=== PATIENT | female | born 1955 | race Caucasian/White ===

== ENCOUNTER 2016-08-28 23:34 | Inpatient (IN) | payer MEDICARE ==
[2016-08-29 01:16] LABS: ABSOLUTE BASOPHILS # (AUTO) 0.1 10^3/uL (0.0-0.2); ABSOLUTE EOSINOPHILS # (AUTO) 0.2 10^3/uL (0.0-0.6); ABSOLUTE LYMPHOCYTES (AUTO) 1.2 10^3/uL (0.5-4.7); ABSOLUTE MONOCYTES (AUTO) 0.9 10^3/uL (0.1-1.4); BASOPHILS % (AUTO) 0.6 % (0-2); EOSINOPHILS % (AUTO) 1.9 % (0-6); HEMATOCRIT 34.5 % (36.0-47.0); HEMOGLOBIN 11.8 g/dL (12.0-15.5); HGB HCT DIFFERENCE 0.9; LYMPHOCYTES % (AUTO) 9.6 % (13-45); MEAN CORPUSCULAR HEMOGLOBIN 29.4 pg (27.0-33.4); MEAN CORPUSCULAR HGB CONC 34.1 g/dL (32.0-36.0); MEAN CORPUSCULAR VOLUME 86 fl (80-97); MONOCYTES % (AUTO) 7.4 % (3-13); RED BLOOD COUNT 4.01 10^6/uL (3.72-5.28); RED CELL DISTRIBUTION WIDTH 14.3 % (11.5-14.0); SEGMENTED NEUTROPHILS % (AUTO) 80.5 % (42-78); WHITE BLOOD COUNT 12.4 10^3/uL (4.0-10.5)
[2016-08-29 01:20] LABS: PROTHROMBIN TIME 12.2 SEC (11.4-15.4)
[2016-08-29 01:43] LABS: ALANINE AMINOTRANSFERASE 16 U/L (9-52); ALKALINE PHOSPHATASE 89 U/L (38-126); ANION GAP 10 (5-19); ASPARTATE AMINO TRANSFERASE 18 U/L (14-36); BILIRUBIN,TOTAL 0.9 mg/dL (0.2-1.3); BLOOD UREA NITROGEN 79 mg/dL (7-20); CARBON DIOXIDE 31 mmol/L (22-30); CHLORIDE 94 mmol/L (98-107); CREATININE RESULT 1.78 mg/dL (0.52-1.25); GLUCOSE 201 mg/dL (75-110); POTASSIUM 4.6 mmol/L (3.6-5.0); SODIUM 135.3 mmol/L (137-145); TOTAL PROTEIN 7.4 g/dL (6.3-8.2)
--- NOTE | 2016-08-29 01:58 | ER Document Report ---
ED Extremity Problem, Lower - General Time seen by provider: 23:45 Mode of Arrival: Medic Information source: Patient, Relative TRAVEL OUTSIDE OF THE [place] IN LAST 30 DAYS: No - HPI Patient complains to provider of: Injury, Swelling Location: Ankle - right, Foot - right Occurred: This evening Where: Home, Indoors Onset/Duration: Sudden Context: Barefoot. denies: Fell Recent injury: Yes <WILBERT US - Last Filed: 08/29/16 03:00> <MARGUERITE RIVER - Last Filed: 08/29/16 05:16> - General Stated Complaint: RIGHT FOOT PAIN Notes: Patient is a 60 year old female presenting to the emergency department complaining of a right ankle deformity. Patient states she was walking at home when her right leg suddenly felt like it was dragging. Patient denies falling or tripping. Patient's daughters had a picture of the deformity on their cellular device. Patient's ankle at the time of exam does not appear as deformed as it did in the photograph. Patient has a history of neuropathy, diabetes mellitus, CHF, pulmonary hypertension, stage III colon cancer, and a hernia. Patient states that she is not a good candidate for surgery due to her medical history. Patient's PCP is Dr. Joyce and states that she saw him earlier today. (WILBERT US) - Related Data Allergies/Adverse Reactions: No Known Allergies Allergy (Unverified 08/29/16 04:39) Home Medications: Current Home Medications Albuterol Sulfate [Proair HFA Inhalation Aerosol 8.5 gm MDI] 2 puff IN DAILY 08/03 [History] Amlodipine Besylate [Amlodipine Besylate] 5 mg PO DAILY 08/29/16 [History] Aspirin [Aspirin EC] 81 mg PO DAILY 08/29/16 [History] Budesonide/Formoterol Fumarate [Symbicort HFA 80-4.5 mcg Inhaler 6.9 gm] 1 puff IN DAILY PRN 08/29/16 [History] Cetirizine HCl [Zyrtec 10 mg Tablet] 10 mg PO DAILY PRN 08/29/16 [History] Furosemide [Furosemide] 80 mg PO DAILY 08/29/16 [History] Glipizide [Glipizide] 5 mg PO DAILY 08/29/16 [History] Insulin Glargine,Hum.rec.anlog [Lantus Insulin 100 Unit/1 ml 10 ml] 5 units SQ DAILY 08/29/16 [History] Insulin Glargine,Hum.rec.anlog [Lantus Insulin 100 Unit/1 ml 10 ml] 60 mg SQ HSP 08/29/16 [History] Iron Fum & P/FA/Vit B & C No.9 [Integra Plus Capsule] 1 cap PO DAILY 08/29/16 [ History] Metoprolol Succinate 50 mg PO DAILY 08/29/16 [History] Simvastatin [Simvastatin] 10 mg PO DAILY 08/29/16 [History] Past Medical History - General Information source: Patient - Social History Smoking Status: Unknown if Ever Smoked Family History: None - Past Medical History Cardiac Medical History: Reports: Hx Congestive Heart Failure, Hx Hypertension EENT Medical History: Reports: Eyes - legally blind bilaterally Endocrine Medical History: Reports: Hx Diabetes Mellitus Type 2, Hx Hypothyroidism Renal/ Medical History: Reports: Hx End Stage Renal Disease Malignancy Medical History: Reports: Other - stage III colon cancer GI Medical History: Reports: Other - ventral hernia Musculoskeltal Medical History: Reports Other - neuropathy <WILBERT US - Last Filed: 08/29/16 03:00> Review of Systems - Review of Systems Constitutional: No symptoms reported EENT: No symptoms reported Cardiovascular: No symptoms reported Respiratory: No symptoms reported Gastrointestinal: No symptoms reported Genitourinary: No symptoms reported Female Genitourinary: No symptoms reported Musculoskeletal: See HPI Skin: No symptoms reported Hematologic/Lymphatic: No symptoms reported Neurological/Psychological: No symptoms reported -: Yes All other systems reviewed and negative <WILBERT US - Last Filed: 08/29/16 03:00> Physical Exam - Vital signs Interpretation: Normal - General General appearance: Appears well, Alert In distress: Mild - HEENT Head: Normocephalic, Atraumatic Eyes: Normal Pupils: PERRL Mucous membranes: Normal - Respiratory Respiratory status: No respiratory distress - Abdominal Inspection: Morbidly Obese, Other - ventral hernia Distension: No distension Bowel sounds: Normal Tenderness: Nontender Organomegaly: No organomegaly - Back Back: Normal, Nontender - Extremities General upper extremity: Normal inspection, Normal ROM, Normal strength, Other General lower extremity: Other - no deformity to the left foot/ankle, 2+ pedis pulses bilaterally, able to wiggle toes, pain with ROM of ankle, able to bend knee, good ROM - Neurological Neuro grossly intact: Yes Cognition: Normal Orientation: AAOx4 Marian Coma Scale Eye Opening: Spontaneous Marian Coma Scale Verbal: Oriented Marian Coma Scale Motor: Obeys Commands Marian Coma Scale Total: 15 Speech: Normal Sensory: Other - sensation to light touch is intact - Psychological Associated symptoms: Normal affect, Normal mood - Skin Skin Temperature: Warm Skin Moisture: Dry <WILBERT US - Last Filed: 08/29/16 03:00> Course - Laboratory Result Diagrams: 08/29/16 01:04 08/29/16 01:04 - Consults Dr. Joyce Time consulted: 02:00 [place] Time consulted: 02:03 [facility] Time consulted: 02:35 Dr. Dowell Time consulted: 02:53 <WILBERT US - Last Filed: 08/29/16 03:00> - Laboratory Result Diagrams: 08/29/16 01:04 08/29/16 01:04 <MARGUERITE RIVER - Last Filed: 08/29/16 05:16> - Re-evaluation Re-evalutation: 08/29/16 Patient is a 60-year-old female with history of pulmonary hypertension, congestive heart failure, oxygen dependent comes in complaining of right ankle pain. Patient has a trimalleolar fracture. This is discussed with the patient' s family who stated they would like the patient transfer to tertiary care facility. Both [facility] and [facility] were contacted. They did not want to accept the patient for transfer until orthopedics is able to evaluate the patient. Explained that the patient is a poor surgical candidate and would likely require anesthesia at a higher level of care. Stated that after being evaluated by orthopedics and anesthesia, would consider accepting patient for transfer. This is been discussed with the patient's family. Patient will be admitted to her primary care doctor with orthopedic consult. Patient has been splinted. Patient has been given Dilaudid for pain although she has not had much in the emergency department. Stable time of admission. (MARGUERITE RIVER) - Vital Signs Vital signs: Temp Pulse Resp BP Pulse Ox 98.3 F 61 16 138/58 H 94 08/28/16 23:48 08/28/16 23:48 08/29/16 05:01 08/29/16 05:01 08/29/16 05:01 (MARGU[place] R[place]) - Laboratory Laboratory results interpreted by wy: 08/29/16 08/29/16 01:04 01:04 WBC 12.4 H Hgb 11.8 L Hct 34.5 L RDW 14.3 H Seg Neutrophils % 80.5 H Lymphocytes % 9.6 L Absolute Neutrophils 10.0 H Sodium 135.3 L Chloride 94 L Carbon Dioxide 31 H BUN 79 H Creatinine 1.78 H Est GFR ( Amer) 35 L Est GFR (Non-Af Amer) 29 L Glucose 201 H (WILBERT US) (MARGUERITE RIVER) - Consults Dr. Joyce Reason for consultation: 08/29/16 02:00 Consult for recommended care for patient. 08/29/16 02:[address] Joyce about the calls to multiple transfer centers and the outcomes. Patient will be admitted for orthopedics to see her in the morning. (WILBERT US) [place] Reason for consultation: 08/29/16 02:03 Consult for possible transfer, [facility] recommends that the patient be admitted and be seen by [facility] orthopedics first before transfer. (WILBERT US) [facility] Reason for consultation: 08/29/16 02:35 Called for possible transfer. Orthopedics will not discuss patient until patient is evaluated by [facility] orthopedics. 08/29/16 02:[address] Cobb to update on patient's situation and the consult with [facility] orthopedics. Patient will need surgery at a tertiary care center. Patient will be seen by orthopedics in the morning. (WILBERT US) Dr. Dowell Reason for consultation: 08/29/16 02:[address] Dowell about patient. Patient will require a surgery at a tertiary care center. (WILBERT US) Critical Care Note - Critical Care Note Total time excluding time spent on procedures (mins): 60 - evaluation and management of ankle deformity with multiple re-evaluations, coordination with tertiary care center, coordination with specialist, coordination of admission, counseling of patient and family <MARGUERITE RIVER - Last Filed: 08/29/16 05:16> Discharge <WILBERT US - Last Filed: 08/29/16 03:00> - Discharge Admitting Provider: [facility] Unit Admitted: Telemetry <MARGUERITE RIVER - Last Filed: 08/29/16 05:16> - Discharge Clinical Impression: Trimalleolar fracture of right ankle Qualifiers: Encounter type: initial encounter Fracture type: closed Qualified Code(s): S82.851A - Displaced trimalleolar fracture of right lower leg, initial encounter for closed fracture Condition: Stable Disposition: ADMITTED INPATIENT Scribe Attestation: 08/29/16 05:16 I personally performed the services described in the documentation, reviewed and edited the documentation which was dictated to the scribe in my presence, and it accurately records my words and actions. (MARGUERITE RIVER) Scribe Documentation <WILBERT US - Last Filed: 08/29/16 03:00> <MARGUERITE RIVER - Last Filed: 08/29/16 05:16> - Scribe Written by Scribe:: LORIN CHEUNG 08/29/16 [id number] Acting as scribe for: Dr. River (WILBERT US) (MARGUERITE RIVER)
[2016-08-29] MEDS ORDERED: HYDROMORPHONE HCL INJ/PF 2 MG/ML AMPULE ONE (02:34)
[2016-08-29] MEDS ORDERED: HYDROMORPHONE HCL INJ/PF 2 MG/ML AMPULE IV ONE (02:37)
--- NOTE | 2016-08-29 07:55 | PDOC CONSULTATION ---
History of Present Illness Admission Date/PCP: 08/29/16 04:53 Patient complains of: left ankle pain History of Present Illness: JOJO BACK is a 60 year old female complaining of right ankle pain She states she felt a pop in her ankle yesterday when ambulating and ultimately had significant pain and fell onto her right side. She denies any previous ankle discomfort or pain prior to this episode. She does admit to neuropathy. Patient has been unable to ambulating secondary to her most recent episode. Pain 4/5. Describes as a sharp stabbing pain. Past Medical History Cardiac Medical History: Reports: Congestive Heart Failure, Hypertension EENT Medical History: Reports: Eyes - legally blind bilaterally Endocrine Medical History: Reports: Diabetes Mellitus Type 2, Hypothyroidism Renal/ Medical History: Reports: End Stage Renal Disease Malignancy Medical History: Reports: Other - stage III colon cancer GI Medical History: Reports: Other - ventral hernia Musculoskeltal Medical History: Reports: Other - neuropathy Social History Smoking Status: Unknown if Ever Smoked - Advance Directive Resuscitation Status: Full Code Family History Family History: None Parental Family History Reviewed: No Children Family History Reviewed: No Sibling(s) Family History Reviewed.: No Medication/Allergy Home Medications: Albuterol Sulfate [Proair HFA Inhalation Aerosol 8.5 gm MDI] 2 puff IN DAILY 08/03 Amlodipine Besylate [Amlodipine Besylate] 5 mg PO DAILY 08/29/16 Aspirin [Aspirin EC] 81 mg PO DAILY 08/29/16 Budesonide/Formoterol Fumarate [Symbicort HFA 80-4.5 mcg Inhaler 6.9 gm] 1 puff IN DAILY PRN 08/29/16 Cetirizine HCl [Zyrtec 10 mg Tablet] 10 mg PO DAILY PRN 08/29/16 Furosemide [Furosemide] 80 mg PO DAILY 08/29/16 Glipizide [Glipizide] 5 mg PO DAILY 08/29/16 Insulin Glargine,Hum.rec.anlog [Lantus Insulin 100 Unit/1 ml 10 ml] 5 units SQ DAILY 08/29/16 Insulin Glargine,Hum.rec.anlog [Lantus Insulin 100 Unit/1 ml 10 ml] 60 mg SQ HSP 08/29/16 Iron Fum & P/FA/Vit B & C No.9 [Integra Plus Capsule] 1 cap PO DAILY 08/29/16 Metoprolol Succinate 50 mg PO DAILY 08/29/16 Simvastatin [Simvastatin] 10 mg PO DAILY 08/29/16 Allergies/Adverse Reactions: No Known Allergies Allergy (Unverified 08/29/16 04:39) Review of Systems Constitutional: ABSENT: chills, fever(s), headache(s), weight gain, weight loss Eyes: ABSENT: visual disturbances Ears: ABSENT: hearing changes Cardiovascular: ABSENT: chest pain, dyspnea on exertion, edema, orthropnea, palpitations Respiratory: PRESENT: other - Patient requires chronic oxygen.. ABSENT: hemoptysis Gastrointestinal: ABSENT: abdominal pain, constipation, diarrhea, hematemesis, hematochezia, nausea, vomiting Genitourinary: ABSENT: dysuria, hematuria Musculoskeletal: PRESENT: as per HPI Integumentary: ABSENT: rash, wounds Neurological: ABSENT: abnormal gait, abnormal speech, confusion, dizziness, focal weakness, syncope Psychiatric: ABSENT: anxiety, depression, homidical ideation, suicidal ideation Endocrine: ABSENT: cold intolerance, heat intolerance, menstrual abnormalities, polydipsia, polyuria Hematologic/Lymphatic: ABSENT: easy bleeding, easy bruising, lymphadenopathy Physical Exam Vital Signs: Temp Pulse Resp BP Pulse Ox 98.3 F 64 16 105/48 L 93 08/28/16 23:48 08/29/16 05:10 08/29/16 06:01 08/29/16 06:01 08/29/16 06:01 General appearance: PRESENT: no acute distress, cooperative, morbidly obese Head exam: PRESENT: atraumatic, normocephalic Eye exam: PRESENT: EOMI, PERRLA Mouth exam: PRESENT: moist Neck exam: PRESENT: full ROM Respiratory exam: PRESENT: unlabored Cardiovascular exam: PRESENT: RRR Pulses: PRESENT: +1 pedal pulses bilateral GI/Abdominal exam: PRESENT: soft, other - Obese Musculoskeletal exam: PRESENT: other - Right ankle: Splint clean/dry/intact. Intact flexion extension of the toes. Cap refill less than 2 seconds. No pain with passive stretch. Decreased sensation secondary to chronic neuropathy. Neurological exam: PRESENT: alert, awake, oriented to person, oriented to place , oriented to time, oriented to situation Psychiatric exam: PRESENT: normal mood Results Impressions: Ankle X-Ray 08/28/16 23:35 IMPRESSION: Tri malleolar fracture with posteromedial angulation. Distal fibular fracture appears to be healing. Osteopenia. Foot X-Ray 08/28/16 23:35 IMPRESSION: No acute fracture of the right foot. Status: Image reviewed by me - I have reviewed patient's radiographs which demonstrate a trimalleolar ankle fracture with medial displacement and posterior subluxation. Assessment & Plan - Diagnosis (1) Trimalleolar fracture of right ankle Qualifiers: Encounter type: initial encounter Fracture type: closed Qualified Code(s): S82.851A - Displaced trimalleolar fracture of right lower leg, initial encounter for closed fracture Is this a current diagnosis for this admission?: YesPlan: Patient has a fairly complicated history of interstitial lung disease, pulmonary hypertension and has been told in the past she is a poor surgical candidate. She does require operative intervention given the amount of displacement and angulation of her ankle fracture. Given her high risk of anesthesia she would likely be better served at a tertiary care center. We will discuss case with anesthesia and Dr. Joyce and make final determinations. Meantime patient will maintain nonweightbearing and elevation.
[2016-08-29] MEDS ORDERED: DEXTROSE 40% GEL 15 GM TUBE PO PRN ×2 (08:50)
[2016-08-29] MEDS ORDERED: DEXTROSE 50%-WATER 25 GM/50 ML DISP.SYRIN IV PRN ×2 (08:50)
[2016-08-29] MEDS ORDERED: GLUCAGON,HUMAN RECOMB 1 MG INJ IM PRN (08:50)
[2016-08-29] MEDS ORDERED: INSULIN GLARGINE,HUM.REC.ANLOG 1,000 UNIT/10 ML UNIT SUBCUT SCH ×4 (09:00→22:00)
[2016-08-29] MEDS ORDERED: GLIPIZIDE 5 MG TABLET PO ONE (09:15)
[2016-08-29] MEDS ORDERED: LANSOPRAZOLE 30 MG TAB.RAP.DR PO ONE (09:15)
[2016-08-29] MEDS ORDERED: AMLODIPINE BESYLATE 5 MG TABLET PO SCH (10:00)
[2016-08-29] MEDS ORDERED: ALBUTEROL SULFATE HFA (90 MCG/PUFF) 200 PUFF/8.5 GM MDI IH PRN (10:00)
[2016-08-29] MEDS ORDERED: METOPROLOL SUCCINATE 50 MG TAB.SR.24H PO SCH (10:00)
[2016-08-29] MEDS ORDERED: [UNRECOGNIZED DRUG - OTHER] PO SCH (10:00)
[2016-08-29] MEDS ORDERED: IRON FUM PO SCH (10:00)
[2016-08-29] MEDS ORDERED: VIT B PO SCH (10:00)
[2016-08-29] MEDS ORDERED: FUROSEMIDE 80 MG TABLET PO SCH (10:00)
[2016-08-29] MEDS ORDERED: ASPIRIN 81 MG TABLET, ENT COATED PO SCH (10:00)
[2016-08-29] MEDS ORDERED: FERROUS SULFATE 325 MG TABLET PO SCH (10:00)
[2016-08-29] MEDS ORDERED: C NO 9 PO SCH (10:00)
[2016-08-29] MEDS: MORPHINE SULFATE 10 MG/ML INJ IV PRN ×2 (10:14→20:06)
[2016-08-29 10:39] LABS: HEMATOCRIT 32.8 % (36.0-47.0); HGB HCT DIFFERENCE 0.2; MEAN CORPUSCULAR HEMOGLOBIN 29.3 pg (27.0-33.4); MEAN CORPUSCULAR HGB CONC 33.6 g/dL (32.0-36.0); MEAN CORPUSCULAR VOLUME 87 fl (80-97); RED BLOOD COUNT 3.76 10^6/uL (3.72-5.28); RED CELL DISTRIBUTION WIDTH 14.5 % (11.5-14.0); WHITE BLOOD COUNT 10.1 10^3/uL (4.0-10.5)
[2016-08-29 10:45] LABS: PROTHROMBIN TIME 12.6 SEC (11.4-15.4)
[2016-08-29 10:46] LABS: PARTIAL THROMBOPLASTIN TIME 22.6 SEC (23.5-35.8)
--- NOTE | 2016-08-29 10:57 | PDOC H&P ---
History of Present Illness Admission Date/PCP: 08/29/16 08:43 History of Present Illness: JOJO BACK is a 60 year old female complaining of right ankle pain. Patient reported that upon usage of her toilet commode and ambulating out of the toilet, she felt a pop in her right ankle joint with associated significant pain and subsequently fell onto her right side. She denies any previous ankle discomfort or pain prior to this episode. She does admit to history of charcot joint affecting same joint with neuropathy. Patient has been unable to ambulating secondary to her most recent episode. She described her pain as sharp and rated pain currently at 4/5. She denied any prior trauma or similar event in the past. Past Medical History Cardiac Medical History: Reports: Congestive Heart Failure, Hyperlipidema, Hypertension Pulmonary Medical History: Reports: Other - pulmonary fibrosis (scarring), Pulmonary Hypertension EENT Medical History: Reports: Eyes - legally blind bilaterally Neurological Medical History: Reports: Other - Neuropathy related to her long standing diabetes mellitus type 2 Endocrine Medical History: Reports: Diabetes Mellitus Type 2, Hypothyroidism Renal/ Medical History: Reports: End Stage Renal Disease Malignancy Medical History: Reports: Colorectal Cancer, Other - stage III colon cancer GI Medical History: Reports: Other - large ventral hernia Musculoskeltal Medical History: Reports: Other - Right ankle Charcot joint. Social History Smoking Status: Unknown if Ever Smoked - Advance Directive Resuscitation Status: Full Code Family History Family History: None Parental Family History Reviewed: Yes Children Family History Reviewed: Yes Sibling(s) Family History Reviewed.: Yes Medication/Allergy Home Medications: Albuterol Sulfate [Proair HFA Inhalation Aerosol 8.5 gm MDI] 2 puff IN DAILY 08/03 Amlodipine Besylate [Amlodipine Besylate] 5 mg PO DAILY 08/29/16 Aspirin [Aspirin EC] 81 mg PO DAILY 08/29/16 Budesonide/Formoterol Fumarate [Symbicort HFA 80-4.5 mcg Inhaler 6.9 gm] 1 puff IN DAILY PRN 08/29/16 Cetirizine HCl [Zyrtec 10 mg Tablet] 10 mg PO DAILY PRN 08/29/16 Furosemide [Furosemide] 80 mg PO DAILY 08/29/16 Glipizide [Glipizide] 5 mg PO DAILY 08/29/16 Insulin Glargine,Hum.rec.anlog [Lantus Insulin 100 Unit/1 ml 10 ml] 5 units SQ DAILY 08/29/16 Insulin Glargine,Hum.rec.anlog [Lantus Insulin 100 Unit/1 ml 10 ml] 60 mg SQ HSP 08/29/16 Iron Fum & P/FA/Vit B & C No.9 [Integra Plus Capsule] 1 cap PO DAILY 08/29/16 Metoprolol Succinate 50 mg PO DAILY 08/29/16 Simvastatin [Simvastatin] 10 mg PO DAILY 08/29/16 Allergies/Adverse Reactions: No Known Allergies Allergy (Unverified 08/29/16 04:39) Physical Exam Vital Signs: Temp Pulse Resp BP Pulse Ox 98.3 F 64 16 105/48 L 93 08/28/16 23:48 08/29/16 05:10 08/29/16 06:01 08/29/16 06:01 08/29/16 06:01 General appearance: PRESENT: no acute distress, morbidly obese Head exam: PRESENT: atraumatic, normocephalic Eye exam: PRESENT: conjunctiva pink, EOMI, PERRLA. ABSENT: scleral icterus Ear exam: PRESENT: normal external ear exam Mouth exam: PRESENT: moist, tongue midline Teeth exam: PRESENT: poor dentation Throat exam: ABSENT: post pharyngeal erythema, tonsillar erythema, tonsillar exudate, tonsillogmegaly, other Neck exam: PRESENT: full ROM. ABSENT: carotid bruit, JVD, lymphadenopathy, thyromegaly Respiratory exam: PRESENT: decreased breath sounds - at lung bases. Remain on supplemetal oxygen at 2L/min. ABSENT: accessory muscle use, chest wall tenderness, clear to auscultation jerome, crackles, prolonged expiratory phas, rales, retraction, rhonchi, stridor, symmetrical, tachypnea, unlabored, wheezes , other Cardiovascular exam: PRESENT: RRR. ABSENT: diastolic murmur, rubs, systolic murmur Vascular exam: PRESENT: normal capillary refill, pallor GI/Abdominal exam: PRESENT: hernia - large ventral hernia. ABSENT: ascites, diminished bowel sounds, distended, firm, guarding, hyperactive bowel sounds, hypoactive bowel sounds, mass, Scott's sign, normal bowel sounds, organolmegaly , rebound, rigid, soft, tenderness, other Rectal exam: PRESENT: deferred Musculoskeletal exam: PRESENT: other - Right leg/ankle splint in place. Neurological exam: PRESENT: alert, oriented to person, oriented to place, oriented to time, CN II-XII grossly intact Additional comments: Bedbound at the time of my assessment Psychiatric exam: PRESENT: appropriate affect, normal mood. ABSENT: homicidal ideation, suicidal ideation Results Impressions: Ankle X-Ray 08/28/16 23:35 IMPRESSION: Tri malleolar fracture with posteromedial angulation. Distal fibular fracture appears to be healing. Osteopenia. Foot X-Ray 08/28/16 23:35 IMPRESSION: No acute fracture of the right foot. Status: Image reviewed by me - Trimalleolar posteriorly displaced fracture, distal fibular fracture Assessment & Plan - Diagnosis (1) Morbid obesity Is this a current diagnosis for this admission?: Yes (2) Pulmonary hypertension Is this a current diagnosis for this admission?: Yes (3) Pulmonary fibrosis Is this a current diagnosis for this admission?: Yes (4) Diabetes mellitus type 2 with complications Is this a current diagnosis for this admission?: Yes (5) Ventral hernia without obstruction or gangrene Is this a current diagnosis for this admission?: Yes (7) Trimalleolar fracture of right ankle Qualifiers: Encounter type: initial encounter Fracture type: closed Qualified Code(s): S82.851A - Displaced trimalleolar fracture of right lower leg, initial encounter for closed fracture Is this a current diagnosis for this admission?: Yes (8) Diastolic CHF, chronic Is this a current diagnosis for this admission?: Yes (9) Hyperlipidemia associated with type 2 diabetes mellitus Is this a current diagnosis for this admission?: Yes - Time Time Spent: Greater than 70 Minutes - including care coordination with orthopedic surgeon, transfer coordination with [facility] transfer center Medications reviewed and adjusted accordingly: Yes Anticipated discharge: Tertiary Hospital - currently in coordination with [facility] as per patient and family wish. Anesthesiologist considered patient at high risk due to her comorbidities at our facility. Orthopedic surgeon recommend transfer to tertiary center. - Inpatient Certification Based on my medical assessment, after consideration of the patient's comorbidities, presenting symptoms, or acuity I expect that the services needed warrant INPATIENT care.: Yes I certify that my determination is in accordance with my understanding of Medicare's requirements for reasonable and necessary INPATIENT services [42 CFR 412.3e].: Yes Medical Necessity: Risk of Complication if Not Cared For in Hospital Post Hospital Care: D/C or Transfer Summary - Plan Summary Plan Summary: see admitting physician orders.
[2016-08-29] MEDS: INSULIN LISPRO 100 UNIT/ML 3 ML VIAL SUBCUT PRN ×2 (11:38→17:19)
[2016-08-29] MEDS: INSULIN LISPRO 100 UNIT/ML 3 ML VIAL SUBCUT SCH ×2 (11:38→17:19)
[2016-08-29] MEDS: BUDESONIDE/FORMOTEROL 80-4.5 MCG 60 PUFF/6.9 GM MDI IH SCH ×2 (11:44→22:12)
[2016-08-29] MEDS: OXYCODONE-ACETAMINOPHEN 5-325 MG TABLET PO PRN ×2 (17:33→23:21)
--- NOTE | 2016-08-29 17:55 | PDOC TRANSFER SUMMARY ---
General Admission Date/PCP: 08/29/16 08:43 Accepting Facility: [facility] Accepting Physician: Dr. Grey Resuscitation Status: Full Code - Transfer Diagnosis (1) Morbid obesity Current Visit: Yes (2) Pulmonary hypertension Current Visit: Yes (3) Pulmonary fibrosis Current Visit: Yes (4) Diabetes mellitus type 2 with complications Current Visit: Yes (5) Ventral hernia without obstruction or gangrene Current Visit: Yes (6) Charcot's joint arthropathy in type 2 diabetes mellitus Current Visit: Yes (7) Trimalleolar fracture of right ankle Current Visit: Yes (8) Diastolic CHF, chronic Current Visit: Yes (9) Hyperlipidemia associated with type 2 diabetes mellitus Current Visit: Yes - Transfer Medications Home Medications: Albuterol Sulfate [Proair HFA Inhalation Aerosol 8.5 gm MDI] 2 puff IN DAILY 08/03 Amlodipine Besylate [Amlodipine Besylate] 5 mg PO DAILY 08/29/16 Aspirin [Aspirin EC] 81 mg PO DAILY 08/29/16 Budesonide/Formoterol Fumarate [Symbicort HFA 80-4.5 mcg Inhaler 6.9 gm] 1 puff IN DAILY 08/29/16 Cetirizine HCl [Zyrtec 10 mg Tablet] 10 mg PO DAILYP PRN 08/29/16 Furosemide [Furosemide] 80 mg PO DAILY 08/29/16 Glipizide [Glipizide] 5 mg PO DAILY 08/29/16 Insulin Glargine,Hum.rec.anlog [Lantus Insulin 100 Unit/1 ml 10 ml] 5 units SQ DAILY 08/29/16 Insulin Glargine,Hum.rec.anlog [Lantus Insulin 100 Unit/1 ml 10 ml] 60 units SQ QHS 08/29/16 Iron Fum & P/FA/Vit B & C No.9 [Integra Plus Capsule] 1 cap PO DAILY 08/29/16 Metoprolol Succinate 50 mg PO DAILY 08/29/16 Simvastatin [Simvastatin] 10 mg PO DAILY 08/29/16 Transfer Medications: Current Medications Albuterol (Proair Hfa Inhalation Aerosol 8.5 Gm Mdi) 2 puff IH Q4HP PRN PRN Reason: SHORTNESS OF BREATH Stop: 09/28/16 09:59 Amlodipine Besylate (Norvasc 5 Mg Tablet) 5 mg PO DAILY [facility] Stop: 09/28/16 09:59 Last Admin: 08/29/16 11:48 Dose: 5 mg Aspirin (Ecotrin 81 Mg Ec Tablet) 81 mg PO DAILY [facility] Stop: 09/28/16 09:59 Last Admin: 08/29/16 11:49 Dose: 81 mg Budesonide/Formoterol Fumarate (Symbicort Hfa 80-4.5 Mcg Inhaler 6.9 Gm) 2 puff IH Q12 [facility] Stop: 09/28/16 09:59 Last Admin: 08/29/16 11:44 Dose: 2 puff Dextrose (Dextrose Inj 50% Syringe (25 Gm/50 Ml)) 12.5 gm IV PRN PRN; Protocol PRN Reason: FOR BG 50-69 IN ALERT PATIENT Stop: 09/28/16 08:49 Dextrose (Dextrose Inj 50% Syringe (25 Gm/50 Ml)) 25 gm IV PRN PRN PRN Reason: Protocol Stop: 09/28/16 08:49 Enoxaparin Sodium (Lovenox Inj 40 Mg/0.4 Ml Disp.Syrin) 40 mg SUBCUT QAM [facility] Stop: 09/29/16 07:59 Ferrous Sulfate (Feosol 325 Mg Tablet) 325 mg PO DAILY [facility] Stop: 09/28/16 09:59 Last Admin: 08/29/16 11:52 Dose: Not Given Furosemide (Lasix 80 Mg Tablet) 80 mg PO DAILY [facility] Stop: 09/28/16 09:59 Last Admin: 08/29/16 11:45 Dose: 80 mg Glipizide (Glucotrol 5 Mg Tablet) 5 mg PO QAM [facility] Stop: 09/29/16 07:59 Glucagon (Glucagen Inj 1 Mg Vial) 1 mg IM PRN PRN; Protocol PRN Reason: Evaluate for BG < 70 Stop: 09/28/16 08:49 Glucose (Glutose 40% Gel 15 Gm Tube) 15 gm PO PRN PRN; Protocol PRN Reason: FOR BG 50-69 IN ALERT PATIENT Stop: 09/28/16 08:49 Glucose (Glutose 40% Gel 15 Gm Tube) 30 gm PO PRN PRN; Protocol PRN Reason: FOR BG < 50 IN ALERT PATIENT Stop: 09/28/16 08:49 Insulin Glargine (Lantus Insulin 100 Unit/1 Ml 10 Ml) 60 unit SUBCUT QHS [facility] Stop: 09/28/16 21:59 Insulin Human Lispro (Humalog Insulin 100 Unit/1 Ml 3 Ml Vial) 0 - 12 unit SUBCUT ACHSP PRN PRN Reason: Protocol Stop: 09/28/16 08:49 Last Admin: 08/29/16 17:19 Dose: 4 unit Insulin Human Lispro (Humalog Insulin 100 Unit/1 Ml 3 Ml Vial) 5 unit SUBCUT AC [facility] Stop: 09/28/16 10:59 Last Admin: 08/29/16 17:19 Dose: 5 unit Lansoprazole (Prevacid 30 Mg Odt Tablet) 30 mg PO Q6AM [facility] Stop: 09/29/16 05:59 Metoprolol Succinate (Toprol Xl 50 Mg Tab.Sr) 50 mg PO DAILY [facility] Stop: 09/28/16 09:59 Last Admin: 08/29/16 11:46 Dose: 50 mg Morphine Sulfate (Morphine 10 Mg/Ml Inj) 2 mg IV Q4HP PRN PRN Reason: SEVERE PAIN Stop: 09/05/16 07:54 Last Admin: 08/29/16 10:14 Dose: 2 mg Oxycodone/Acetaminophen (Percocet 5-325 Mg Tablet) 2 tab PO Q6HP PRN PRN Reason: MILD PAIN Stop: 09/05/16 07:54 Last Admin: 08/29/16 17:33 Dose: 2 tab Simvastatin (Zocor 10 Mg Tablet) 10 mg PO QHS [facility] Stop: 09/28/16 21:59 - Allergies Allergies/Adverse Reactions: No Known Allergies Allergy (Unverified 08/29/16 04:39) - Diet/Activity Discharge Diet: Cardiac, Diabetic Discharge Activity: Slowly Increase Activity - as instructed upon discharge Hospital Course Hospital Course: Patient was admitted for right ankle tri malleolar posteriorly displaced fracture as confirmed by her right ankle X ray. There was right distal fibular fracture character on the same X ray with some degree of healing process. She was seen in consultation by orthopedic surgeon, Dr. Dowell, and after consulting with anesthesiologist, deem patient high risk due to her comorbidities at this facility. Family and patient expressed wish for transfer to [facility] for tertiary care plan. I maintain her on pain management as listed on her transfer medication, DVT prophylaxis, PUD prophylaxis and right ankle immobilizer device. Patient remain on her preadmission medications. She will be transferred to [facility] whenever bed is made available. During my subsequent rounding on the patient this evening there was suggestion of cloudy and mal odor urine by the nursing staff. We will obtain urinalysis with culture and manage as indicated. Physical Exam Vital Signs: Temp Pulse Resp BP Pulse Ox 98.3 F 64 16 105/48 L 93 08/28/16 23:48 08/29/16 05:10 08/29/16 06:01 08/29/16 06:01 08/29/16 06:01 General appearance: PRESENT: no acute distress, morbidly obese Head exam: PRESENT: atraumatic, normocephalic Eye exam: PRESENT: conjunctiva pink, EOMI, PERRLA. ABSENT: scleral icterus Ear exam: PRESENT: normal external ear exam Mouth exam: PRESENT: moist, tongue midline Neck exam: ABSENT: carotid bruit, JVD, lymphadenopathy, thyromegaly Respiratory exam: PRESENT: clear to auscultation jerome. ABSENT: rales, rhonchi, wheezes Cardiovascular exam: PRESENT: RRR. ABSENT: diastolic murmur, rubs, systolic murmur GI/Abdominal exam: PRESENT: hernia. ABSENT: ascites, diminished bowel sounds, distended, firm, guarding, hyperactive bowel sounds, hypoactive bowel sounds, mass, Scott's sign, normal bowel sounds, organolmegaly, rebound, rigid, soft, tenderness, other Musculoskeletal exam: PRESENT: deformity - due to arthritis involving multiple joints and right ankle charcot character, dislocation - right ankle joint Neurological exam: PRESENT: alert, awake, oriented to person, oriented to place , oriented to time, oriented to situation, CN II-XII grossly intact. ABSENT: motor sensory deficit Psychiatric exam: PRESENT: appropriate affect, normal mood. ABSENT: homicidal ideation, suicidal ideation Skin exam: PRESENT: dry, intact, warm. ABSENT: cyanosis, rash Results Laboratory Results: 08/29/16 10:19 08/29/16 10:19 08/29/16 08/29/16 10:19 10:19 WBC 10.1 RBC 3.76 Hgb 11.0 L Hct 32.8 L MCV 87 MCH 29.3 MCHC 33.6 RDW 14.5 H Plt Count 196 Creatinine 1.90 H Est GFR ( Amer) 33 L Est GFR (Non-Af Amer) 27 L Impressions: Ankle X-Ray 08/28/16 23:35 IMPRESSION: Tri malleolar fracture with posteromedial angulation. Distal fibular fracture appears to be healing. Osteopenia. Foot X-Ray 08/28/16 23:35 IMPRESSION: No acute fracture of the right foot. Plan Discharge Plan: Transfer to [facility] for surgical orthopedic intervention. Time Spent: Greater than 30 Minutes
[2016-08-29] MEDS ORDERED: INFLUENZA ADLT QUAD (36MOS+) 2016-17 VAC 0.5 ML SYR IM PRN (18:42)
[2016-08-29 20:49] LABS: APPEARANCE,URINE TURBID; BILIRUBIN,URINE NEGATIVE (NEGATIVE); GLUCOSE, URINE 50 mg/dL (NEGATIVE); KETONES,URINE NEGATIVE (NEGATIVE); LEUKOCYTE ESTERASE,URINE LARGE (NEGATIVE); NITRITE,URINE NEGATIVE (NEGATIVE); PROTEIN,URINE 30 mg/dL (NEGATIVE); UROBILINOGEN,URINE NEGATIVE mg/dL (<2.0)
[2016-08-29] MEDS ORDERED: SIMVASTATIN 10 MG TABLET PO SCH (22:00)
[2016-08-29] MEDS ORDERED: CEFTRIAXONE 1 GM/D5W RTU 1 GM/50 ML RTUPB IV ONE (23:00)
[2016-08-30 00:10] VITALS: BP 123/53
[2016-08-30] MEDS ORDERED: LANSOPRAZOLE 30 MG TAB.RAP.DR PO SCH (06:00)
[2016-08-30] MEDS ORDERED: ENOXAPARIN SODIUM INJ 40 MG/0.4 ML DISP.SYRIN SUBCUT SCH (08:00)
[2016-08-30] MEDS ORDERED: GLIPIZIDE 5 MG TABLET PO SCH (08:00)
[2016-08-30] MEDS ORDERED: CEFTRIAXONE 1 GM/D5W RTU 1 GM/50 ML RTUPB IV SCH (10:00)
== END 2016-08-30 00:55 | disposition short-term general hospital (02) | DRG 562 ==
LOC: ER 23:34 → EH 08-29 04:53 → UNDOADMIN 08-29 04:53 → 4N 08-29 06:55 → EH 08-29 06:55 → 4N 08-29 08:43
PROVIDERS: ADMIT Internal Medicine Geriatric Medicine; ATTEND Internal Medicine Geriatric Medicine
DX: S82.851A Displaced trimalleolar fracture of right lower leg, initial encounter for closed fracture (principal); N18.6 End stage renal disease; C18.9 Malignant neoplasm of colon, unspecified; I50.32 Chronic diastolic (congestive) heart failure; I13.2 Hypertensive heart and chronic kidney disease with heart failure and with stage 5 chronic kidney disease, or end stage renal disease; Z68.43 Body mass index [BMI] 50.0-59.9, adult; E11.610 Type 2 diabetes mellitus with diabetic neuropathic arthropathy; E11.22 Type 2 diabetes mellitus with diabetic chronic kidney disease; J84.10 Pulmonary fibrosis, unspecified; I27.2 Other secondary pulmonary hypertension; E03.9 Hypothyroidism, unspecified; E78.5 Hyperlipidemia, unspecified; K43.9 Ventral hernia without obstruction or gangrene; H54.8 Legal blindness, as defined in USA; E66.01 Morbid (severe) obesity due to excess calories; X58.XXXA Exposure to other specified factors, initial encounter; Y93.01 Activity, walking, marching and hiking; Y92.019 Unspecified place in single-family (private) house as the place of occurrence of the external cause; Z99.81 Dependence on supplemental oxygen; Z79.84 Long term (current) use of oral hypoglycemic drugs; Z79.4 Long term (current) use of insulin; Z79.82 Long term (current) use of aspirin; Z75.1 Person awaiting admission to adequate facility elsewhere; Z28.89 Immunization not carried out for other reason
CPT/HCPCS: 36415; 80053; 81001; 82565; 82962; 85025; 85027; 85610; 85730; 87086; 87088; 87186; 96374; 99291; J0696; J1170; J1815; J2270; J3490

== ENCOUNTER 2016-10-09 13:40 | Emergency (ER) | payer MEDICARE ==
[2016-10-09] MEDS ORDERED: FLUCONAZOLE 100 MG TABLET PO ONE (15:21)
--- NOTE | 2016-10-09 15:42 | ER Document Report ---
ED General - General Time seen by provider: 15:00 Mode of Arrival: Wheelchair Information source: Patient TRAVEL OUTSIDE OF THE [place] IN LAST 30 DAYS: No - HPI Patient complains to provider of: Renal complications and Constipation Associated symptoms: Other - see above <HIPOLITO MILLER - Last Filed: 10/09/16 23:57> <TERESA BRYANT - Last Filed: 10/15/16 14:18> - General Chief Complaint: Urinary Problem Stated Complaint: URINARY ISSUES Notes: 61 year old female with history of a right trimalleolar fracture (3 weeks ago), chronic renal failure, and right charcot joint presents to the ED complaining of renal complications and constipation secondary to narcotic use. Patient's states that he has been regulating how many narcotics the patient gets a day (down to 1 a day). Patient was on a lot of pain medication after the surgery. Patient had a right ankle surgery at [facility] secondary to the fracture and developed a yeast infection in her bladder. The states that the physician at [facility] was unable to treat the infection because the medication would exacerbate her hypertension. also reports that they are arranging transport for the patient to go to [facility] for follow up appointments. Patient's primary care provider is Dr. Mike. (HIPOLITO MILLER) - Related Data Allergies/Adverse Reactions: spironolactone Adverse Reaction (Verified 08/29/16 18:30) Past Medical History - General Information source: Patient - Social History Smoking Status: Unknown if Ever Smoked Family History: None - Past Medical History Cardiac Medical History: Reports: Hx Congestive Heart Failure, Hx Hypercholesterolemia, Hx Hypertension Endocrine Medical History: Reports: Hx Diabetes Mellitus Type 2, Hx Hypothyroidism Renal/ Medical History: Reports: Hx End Stage Renal Disease Malignancy Medical History: Reports: Hx Colorectal Cancer Psychiatric Medical History: Reports: Hx Depression Past Surgical History: Reports: Hx Orthopedic Surgery - right ankle surgery secondary to trimalleolar fracture 09/2016 - Immunizations Hx Pneumococcal Vaccination: 08/18/12 <HIPOLITO MILLER - Last Filed: 10/09/16 23:57> Review of Systems - Review of Systems Constitutional: No symptoms reported EENT: No symptoms reported Cardiovascular: No symptoms reported Respiratory: No symptoms reported Gastrointestinal: See HPI, Constipation Genitourinary: See HPI, Other - possible yeast infection in the bladder Female Genitourinary: No symptoms reported Musculoskeletal: No symptoms reported Skin: No symptoms reported Hematologic/Lymphatic: No symptoms reported Neurological/Psychological: No symptoms reported -: Yes All other systems reviewed and negative <HIPOLITO MILLER - Last Filed: 10/09/16 23:57> Physical Exam - General General appearance: Alert In distress: None - HEENT Head: Normocephalic, Atraumatic Eyes: Normal Extraocular movements intact: Yes Pupils: PERRL - Respiratory Respiratory status: No respiratory distress Breath sounds: Normal - Cardiovascular Rhythm: Regular Heart sounds: Normal auscultation - Abdominal Inspection: Morbidly Obese, Other - Massive anterior ventral hernia that is reducible.. No: Normal Distension: No distension Bowel sounds: Normal Tenderness: Nontender - Back Back: Normal - Extremities General upper extremity: Normal inspection, Normal ROM General lower extremity: No: Normal inspection - see foot exam Foot: Other - external fixator in place of the right lower extremity secondary to trimalleolar fracture. No sign of infection, cellulitis, or drainage. Good perfusion with no sign of skin infection. - Neurological Neuro grossly intact: Yes Cognition: Normal Orientation: AAOx4 [place] Coma Scale Eye Opening: Spontaneous [place] Coma Scale Verbal: Oriented [place] Coma Scale Motor: Obeys Commands Marian Coma Scale Total: 15 Speech: Normal - Psychological Associated symptoms: Normal affect, Normal mood - Skin Skin Temperature: Warm Skin Moisture: Dry Skin Color: Normal <HIPOLITO MILLER - Last Filed: 10/09/16 23:57> Course - Laboratory Result Diagrams: 10/09/16 17:25 10/09/16 17:25 <HIPOLITO MILLER - Last Filed: 10/09/16 23:57> - Laboratory Result Diagrams: 10/09/16 17:25 10/09/16 17:25 <TERESA BRYANT - Last Filed: 10/15/16 14:18> - Re-evaluation Re-evalutation: 10/09/16 18:33 I personally performed the services described in the documentation, reviewed and edited the documentation which was dictated to my scribe in my presence, and it accurately records my words and actions. Significant delay in obtaining urine specimen is ordered 3-1/2 hours ago. Multiple questioning to the nurse and tech at the bedside said that she wanted to finish up what she was doing before she had it. It is still pending at this moment was just sent down to the lab. Her creatinine is elevated pending urinalysis. 10/09/16 20:42 Patient presents to the emergency department with multiple concerns that he may can't get in with her primary care physician Dr. Duke since they've been back from [place]. Because they are transport. Patient has a history of Charcot joint had reconstructive surgery to her right lower extremity with external fixators at [facility]. They have multiple concerns including the pain meds cause constipation. She has a large mass in the anterior ventral hernia which is nonoperable at this point too high risk elicits obstructed. She does not have any evidence of obstruction is not vomiting and has good bowel sounds. She is morbidly obese no acute abdominal findings she has a history of chronic renal failure with episode of acute while she was in the hospital. She has baseline renal function now they state that actually good for her. She does have a urinary tract infection after the catheterized urine is back skin her shot of Rocephin for that. They stating that she has a yeast infection of the bladder so I gave her some Diflucan. They're to start her on some MiraLAX. They do have a home health care worker who is made arrangements for them to go back and forth to do that individual needs to make arrangements for her to go to her primary care physician as this patient will have multiple comorbidities, across the require a local primary care physician will not be managed appropriately in the ER or by going to [facility] each time. Discussed this extensively with the family and they understand this they know to return for increasing worsening or new symptoms. ( TERESA BRYANT) - Vital Signs Vital signs: Temp Pulse Resp BP Pulse Ox 97.7 F 59 L 16 113/65 97 10/10/16 08:35 10/10/16 08:35 10/10/16 08:35 10/10/16 08:35 10/10/16 08:35 - Laboratory Laboratory results interpreted by me: 10/09/16 10/09/16 10/09/16 17:25 17:25 18:00 RBC 3.47 L Hgb 9.9 L Hct 30.2 L RDW 16.8 H Lymphocytes % 11.7 L BUN 66 H Creatinine 2.25 H Est GFR ( Amer) 27 L Est GFR (Non-Af Amer) 22 L Urine Protein 100 H Urine Blood SMALL H Ur Leukocyte Esterase MODERATE H Urine Ascorbic Acid 20 H Discharge <HIPOLITO MILLER - Last Filed: 10/09/16 23:57> <TERESA BRYANT - Last Filed: 10/15/16 14:18> - Discharge Clinical Impression: UTI (urinary tract infection) Qualifiers: Urinary tract infection type: acute cystitis Hematuria presence: without hematuria Qualified Code(s): N30.00 - Acute cystitis without hematuria Chronic renal disease Qualifiers: Chronic kidney disease stage: unspecified stage Qualified Code(s): N18.9 - Chronic kidney disease, unspecified Condition: Stable Disposition: HOME, SELF-CARE Instructions: Nitrofurantoin ([facility]) Additional Instructions: Urinary Tract Infection Your evaluation indicates that you have a urinary tract infection. This is due to germs growing in the bladder. This is a common problem. This infection usually responds quickly to antibiotics. Your antibiotic should be taken exactly as prescribed. Drink plenty of fluids -- three to four quarts a day. Occasionally, a bladder anesthetic will be prescribed to help stop the feeling of urgency until the antibiotic has a chance to clear the infection. This may cause your urine to be dark orange. Certain urine infections require a culture. If the doctor obtained a culture, the results will be back in two days. You should call to see if a change in treatment is needed. A repeat urinalysis after you finish treatment is often recommended. The physician will let you know if further testing is required. Call the doctor if you develop fever, chills, flank pain, inability to urinate, or blood in the urine. Prescriptions: Nitrofurantoin/Nitrofuran Mac [Macrobid 100 mg Capsule] 1 tab PO BID #20 capsule Polyethylene Glycol 3350 [Miralax] 1 cap PO DAILY #527 powder Referrals: SHAYY MIKE MD [Primary Care Provider] - (In one to 2 days return for increasing worsening or new symptoms) Scribe Documentation - Scribe Written by Xavi:: Xavi Herrera, 10/09/2016 1805 acting as scribe for :: Aniket <HIPOLITO MILLER - Last Filed: 10/09/16 23:57>
[2016-10-09 17:35] LABS: ABSOLUTE EOSINOPHILS # (AUTO) 0.4 10^3/uL (0.0-0.6); ABSOLUTE LYMPHOCYTES (AUTO) 1.1 10^3/uL (0.5-4.7); ABSOLUTE MONOCYTES (AUTO) 0.9 10^3/uL (0.1-1.4); BASOPHILS % (AUTO) 0.5 % (0-2); EOSINOPHILS % (AUTO) 4.2 % (0-6); HEMATOCRIT 30.2 % (36.0-47.0); HEMOGLOBIN 9.9 g/dL (12.0-15.5); HGB HCT DIFFERENCE -0.5; LYMPHOCYTES % (AUTO) 11.7 % (13-45); MEAN CORPUSCULAR HEMOGLOBIN 28.6 pg (27.0-33.4); MEAN CORPUSCULAR HGB CONC 32.8 g/dL (32.0-36.0); MEAN CORPUSCULAR VOLUME 87 fl (80-97); RED BLOOD COUNT 3.47 10^6/uL (3.72-5.28); RED CELL DISTRIBUTION WIDTH 16.8 % (11.5-14.0); SEGMENTED NEUTROPHILS % (AUTO) 73.6 % (42-78); WHITE BLOOD COUNT 9.5 10^3/uL (4.0-10.5)
[2016-10-09 17:55] LABS: ANION GAP 10 (5-19); BLOOD UREA NITROGEN 66 mg/dL (7-20); CALCIUM 10.1 mg/dL (8.4-10.2); CARBON DIOXIDE 29 mmol/L (22-30); CHLORIDE 99 mmol/L (98-107); CREATININE RESULT 2.25 mg/dL (0.52-1.25); GLUCOSE 100 mg/dL (75-110); POTASSIUM 4.7 mmol/L (3.6-5.0); SODIUM 137.6 mmol/L (137-145)
[2016-10-09] MEDS ORDERED: NORMAL SALINE 1000 ML 1,000 ML IV ONE (18:50)
[2016-10-09 19:41] LABS: APPEARANCE,URINE TURBID; BILIRUBIN,URINE NEGATIVE (NEGATIVE); GLUCOSE, URINE NEGATIVE (NEGATIVE); KETONES,URINE NEGATIVE (NEGATIVE); LEUKOCYTE ESTERASE,URINE MODERATE (NEGATIVE); NITRITE,URINE NEGATIVE (NEGATIVE); PROTEIN,URINE 100 mg/dL (NEGATIVE); URINE SPECIFIC GRAVITY 1.012; UROBILINOGEN,URINE NEGATIVE mg/dL (<2.0)
[2016-10-09] MEDS ORDERED: CEFTRIAXONE INJ 1000 MG VIAL IM ONE (20:33)
[2016-10-09] MEDS ORDERED: LIDOCAINE 1% INJ-PF (10 MG/ML) 30 ML SDV ONE (20:43)
[2016-10-10 08:38] VITALS: BP 113/65
== END 2016-10-10 11:49 | disposition home or self-care (01) ==
LOC: ER 13:40
DX: N30.00 Acute cystitis without hematuria (principal); I12.9 Hypertensive chronic kidney disease with stage 1 through stage 4 chronic kidney disease, or unspecified chronic kidney disease; N18.9 Chronic kidney disease, unspecified; R39.198 Other difficulties with micturition; K59.00 Constipation, unspecified
CPT/HCPCS: 99284; 96372; 96360; 36415; 87086; 85025; 87088; 80048; 81001; 87186; J3490; J0696; J7030; A9270

== ENCOUNTER 2016-10-11 14:58 | Emergency (ER) | payer MEDICARE ==
--- NOTE | 2016-10-11 15:38 | ER Document Report ---
ED GI/ - General Chief Complaint: Constipation Stated Complaint: CONSTIPATION Notes: The patient is a 61-year-old female, past medical history constipation after opioid use s/p trimalleolar fracture surgery 3 weeks ago, presents with 7 days of constipation. She was seen in the emergency room 2 days ago and diagnosed with a UTI and constipation. She was prescribed Macrobid and insgtructed to start Miralax, but she has not started the medications. She has home nursing and the nurse this morning was concerned that her right-sided abdominal hernia was red. She called Dr. Mike and was told to come to the ER for concern about bowel obstruction, but the patient denies abdominal pain, nausea or vomiting. The patient has been trying to get follow-up at Dr. Mike's office , but he has not made a appointment yet. She also has a small amount of redness around one of the screws of her ankle surgery pins and they're concerned that is infected. She denies chest pain, shortness of breath, fevers , headache, rash or back pain. TRAVEL OUTSIDE OF THE [place] IN LAST 30 DAYS: No - Related Data Allergies/Adverse Reactions: spironolactone Adverse Reaction (Verified 08/29/16 18:30) Past Medical History - General Information source: Patient - Social History Smoking Status: Unknown if Ever Smoked Family History: None - Past Medical History Cardiac Medical History: Reports: Hx Congestive Heart Failure, Hx Hypercholesterolemia, Hx Hypertension Endocrine Medical History: Reports: Hx Diabetes Mellitus Type 2, Hx Hypothyroidism Renal/ Medical History: Reports: Hx End Stage Renal Disease Malignancy Medical History: Reports: Hx Colorectal Cancer Psychiatric Medical History: Reports: Hx Depression Past Surgical History: Reports: Hx Orthopedic Surgery - right ankle surgery secondary to trimalleolar fracture 09/2016 - Immunizations Hx Diphtheria, Pertussis, Tetanus Vaccination: Yes Hx Pneumococcal Vaccination: 08/18/12 Review of Systems - Review of Systems Notes: REVIEW OF SYSTEMS: CONSTITUTIONAL: -fevers, -chills EENT: -eye pain, -difficulty swallowing, -nasal congestion CARDIOVASCULAR:-chest pain, -syncope. RESPIRATORY: -cough, -SOB GASTROINTESTINAL: -abdominal pain, - nausea, -vomiting, -diarrhea, +constipation GENITOURINARY: -dysuria, -hematuria MUSCULOSKELETAL: -back pain, -neck pain SKIN: -rash or skin lesions. HEMATOLOGIC: -easy bruising or bleeding. LYMPHATIC: -swollen, enlarged glands. NEUROLOGICAL: -altered mental status or loss of consciousness, -headache, - neurologic symptoms PSYCHIATRIC: -anxiety, -depression. ALL OTHER SYSTEMS REVIEWED AND NEGATIVE. Physical Exam - Vital signs Vitals: Temp Pulse BP Pulse Ox 98.6 F 57 L 122/52 L 93 10/11/16 15:32 10/11/16 15:32 10/11/16 15:32 10/11/16 15:32 - Notes Notes: PHYSICAL EXAMINATION: GENERAL: Well-appearing, well-nourished and in no acute distress. HEAD: Atraumatic, normocephalic. EYES: Pupils equal round and reactive to light, extraocular movements intact, sclera anicteric, conjunctiva are normal. ENT: nares patent, oropharynx clear without exudates. Moist mucous membranes. NECK: Normal range of motion, supple without lymphadenopathy LUNGS: Breath sounds clear to auscultation bilaterally and equal. No wheezes rales or rhonchi. HEART: Regular rate and rhythm without murmurs ABDOMEN: Soft, nontender, normoactive bowel sounds. Non-tender right abdominal hernia. No guarding, no rebound. EXTREMITIES: Small area of erythema around one of the screws of right ankle. NEUROLOGICAL: Cranial nerves grossly intact. Normal speech, normal gait. Normal sensory, motor, and reflex exams. PSYCH: Normal mood, normal affect. Course - Re-evaluation Re-evalutation: Patient has absolutely no signs of bowel obstruction at this time, with a nontender abdomen, good bowel sounds and no nausea or vomiting. She has not received her medications for her UTI at this time. Will switch her to Bactrim to cover both skin infection and UTI based on her sensitivities. Also instructed patient to continue her Dulcolax, add mag citrate and MiraLAX and follow up at Dr. Mike's. 10/11/16 16:[address] Mike about arranging follow-up. His office closed at 2 pm today. Told patient to call office Friday morning for an appointment. Spoke to patient and family about plan and they understand. - Vital Signs Vital signs: Temp Pulse Resp BP Pulse Ox 98.6 F 57 L 122/52 L 93 10/11/16 15:32 10/11/16 15:32 10/11/16 15:32 10/11/16 15:32 Discharge - Discharge Clinical Impression: Constipation due to opioid therapy UTI (urinary tract infection) Qualifiers: Urinary tract infection type: acute cystitis Hematuria presence: without hematuria Qualified Code(s): N30.00 - Acute cystitis without hematuria Condition: Good Disposition: HOME, SELF-CARE Additional Instructions: ABDOMINAL PAIN: There are many causes of abdominal pain. Pain can mean a serious problem requiring surgery (such as appendicitis). It can also be an innocent problem that goes away on its own (such as a viral infection). Often, time must pass to determine the cause of pain. The physician does not feel that hospitalization is necessary, at present. Things may change within the next 24 hours. Call the doctor or come back for re- examination if any problems occur, such as: (1) Pain that becomes more severe, steady, or becomes concentrated in one specific area. Also, pain that is more severe with movement or coughing. (2) Vomiting that persists or becomes more frequent. (3) Blood in the vomitus, urine, or bowel movements. Blood in the stool may have a tarry or black appearance. (4) Shaking chills or fever greater than 100 degrees F. (5) The abdomen becomes more distended or swollen. (6) Bowel movements cease. (7) Failure to improve as expected. NORMAL EXAM AND WORKUP: At this time, your examination and workup show no significant abnormality. No significant abnormal physical findings are noted. All laboratory, EKG, and imaging (x-ray, CT scans, ultrasound) studies that were ordered show no significant abnormality. Although your examination and all studies that were ordered showed no significant abnormal finding, there are no examinations and no studies that are 100% accurate. There is always the possibility that some abnormality could exist and not be detected with physical examination or within the limits and capabilities of laboratory and other studies. You should return or follow up as you were instructed on your visit today for further evaluation if your symptoms do not resolve. CONSTIPATION: Constipation is a common problem. It is especially likely as you get older. Constipation is a common cause of abdominal pain, but sometimes causes no symptoms at all. Causes of constipation include certain medications, dehydration, diets, inactivity, and low-fiber intake. Rarely, it can be a symptom of underlying disease. The physician has evaluated you for this. Avoid constipation by eating a diet high in fiber, fruits, and vegetables. Drink plenty of liquids. Get regular exercise. If possible, avoid constipating medicines like narcotic pain medication. Some vitamin tablets can cause constipation. Stool softeners may be needed for difficult cases. An excellent stool softener is Konsyl which is available at [employer], and [employer] drug [employer]. Just add a teaspoon to a glass of pineapple or orange juice daily or twice a day if needed. Laxatives are useful for occasional constipation. You should use them only when necessary. Too-frequent use can make your bowels dependent on them. Some over the counter laxatives available without prescription are: Milk of Magnesia, 1-2 tablespoons twice a day Dulcolax, 5 mg pill or 10 mg suppository. Citrate of Magnesia, 4-5 ounces a day for a day or two For acute constipation, Fleet's Enemas and Dulcolax suppositories are helpful. Chronic, detention use of laxatives or enemas is not a good idea. Your bowel may become dependant on them. You do not need to have a bowel movement every day. Many people do fine with a bowel movement every three or four days. You should call your doctor or return for re-evaluation if you pass blood in the stool, or if you develop fever or increasing abdominal pain. BULK LAXATIVES: Bulk laxatives make the stool softer and bulkier. They're useful for preventing constipation. You can choose between psyllium, methylcellulose, and polycarbophil. They are available without a prescription. Psyllium brand names include Konsyl, Metamucil, Perdiem, Effer-Syllium and Hydrocil. It's available as powder, flavored drink powder, or chewable. The usual dose of psyllium powder is one heaping teaspoon in water each morning, increasing to twice a day if needed. [employer] juice can disguise the slightly grainy texture. Methylcellulose is marketed as Citrucel and other brands. The average dose is two grams in a cup of water one to three times a day. Polycarbophil is marketed as Fiber-Con. Take two tablets with a cup of water one to three times a day. LAXATIVE: A laxative agent has been prescribed for your condition. This should result in passage of stool within 12 hours. Some mild intestinal cramping is common as the hard stool begins to move. You may have loose or runny stools for a short time. Contact your doctor if there is severe cramping, vomiting, or passage of blood. Return for further care if this medicine fails to improve your condition. FOLLOW-UP CARE: If you have been referred to a physician for follow-up care, call the physician s office for an appointment as you were instructed or within the next two days. If you experience worsening or a significant change in your symptoms, notify the physician immediately or return to the Emergency Department at any time for re-evaluation. URINARY TRACT INFECTION: Your evaluation indicates that you have a urinary tract infection. This is due to germs growing in the bladder. This is a common problem. This infection usually responds quickly to antibiotics. Your antibiotic should be taken exactly as prescribed. Drink plenty of fluids -- three to four quarts a day. Occasionally, a bladder anesthetic will be prescribed to help stop the feeling of urgency until the antibiotic has a chance to clear the infection. This may cause your urine to be dark orange. Certain urine infections require a culture. If the doctor obtained a culture, the results will be back in two days. You should call to see if a change in treatment is needed. A repeat urinalysis after you finish treatment is often recommended. The physician will let you know if further testing is required. Call the doctor if you develop fever, chills, flank pain, inability to urinate, or blood in the urine. ANTIBIOTIC THERAPY: You have been given an antibiotic prescription. It's important that you take all the medication, unless instructed otherwise by your physician. Failure to complete the entire course can result in relapse of your condition. Common side effects of antibiotics include nausea, intestinal cramping, or diarrhea. Women may develop vaginal yeast infections, and babies can get yeast (thrush) in the mouth following the use of antibiotics. Contact your physician if you develop significant side effects from this medication. Allergy to this antibiotic can result in hives, wheezing, faintness, or itching. If symptoms of allergy occur, stop the medication and call the doctor. TRIMETHOPRIM-SULFA: You have been given a prescription for trimethoprim-sulfa (TMS, Septra, Bactrim). This is a combination antibiotic of the sulfa class, often used for urinary tract infections, middle ear infections, bronchitis, shigella intestinal infection, and Pneumocystis pneumonia. TMS is usually well-tolerated. Occasional side effects include nausea and decreased appetite. Septra is not recommended for infants less than two months of age. Do not take this medication if you have experienced severe side effects or allergy to sulfa medicine. You should stop this medicine at once and contact your physician if you develop any rash, joint pain, shortness of breath, bruising, or jaundice ( yellow color in the skin), or if you develop any other new or unusual symptoms. FOLLOW-UP CARE: If you have been referred to a physician for follow-up care, call the physician s office for an appointment as you were instructed or within the next two days. If you experience worsening or a significant change in your symptoms, notify the physician immediately or return to the Emergency Department at any time for re-evaluation. Prescriptions: Sulfamethoxazole/Trimethoprim [Bactrim Ds Tablet] 1 each PO BID 10 Days Referrals: SHAYY MIKE MD [ACTIVE STAFF] - Follow up as needed
[2016-10-11] MEDS ORDERED: SULFAMETHOXAZOLE/TRIMETHOPRIM 800-160 MG TABLET PO ONE (16:41)
[2016-10-11 19:56] VITALS: BP 130/59
== END 2016-10-11 19:00 | disposition home or self-care (01) ==
LOC: ER 14:58
DX: K59.03 Drug induced constipation (principal); T40.2X5A Adverse effect of other opioids, initial encounter; S82.851D Displaced trimalleolar fracture of right lower leg, subsequent encounter for closed fracture with routine healing; L53.9 Erythematous condition, unspecified; X58.XXXD Exposure to other specified factors, subsequent encounter; N30.00 Acute cystitis without hematuria; Z91.14 Patient's other noncompliance with medication regimen; K46.9 Unspecified abdominal hernia without obstruction or gangrene; E11.9 Type 2 diabetes mellitus without complications; I12.0 Hypertensive chronic kidney disease with stage 5 chronic kidney disease or end stage renal disease; E11.22 Type 2 diabetes mellitus with diabetic chronic kidney disease; N18.6 End stage renal disease; Z85.048 Personal history of other malignant neoplasm of rectum, rectosigmoid junction, and anus
CPT/HCPCS: 99283; A9270

== ENCOUNTER 2016-10-17 11:54 | Inpatient (IN) | payer MEDICARE ==
[2016-10-17 13:09] LABS: ABSOLUTE EOSINOPHILS # (AUTO) 0.2 10^3/uL (0.0-0.6); ABSOLUTE LYMPHOCYTES (AUTO) 0.7 10^3/uL (0.5-4.7); ABSOLUTE MONOCYTES (AUTO) 0.6 10^3/uL (0.1-1.4); BASOPHILS % (AUTO) 0.4 % (0-2); EOSINOPHILS % (AUTO) 2.5 % (0-6); HEMATOCRIT 27.9 % (36.0-47.0); HGB HCT DIFFERENCE -0.9; LYMPHOCYTES % (AUTO) 9.7 % (13-45); MEAN CORPUSCULAR HGB CONC 32.3 g/dL (32.0-36.0); MEAN CORPUSCULAR VOLUME 87 fl (80-97); MONOCYTES % (AUTO) 8.3 % (3-13); RED BLOOD COUNT 3.23 10^6/uL (3.72-5.28); RED CELL DISTRIBUTION WIDTH 17.1 % (11.5-14.0); SEGMENTED NEUTROPHILS % (AUTO) 79.1 % (42-78); WHITE BLOOD COUNT 7.6 10^3/uL (4.0-10.5)
[2016-10-17 13:10] LABS: VENOUS BLOOD BASE EXCESS -2.8 mmol/L; VENOUS BLOOD PH 7.3 (7.30-7.42)
[2016-10-17 13:29] LABS: ALANINE AMINOTRANSFERASE 25 U/L (9-52); ALBUMIN 3.3 g/dL (3.5-5.0); ALKALINE PHOSPHATASE 98 U/L (38-126); ANION GAP 9 (5-19); ASPARTATE AMINO TRANSFERASE 14 U/L (14-36); BLOOD UREA NITROGEN 75 mg/dL (7-20); CARBON DIOXIDE 32 mmol/L (22-30); CHLORIDE 100 mmol/L (98-107); CREATINE KINASE 36 U/L (30-135); CREATININE RESULT 3.11 mg/dL (0.52-1.25); GLUCOSE 78 mg/dL (75-110); POTASSIUM 4.8 mmol/L (3.6-5.0); SODIUM 140.9 mmol/L (137-145); TOTAL PROTEIN 6.9 g/dL (6.3-8.2)
[2016-10-17 13:37] LABS: CREATINE KINASE MB 1.19 ng/mL (<4.55)
[2016-10-17] MEDS ORDERED: CEFTRIAXONE 1 GM/D5W RTU 50 ML IV ONE (13:49)
[2016-10-17 14:11] LABS: BILIRUBIN,URINE NEGATIVE (NEGATIVE); GLUCOSE, URINE NEGATIVE (NEGATIVE); KETONES,URINE NEGATIVE (NEGATIVE); LEUKOCYTE ESTERASE,URINE MODERATE (NEGATIVE); NITRITE,URINE NEGATIVE (NEGATIVE); PROTEIN,URINE 100 mg/dL (NEGATIVE); URINE SPECIFIC GRAVITY 1.011; UROBILINOGEN,URINE NEGATIVE mg/dL (<2.0)
[2016-10-17 14:12] LABS: APPEARANCE,URINE OPAQUE
[2016-10-17] MEDS ORDERED: NORMAL SALINE 1000 ML 1,000 ML IV ONE (14:32)
--- NOTE | 2016-10-17 14:33 | ER Document Report ---
ED General - General Chief Complaint: Breathing Difficulty Stated Complaint: SHORTNESS OF BREATH Mode of Arrival: Medic Information source: Patient Notes: 61-year-old female presents with complaints of foul-smelling urine burning on urination for one week duration. Patient notes she's had UTIs in the past denies any fevers or chills nausea vomiting or diarrhea. TRAVEL OUTSIDE OF THE [place] IN LAST 30 DAYS: No - HPI Onset: Last week Onset/Duration: Persistent Quality of pain: No pain Severity: Mild Pain Level: Denies Associated symptoms: Shortness of breath, Other Exacerbated by: Denies Relieved by: Denies Similar symptoms previously: No Recently seen / treated by doctor: No - Related Data Allergies/Adverse Reactions: spironolactone Adverse Reaction (Verified 08/29/16 18:30) Past Medical History - Social History Smoking Status: Never Smoker Cigarette use (# per day): No Chew tobacco use (# tins/day): No Smoking Education Provided: No Family History: None - Past Medical History Cardiac Medical History: Reports: Hx Congestive Heart Failure, Hx Hypercholesterolemia, Hx Hypertension Pulmonary Medical History: Reports: Hx COPD Endocrine Medical History: Reports: Hx Diabetes Mellitus Type 2, Hx Hypothyroidism Renal/ Medical History: Reports: Hx End Stage Renal Disease Malignancy Medical History: Reports: Hx Colorectal Cancer Musculoskeltal Medical History: Reports Hx Arthritis - gout Psychiatric Medical History: Reports: Hx Depression Past Surgical History: Reports: Hx Orthopedic Surgery - right ankle surgery secondary to trimalleolar fracture 09/2016 - Immunizations Hx Diphtheria, Pertussis, Tetanus Vaccination: Yes Hx Pneumococcal Vaccination: 08/18/12 Review of Systems - Review of Systems Notes: PHYSICAL EXAMINATION: GENERAL: Obese female no acute distress smelling of urine HEAD: Atraumatic, normocephalic. EYES: Pupils equal round and reactive to light, extraocular movements intact, conjunctiva are normal. ENT: Nares patent, oropharynx clear without exudates. Moist mucous membranes. NECK: Normal range of motion, supple without lymphadenopathy LUNGS: Breath sounds clear to auscultation bilaterally and equal. No wheezes rales or rhonchi. HEART: Regular rate and rhythm without murmurs ABDOMEN: Soft, nontender, nondistended abdomen. No guarding, no rebound. No masses appreciated. Female : deferred Musculoskeletal: external fixation NEUROLOGICAL: Cranial nerves grossly intact. Normal speech, normal gait. Normal sensory, motor exams PSYCH: Normal mood, normal affect. SKIN: Warm, Dry, normal turgor, no rashes or lesions noted. Physical Exam - Vital signs Vitals: Temp Pulse Resp BP Pulse Ox 97.3 F 56 L 20 125/41 L 95 10/17/16 12:06 10/17/16 12:06 10/17/16 12:06 10/17/16 12:06 10/17/16 12:06 Course - Re-evaluation Re-evalutation: 10/17/16 14:49 Patient noted to have pyuria, we'll function is worsening. Patient will be admitted given further hydration. Initial CTA was ordered of the chest however patient creatinine has worsened therefore she is not a candidate - Vital Signs Vital signs: Temp Pulse Resp BP Pulse Ox 97.3 F 56 L 20 125/41 L 95 10/17/16 12:06 10/17/16 12:06 10/17/16 12:06 10/17/16 12:06 10/17/16 12:06 - Laboratory Result Diagrams: 10/17/16 12:44 10/17/16 12:44 Laboratory results interpreted by me: 10/17/16 10/17/16 10/17/16 12:44 12:44 12:44 RBC 3.23 L Hgb 9.0 L Hct 27.9 L RDW 17.1 H Seg Neutrophils % 79.1 H Lymphocytes % 9.7 L Carbon Dioxide 32 H BUN 75 H Creatinine 3.11 H Est GFR ( Amer) 19 L Est GFR (Non-Af Amer) 15 L NT-Pro-B Natriuret Pep 6250 H Albumin 3.3 L Urine Protein Urine Blood Ur Leukocyte Esterase 10/17/16 13:45 RBC Hgb Hct RDW Seg Neutrophils % Lymphocytes % Carbon Dioxide BUN Creatinine Est GFR ( Amer) Est GFR (Non-Af Amer) NT-Pro-B Natriuret Pep Albumin Urine Protein 100 H Urine Blood MODERATE H Ur Leukocyte Esterase MODERATE H - Diagnostic Test Radiology reviewed: Image reviewed, Reports reviewed Discharge - Discharge Clinical Impression: Chronic renal disease Qualifiers: Chronic kidney disease stage: stage 3 (moderate) Qualified Code(s): N18.3 - Chronic kidney disease, stage 3 (moderate) UTI (urinary tract infection) Qualifiers: Urinary tract infection type: acute cystitis Hematuria presence: with hematuria Qualified Code(s): N30.01 - Acute cystitis with hematuria Condition: Stable Disposition: ADMITTED INPATIENT Admitting Provider: [facility] Admitted: Telemetry
[2016-10-17] MEDS ORDERED: DEXTROSE 40% GEL 15 GM TUBE PO PRN ×2 (20:49)
[2016-10-17] MEDS ORDERED: DEXTROSE 50%-WATER 25 GM/50 ML DISP.SYRIN IV PRN ×2 (20:49)
[2016-10-17] MEDS ORDERED: GLUCAGON,HUMAN RECOMB 1 MG INJ IM PRN (20:49)
[2016-10-17] MEDS ORDERED: CETIRIZINE 10 MG TABLET PO PRN (20:50)
[2016-10-17] MEDS ORDERED: ALBUTEROL SULFATE HFA (90 MCG/PUFF) 200 PUFF/8.5 GM MDI IH PRN (20:50)
[2016-10-17] MEDS ORDERED: OXYCODONE HCL IR 5 MG TABLET PO PRN ×2 (22:02→22:04)
[2016-10-17] MEDS ORDERED: OXYCODONE-ACETAMINOPHEN 5-325 MG TABLET PO PRN ×2 (22:04→22:15)
[2016-10-17 22:07] LABS: CREATINE KINASE MB 0.84 ng/mL (<4.55)
[2016-10-17] MEDS: CEFTRIAXONE 1 GM/D5W RTU 1 GM/50 ML RTUPB IV SCH (22:10)
[2016-10-17] MEDS: FUROSEMIDE 40 MG TABLET PO SCH (22:10)
[2016-10-17] MEDS: ASPIRIN 81 MG TABLET, ENT COATED PO SCH (22:10)
[2016-10-17] MEDS: SIMVASTATIN 10 MG TABLET PO SCH (22:10)
[2016-10-17] MEDS: METOPROLOL SUCCINATE 25 MG TAB.SR.24H PO SCH (22:10)
[2016-10-17 22:11] LABS: TROPONIN I < 0.012 ng/mL
[2016-10-17] MEDS: BUDESONIDE/FORMOTEROL 80-4.5 MCG 60 PUFF/6.9 GM MDI IH SCH (22:11)
[2016-10-17] MEDS: HEPARIN SOD (PORCINE) 5,000 UNIT/ML 1 ML SYRINGE SUBCUT SCH (22:12)
[2016-10-18] MEDS: INSULIN NPH (ISOPHANE), HUMAN 100 UNIT/ML 3 ML SUBCUT SCH ×2 (03:02→23:11)
[2016-10-18] MEDS: HEPARIN SOD (PORCINE) 5,000 UNIT/ML 1 ML SYRINGE SUBCUT SCH ×3 (05:02→18:24)
[2016-10-18 05:59] LABS: ABSOLUTE EOSINOPHILS # (AUTO) 0.2 10^3/uL (0.0-0.6); ABSOLUTE LYMPHOCYTES (AUTO) 0.9 10^3/uL (0.5-4.7); ABSOLUTE MONOCYTES (AUTO) 0.6 10^3/uL (0.1-1.4); ABSOLUTE NEUT (AUTO) 5.5 10^3/uL (1.7-8.2); BASOPHILS % (AUTO) 0.4 % (0-2); EOSINOPHILS % (AUTO) 2.2 % (0-6); HEMATOCRIT 25.4 % (36.0-47.0); HEMOGLOBIN 8.2 g/dL (12.0-15.5); HGB HCT DIFFERENCE -0.8; LYMPHOCYTES % (AUTO) 12.6 % (13-45); MEAN CORPUSCULAR HEMOGLOBIN 28.2 pg (27.0-33.4); MEAN CORPUSCULAR HGB CONC 32.4 g/dL (32.0-36.0); MEAN CORPUSCULAR VOLUME 87 fl (80-97); MONOCYTES % (AUTO) 8.5 % (3-13); RED BLOOD COUNT 2.92 10^6/uL (3.72-5.28); RED CELL DISTRIBUTION WIDTH 17.8 % (11.5-14.0); SEGMENTED NEUTROPHILS % (AUTO) 76.3 % (42-78); WHITE BLOOD COUNT 7.2 10^3/uL (4.0-10.5)
[2016-10-18 06:28] LABS: ALANINE AMINOTRANSFERASE 30 U/L (9-52); ALBUMIN 2.8 g/dL (3.5-5.0); ALKALINE PHOSPHATASE 81 U/L (38-126); ANION GAP 11 (5-19); ASPARTATE AMINO TRANSFERASE 11 U/L (14-36); BILIRUBIN,TOTAL 0.8 mg/dL (0.2-1.3); BLOOD UREA NITROGEN 64 mg/dL (7-20); CALCIUM 8.9 mg/dL (8.4-10.2); CARBON DIOXIDE 26 mmol/L (22-30); CHLORIDE 101 mmol/L (98-107); CREATINE KINASE 35 U/L (30-135); CREATININE RESULT 2.56 mg/dL (0.52-1.25); GLUCOSE 73 mg/dL (75-110); PHOSPHORUS 3.6 mg/dL (2.5-4.5); POTASSIUM 4.5 mmol/L (3.6-5.0); TOTAL PROTEIN 5.5 g/dL (6.3-8.2)
[2016-10-18 06:34] LABS: CREATINE KINASE MB 1.18 ng/mL (<4.55); TROPONIN I 0.013 ng/mL
[2016-10-18] MEDS ORDERED: AMLODIPINE BESYLATE 5 MG TABLET PO SCH (08:00)
[2016-10-18] MEDS ORDERED: (PENDING PHARMACY ID) (Citalopram Hydrobromide [Celexa 40 Mg Tablet] 40 MG) PO SCH (08:00)
[2016-10-18] MEDS ORDERED: (PENDING PHARMACY ID) (Vitamin B Complex [Vitamin B Complex] 1 EACH) PO SCH (08:00)
[2016-10-18] MEDS: ASPIRIN 81 MG TABLET, ENT COATED PO SCH ×2 (10:06→22:02)
[2016-10-18] MEDS: CITALOPRAM HYDROBROMIDE 20 MG TABLET PO SCH (10:06)
[2016-10-18] MEDS: MULTIVIT-STRESS FORMULA/ZINC TABLET PO SCH (10:06)
[2016-10-18] MEDS: FUROSEMIDE 40 MG TABLET PO SCH (10:07)
[2016-10-18] MEDS: LEVOTHYROXINE SODIUM 0.15 MG TABLET PO SCH (10:07)
[2016-10-18] MEDS: LEVOFLOXACIN 750 MG/D5W RTU 150 ML IV SCH (10:07)
[2016-10-18] MEDS: METOPROLOL SUCCINATE 25 MG TAB.SR.24H PO SCH ×2 (10:07→22:02)
[2016-10-18] MEDS ORDERED: ONDANSETRON HCL INJ/PF 4 MG/2 ML SDV ONE (10:11)
[2016-10-18] MEDS ORDERED: ONDANSETRON HCL INJ/PF 4 MG/2 ML SDV IV PRN (10:17)
[2016-10-18 10:29] LABS: ARTERIAL BLOOD BASE EXCESS 3.6 mmol/L; ARTERIAL BLOOD O2 SATURATION 88.9 % (94-98)
[2016-10-18] MEDS: BUDESONIDE/FORMOTEROL 80-4.5 MCG 60 PUFF/6.9 GM MDI IH SCH ×2 (10:30→22:02)
[2016-10-18 11:43] LABS: CREATINE KINASE MB 1.04 ng/mL (<4.55)
[2016-10-18 11:49] LABS: TROPONIN I < 0.012 ng/mL
--- NOTE | 2016-10-18 15:53 | CONSULTATION REPORT E ---
Consultation Report NAME: JOJO BACK : 1955 AGE: 61Y DATE: 10/18/2016 404 B TO: AMRIK TINOCO M.D. FROM: SHAYY MIKE M.D. Requesting Physician HISTORY OF PRESENT ILLNESS: The patient is a 61-year-old woman who was admitted for urinary tract infection. She has protracted past medical history including carcinoma of the colon treated with resection approximately 10 years ago. By her history, she has had a massive abdominal wall hernia for many years. She also has had Charcot foot and fracture of the right lower extremity which has been treated with external fixator. The acute problem of urinary tract infection seems to be well managed and improving. I was asked to see the patient because of the concern for the hernia. PHYSICAL EXAMINATION: The patient is alert, appropriate, and without any complaint of pain. She states that this abdominal wall hernia has been present for many years and she denies any significant change in its status. ASSESSMENT AND PLAN: From a surgical standpoint, this is a massive abdominal wall hernia in a young woman who has a weight of 182 kg. She has basically complete loss of abdominal domain and there is probably none to minimal ability of her having problem related to incarceration because of the massive defect in her abdominal wall. The patient is not interested having this hernia repaired. If she were to wish to further discuss this, she should be transferred to a tertiary center where this hernia is routinely dealt with. However, the patient is in no distress regarding this hernia which has been present for many years. Her bowel function does not seem to be compromised. Should be there any further questions, please feel free to re-consult the surgical service. DICTATING PHYSICIAN: LIZA ITNOCO M.D. [id number] PHY#: [id number] ID: [id number] JOB#: [id number] ACCT: [id number] cc:AMRIK TINOCO M.D. >
--- NOTE | 2016-10-18 17:43 | PDOC CONSULTATION ---
Consultation Consult Date: 10/18/16 Consult reason:: Acute kidney injury History of Present Illness Admission Date/PCP: 10/17/16 20:44 SHAYYJANET MIKE History of Present Illness: JOJO BACK is a 61 year old femaleWith a history of complicated diabetes mellitus including retinopathy and neuropathy CKD, hypertension, congestive heart failure is being admitted with history of shortness of breath and dysuria.She denies any history of chest pains. No history of any fever chills nausea and abdominal pains. She was recently admitted to [facility] and then transferred to [facility] after being diagnosed with a fracture of Charcot's joint of her right foot. She is apparently had an external fixation done. She lives at home with her who is very involved. Apparently she has had recurrent UTIs. Her other main issue is a large ventral hernia. No signs of incarceration or obstruction. Recent discharge creatinine in the middle of August was 1.9. Her other major problem is a large ventral hernia without any evidences and signs and symptoms of incarceration or obstruction.She says she has been diagnosed with CHF but is unsure of her last echocardiogram. She says she has had couple of sleep studies done which was negative.She denies being on any NSAIDs. However she is on a high sodium intake. Past Medical History Cardiac Medical History: Reports: Hyperlipidemia, Hypertension-primary Pulmonary Medical History: Reports: Chronic Obstructive Pulmonary Disease (COPD) Endocrine Medical History: Reports: Diabetes Mellitus Type 2, Hypothyroidism, Obesity - Morbid and weighs 180 -190 kg Renal/ Medical History: Reports: Chronic Kidney Disease Stage III, Recurrent UTI Malignancy Medical History: Reports: Colorectal Cancer Musculoskeltal Medical History: Reports: Arthritis - gout Psychiatric Medical History: Reports: Depression Past Surgical History Past Surgical History: Reports: Orthopedic Surgery - right ankle surgery secondary to trimalleolar fracture 09/2016 Social History Smoking Status: Never Smoker Frequency of Alcohol Use: None Hx Recreational Drug Use: No Hx Prescription Drug Abuse: No Family History Parental Family History Reviewed: Yes - Negative for ESRD Children Family History Reviewed: No Sibling(s) Family History Reviewed.: No Medication/Allergy Home Medications: Albuterol Sulfate [Proair HFA Inhalation Aerosol 8.5 gm MDI] 2 puff IH Q4HP PRN 10/17/16 Amlodipine Besylate [Norvasc 5 mg Tablet] 5 mg PO QAM 10/17/16 Aspirin [Aspirin EC] 81 mg PO Q12 10/17/16 Bisacodyl [Dulcolax 5 mg Tablet] 5 mg PO DAILYP PRN 10/17/16 Budesonide/Formoterol Fumarate [Symbicort HFA 80-4.5 mcg Inhaler 6.9 gm] 2 puff IH Q12 10/17/16 Cetirizine HCl [Zyrtec 10 mg Tablet] 10 mg PO DAILYP PRN 10/17/16 Citalopram Hydrobromide [Celexa 40 mg Tablet] 40 mg PO QAM 10/17/16 Ergocalciferol (Vitamin D2) [Vitamin D2] 50,000 unit PO MARIE@1000 10/17/16 Furosemide [Lasix] 40 mg PO BID 10/17/16 Glipizide [Glucotrol 5 mg Tablet] 5 mg PO QPM 10/17/16 Insulin NPH Human Isophane [Humulin N] 60 units SQ QHS 10/17/16 Insulin Regular, Human [Humulin R (Reg) Insulin 100 unit/mL] 0 units SQ .PERSLIDINGSCALE 10/17/16 Levothyroxine Sodium [Synthroid 0.15 mg Tablet] 0.15 mg PO QAM 10/17/16 Metolazone [Zaroxolyn 2.5 mg Tablet] 2.5 mg PO MOWEFR@1200 10/17/16 Metoprolol Succinate [Toprol Xl 25 mg Tab.sr] 25 mg PO Q12 10/17/16 Oxycodone HCl/Acetaminophen [Percocet 10-325 mg Tablet] 1 each PO Q6HP PRN 10/17 Simvastatin [Zocor 10 mg Tablet] 10 mg PO DAILY 10/17/16 Vitamin B Complex 1 each PO QAM 10/17/16 Allergies/Adverse Reactions: heparin Allergy (Verified 10/17/16 22:11) Penicillins Allergy (Verified 10/17/16 22:11) spironolactone Adverse Reaction (Verified 08/29/16 18:30) Review of Systems Review of Systems: Constitutional: [PRESENT: as per HPI. ABSENT: chills, fever(s), headache(s), weight gain, weight loss] Eyes: [ABSENT: visual disturbances] Ears: [ABSENT: hearing changes] Cardiovascular: [ABSENT: chest pain, orthropnea, palpitations] Respiratory: [ABSENT: cough, hemoptysis] Gastrointestinal: [ABSENT: abdominal pain, constipation, diarrhea, hematemesis, hematochezia, nausea, vomiting] Genitourinary: [ABSENT: dysuria, hematuria] Musculoskeletal: [ABSENT: joint swelling] Integumentary: [ABSENT: rash, wounds] Neurological: [ABSENT: abnormal gait, abnormal speech, confusion, dizziness, focal weakness, syncope] Psychiatric: [ABSENT: anxiety, homicidal ideation, suicidal ideation] Endocrine: [ABSENT: cold intolerance, heat intolerance, polydipsia, polyuria] Hematologic/Lymphatic: [ABSENT: easy bleeding, easy bruising, lymphadenopathy] Physical Exam Vital Signs: Temp Pulse Resp BP Pulse Ox 98.4 F 62 19 127/52 H 91 L 10/18/16 12:16 10/18/16 12:16 10/18/16 12:16 10/18/16 12:16 10/18/16 12:16 Intake & Output 10/17/16 10/18/16 10/19/16 06:59 06:59 06:59 Intake Total 446 Balance 446 Weight 182.2 kg General appearance: PRESENT: mild distress, morbidly obese Eye exam: PRESENT: conjunctiva pink, EOMI, PERRLA. ABSENT: nystagmus, scleral icterus Ear exam: PRESENT: normal external ear exam Mouth exam: PRESENT: moist Neck exam: ABSENT: lymphadenopathy, meningismus, tenderness, thyromegaly, tracheal deviation Respiratory exam: PRESENT: clear to auscultation jerome. ABSENT: crackles, rhonchi , stridor, tachypnea Cardiovascular exam: PRESENT: +S1, +S2 GI/Abdominal exam: PRESENT: distended - large ventral abdominal hernia, soft. ABSENT: firm, guarding, mass, organomegaly, tenderness Extremities exam: PRESENT: +1 edema Neurological exam: PRESENT: alert, awake, oriented to person, oriented to place , oriented to time, CN II-XII grossly intact Psychiatric exam: PRESENT: flat affect Skin exam: ABSENT: cyanosis, dry, erythema, mottled, rash Results Laboratory Results: 10/18/16 04:30 10/18/16 04:30 10/17/16 10/17/16 10/17/16 21:22 21:22 21:22 WBC RBC Hgb Hct MCV MCH MCHC RDW Plt Count Seg Neutrophils % Lymphocytes % Monocytes % Eosinophils % Basophils % Absolute Neutrophils Absolute Lymphocytes Absolute Monocytes Absolute Eosinophils Absolute Basophils Carbonic Acid HCO3/H2CO3 Ratio ABG pH ABG pCO2 ABG pO2 ABG HCO3 ABG O2 Saturation ABG Base Excess FiO2 Sodium Potassium Chloride Carbon Dioxide Anion Gap BUN Creatinine Est GFR ( Amer) Est GFR (Non-Af Amer) Glucose Calcium Phosphorus Total Bilirubin AST ALT Alkaline Phosphatase Ammonia Cancelled Total Protein Albumin Lipase 56.5 TSH 8.50 H Free T4 10/17/16 10/18/16 10/18/16 22:12 04:30 04:30 WBC 7.2 RBC 2.92 L Hgb 8.2 L Hct 25.4 L MCV 87 MCH 28.2 MCHC 32.4 RDW 17.8 H Plt Count 153 Seg Neutrophils % 76.3 Lymphocytes % 12.6 L Monocytes % 8.5 Eosinophils % 2.2 Basophils % 0.4 Absolute Neutrophils 5.5 Absolute Lymphocytes 0.9 Absolute Monocytes 0.6 Absolute Eosinophils 0.2 Absolute Basophils 0.0 Carbonic Acid HCO3/H2CO3 Ratio ABG pH ABG pCO2 ABG pO2 ABG HCO3 ABG O2 Saturation ABG Base Excess FiO2 Sodium 138.0 Potassium 4.5 Chloride 101 Carbon Dioxide 26 Anion Gap 11 BUN 64 H Creatinine 2.56 H Est GFR ( Amer) 23 L Est GFR (Non-Af Amer) 19 L Glucose 73 L Calcium 8.9 Phosphorus 3.6 Total Bilirubin 0.8 AST 11 L ALT 30 Alkaline Phosphatase 81 Ammonia < 8.7 L Total Protein 5.5 L Albumin 2.8 L Lipase TSH Free T4 10/18/16 10/18/16 04:30 10:11 WBC RBC Hgb Hct MCV MCH MCHC RDW Plt Count Seg Neutrophils % Lymphocytes % Monocytes % Eosinophils % Basophils % Absolute Neutrophils Absolute Lymphocytes Absolute Monocytes Absolute Eosinophils Absolute Basophils Carbonic Acid 1.53 H HCO3/H2CO3 Ratio 19:1 ABG pH 7.38 ABG pCO2 50.8 H ABG pO2 57.2 L ABG HCO3 29.4 H ABG O2 Saturation 88.9 L ABG Base Excess 3.6 FiO2 4L Sodium Potassium Chloride Carbon Dioxide Anion Gap BUN Creatinine Est GFR ( Amer) Est GFR (Non-Af Amer) Glucose Calcium Phosphorus Total Bilirubin AST ALT Alkaline Phosphatase Ammonia Total Protein Albumin Lipase TSH Free T4 1.31 10/17/16 10/17/16 10/17/16 21:22 21:22 21:22 Creatine Kinase 33 CK-MB (CK-2) 0.84 Troponin I < 0.012 NT-Pro-B Natriuret Pep 5750 H 10/18/16 10/18/16 10/18/16 04:30 04:30 10:52 Creatine Kinase 35 38 CK-MB (CK-2) 1.18 Troponin I 0.013 NT-Pro-B Natriuret Pep 10/18/16 10:52 Creatine Kinase CK-MB (CK-2) 1.04 Troponin I < 0.012 NT-Pro-B Natriuret Pep Impressions: Abdomen/Pelvis CT 10/18/16 00:00 IMPRESSION: Small-moderate bilateral lower lobar pneumonia. No acute intraabdominal-pelvic findings. Large right paracentral abdominal-pelvic wall herniation including bowel and right hepatic lobe. Incomplete exam. Assessment & Plan - Diagnosis (1) CKD (chronic kidney disease) stage 3, GFR 30-59 ml/min Plan: She is got some worsening of her CKD stage III. She is obviously got underlying UTI with sepsis. He says that she has also got a heart failure and is an additional because of prerenal issues. Unsure if she has got proteinuria which led to be checked once she gets over her present UTI. She has been asked to have a Thompson catheter but has refused. She could have underlying neurogenic bladder which I suspect very strongly given her history of recurrent UTI. Will get a renal ultrasound and see if they can do with pre-and post void residual. If not a straight Thompson catheter before and after urination might help but patient not willing. (3) UTI (urinary tract infection) Qualifiers: Urinary tract infection type: acute cystitis Hematuria presence: with hematuria Qualified Code(s): N30.01 - Acute cystitis with hematuria Plan: Recurrent. Suspect neurogenic bladder. Patient on on antibiotics. Once the flu she has a neurogenic bladder she needs to be self catheterizing herself at least 3-4 times to prevent further recurring UTI and possible severe sepsis and comorbidities. (4) Charcot's joint arthropathy in type 2 diabetes mellitus Plan: Currently with external fixation from [facility]. (5) Diabetes mellitus type 2 with complications Plan: Long-standing uncomplicated. Overall poor prognosis. Compounded by his severe morbid obesity (6) Diastolic CHF, chronic Plan: Patient is on p.o. Lasix. However given the issues and converting it to IV. Currently she is short of breath for most likely pulmonary hypertension. We will see if he can extract 1 of old echocardiograms. (7) Morbid obesity Plan: Likely pickwickian induced pulmonary hypertension if she is negative for sleep apnea. (9) Ventral hernia without obstruction or gangrene Plan: Is large and chronic. No evidences to her signs and symptoms to indicate any incarceration or obstruction. This will probably be late be left alone by surgeons given its chronicity and the high risk involved in and fixing it unless she gets into an obstructive state. (10) Hypertension Plan: Presently low normal. DC amlodipine.
[2016-10-18] MEDS: FUROSEMIDE INJ/PF 40 MG/4 ML SDV IV SCH ×2 (18:20→22:02)
[2016-10-18] MEDS: GLIPIZIDE 5 MG TABLET PO SCH (18:21)
--- NOTE | 2016-10-18 19:16 | PDOC H&P ---
History of Present Illness Admission Date/PCP: 10/17/16 20:44 SHAYY MIKE History of Present Illness: Patient 61-year-old female with body mass index of 56 massive obesity she apparently came to the emergency room because of complaints of dysuria and foul- smelling urine, in the emergency room she was evaluated she was found to have UTI and also acute kidney injury. When I saw the patient on the floor with her family the daughter stated that the reason for the ER visit was because of worsening enlargement of the abdominal hernia. On inspection of the hernia she has A Huge Abdominal Hernia because of this concern and requested for CT scan of the abdomen and pelvis with oral contrast only. The CT scan showed large right paracentral abdominal-pelvic wall herniation including the bowel on the right hepatic lobe there is a chronic problem though. She also have Charcot foot and fracture of the right lower extremity which was treated at [facility] with external fixator. Patient is not active essentially bedbound with a large halo on the right lower extremity with a huge abdominal hernia. Past Medical History Cardiac Medical History: Reports: Congestive Heart Failure, Hyperlipidema, Hypertension Pulmonary Medical History: Reports: Chronic Obstructive Pulmonary Disease (COPD) Endocrine Medical History: Reports: Diabetes Mellitus Type 2, Hypothyroidism, Obesity - Morbid and weighs 180 -190 kg Renal/ Medical History: Reports: End Stage Renal Disease Malignancy Medical History: Reports: Colorectal Cancer Musculoskeltal Medical History: Reports: Arthritis - gout Psychiatric Medical History: Reports: Depression Past Surgical History Past Surgical History: Reports: Orthopedic Surgery - right ankle surgery secondary to trimalleolar fracture 09/2016, Other - History of colectomy Social History Smoking Status: Never Smoker Frequency of Alcohol Use: None Hx Recreational Drug Use: No Hx Prescription Drug Abuse: No Family History Family History: None Parental Family History Reviewed: Yes Children Family History Reviewed: Yes Sibling(s) Family History Reviewed.: Yes Medication/Allergy Home Medications: Albuterol Sulfate [Proair HFA Inhalation Aerosol 8.5 gm MDI] 2 puff IH Q4HP PRN 10/17/16 Amlodipine Besylate [Norvasc 5 mg Tablet] 5 mg PO QAM 10/17/16 Aspirin [Aspirin EC] 81 mg PO Q12 10/17/16 Bisacodyl [Dulcolax 5 mg Tablet] 5 mg PO DAILYP PRN 10/17/16 Budesonide/Formoterol Fumarate [Symbicort HFA 80-4.5 mcg Inhaler 6.9 gm] 2 puff IH Q12 10/17/16 Cetirizine HCl [Zyrtec 10 mg Tablet] 10 mg PO DAILYP PRN 10/17/16 Citalopram Hydrobromide [Celexa 40 mg Tablet] 40 mg PO QAM 10/17/16 Ergocalciferol (Vitamin D2) [Vitamin D2] 50,000 unit PO MARIE@1000 10/17/16 Furosemide [Lasix] 40 mg PO BID 10/17/16 Glipizide [Glucotrol 5 mg Tablet] 5 mg PO QPM 10/17/16 Insulin NPH Human Isophane [Humulin N] 60 units SQ QHS 10/17/16 Insulin Regular, Human [Humulin R (Reg) Insulin 100 unit/mL] 0 units SQ .PERSLIDINGSCALE 10/17/16 Levothyroxine Sodium [Synthroid 0.15 mg Tablet] 0.15 mg PO QAM 10/17/16 Metolazone [Zaroxolyn 2.5 mg Tablet] 2.5 mg PO MOWEFR@1200 10/17/16 Metoprolol Succinate [Toprol Xl 25 mg Tab.sr] 25 mg PO Q12 10/17/16 Oxycodone HCl/Acetaminophen [Percocet 10-325 mg Tablet] 1 each PO Q6HP PRN 10/17 Simvastatin [Zocor 10 mg Tablet] 10 mg PO DAILY 10/17/16 Vitamin B Complex 1 each PO QAM 10/17/16 Allergies/Adverse Reactions: heparin Allergy (Verified 10/17/16 22:11) Penicillins Allergy (Verified 10/17/16 22:11) spironolactone Adverse Reaction (Verified 08/29/16 18:30) Review of Systems Constitutional: PRESENT: fever(s), weight gain Cardiovascular: PRESENT: dyspnea on exertion, edema Respiratory: PRESENT: dyspnea Gastrointestinal: PRESENT: abdominal pain, nausea Genitourinary: PRESENT: difficulty urinating, dysuria Psychiatric: PRESENT: depression Physical Exam Vital Signs: Temp Pulse Resp BP Pulse Ox 98.0 F 63 19 136/58 H 93 10/18/16 16:43 10/18/16 16:43 10/18/16 16:43 10/18/16 16:43 10/18/16 16:43 Intake & Output 10/17/16 10/18/16 10/19/16 06:59 06:59 06:59 Intake Total 446 1100 Output Total 100 Balance 446 1000 Weight 182.2 kg General appearance: PRESENT: mild distress Head exam: PRESENT: atraumatic, normocephalic Ear exam: PRESENT: normal external ear exam Mouth exam: PRESENT: moist, tongue midline Neck exam: PRESENT: full ROM Respiratory exam: PRESENT: crackles Cardiovascular exam: PRESENT: RRR, +S1 Vascular exam: PRESENT: normal capillary refill GI/Abdominal exam: PRESENT: distended, other - There is a large right paracentral abdominal hernia Rectal exam: PRESENT: deferred Extremities exam: PRESENT: other - There is a halo on the right lower extremity Neurological exam: PRESENT: alert, awake, oriented to person, oriented to place , oriented to time, oriented to situation, CN II-XII grossly intact Psychiatric exam: PRESENT: depressed Skin exam: PRESENT: dry, intact, warm Results Laboratory Results: 10/18/16 04:30 10/18/16 04:30 10/17/16 10/17/16 10/17/16 21:22 21:22 21:22 WBC RBC Hgb Hct MCV MCH MCHC RDW Plt Count Seg Neutrophils % Lymphocytes % Monocytes % Eosinophils % Basophils % Absolute Neutrophils Absolute Lymphocytes Absolute Monocytes Absolute Eosinophils Absolute Basophils Carbonic Acid HCO3/H2CO3 Ratio ABG pH ABG pCO2 ABG pO2 ABG HCO3 ABG O2 Saturation ABG Base Excess FiO2 Sodium Potassium Chloride Carbon Dioxide Anion Gap BUN Creatinine Est GFR ( Amer) Est GFR (Non-Af Amer) Glucose Calcium Phosphorus Total Bilirubin AST ALT Alkaline Phosphatase Ammonia Cancelled Total Protein Albumin Lipase 56.5 TSH 8.50 H Free T4 10/17/16 10/18/16 10/18/16 22:12 04:30 04:30 WBC 7.2 RBC 2.92 L Hgb 8.2 L Hct 25.4 L MCV 87 MCH 28.2 MCHC 32.4 RDW 17.8 H Plt Count 153 Seg Neutrophils % 76.3 Lymphocytes % 12.6 L Monocytes % 8.5 Eosinophils % 2.2 Basophils % 0.4 Absolute Neutrophils 5.5 Absolute Lymphocytes 0.9 Absolute Monocytes 0.6 Absolute Eosinophils 0.2 Absolute Basophils 0.0 Carbonic Acid HCO3/H2CO3 Ratio ABG pH ABG pCO2 ABG pO2 ABG HCO3 ABG O2 Saturation ABG Base Excess FiO2 Sodium 138.0 Potassium 4.5 Chloride 101 Carbon Dioxide 26 Anion Gap 11 BUN 64 H Creatinine 2.56 H Est GFR ( Amer) 23 L Est GFR (Non-Af Amer) 19 L Glucose 73 L Calcium 8.9 Phosphorus 3.6 Total Bilirubin 0.8 AST 11 L ALT 30 Alkaline Phosphatase 81 Ammonia < 8.7 L Total Protein 5.5 L Albumin 2.8 L Lipase TSH Free T4 10/18/16 10/18/16 04:30 10:11 WBC RBC Hgb Hct MCV MCH MCHC RDW Plt Count Seg Neutrophils % Lymphocytes % Monocytes % Eosinophils % Basophils % Absolute Neutrophils Absolute Lymphocytes Absolute Monocytes Absolute Eosinophils Absolute Basophils Carbonic Acid 1.53 H HCO3/H2CO3 Ratio 19:1 ABG pH 7.38 ABG pCO2 50.8 H ABG pO2 57.2 L ABG HCO3 29.4 H ABG O2 Saturation 88.9 L ABG Base Excess 3.6 FiO2 4L Sodium Potassium Chloride Carbon Dioxide Anion Gap BUN Creatinine Est GFR ( Amer) Est GFR (Non-Af Amer) Glucose Calcium Phosphorus Total Bilirubin AST ALT Alkaline Phosphatase Ammonia Total Protein Albumin Lipase TSH Free T4 1.31 10/17/16 10/17/16 10/17/16 21:22 21:22 21:22 Creatine Kinase 33 CK-MB (CK-2) 0.84 Troponin I < 0.012 NT-Pro-B Natriuret Pep 5750 H 10/18/16 10/18/16 10/18/16 04:30 04:30 10:52 Creatine Kinase 35 38 CK-MB (CK-2) 1.18 Troponin I 0.013 NT-Pro-B Natriuret Pep 10/18/16 10:52 Creatine Kinase CK-MB (CK-2) 1.04 Troponin I < 0.012 NT-Pro-B Natriuret Pep Impressions: Abdomen/Pelvis CT 10/18/16 00:00 IMPRESSION: Small-moderate bilateral lower lobar pneumonia. No acute intraabdominal-pelvic findings. Large right paracentral abdominal-pelvic wall herniation including bowel and right hepatic lobe. Incomplete exam. Assessment & Plan - Diagnosis (1) Pyelonephritis, acute Is this a current diagnosis for this admission?: YesPlan: She has a history of UTI in the past, previous urine culture result was reviewed , she has a history of enterococcus faecalis UTI and also a history of Citrobacter UTI now the CAT scan suggest pyelonephritis of the right kidney. (2) Pneumonia Qualifiers: Pneumonia type: due to unspecified organism Laterality: unspecified laterality Lung location: unspecified part of lung Qualified Code(s) : J18.9 - Pneumonia, unspecified organism Is this a current diagnosis for this admission?: YesPlan: CT scans suggest pneumonia probably aspiration (3) Abdominal hernia Qualifiers: Hernia type: other abdominal hernia Obstruction and gangrene presence: without obstruction or gangrene Qualified Code(s): K45.8 - Other specified abdominal hernia without obstruction or gangrene Is this a current diagnosis for this admission?: YesPlan: She has a huge abdominal hernia, there is no evidence of obstruction or gangrene or incarceration consultation will be requested from surgeon (4) Acute kidney injury Is this a current diagnosis for this admission?: YesPlan: History of chronic kidney disease stage III with superimposed acute kidney injury
[2016-10-18] MEDS: CEFTRIAXONE 1 GM/D5W RTU 1 GM/50 ML RTUPB IV SCH (22:02)
[2016-10-18] MEDS: SIMVASTATIN 10 MG TABLET PO SCH (22:02)
[2016-10-19 05:36] LABS: ABSOLUTE EOSINOPHILS # (AUTO) 0.2 10^3/uL (0.0-0.6); ABSOLUTE LYMPHOCYTES (AUTO) 0.9 10^3/uL (0.5-4.7); ABSOLUTE MONOCYTES (AUTO) 0.7 10^3/uL (0.1-1.4); ABSOLUTE NEUT (AUTO) 4.4 10^3/uL (1.7-8.2); BASOPHILS % (AUTO) 0.4 % (0-2); EOSINOPHILS % (AUTO) 3.3 % (0-6); HEMATOCRIT 26.4 % (36.0-47.0); HEMOGLOBIN 8.4 g/dL (12.0-15.5); HGB HCT DIFFERENCE -1.2; MEAN CORPUSCULAR HEMOGLOBIN 28.1 pg (27.0-33.4); MEAN CORPUSCULAR VOLUME 88 fl (80-97); MONOCYTES % (AUTO) 10.8 % (3-13); RED BLOOD COUNT 3.01 10^6/uL (3.72-5.28); RED CELL DISTRIBUTION WIDTH 17.7 % (11.5-14.0); SEGMENTED NEUTROPHILS % (AUTO) 71.5 % (42-78); WHITE BLOOD COUNT 6.2 10^3/uL (4.0-10.5)
[2016-10-19 06:00] LABS: ANION GAP 9 (5-19); BLOOD UREA NITROGEN 61 mg/dL (7-20); CALCIUM 9.4 mg/dL (8.4-10.2); CARBON DIOXIDE 28 mmol/L (22-30); CHLORIDE 100 mmol/L (98-107); CREATININE RESULT 2.73 mg/dL (0.52-1.25); GLUCOSE 159 mg/dL (75-110); MAGNESIUM 2.7 mg/dL (1.6-2.3); PHOSPHORUS 3.7 mg/dL (2.5-4.5); POTASSIUM 4.9 mmol/L (3.6-5.0); SODIUM 137.2 mmol/L (137-145)
[2016-10-19] MEDS: FUROSEMIDE INJ/PF 40 MG/4 ML SDV IV SCH ×3 (07:31→21:19)
[2016-10-19] MEDS: CITALOPRAM HYDROBROMIDE 20 MG TABLET PO SCH (08:41)
[2016-10-19] MEDS: MULTIVIT-STRESS FORMULA/ZINC TABLET PO SCH (08:41)
[2016-10-19] MEDS: LEVOTHYROXINE SODIUM 0.15 MG TABLET PO SCH (08:41)
[2016-10-19] MEDS: METOPROLOL SUCCINATE 25 MG TAB.SR.24H PO SCH (09:15)
[2016-10-19] MEDS: BUDESONIDE/FORMOTEROL 80-4.5 MCG 60 PUFF/6.9 GM MDI IH SCH ×2 (09:16→21:19)
[2016-10-19] MEDS: ASPIRIN 81 MG TABLET, ENT COATED PO SCH ×2 (09:16→21:19)
[2016-10-19] MEDS: LEVOFLOXACIN 750 MG/D5W RTU 150 ML IV SCH (09:18)
[2016-10-19] MEDS: INSULIN LISPRO 100 UNIT/ML 3 ML VIAL SUBCUT PRN ×2 (13:46→16:26)
--- NOTE | 2016-10-19 15:50 | PDOC PROGRESS REPORT ---
Subjective Progress Note for:: 10/18/16 Subjective:: Patient was admitted yesterday because of acute pyelonephritis, acute kidney injury, she is improving on medication Physical Exam Vital Signs: Temp Pulse Resp BP Pulse Ox 98.0 F 63 19 136/58 H 93 10/18/16 16:43 10/18/16 16:43 10/18/16 16:43 10/18/16 16:43 10/18/16 16:43 Intake & Output 10/17/16 10/18/16 10/19/16 06:59 06:59 06:59 Intake Total 446 1100 Output Total 100 Balance 446 1000 Weight 182.2 kg General appearance: PRESENT: no acute distress Eye exam: PRESENT: PERRLA Respiratory exam: PRESENT: clear to auscultation jerome Cardiovascular exam: PRESENT: +S1, +S2 GI/Abdominal exam: PRESENT: other - Paracentral ventral hernia Neurological exam: PRESENT: alert Results Laboratory Results: 10/18/16 04:30 10/18/16 04:30 10/17/16 10/17/16 10/17/16 21:22 21:22 21:22 WBC RBC Hgb Hct MCV MCH MCHC RDW Plt Count Seg Neutrophils % Lymphocytes % Monocytes % Eosinophils % Basophils % Absolute Neutrophils Absolute Lymphocytes Absolute Monocytes Absolute Eosinophils Absolute Basophils Carbonic Acid HCO3/H2CO3 Ratio ABG pH ABG pCO2 ABG pO2 ABG HCO3 ABG O2 Saturation ABG Base Excess FiO2 Sodium Potassium Chloride Carbon Dioxide Anion Gap BUN Creatinine Est GFR ( Amer) Est GFR (Non-Af Amer) Glucose Calcium Phosphorus Total Bilirubin AST ALT Alkaline Phosphatase Ammonia Cancelled Total Protein Albumin Lipase 56.5 TSH 8.50 H Free T4 10/17/16 10/18/16 10/18/16 22:12 04:30 04:30 WBC 7.2 RBC 2.92 L Hgb 8.2 L Hct 25.4 L MCV 87 MCH 28.2 MCHC 32.4 RDW 17.8 H Plt Count 153 Seg Neutrophils % 76.3 Lymphocytes % 12.6 L Monocytes % 8.5 Eosinophils % 2.2 Basophils % 0.4 Absolute Neutrophils 5.5 Absolute Lymphocytes 0.9 Absolute Monocytes 0.6 Absolute Eosinophils 0.2 Absolute Basophils 0.0 Carbonic Acid HCO3/H2CO3 Ratio ABG pH ABG pCO2 ABG pO2 ABG HCO3 ABG O2 Saturation ABG Base Excess FiO2 Sodium 138.0 Potassium 4.5 Chloride 101 Carbon Dioxide 26 Anion Gap 11 BUN 64 H Creatinine 2.56 H Est GFR ( Amer) 23 L Est GFR (Non-Af Amer) 19 L Glucose 73 L Calcium 8.9 Phosphorus 3.6 Total Bilirubin 0.8 AST 11 L ALT 30 Alkaline Phosphatase 81 Ammonia < 8.7 L Total Protein 5.5 L Albumin 2.8 L Lipase TSH Free T4 10/18/16 10/18/16 04:30 10:11 WBC RBC Hgb Hct MCV MCH MCHC RDW Plt Count Seg Neutrophils % Lymphocytes % Monocytes % Eosinophils % Basophils % Absolute Neutrophils Absolute Lymphocytes Absolute Monocytes Absolute Eosinophils Absolute Basophils Carbonic Acid 1.53 H HCO3/H2CO3 Ratio 19:1 ABG pH 7.38 ABG pCO2 50.8 H ABG pO2 57.2 L ABG HCO3 29.4 H ABG O2 Saturation 88.9 L ABG Base Excess 3.6 FiO2 4L Sodium Potassium Chloride Carbon Dioxide Anion Gap BUN Creatinine Est GFR ( Amer) Est GFR (Non-Af Amer) Glucose Calcium Phosphorus Total Bilirubin AST ALT Alkaline Phosphatase Ammonia Total Protein Albumin Lipase TSH Free T4 1.31 10/17/16 10/17/16 10/17/16 21:22 21:22 21:22 Creatine Kinase 33 CK-MB (CK-2) 0.84 Troponin I < 0.012 NT-Pro-B Natriuret Pep 5750 H 10/18/16 10/18/16 10/18/16 04:30 04:30 10:52 Creatine Kinase 35 38 CK-MB (CK-2) 1.18 Troponin I 0.013 NT-Pro-B Natriuret Pep 10/18/16 10:52 Creatine Kinase CK-MB (CK-2) 1.04 Troponin I < 0.012 NT-Pro-B Natriuret Pep Impressions: Abdomen/Pelvis CT 10/18/16 00:00 IMPRESSION: Small-moderate bilateral lower lobar pneumonia. No acute intraabdominal-pelvic findings. Large right paracentral abdominal-pelvic wall herniation including bowel and right hepatic lobe. Incomplete exam. Assessment & Plan - Diagnosis (1) Pyelonephritis, acute Is this a current diagnosis for this admission?: Yes (2) Pneumonia Qualifiers: Pneumonia type: due to unspecified organism Laterality: unspecified laterality Lung location: unspecified part of lung Qualified Code(s) : J18.9 - Pneumonia, unspecified organism Is this a current diagnosis for this admission?: YesPlan: CT scans suggest pneumonia probably aspiration (3) Abdominal hernia Qualifiers: Hernia type: other abdominal hernia Obstruction and gangrene presence: without obstruction or gangrene Qualified Code(s): K45.8 - Other specified abdominal hernia without obstruction or gangrene Is this a current diagnosis for this admission?: Yes (4) Acute kidney injury Is this a current diagnosis for this admission?: Yes
--- NOTE | 2016-10-19 16:38 | PDOC PROGRESS REPORT ---
Subjective Progress Note for:: 10/19/16 Subjective:: She was seen by the bedside, she is alert it seemed that she is responding to the antibiotic Physical Exam Vital Signs: Temp Pulse Resp BP Pulse Ox 97.7 F 63 20 123/51 L 93 10/19/16 13:00 10/19/16 13:00 10/19/16 13:00 10/19/16 13:00 10/19/16 13:00 Intake & Output 10/18/16 10/19/16 10/20/16 06:59 06:59 06:59 Intake Total 446 1520 402 Output Total 1100 Balance 446 420 402 Weight 182.2 kg General appearance: PRESENT: no acute distress Eye exam: PRESENT: PERRLA Respiratory exam: PRESENT: clear to auscultation jerome Cardiovascular exam: PRESENT: +S1, +S2 GI/Abdominal exam: PRESENT: firm Neurological exam: PRESENT: alert, CN II-XII grossly intact Results Laboratory Results: 10/19/16 04:34 10/19/16 04:34 10/17/16 10/19/16 10/19/16 21:22 04:34 04:34 WBC 6.2 RBC 3.01 L Hgb 8.4 L Hct 26.4 L MCV 88 MCH 28.1 MCHC 32.0 RDW 17.7 H Plt Count 148 L Seg Neutrophils % 71.5 Lymphocytes % 14.0 Monocytes % 10.8 Eosinophils % 3.3 Basophils % 0.4 Absolute Neutrophils 4.4 Absolute Lymphocytes 0.9 Absolute Monocytes 0.7 Absolute Eosinophils 0.2 Absolute Basophils 0.0 Sodium 137.2 Potassium 4.9 Chloride 100 Carbon Dioxide 28 Anion Gap 9 BUN 61 H Creatinine 2.73 H Est GFR ( Amer) 22 L Est GFR (Non-Af Amer) 18 L Glucose 159 H Calcium 9.4 Phosphorus 3.7 Magnesium 2.7 H Free T4 PTH Intact 40 10/19/16 04:34 WBC RBC Hgb Hct MCV MCH MCHC RDW Plt Count Seg Neutrophils % Lymphocytes % Monocytes % Eosinophils % Basophils % Absolute Neutrophils Absolute Lymphocytes Absolute Monocytes Absolute Eosinophils Absolute Basophils Sodium Potassium Chloride Carbon Dioxide Anion Gap BUN Creatinine Est GFR ( Amer) Est GFR (Non-Af Amer) Glucose Calcium Phosphorus Magnesium Free T4 1.33 PTH Intact 10/17/16 10/17/16 10/17/16 21:22 21:22 21:22 Creatine Kinase 33 CK-MB (CK-2) 0.84 Troponin I < 0.012 NT-Pro-B Natriuret Pep 5750 H 10/18/16 10/18/16 10/18/16 04:30 04:30 10:52 Creatine Kinase 35 38 CK-MB (CK-2) 1.18 Troponin I 0.013 NT-Pro-B Natriuret Pep 10/18/16 10:52 Creatine Kinase CK-MB (CK-2) 1.04 Troponin I < 0.012 NT-Pro-B Natriuret Pep Impressions: Abdomen/Pelvis CT 10/18/16 00:00 IMPRESSION: Small-moderate bilateral lower lobar pneumonia. No acute intraabdominal-pelvic findings. Large right paracentral abdominal-pelvic wall herniation including bowel and right hepatic lobe. Incomplete exam. Renal Ultrasound 10/18/16 00:00 IMPRESSION: BLADDER VOLUMES ABOVE. Assessment & Plan - Diagnosis (1) Pyelonephritis, acute Is this a current diagnosis for this admission?: YesPlan: Continue IV antibiotic (2) Pneumonia Qualifiers: Pneumonia type: due to unspecified organism Laterality: unspecified laterality Lung location: unspecified part of lung Qualified Code(s) : J18.9 - Pneumonia, unspecified organism Is this a current diagnosis for this admission?: Yes (3) Abdominal hernia Qualifiers: Hernia type: other abdominal hernia Obstruction and gangrene presence: without obstruction or gangrene Qualified Code(s): K45.8 - Other specified abdominal hernia without obstruction or gangrene Is this a current diagnosis for this admission?: Yes (4) Acute kidney injury Is this a current diagnosis for this admission?: Yes
[2016-10-19] MEDS: GLIPIZIDE 5 MG TABLET PO SCH (17:10)
[2016-10-19] MEDS: DOCUSATE SODIUM 100 MG CAPSULE PO SCH (17:29)
[2016-10-19] MEDS: INSULIN NPH (ISOPHANE), HUMAN 100 UNIT/ML 3 ML SUBCUT SCH (21:19)
[2016-10-19] MEDS: CEFTRIAXONE 1 GM/D5W RTU 1 GM/50 ML RTUPB IV SCH (21:19)
[2016-10-19] MEDS: SIMVASTATIN 10 MG TABLET PO SCH (21:19)
[2016-10-20] MEDS: METOPROLOL SUCCINATE 25 MG TAB.SR.24H PO SCH ×3 (00:26→21:59)
[2016-10-20] MEDS: FUROSEMIDE INJ/PF 40 MG/4 ML SDV IV SCH ×3 (06:06→21:59)
[2016-10-20 06:27] LABS: ABSOLUTE BASOPHILS # (AUTO) 0.1 10^3/uL (0.0-0.2); ABSOLUTE EOSINOPHILS # (AUTO) 0.2 10^3/uL (0.0-0.6); ABSOLUTE MONOCYTES (AUTO) 0.9 10^3/uL (0.1-1.4); ABSOLUTE NEUT (AUTO) 6.1 10^3/uL (1.7-8.2); BASOPHILS % (AUTO) 1.2 % (0-2); EOSINOPHILS % (AUTO) 2.8 % (0-6); HEMATOCRIT 27.2 % (36.0-47.0); HEMOGLOBIN 8.7 g/dL (12.0-15.5); HGB HCT DIFFERENCE -1.1; LYMPHOCYTES % (AUTO) 11.9 % (13-45); MEAN CORPUSCULAR HEMOGLOBIN 27.8 pg (27.0-33.4); MEAN CORPUSCULAR HGB CONC 32.1 g/dL (32.0-36.0); MEAN CORPUSCULAR VOLUME 87 fl (80-97); MONOCYTES % (AUTO) 10.4 % (3-13); RED BLOOD COUNT 3.14 10^6/uL (3.72-5.28); RED CELL DISTRIBUTION WIDTH 17.9 % (11.5-14.0); SEGMENTED NEUTROPHILS % (AUTO) 73.7 % (42-78); WHITE BLOOD COUNT 8.2 10^3/uL (4.0-10.5)
[2016-10-20 08:21] LABS: ANION GAP 10 (5-19); BLOOD UREA NITROGEN 57 mg/dL (7-20); CALCIUM 10.1 mg/dL (8.4-10.2); CARBON DIOXIDE 30 mmol/L (22-30); CHLORIDE 99 mmol/L (98-107); CREATININE RESULT 2.42 mg/dL (0.52-1.25); GLUCOSE 115 mg/dL (75-110); POTASSIUM 4.5 mmol/L (3.6-5.0); SODIUM 138.9 mmol/L (137-145)
[2016-10-20] MEDS: CITALOPRAM HYDROBROMIDE 20 MG TABLET PO SCH (08:56)
[2016-10-20] MEDS: MULTIVIT-STRESS FORMULA/ZINC TABLET PO SCH (08:56)
[2016-10-20] MEDS: LEVOTHYROXINE SODIUM 0.15 MG TABLET PO SCH (08:56)
[2016-10-20] MEDS ORDERED: ERGOCALCIFEROL (VITAMIN D2) 50000 UNIT (1.25 MG) CAPSULE PO SCH (10:00)
[2016-10-20] MEDS: LEVOFLOXACIN 750 MG/D5W RTU 150 ML IV SCH (10:13)
[2016-10-20] MEDS: BUDESONIDE/FORMOTEROL 80-4.5 MCG 60 PUFF/6.9 GM MDI IH SCH ×2 (10:14→21:55)
[2016-10-20] MEDS: DOCUSATE SODIUM 100 MG CAPSULE PO SCH ×2 (10:14→16:51)
[2016-10-20] MEDS: ASPIRIN 81 MG TABLET, ENT COATED PO SCH ×2 (10:14→21:55)
--- NOTE | 2016-10-20 15:34 | PDOC PROGRESS REPORT ---
Subjective Progress Note for:: 10/20/16 Subjective:: She was seen by the bedside she has no new complaints today Physical Exam Vital Signs: Temp Pulse Resp BP Pulse Ox 97.5 F 67 22 H 115/48 L 95 10/20/16 12:00 10/20/16 12:00 10/20/16 12:00 10/20/16 12:00 10/20/16 12:00 Intake & Output 10/19/16 10/20/16 10/21/16 06:59 06:59 06:59 Intake Total 1520 1312 Output Total 1100 1475 Balance 420 -163 Weight 182.2 kg General appearance: PRESENT: no acute distress Eye exam: PRESENT: PERRLA Respiratory exam: PRESENT: clear to auscultation jerome Cardiovascular exam: PRESENT: +S1, +S2 GI/Abdominal exam: PRESENT: soft Neurological exam: PRESENT: alert, CN II-XII grossly intact Results Laboratory Results: 10/20/16 05:40 10/20/16 07:45 10/20/16 10/20/16 10/20/16 05:40 05:40 05:40 WBC 8.2 RBC 3.14 L Hgb 8.7 L Hct 27.2 L MCV 87 MCH 27.8 MCHC 32.1 RDW 17.9 H Plt Count 159 Seg Neutrophils % 73.7 Lymphocytes % 11.9 L Monocytes % 10.4 Eosinophils % 2.8 Basophils % 1.2 Absolute Neutrophils 6.1 Absolute Lymphocytes 1.0 Absolute Monocytes 0.9 Absolute Eosinophils 0.2 Absolute Basophils 0.1 Sodium Cancelled Potassium Cancelled Chloride Cancelled Carbon Dioxide Cancelled Anion Gap Cancelled BUN Cancelled Creatinine Cancelled Est GFR ( Amer) Cancelled Est GFR (Non-Af Amer) Cancelled Glucose Cancelled Calcium Cancelled Phosphorus Cancelled Free T4 1.26 10/20/16 07:45 WBC RBC Hgb Hct MCV MCH MCHC RDW Plt Count Seg Neutrophils % Lymphocytes % Monocytes % Eosinophils % Basophils % Absolute Neutrophils Absolute Lymphocytes Absolute Monocytes Absolute Eosinophils Absolute Basophils Sodium 138.9 Potassium 4.5 Chloride 99 Carbon Dioxide 30 Anion Gap 10 BUN 57 H Creatinine 2.42 H Est GFR ( Amer) 25 L Est GFR (Non-Af Amer) 20 L Glucose 115 H Calcium 10.1 Phosphorus 3.0 Free T4 10/17/16 10/17/16 10/17/16 21:22 21:22 21:22 Creatine Kinase 33 CK-MB (CK-2) 0.84 Troponin I < 0.012 NT-Pro-B Natriuret Pep 5750 H 10/18/16 10/18/16 10/18/16 04:30 04:30 10:52 Creatine Kinase 35 38 CK-MB (CK-2) 1.18 Troponin I 0.013 NT-Pro-B Natriuret Pep 10/18/16 10:52 Creatine Kinase CK-MB (CK-2) 1.04 Troponin I < 0.012 NT-Pro-B Natriuret Pep Impressions: Abdomen/Pelvis CT 10/18/16 00:00 IMPRESSION: Small-moderate bilateral lower lobar pneumonia. No acute intraabdominal-pelvic findings. Large right paracentral abdominal-pelvic wall herniation including bowel and right hepatic lobe. Incomplete exam. Renal Ultrasound 10/18/16 00:00 IMPRESSION: BLADDER VOLUMES ABOVE. Assessment & Plan - Diagnosis (1) Pyelonephritis, acute Is this a current diagnosis for this admission?: YesPlan: She will continue the IV antibiotic (2) Pneumonia Qualifiers: Pneumonia type: due to unspecified organism Laterality: unspecified laterality Lung location: unspecified part of lung Qualified Code(s) : J18.9 - Pneumonia, unspecified organism Is this a current diagnosis for this admission?: Yes (3) Abdominal hernia Qualifiers: Hernia type: other abdominal hernia Obstruction and gangrene presence: without obstruction or gangrene Qualified Code(s): K45.8 - Other specified abdominal hernia without obstruction or gangrene Is this a current diagnosis for this admission?: Yes (4) Acute kidney injury Is this a current diagnosis for this admission?: Yes
[2016-10-20] MEDS: INSULIN LISPRO 100 UNIT/ML 3 ML VIAL SUBCUT PRN (16:50)
[2016-10-20] MEDS: GLIPIZIDE 5 MG TABLET PO SCH (16:51)
[2016-10-20] MEDS: INSULIN NPH (ISOPHANE), HUMAN 100 UNIT/ML 3 ML SUBCUT SCH (21:55)
[2016-10-20] MEDS: SIMVASTATIN 10 MG TABLET PO SCH (21:59)
[2016-10-20] MEDS: CEFTRIAXONE 1 GM/D5W RTU 1 GM/50 ML RTUPB IV SCH (21:59)
[2016-10-21] MEDS: FUROSEMIDE INJ/PF 40 MG/4 ML SDV IV SCH ×2 (06:02→13:43)
[2016-10-21 06:47] LABS: ANION GAP 10 (5-19); BLOOD UREA NITROGEN 49 mg/dL (7-20); CARBON DIOXIDE 29 mmol/L (22-30); CHLORIDE 100 mmol/L (98-107); CREATININE RESULT 2.07 mg/dL (0.52-1.25); GLUCOSE 74 mg/dL (75-110); POTASSIUM 4.2 mmol/L (3.6-5.0); SODIUM 138.9 mmol/L (137-145)
[2016-10-21] MEDS: LEVOTHYROXINE SODIUM 0.15 MG TABLET PO SCH (08:20)
[2016-10-21] MEDS: MULTIVIT-STRESS FORMULA/ZINC TABLET PO SCH (08:20)
[2016-10-21] MEDS: CITALOPRAM HYDROBROMIDE 20 MG TABLET PO SCH (08:21)
[2016-10-21] MEDS: METOPROLOL SUCCINATE 25 MG TAB.SR.24H PO SCH (11:08)
[2016-10-21] MEDS: DOCUSATE SODIUM 100 MG CAPSULE PO SCH ×2 (11:08→17:55)
[2016-10-21] MEDS: ASPIRIN 81 MG TABLET, ENT COATED PO SCH (11:08)
[2016-10-21] MEDS: BUDESONIDE/FORMOTEROL 80-4.5 MCG 60 PUFF/6.9 GM MDI IH SCH (11:09)
[2016-10-21] MEDS ORDERED: LEVOFLOXACIN 750 MG TABLET PO SCH (12:00)
--- NOTE | 2016-10-21 13:14 | PDOC DISCHARGE SUMMARY ---
General - Admit/Disc Date/PCP Admission Date/Primary Care Provider: 10/17/16 20:44 SHAYY RASHID Discharge Date: 10/21/16 - Additional Information Discharge Diet: Cardiac, Diabetic Discharge Activity: Activity As Tolerated Home Medications: Albuterol Sulfate [Proair HFA Inhalation Aerosol 8.5 gm MDI] 2 puff IH Q4HP PRN 10/17/16 Amlodipine Besylate [Norvasc 5 mg Tablet] 5 mg PO QAM 10/17/16 Aspirin [Aspirin EC] 81 mg PO Q12 10/17/16 Bisacodyl [Dulcolax 5 mg Tablet] 5 mg PO DAILYP PRN 10/17/16 Budesonide/Formoterol Fumarate [Symbicort HFA 80-4.5 mcg Inhaler 6.9 gm] 2 puff IH Q12 10/17/16 Cetirizine HCl [Zyrtec 10 mg Tablet] 10 mg PO DAILYP PRN 10/17/16 Citalopram Hydrobromide [Celexa 40 mg Tablet] 40 mg PO QAM 10/17/16 Ergocalciferol (Vitamin D2) [Vitamin D2] 50,000 unit PO MARIE@1000 10/17/16 Furosemide [Lasix] 40 mg PO BID 10/17/16 Glipizide [Glucotrol 5 mg Tablet] 5 mg PO QPM 10/17/16 Insulin NPH Human Isophane [Humulin N] 60 units SQ QHS 10/17/16 Insulin Regular, Human [Humulin R (Reg) Insulin 100 unit/mL] 0 units SQ .PERSLIDINGSCALE 10/17/16 Levothyroxine Sodium [Synthroid 0.15 mg Tablet] 0.15 mg PO QAM 10/17/16 Metolazone [Zaroxolyn 2.5 mg Tablet] 2.5 mg PO MOWEFR@1200 10/17/16 Metoprolol Succinate [Toprol Xl 25 mg Tab.sr] 25 mg PO Q12 10/17/16 Oxycodone HCl/Acetaminophen [Percocet 10-325 mg Tablet] 1 each PO Q6HP PRN 10/17 Simvastatin [Zocor 10 mg Tablet] 10 mg PO DAILY 10/17/16 Vitamin B Complex 1 each PO QAM 10/17/16 Fluconazole [Diflucan 100 mg Tablet] 100 mg PO DAILY #7 tablet 10/21/16 Levofloxacin 500 mg PO DAILY #5 ml 10/21/16 History of Present Illness History of Present Illness: JOJO BACK is a 61 year old female with body mass index of 56 massive obesity she apparently came to the emergency room because of complaints of dysuria and foul-smelling urine, in the emergency room she was evaluated she was found to have UTI and also acute kidney injury. When I saw the patient on the floor with her family the daughter stated that the reason for the ER visit was because of worsening enlargement of the abdominal hernia. On inspection of the hernia she has A Huge Abdominal Hernia because of this concern and requested for CT scan of the abdomen and pelvis with oral contrast only. The CT scan showed large right paracentral abdominal-pelvic wall herniation including the bowel on the right hepatic lobe there is a chronic problem though. She also have Charcot foot and fracture of the right lower extremity which was treated at [facility] with external fixator. Patient is not active essentially bedbound with a large halo on the right lower extremity with a huge abdominal hernia. Hospital Course Hospital Course: Patient responded to IV antibiotic therapy and fluid support. Remain afebrile. No nausea or vomiting. There is significant abdominal ventral hernia which is chronic and for which patient does note want any surgical intervention. She is agreeable to discharge home today with [facility] services and trapeze device to aide mobility in bed. Physical Exam Vital Signs: Temp Pulse Resp BP Pulse Ox 97.5 F 67 22 H 122/52 L 94 10/21/16 08:32 10/21/16 08:32 10/21/16 08:32 10/21/16 08:32 10/21/16 08:32 Intake & Output 10/20/16 10/21/16 10/22/16 06:59 06:59 06:59 Intake Total 1312 1800 Output Total 1475 500 Balance -163 1300 Weight 182.2 kg Physical Exam: General appearance: PRESENT: mild distress Head exam: PRESENT: atraumatic, normocephalic Ear exam: PRESENT: normal external ear exam Mouth exam: PRESENT: moist, tongue midline Neck exam: PRESENT: full ROM Respiratory exam: PRESENT: crackles Cardiovascular exam: PRESENT: RRR, +S1 Vascular exam: PRESENT: normal capillary refill GI/Abdominal exam: PRESENT: distended, other - There is a large right ventral abdominal hernia Extremities exam: PRESENT: other - There is a halo on the right lower extremity Neurological exam: PRESENT: alert, awake, oriented to person, oriented to place , oriented to time, oriented to situation, CN II-XII grossly intact Psychiatric exam: PRESENT: depressed Skin exam: PRESENT: dry, intact, warm Results Laboratory Results: 10/20/16 05:40 10/21/16 05:28 10/21/16 05:28 Sodium 138.9 Potassium 4.2 Chloride 100 Carbon Dioxide 29 Anion Gap 10 BUN 49 H Creatinine 2.07 H Est GFR ( Amer) 30 L Est GFR (Non-Af Amer) 25 L Glucose 74 L Calcium 10.0 10/17/16 10/17/16 10/17/16 21:22 21:22 21:22 Creatine Kinase 33 CK-MB (CK-2) 0.84 Troponin I < 0.012 NT-Pro-B Natriuret Pep 5750 H 10/18/16 10/18/16 10/18/16 04:30 04:30 10:52 Creatine Kinase 35 38 CK-MB (CK-2) 1.18 Troponin I 0.013 NT-Pro-B Natriuret Pep 10/18/16 10:52 Creatine Kinase CK-MB (CK-2) 1.04 Troponin I < 0.012 NT-Pro-B Natriuret Pep Impressions: Abdomen/Pelvis CT 10/18/16 00:00 IMPRESSION: Small-moderate bilateral lower lobar pneumonia. No acute intraabdominal-pelvic findings. Large right paracentral abdominal-pelvic wall herniation including bowel and right hepatic lobe. Incomplete exam. Renal Ultrasound 10/18/16 00:00 IMPRESSION: BLADDER VOLUMES ABOVE. Qualifiers PATEINT BEING DISCHARGED WITH ANY OF THE FOLLOWING DIAGNOSIS?: No Plan Discharge Plan: D/C home today with [facility] services for VN, PT, and PCS and trapeze device. Follow up in office as instructed upon discharge. Time Spent: Less than 30 Minutes
[2016-10-21] MEDS: GLIPIZIDE 5 MG TABLET PO SCH (17:55)
[2016-10-21 18:34] VITALS: BP 129/49
--- NOTE | 2016-10-21 18:35 | PDOC PROGRESS REPORT ---
Subjective Progress Note for:: 10/21/16 Subjective:: Patient seen in the hospital today. She is feeling a whole lot better. Labs were reviewed with the patient shows creatinine back to baseline. Patient denies any specific chest pain shortness of breath at the moment. She is due for discharge soon. Physical Exam Vital Signs: Temp Pulse Resp BP Pulse Ox 97.8 F 68 20 133/52 H 95 10/21/16 17:33 10/21/16 17:33 10/21/16 17:33 10/21/16 17:33 10/21/16 17:33 Intake & Output 10/20/16 10/21/16 10/22/16 06:59 06:59 06:59 Intake Total 1312 1800 Output Total 1475 500 Balance -163 1300 Weight 182.2 kg General appearance: PRESENT: no acute distress Respiratory exam: PRESENT: clear to auscultation jerome. ABSENT: crackles, rhonchi Cardiovascular exam: PRESENT: +S1, +S2 GI/Abdominal exam: PRESENT: distended - large ventral abdominal hernia, soft. ABSENT: firm, guarding, mass, organomegaly, tenderness Extremities exam: PRESENT: pedal edema Neurological exam: PRESENT: alert, awake, oriented to person, oriented to place , oriented to time Results Laboratory Results: 10/20/16 05:40 10/21/16 05:28 10/21/16 05:28 Sodium 138.9 Potassium 4.2 Chloride 100 Carbon Dioxide 29 Anion Gap 10 BUN 49 H Creatinine 2.07 H Est GFR ( Amer) 30 L Est GFR (Non-Af Amer) 25 L Glucose 74 L Calcium 10.0 10/17/16 10/17/16 10/17/16 21:22 21:22 21:22 Creatine Kinase 33 CK-MB (CK-2) 0.84 Troponin I < 0.012 NT-Pro-B Natriuret Pep 5750 H 10/18/16 10/18/16 10/18/16 04:30 04:30 10:52 Creatine Kinase 35 38 CK-MB (CK-2) 1.18 Troponin I 0.013 NT-Pro-B Natriuret Pep 10/18/16 10:52 Creatine Kinase CK-MB (CK-2) 1.04 Troponin I < 0.012 NT-Pro-B Natriuret Pep Impressions: Abdomen/Pelvis CT 10/18/16 00:00 IMPRESSION: Small-moderate bilateral lower lobar pneumonia. No acute intraabdominal-pelvic findings. Large right paracentral abdominal-pelvic wall herniation including bowel and right hepatic lobe. Incomplete exam. Renal Ultrasound 10/18/16 00:00 IMPRESSION: BLADDER VOLUMES ABOVE. Assessment & Plan - Diagnosis (1) CKD (chronic kidney disease) stage 3, GFR 30-59 ml/min Plan: She is improving acute renal injury and she is back to baseline continue present management. (3) UTI (urinary tract infection) Qualifiers: Urinary tract infection type: acute cystitis Hematuria presence: with hematuria Qualified Code(s): N30.01 - Acute cystitis with hematuria Plan: Continue on antibiotics as per Dr. Joyce. (6) Diastolic CHF, chronic Plan: Continue current medications. (8) Pulmonary hypertension Plan: Continue current medications. (11) Acute kidney injury Is this a current diagnosis for this admission?: YesPlan: she is back to baseline. Continue present management. I'm signing off the moment.
== END 2016-10-21 20:20 | disposition home health service (06) | DRG 690 ==
LOC: ER 11:54 → EH 15:18 → UNDOADMIN 15:18 → EH 19:06 → 4N 19:06 → EH 20:44 → 4N 20:44
PROVIDERS: ADMIT Internal Medicine Geriatric Medicine; ATTEND Internal Medicine Geriatric Medicine
DX: N30.01 Acute cystitis with hematuria (principal); N17.9 Acute kidney failure, unspecified; Z68.43 Body mass index [BMI] 50.0-59.9, adult; I13.0 Hypertensive heart and chronic kidney disease with heart failure and stage 1 through stage 4 chronic kidney disease, or unspecified chronic kidney disease; I50.32 Chronic diastolic (congestive) heart failure; E66.01 Morbid (severe) obesity due to excess calories; E11.618 Type 2 diabetes mellitus with other diabetic arthropathy; E11.319 Type 2 diabetes mellitus with unspecified diabetic retinopathy without macular edema; E11.40 Type 2 diabetes mellitus with diabetic neuropathy, unspecified; K43.9 Ventral hernia without obstruction or gangrene; E78.5 Hyperlipidemia, unspecified; J44.9 Chronic obstructive pulmonary disease, unspecified; E03.9 Hypothyroidism, unspecified; E11.22 Type 2 diabetes mellitus with diabetic chronic kidney disease; N18.3 Chronic kidney disease, stage 3 (moderate); Z85.41 Personal history of malignant neoplasm of cervix uteri; M19.90 Unspecified osteoarthritis, unspecified site; M10.9 Gout, unspecified; F32.9 Major depressive disorder, single episode, unspecified; Z79.82 Long term (current) use of aspirin; Z79.4 Long term (current) use of insulin; Z79.899 Other long term (current) drug therapy; Z88.0 Allergy status to penicillin; Z88.8 Allergy status to other drugs, medicaments and biological substances
CPT/HCPCS: 36415; 36600; 74176; 76775; 80048; 80053; 81001; 82140; 82550; 82553; 82803; 82962; 83036; 83605; 83690; 83735; 83880; 83970; 84100; 84439; 84443; 84484; 85025; 87040; 87086; 96365; 99285; J0696; J1644; J1815; J1940; J1956; J2405; J3490; J7030

== ENCOUNTER 2016-10-30 13:54 | Inpatient (IN) | payer MEDICARE ==
[2016-10-30] MEDS ORDERED: CEFAZOLIN 1 GM/D5W RTU 50 ML IV ONE (15:30)
--- NOTE | 2016-10-30 15:32 | ER Document Report ---
ED Extremity Problem, Lower - General Chief Complaint: Leg Pain Stated Complaint: LEG PAIN Mode of Arrival: Stretcher Information source: Patient, Relative Notes: Patient presents complaining of bilateral lower extremity swelling that started yesterday. Patient's has noticed some light redness to bilateral lower extremities and is worried that she is getting an infection. Patient is status post orthopedic surgery after having a fracture of her Charcot foot in August of this year. Patient has been unable to follow-up with her orthopedic surgeon after her surgery due to inability to transfer to a vehicle. Patient spouse states that he has been unsuccessful with hiring a local ambulance company that is capable of transferring her to [place] due to her weight. Patient's spouse states that they recently received a prescription for a transfer board and are hoping to be able to get the board and transfer patient to wheelchair after which she might be able to get a local ambulance company to transfer her. Patient denies any fever. Patient states that she has been non-ambulatory since her surgery at the direction of her surgeon. Patient denies any cough or cold symptoms. Patient denies any chest pain. TRAVEL OUTSIDE OF THE [place] IN LAST 30 DAYS: No - HPI Patient complains to provider of: Swelling Location: Foot, Leg Occurred: Yesterday Onset/Duration: Worse Pain Level: 2 Context: Recent immobilization, Recent surgery - August 2016 Recent injury: No Associated symptoms: Unable to bear weight. denies: Chest pain, Dizzy, Fever, Short of breath Exacerbated by: Nothing Relieved by: Nothing - Related Data Allergies/Adverse Reactions: heparin Allergy (Verified 10/17/16 22:11) Penicillins Allergy (Verified 10/17/16 22:11) spironolactone Adverse Reaction (Verified 08/29/16 18:30) Past Medical History - General Information source: Patient, Relative - Social History Smoking Status: Never Smoker Frequency of alcohol use: None Drug Abuse: None Occupation: none Lives with: Spouse/Significant other Family History: None - Past Medical History Cardiac Medical History: Reports: Hx Congestive Heart Failure, Hx Hypercholesterolemia, Hx Hypertension Pulmonary Medical History: Reports: Hx COPD Endocrine Medical History: Reports: Hx Diabetes Mellitus Type 2, Hx Hypothyroidism Renal/ Medical History: Reports: Hx End Stage Renal Disease Malignancy Medical History: Reports: Hx Colorectal Cancer Musculoskeltal Medical History: Reports Hx Arthritis - gout Psychiatric Medical History: Reports: Hx Depression Past Surgical History: Reports: Hx Orthopedic Surgery - right ankle surgery secondary to trimalleolar fracture 09/2016, Other - History of colectomy - Immunizations Hx Diphtheria, Pertussis, Tetanus Vaccination: Yes Hx Pneumococcal Vaccination: 08/18/12 Review of Systems - Review of Systems Constitutional: Recent illness - Recent UTI, recent bilateral lower lobe pneumonia. denies: Fever EENT: No symptoms reported Cardiovascular: No symptoms reported. denies: Chest pain, Dizziness, Lightheaded Respiratory: No symptoms reported. denies: Cough, Short of breath Gastrointestinal: No symptoms reported. denies: Abdominal pain, Nausea, Vomiting Genitourinary: No symptoms reported. denies: Dysuria Female Genitourinary: No symptoms reported Musculoskeletal: Joint pain - Right lower extremity. denies: Back pain Skin: Change in color - Redness to bilateral lower extremities Hematologic/Lymphatic: No symptoms reported Neurological/Psychological: No symptoms reported Physical Exam - Vital signs Vitals: Temp Pulse Resp BP Pulse Ox 97.6 F 56 L 24 H 106/51 L 92 10/30/16 14:13 10/30/16 14:13 10/30/16 14:13 10/30/16 14:13 10/30/16 14:13 - General General appearance: Alert In distress: None - HEENT Head: Normocephalic, Atraumatic Conjunctiva: Normal Nasal: Normal Mouth/Lips: Normal Mucous membranes: Normal Neck: Normal, Supple. No: Lymphadenopathy - Respiratory Respiratory status: No respiratory distress Chest status: Nontender Breath sounds: Normal. No: Rales, Rhonchi, Stridor, Wheezing Chest palpation: Normal - Cardiovascular Rhythm: Regular Heart sounds: S1 appreciated, S2 appreciated - Abdominal Inspection: Morbidly Obese Bowel sounds: Normal Tenderness: Nontender - Back Back: Normal, Nontender. No: CVA tenderness - Extremities General upper extremity: Normal inspection, Normal strength General lower extremity: Tender - Tenderness to right lower extremity, Other - External fixator with a low to right foot and ankle Ankle: Tender - Right ankle, Edema - 2+ bilateral lower extremities, Unable to bear weight Foot: Edema - 2+ bilateral feet, Unable to bear weight - Neurological Cognition: Normal Marian Coma Scale Eye Opening: Spontaneous [place] Coma Scale Verbal: Oriented [place] Coma Scale Motor: Obeys Commands [place] Coma Scale Total: 15 - Psychological Associated symptoms: Normal affect, Normal mood - Skin Skin Temperature: Warm Skin Moisture: Dry Skin Color: Normal Course - Re-evaluation Re-evalutation: 10/30/16 15:31 Dr. Romeo consulted and to bedside for examination. Recommends giving dose of IV Ancef and consulting with her orthopedic surgeon at [place] [facility] for possible transfer after tests are resulted. 10/30/16 17:50 Reviewed patient's diagnostic test results with Dr. Romeo, recommends giving 1 L IV fluid bolus. 10/30/16 18:07 Call placed to transfer center at [facility] 10/30/16 19:[address] Eboni Russo orthopedic at [facility], states that localized infections around the pin sites are common and that patient does not need emergent transfer. Recommends outpatient follow-up with her orthopedic doctor on an outpatient basis. Consulted with Dr. Escalante regarding patient presentation and diagnostic test results. Discussed attempt at transferring patient for continuity of care to [facility], and explained to Dr. Mike that [employer] consultant orthopedic doctor felt that patient's orthopedic issue could be managed on an outpatient basis. Dr. Mike agrees to admit patient to medical floor for her acute on chronic renal failure. Discussed plan of care with patient and her spouse. Patient verbalized understanding and agrees with plan of care. Explained to patient that she will still need to arrange for follow-up on an outpatient basis with her orthopedic surgeon. 10/30/16 19:38 Report given to Jian Velasco NP - Vital Signs Vital signs: Temp Pulse Resp BP Pulse Ox 97.9 F 49 L 20 100/64 90 L 10/30/16 17:36 10/30/16 17:36 10/30/16 17:36 10/30/16 17:36 10/30/16 18:00 - Laboratory Result Diagrams: 10/30/16 16:25 10/30/16 16:25 Laboratory results interpreted by me: 10/30/16 10/30/16 10/30/16 16:25 16:25 16:25 RBC 3.04 L Hgb 8.4 L Hct 26.2 L RDW 17.8 H Lymphocytes % 11.2 L Sodium 132.0 L Chloride 96 L BUN 97 H Creatinine 3.24 H Est GFR ( Amer) 18 L Est GFR (Non-Af Amer) 15 L Glucose 138 H NT-Pro-B Natriuret Pep 4850 H Albumin 3.4 L Labs- Entire Visit 10/30/16 10/30/16 10/30/16 16:25 16:25 16:25 WBC 7.2 RBC 3.04 L Hgb 8.4 L Hct 26.2 L MCV 86 MCH 27.7 MCHC 32.1 RDW 17.8 H Plt Count 151 Seg Neutrophils % 74.0 Lymphocytes % 11.2 L Monocytes % 11.9 Eosinophils % 2.4 Basophils % 0.5 Absolute Neutrophils 5.4 Absolute Lymphocytes 0.8 Absolute Monocytes 0.9 Absolute Eosinophils 0.2 Absolute Basophils 0.0 Sodium 132.0 L Potassium 4.7 Chloride 96 L Carbon Dioxide 27 Anion Gap 9 BUN 97 H Creatinine 3.24 H Est GFR ( Amer) 18 L Est GFR (Non-Af Amer) 15 L Glucose 138 H Calcium 9.5 Total Bilirubin 1.0 Direct Bilirubin 0.0 AST 16 ALT 27 Alkaline Phosphatase 72 NT-Pro-B Natriuret Pep 4850 H Total Protein 7.0 Albumin 3.4 L 10/30/16 19:21 - Diagnostic Test Radiology reviewed: Reports reviewed Discharge - Discharge Clinical Impression: Acute kidney injury Chronic renal disease Qualifiers: Chronic kidney disease stage: stage 3 (moderate) Qualified Code(s): N18.3 - Chronic kidney disease, stage 3 (moderate) Morbid obesity Qualifiers: Obesity type: unspecified obesity type Qualified Code(s): E66.01 - Morbid ( severe) obesity due to excess calories Cellulitis Qualifiers: Site of cellulitis: extremity Site of cellulitis of extremity: lower extremity Laterality: right Qualified Code(s): L03.115 - Cellulitis of right lower limb Disposition: ADMITTED INPATIENT Admitting Provider: Maria Del Carmen Unit Admitted: Medical Floor Referrals: SHAYY MIKE MD [Primary Care Provider] - Follow up as needed
[2016-10-30 16:56] LABS: ABSOLUTE EOSINOPHILS # (AUTO) 0.2 10^3/uL (0.0-0.6); ABSOLUTE LYMPHOCYTES (AUTO) 0.8 10^3/uL (0.5-4.7); ABSOLUTE MONOCYTES (AUTO) 0.9 10^3/uL (0.1-1.4); ABSOLUTE NEUT (AUTO) 5.4 10^3/uL (1.7-8.2); BASOPHILS % (AUTO) 0.5 % (0-2); EOSINOPHILS % (AUTO) 2.4 % (0-6); HEMATOCRIT 26.2 % (36.0-47.0); HEMOGLOBIN 8.4 g/dL (12.0-15.5); LYMPHOCYTES % (AUTO) 11.2 % (13-45); MEAN CORPUSCULAR HEMOGLOBIN 27.7 pg (27.0-33.4); MEAN CORPUSCULAR HGB CONC 32.1 g/dL (32.0-36.0); MEAN CORPUSCULAR VOLUME 86 fl (80-97); MONOCYTES % (AUTO) 11.9 % (3-13); RED BLOOD COUNT 3.04 10^6/uL (3.72-5.28); RED CELL DISTRIBUTION WIDTH 17.8 % (11.5-14.0); WHITE BLOOD COUNT 7.2 10^3/uL (4.0-10.5)
[2016-10-30 17:17] LABS: ALANINE AMINOTRANSFERASE 27 U/L (9-52); ALBUMIN 3.4 g/dL (3.5-5.0); ALKALINE PHOSPHATASE 72 U/L (38-126); ANION GAP 9 (5-19); ASPARTATE AMINO TRANSFERASE 16 U/L (14-36); BLOOD UREA NITROGEN 97 mg/dL (7-20); CALCIUM 9.5 mg/dL (8.4-10.2); CARBON DIOXIDE 27 mmol/L (22-30); CHLORIDE 96 mmol/L (98-107); CREATININE RESULT 3.24 mg/dL (0.52-1.25); GLUCOSE 138 mg/dL (75-110); POTASSIUM 4.7 mmol/L (3.6-5.0)
[2016-10-30] MEDS ORDERED: NORMAL SALINE 1000 ML 1,000 ML IV ONE (17:59)
[2016-10-30] MEDS ORDERED: DEXTROSE 40% GEL 15 GM TUBE PO PRN ×2 (19:56)
[2016-10-30] MEDS ORDERED: DEXTROSE 50%-WATER 25 GM/50 ML DISP.SYRIN IV PRN ×2 (19:56)
[2016-10-30] MEDS ORDERED: GLUCAGON,HUMAN RECOMB 1 MG INJ IM PRN (19:56)
[2016-10-30 20:22] LABS: PROTHROMBIN TIME 13.9 SEC (11.4-15.4)
[2016-10-30 20:23] LABS: PARTIAL THROMBOPLASTIN TIME 34.4 SEC (23.5-35.8)
--- NOTE | 2016-10-30 20:34 | PDOC H&P ---
History of Present Illness Admission Date/PCP: 10/30/16 19:41 SHAYY TALICANDICEAmy Patient complains of: Leg pain and swelling History of Present Illness: JOJO BACK is a 61 year old female who was recently discharged from this facility following admission for UTI. She was brought back to ED today due to spouse reported worsening leg swelling and redness around her right leg halo devise for management of her right trimalleolar fracture involving right ankle charcot joint Patient and spouse reported compliance with prescribed Levofloxacin usage upon discharge. She denied any fever or chills. No chest pain or difficulty with breathing. Patient reported self restating of Metolazone usage along with prescribed Furosemide since discharged form this facility. Spouse reported poor oral fluid intake to less than 300mL per day. She denied any nausea, vomiting or diarrhea. No abdominal pain. She denied any headache, nasal or sinus problems. Patient has remain non-ambulatory on recommendation of her orthopedic team at [facility]. She has not been able to keep post discharge follow up with the surgical team due to difficulty getting appropriate vehicle and device to transfer her to [facility]. Efforts are in progress to arrange for transfer board to assist family and patient at home with regard to ability to transfer to wheelchair. The ED physician did try to transfer patient to [facility] but orthopedic team declined transfer and suggested follow up on outpatient as earlier arranged with patient upon discharged. Past Medical History Cardiac Medical History: Reports: Congestive Heart Failure, Hyperlipidema, Hypertension Pulmonary Medical History: Reports: Chronic Obstructive Pulmonary Disease (COPD) Endocrine Medical History: Reports: Diabetes Mellitus Type 2, Hypothyroidism Renal/ Medical History: Reports: End Stage Renal Disease Malignancy Medical History: Reports: Colorectal Cancer Musculoskeltal Medical History: Reports: Arthritis - gout Psychiatric Medical History: Reports: Depression Past Surgical History Past Surgical History: Reports: Orthopedic Surgery - right ankle surgery secondary to trimalleolar fracture 09/2016, Other - History of colectomy Social History Lives with: Spouse/Significant other Smoking Status: Never Smoker Frequency of Alcohol Use: None Hx Recreational Drug Use: No Hx Prescription Drug Abuse: No Family History Family History: None Parental Family History Reviewed: Yes Children Family History Reviewed: Yes Sibling(s) Family History Reviewed.: Yes Medication/Allergy Home Medications: Albuterol Sulfate [Proair HFA Inhalation Aerosol 8.5 gm MDI] 2 puff IH Q4HP PRN 10/17/16 Amlodipine Besylate [Norvasc 5 mg Tablet] 5 mg PO QAM 10/17/16 Aspirin [Aspirin EC] 81 mg PO Q12 10/17/16 Bisacodyl [Dulcolax 5 mg Tablet] 5 mg PO DAILYP PRN 10/17/16 Budesonide/Formoterol Fumarate [Symbicort HFA 80-4.5 mcg Inhaler 6.9 gm] 2 puff IH Q12 10/17/16 Cetirizine HCl [Zyrtec 10 mg Tablet] 10 mg PO DAILYP PRN 10/17/16 Citalopram Hydrobromide [Celexa 40 mg Tablet] 40 mg PO QAM 10/17/16 Ergocalciferol (Vitamin D2) [Vitamin D2] 50,000 unit PO MARIE@1000 10/17/16 Furosemide [Lasix] 40 mg PO BID 10/17/16 Glipizide [Glucotrol 5 mg Tablet] 5 mg PO QPM 10/17/16 Insulin NPH Human Isophane [Humulin N] 60 units SQ QHS 10/17/16 Insulin Regular, Human [Humulin R (Reg) Insulin 100 unit/mL] 0 units SQ .PERSLIDINGSCALE 10/17/16 Levothyroxine Sodium [Synthroid 0.15 mg Tablet] 0.15 mg PO QAM 10/17/16 Metolazone [Zaroxolyn 2.5 mg Tablet] 2.5 mg PO MOWEFR@1200 10/17/16 Metoprolol Succinate [Toprol Xl 25 mg Tab.sr] 25 mg PO Q12 10/17/16 Oxycodone HCl/Acetaminophen [Percocet 10-325 mg Tablet] 1 each PO Q6HP PRN 10/17 Simvastatin [Zocor 10 mg Tablet] 10 mg PO DAILY 10/17/16 Vitamin B Complex 1 each PO QAM 10/17/16 Fluconazole [Diflucan 100 mg Tablet] 100 mg PO DAILY #7 tablet 10/21/16 Levofloxacin 500 mg PO DAILY #10 tablet 10/21/16 Allergies/Adverse Reactions: heparin Allergy (Verified 10/17/16 22:11) Penicillins Allergy (Verified 10/17/16 22:11) spironolactone Adverse Reaction (Verified 08/29/16 18:30) Review of Systems Constitutional: ABSENT: chills, fever(s), headache(s), weight gain, weight loss Eyes: ABSENT: visual disturbances Ears: ABSENT: hearing changes Nose, Mouth, and Throat: ABSENT: as per HPI, headache(s), mouth pain, sore throat, vertigo, other Cardiovascular: PRESENT: chest pain, edema - bilateral lower extremities Respiratory: ABSENT: cough, hemoptysis Gastrointestinal: ABSENT: abdominal pain, constipation, diarrhea, hematemesis, hematochezia, nausea, vomiting Genitourinary: ABSENT: dysuria, hematuria Musculoskeletal: PRESENT: deformity - related to her erecent right trimalleolar fracture with halo device in use and multiple joints involvement with arthritis , joint swelling, muscle weakness Integumentary: PRESENT: erythema - minimal around halo pins and skin in same area, rash - crusted rash around halo device probably from serous drainage Neurological: ABSENT: abnormal gait, abnormal speech, confusion, dizziness, focal weakness, syncope Psychiatric: ABSENT: anxiety, depression, homidical ideation, suicidal ideation Endocrine: ABSENT: cold intolerance, heat intolerance, menstrual abnormalities, polydipsia, polyuria Hematologic/Lymphatic: ABSENT: easy bleeding, easy bruising, lymphadenopathy Physical Exam Vital Signs: Temp Pulse Resp BP Pulse Ox 97.9 F 49 L 20 100/64 90 L 10/30/16 17:36 10/30/16 17:36 10/30/16 17:36 10/30/16 17:36 10/30/16 18:00 General appearance: PRESENT: no acute distress, disheveled, morbidly obese Head exam: PRESENT: atraumatic, normocephalic Eye exam: PRESENT: conjunctiva pink, EOMI, PERRLA. ABSENT: scleral icterus Ear exam: PRESENT: normal external ear exam Mouth exam: PRESENT: moist, tongue midline Throat exam: ABSENT: post pharyngeal erythema, tonsillar erythema, tonsillar exudate, tonsillogmegaly, other Neck exam: PRESENT: full ROM. ABSENT: carotid bruit, JVD, lymphadenopathy, thyromegaly Respiratory exam: PRESENT: clear to auscultation jerome, decreased breath sounds - at lung bases Cardiovascular exam: PRESENT: RRR. ABSENT: diastolic murmur, rubs, systolic murmur GI/Abdominal exam: PRESENT: hernia - large right right sided ventral hernia, normal bowel sounds Rectal exam: PRESENT: deferred Extremities exam: PRESENT: joint swelling - bilateral ankle joint region, pedal edema - bilateral just below knee joint level Musculoskeletal exam: PRESENT: deformity - related to joint involvement with arthritis and recent right trimalleolar ankle fracture Neurological exam: PRESENT: alert, awake, oriented to person, oriented to place , oriented to time, oriented to situation, CN II-XII grossly intact, motor sensory deficit Psychiatric exam: PRESENT: appropriate affect, normal mood. ABSENT: homicidal ideation, suicidal ideation Skin exam: PRESENT: dry, warm, other - site of halo pins with crusted serous drainage Results Laboratory Results: See [facility] for available lab test results. These are reviewed in my medical decision making. Impressions: Ankle X-Ray 10/30/16 15:27 IMPRESSION: Improved alignment. Some callus noted about the distal fibular fracture. Some distraction seen of the medial fragment of the tibia. Widening of the talotibial articulation. Foot X-Ray 10/30/16 15:27 IMPRESSION: External fixator stabilizing a trimalleolar ankle fracture. There is evidence of bony callus at the fracture sites at the ankle. Disuse osteopenia No lucency around the hardware worrisome for loosening or infection Assessment & Plan - Diagnosis (1) [id number] kidney injury Is this a current diagnosis for this admission?: YesPlan: See admitting physician orders. (2) Cellulitis Qualifiers: Site of cellulitis: extremity Site of cellulitis of extremity: lower extremity Laterality: right Qualified Code(s): L03.115 - Cellulitis of right lower limb Is this a current diagnosis for this admission?: YesPlan: See admitting physician orders. (3) CKD (chronic kidney disease) stage 3, GFR 30-59 ml/min Is this a current diagnosis for this admission?: YesPlan: See admitting physician orders. (4) Diabetes mellitus type 2 with complications Qualifiers: Diabetes mellitus application integrator insulin use: with application integrator use Qualified Code(s): E11.8 - Type 2 diabetes mellitus with unspecified complications; Z79.4 - senior living (current) use of insulin Is this a current diagnosis for this admission?: YesPlan: See admitting physician orders. (5) Diastolic CHF, chronic Is this a current diagnosis for this admission?: YesPlan: See admitting physician orders. (6) Hyperlipidemia associated with type 2 diabetes mellitus Is this a current diagnosis for this admission?: YesPlan: See admitting physician orders. (7) Hypertension Qualifiers: Hypertension type: essential hypertension Qualified Code(s): I10 - Essential (primary) hypertension Is this a current diagnosis for this admission?: YesPlan: See admitting physician orders. (8) Trimalleolar fracture of right ankle Qualifiers: Encounter type: subsequent encounter Fracture type: closed Fracture healing: with routine healing Qualified Code(s): S82.851D - Displaced trimalleolar fracture of right lower leg, subsequent encounter for closed fracture with routine healing Is this a current diagnosis for this admission?: YesPlan: See admitting physician orders. (9) Ventral hernia without obstruction or gangrene Is this a current diagnosis for this admission?: YesPlan: See admitting physician orders. - Time Time Spent: 50 to 70 Minutes Medications reviewed and adjusted accordingly: Yes Anticipated discharge: Home with Homehealth - Inpatient Certification Medical Necessity: Need Close Monitoring Due to Risk of Patient Decompensation, Need For IV Fluids, Need for IV Antibiotics, Risk of Complication if Not Cared For in Hospital Post Hospital Care: D/C Corporate [employer] Tr[employer] Documentation - Plan Summary Plan Summary: See admitting physician orders.
[2016-10-30] MEDS ORDERED: OXYCODONE-ACETAMINOPHEN 5-325 MG TABLET PO PRN (23:35)
[2016-10-30] MEDS: OXYCODONE-ACETAMINOPHEN 5-325 MG TABLET PO PRN (23:45)
[2016-10-31] MEDS: NORMAL SALINE 1000 ML 1,000 ML IV PRN ×2 (04:01→17:20)
[2016-10-31 05:02] LABS: ABSOLUTE EOSINOPHILS # (AUTO) 0.1 10^3/uL (0.0-0.6); ABSOLUTE LYMPHOCYTES (AUTO) 0.9 10^3/uL (0.5-4.7); ABSOLUTE MONOCYTES (AUTO) 0.8 10^3/uL (0.1-1.4); ABSOLUTE NEUT (AUTO) 4.3 10^3/uL (1.7-8.2); BASOPHILS % (AUTO) 0.4 % (0-2); EOSINOPHILS % (AUTO) 2.1 % (0-6); HEMATOCRIT 25.3 % (36.0-47.0); HEMOGLOBIN 8.3 g/dL (12.0-15.5); HGB HCT DIFFERENCE -0.4; LYMPHOCYTES % (AUTO) 14.9 % (13-45); MEAN CORPUSCULAR HGB CONC 32.7 g/dL (32.0-36.0); MEAN CORPUSCULAR VOLUME 86 fl (80-97); MONOCYTES % (AUTO) 12.9 % (3-13); RED BLOOD COUNT 2.95 10^6/uL (3.72-5.28); RED CELL DISTRIBUTION WIDTH 17.7 % (11.5-14.0); SEGMENTED NEUTROPHILS % (AUTO) 69.7 % (42-78); WHITE BLOOD COUNT 6.2 10^3/uL (4.0-10.5)
[2016-10-31] MEDS: LANSOPRAZOLE 30 MG TAB.RAP.DR PO SCH (05:11)
[2016-10-31 05:31] LABS: ALANINE AMINOTRANSFERASE 30 U/L (9-52); ALBUMIN 3.1 g/dL (3.5-5.0); ALKALINE PHOSPHATASE 75 U/L (38-126); ANION GAP 12 (5-19); ASPARTATE AMINO TRANSFERASE 12 U/L (14-36); BILIRUBIN,TOTAL 0.9 mg/dL (0.2-1.3); BLOOD UREA NITROGEN 92 mg/dL (7-20); CALCIUM 9.5 mg/dL (8.4-10.2); CARBON DIOXIDE 26 mmol/L (22-30); CHLORIDE 98 mmol/L (98-107); CREATININE RESULT 3.24 mg/dL (0.52-1.25); GLUCOSE 133 mg/dL (75-110); POTASSIUM 4.5 mmol/L (3.6-5.0); SODIUM 135.5 mmol/L (137-145); TOTAL PROTEIN 6.5 g/dL (6.3-8.2)
[2016-10-31] MEDS ORDERED: ALBUTEROL SULFATE HFA (90 MCG/PUFF) 200 PUFF/8.5 GM MDI IH PRN (08:21)
--- NOTE | 2016-10-31 08:30 | PDOC PROGRESS REPORT ---
Subjective Progress Note for:: 10/31/16 Subjective:: No chest pain or difficulty with breathing. No fever or chills. No nausea or vomiting. Remain on IV antibiotic and fluid hydration. Physical Exam Vital Signs: Temp Pulse Resp BP Pulse Ox 97.3 F 58 L 22 H 96/64 L 95 10/31/16 07:13 10/31/16 07:13 10/31/16 07:13 10/31/16 07:13 10/31/16 07:13 Intake & Output 10/30/16 10/31/16 11/01/16 06:59 06:59 06:59 Intake Total 158 Output Total 0 Balance 158 Weight 186.7 kg General appearance: PRESENT: no acute distress, cooperative, morbidly obese Head exam: PRESENT: atraumatic, normocephalic Eye exam: PRESENT: conjunctiva pink, EOMI, PERRLA. ABSENT: scleral icterus Respiratory exam: PRESENT: clear to auscultation jerome Cardiovascular exam: PRESENT: RRR. ABSENT: diastolic murmur, rubs, systolic murmur GI/Abdominal exam: PRESENT: hernia, normal bowel sounds - right large ventral hernia Extremities exam: PRESENT: other - right leg halo device for recent right ankle trimalleolar fracture with charcot joint Neurological exam: PRESENT: alert, awake, oriented to person, oriented to place , oriented to time, oriented to situation, CN II-XII grossly intact. ABSENT: motor sensory deficit Psychiatric exam: PRESENT: appropriate affect, normal mood. ABSENT: homicidal ideation, suicidal ideation Skin exam: PRESENT: dry, warm, other - minimal erythematous area around exit points of halo device rods Results Laboratory Results: 10/31/16 04:32 10/31/16 04:32 10/31/16 10/31/16 04:32 04:32 WBC 6.2 RBC 2.95 L Hgb 8.3 L Hct 25.3 L MCV 86 MCH 28.0 MCHC 32.7 RDW 17.7 H Plt Count 123 L Seg Neutrophils % 69.7 Lymphocytes % 14.9 Monocytes % 12.9 Eosinophils % 2.1 Basophils % 0.4 Absolute Neutrophils 4.3 Absolute Lymphocytes 0.9 Absolute Monocytes 0.8 Absolute Eosinophils 0.1 Absolute Basophils 0.0 Sodium 135.5 L Potassium 4.5 Chloride 98 Carbon Dioxide 26 Anion Gap 12 BUN 92 H Creatinine 3.24 H Est GFR ( Amer) 18 L Est GFR (Non-Af Amer) 15 L Glucose 133 H Calcium 9.5 Total Bilirubin 0.9 AST 12 L ALT 30 Alkaline Phosphatase 75 Total Protein 6.5 Albumin 3.1 L Impressions: Ankle X-Ray 10/30/16 15:27 IMPRESSION: Improved alignment. Some callus noted about the distal fibular fracture. Some distraction seen of the medial fragment of the tibia. Widening of the talotibial articulation. Foot X-Ray 10/30/16 15:27 IMPRESSION: External fixator stabilizing a trimalleolar ankle fracture. There is evidence of bony callus at the fracture sites at the ankle. Disuse osteopenia No lucency around the hardware worrisome for loosening or infection Chest X-Ray 10/30/16 18:51 IMPRESSION: CARDIAC ENLARGEMENT. VASCULAR CONGESTION. LEFT BASILAR DENSITY PROBABLY ATELECTASIS ALTHOUGH INFILTRATE SECONDARY TO PNEUMONIA IS NOT EXCLUDED. Assessment & Plan - Diagnosis (1) Obmwv-aj-rrdkyvr kidney injury Is this a current diagnosis for this admission?: YesPlan: See attending physician orders. (2) Cellulitis Qualifiers: Site of cellulitis: extremity Site of cellulitis of extremity: lower extremity Laterality: right Qualified Code(s): L03.115 - Cellulitis of right lower limb Is this a current diagnosis for this admission?: YesPlan: See attending physician orders. (3) CKD (chronic kidney disease) stage 3, GFR 30-59 ml/min Is this a current diagnosis for this admission?: YesPlan: See attending physician orders. (4) Diabetes mellitus type 2 with complications Qualifiers: Diabetes mellitus [facility] insulin use: with [facility] use Qualified Code(s): E11.8 - Type 2 diabetes mellitus with unspecified complications Is this a current diagnosis for this admission?: YesPlan: See attending physician orders. (5) Diastolic CHF, chronic Is this a current diagnosis for this admission?: YesPlan: See attending physician orders. (6) Hyperlipidemia associated with type 2 diabetes mellitus Is this a current diagnosis for this admission?: YesPlan: See attending physician orders. (7) Hypertension Qualifiers: Hypertension type: essential hypertension Qualified Code(s): I10 - Essential (primary) hypertension Is this a current diagnosis for this admission?: YesPlan: See attending physician orders. (8) Trimalleolar fracture of right ankle Qualifiers: Encounter type: subsequent encounter Fracture type: closed Fracture healing: with routine healing Qualified Code(s): S82.851D - Displaced trimalleolar fracture of right lower leg, subsequent encounter for closed fracture with routine healing Is this a current diagnosis for this admission?: YesPlan: See attending physician orders. (9) Ventral hernia without obstruction or gangrene Is this a current diagnosis for this admission?: YesPlan: See attending physician orders. - Time Time Spent with patient: 25-34 minutes Medications reviewed and adjusted accordingly: Yes Anticipated discharge: Home with Homehealth - Inpatient Certification Medical Necessity: Need Close Monitoring Due to Risk of Patient Decompensation, Need For IV Fluids, Need for IV Antibiotics, Risk of Complication if Not Cared For in Hospital Post Hospital Care: D/C [employer] Sander Documentation - Plan Summary Plan Summary: See attending physician orders.
[2016-10-31] MEDS ORDERED: LEVOTHYROXINE SODIUM 0.15 MG TABLET PO ONE (09:00)
[2016-10-31 09:13] LABS: APPEARANCE,URINE TURBID; BILIRUBIN,URINE NEGATIVE (NEGATIVE); GLUCOSE, URINE NEGATIVE (NEGATIVE); KETONES,URINE NEGATIVE (NEGATIVE); LEUKOCYTE ESTERASE,URINE LARGE (NEGATIVE); NITRITE,URINE NEGATIVE (NEGATIVE); PROTEIN,URINE 30 mg/dL (NEGATIVE); UROBILINOGEN,URINE NEGATIVE mg/dL (<2.0)
[2016-10-31] MEDS: CITALOPRAM HYDROBROMIDE 20 MG TABLET PO SCH (09:45)
[2016-10-31] MEDS: ASPIRIN 81 MG TABLET, ENT COATED PO SCH ×2 (09:46→22:26)
[2016-10-31] MEDS: FOLIC ACID/VITAMIN B COMP W-C CAPSULE PO SCH (09:47)
[2016-10-31] MEDS: ENOXAPARIN SODIUM INJ 40 MG/0.4 ML DISP.SYRIN SUBCUT SCH (09:49)
[2016-10-31] MEDS ORDERED: METOPROLOL SUCCINATE 25 MG TAB.SR.24H PO SCH (10:00)
[2016-10-31] MEDS: BUDESONIDE/FORMOTEROL 80-4.5 MCG 60 PUFF/6.9 GM MDI IH SCH ×2 (10:47→22:29)
[2016-10-31] MEDS: INSULIN LISPRO 100 UNIT/ML 3 ML VIAL SUBCUT PRN (16:42)
[2016-10-31] MEDS: GLIPIZIDE 5 MG TABLET PO SCH (17:22)
[2016-10-31] MEDS: OXYCODONE-ACETAMINOPHEN 5-325 MG TABLET PO PRN (22:25)
[2016-10-31] MEDS: CEFTRIAXONE 1 GM/D5W RTU 1 GM/50 ML RTUPB IV SCH (22:26)
[2016-10-31] MEDS: SIMVASTATIN 10 MG TABLET PO SCH (22:26)
[2016-11-01] MEDS: INSULIN LISPRO 100 UNIT/ML 3 ML VIAL SUBCUT PRN ×5 (00:09→22:30)
[2016-11-01 04:52] LABS: ABSOLUTE EOSINOPHILS # (AUTO) 0.1 10^3/uL (0.0-0.6); ABSOLUTE LYMPHOCYTES (AUTO) 0.8 10^3/uL (0.5-4.7); ABSOLUTE MONOCYTES (AUTO) 0.7 10^3/uL (0.1-1.4); ABSOLUTE NEUT (AUTO) 3.7 10^3/uL (1.7-8.2); BASOPHILS % (AUTO) 0.5 % (0-2); EOSINOPHILS % (AUTO) 2.7 % (0-6); HEMATOCRIT 24.8 % (36.0-47.0); HEMOGLOBIN 8.1 g/dL (12.0-15.5); HGB HCT DIFFERENCE -0.5; LYMPHOCYTES % (AUTO) 15.2 % (13-45); MEAN CORPUSCULAR HEMOGLOBIN 27.9 pg (27.0-33.4); MEAN CORPUSCULAR HGB CONC 32.7 g/dL (32.0-36.0); MEAN CORPUSCULAR VOLUME 86 fl (80-97); MONOCYTES % (AUTO) 13.5 % (3-13); RED CELL DISTRIBUTION WIDTH 17.8 % (11.5-14.0); SEGMENTED NEUTROPHILS % (AUTO) 68.1 % (42-78); WHITE BLOOD COUNT 5.5 10^3/uL (4.0-10.5)
[2016-11-01 05:21] LABS: ANION GAP 11 (5-19); BLOOD UREA NITROGEN 92 mg/dL (7-20); CALCIUM 9.1 mg/dL (8.4-10.2); CARBON DIOXIDE 25 mmol/L (22-30); CHLORIDE 99 mmol/L (98-107); CREATININE RESULT 3.29 mg/dL (0.52-1.25); GLUCOSE 161 mg/dL (75-110); POTASSIUM 4.4 mmol/L (3.6-5.0); SODIUM 135.2 mmol/L (137-145)
[2016-11-01] MEDS: LEVOTHYROXINE SODIUM 0.15 MG TABLET PO SCH (05:26)
[2016-11-01] MEDS: DOCUSATE SODIUM 100 MG CAPSULE PO PRN (05:26)
[2016-11-01] MEDS: LANSOPRAZOLE 30 MG TAB.RAP.DR PO SCH (05:26)
[2016-11-01] MEDS: ENOXAPARIN SODIUM INJ 40 MG/0.4 ML DISP.SYRIN SUBCUT SCH (07:47)
[2016-11-01] MEDS ORDERED: AMLODIPINE BESYLATE 5 MG TABLET PO SCH (08:00)
[2016-11-01] MEDS ORDERED: (PENDING PHARMACY ID) (Vitamin B Complex [Vitamin B Complex] 1 CAP) PO SCH (08:00)
[2016-11-01] MEDS ORDERED: (PENDING PHARMACY ID) (Citalopram Hydrobromide [Celexa 40 Mg Tablet] 40 MG) PO SCH (08:00)
[2016-11-01] MEDS: BUDESONIDE/FORMOTEROL 80-4.5 MCG 60 PUFF/6.9 GM MDI IH SCH ×2 (09:13→22:00)
[2016-11-01] MEDS: FOLIC ACID/VITAMIN B COMP W-C CAPSULE PO SCH (09:15)
[2016-11-01] MEDS: CITALOPRAM HYDROBROMIDE 20 MG TABLET PO SCH (09:15)
[2016-11-01] MEDS: ASPIRIN 81 MG TABLET, ENT COATED PO SCH ×2 (09:15→22:00)
--- NOTE | 2016-11-01 14:34 | PDOC PROGRESS REPORT ---
Subjective Progress Note for:: 11/01/16 Subjective:: Patient denied any chest pain or difficulty with breathing. No fever or chills. No nausea or vomiting. No abdominal pain or diarrhea. She remain on IV Ceftriaxone coverage. IV fluid hydration ongoing. Physical Exam Vital Signs: Temp Pulse Resp BP Pulse Ox 97.5 F 68 22 H 126/68 H 93 11/01/16 12:39 11/01/16 12:39 11/01/16 12:39 11/01/16 12:39 11/01/16 12:39 Intake & Output 10/31/16 11/01/16 11/02/16 06:59 06:59 06:59 Intake Total 158 2145 591 Output Total 0 900 Balance 158 1245 591 Weight 186.7 kg 191.6 kg 191.6 kg Physical Exam: General appearance: PRESENT: no acute distress, cooperative, morbidly obese Head exam: PRESENT: atraumatic, normocephalic Eye exam: PRESENT: conjunctiva pink, EOMI, PERRLA. ABSENT: scleral icterus Respiratory exam: PRESENT: clear to auscultation jerome Cardiovascular exam: PRESENT: RRR. ABSENT: diastolic murmur, rubs, systolic murmur GI/Abdominal exam: PRESENT: hernia, normal bowel sounds - right large ventral hernia Extremities exam: PRESENT: other - right leg halo device for recent right ankle trimalleolar fracture with charcot joint Neurological exam: PRESENT: alert, awake, oriented to person, oriented to place , oriented to time, oriented to situation, CN II-XII grossly intact. ABSENT: motor sensory deficit Psychiatric exam: PRESENT: appropriate affect, normal mood. ABSENT: homicidal ideation, suicidal ideation Skin exam: PRESENT: dry, warm, other - minimal erythematous area around exit points of halo device rods Results Laboratory Results: 11/01/16 04:34 11/01/16 04:34 11/01/16 11/01/16 04:34 04:34 WBC 5.5 RBC 2.90 L Hgb 8.1 L Hct 24.8 L MCV 86 MCH 27.9 MCHC 32.7 RDW 17.8 H Plt Count 122 L Seg Neutrophils % 68.1 Lymphocytes % 15.2 Monocytes % 13.5 H Eosinophils % 2.7 Basophils % 0.5 Absolute Neutrophils 3.7 Absolute Lymphocytes 0.8 Absolute Monocytes 0.7 Absolute Eosinophils 0.1 Absolute Basophils 0.0 Sodium 135.2 L Potassium 4.4 Chloride 99 Carbon Dioxide 25 Anion Gap 11 BUN 92 H Creatinine 3.29 H Est GFR ( Amer) 17 L Est GFR (Non-Af Amer) 14 L Glucose 161 H Calcium 9.1 Impressions: Ankle X-Ray 10/30/16 15:27 IMPRESSION: Improved alignment. Some callus noted about the distal fibular fracture. Some distraction seen of the medial fragment of the tibia. Widening of the talotibial articulation. Foot X-Ray 10/30/16 15:27 IMPRESSION: External fixator stabilizing a trimalleolar ankle fracture. There is evidence of bony callus at the fracture sites at the ankle. Disuse osteopenia No lucency around the hardware worrisome for loosening or infection Chest X-Ray 10/30/16 18:51 IMPRESSION: CARDIAC ENLARGEMENT. VASCULAR CONGESTION. LEFT BASILAR DENSITY PROBABLY ATELECTASIS ALTHOUGH INFILTRATE SECONDARY TO PNEUMONIA IS NOT EXCLUDED. Assessment & Plan - Diagnosis (1) Uogiu-hf-iisbynd kidney injury Is this a current diagnosis for this admission?: YesPlan: See attending physician orders. (2) Cellulitis Qualifiers: Site of cellulitis: extremity Site of cellulitis of extremity: lower extremity Laterality: right Qualified Code(s): L03.115 - Cellulitis of right lower limb Is this a current diagnosis for this admission?: YesPlan: See attending physician orders. Continue IV Rocephin coverage. (3) CKD (chronic kidney disease) stage 3, GFR 30-59 ml/min Is this a current diagnosis for this admission?: YesPlan: See attending physician orders. (4) Diabetes mellitus type 2 with complications Qualifiers: Diabetes mellitus [facility] insulin use: with [facility] use Qualified Code(s): E11.8 - Type 2 diabetes mellitus with unspecified complications Is this a current diagnosis for this admission?: YesPlan: See attending physician orders. (5) Diastolic CHF, chronic Is this a current diagnosis for this admission?: YesPlan: See attending physician orders. (6) Hyperlipidemia associated with type 2 diabetes mellitus Is this a current diagnosis for this admission?: YesPlan: See attending physician orders. (7) Hypertension Qualifiers: Hypertension type: essential hypertension Qualified Code(s): I10 - Essential (primary) hypertension Is this a current diagnosis for this admission?: YesPlan: See attending physician orders. (8) Trimalleolar fracture of right ankle Qualifiers: Encounter type: subsequent encounter Fracture type: closed Fracture healing: with routine healing Qualified Code(s): S82.851D - Displaced trimalleolar fracture of right lower leg, subsequent encounter for closed fracture with routine healing Is this a current diagnosis for this admission?: YesPlan: See attending physician orders. (9) Ventral hernia without obstruction or gangrene Is this a current diagnosis for this admission?: YesPlan: See attending physician orders. - Time Time Spent with patient: 25-34 minutes Medications reviewed and adjusted accordingly: Yes Anticipated discharge: Home with Homehealth - Inpatient Certification Post Hospital Care: D/C [employer] Documentation - Plan Summary Plan Summary: See attending physician orders. Continue IV hydration and monitor renal indices.
[2016-11-01] MEDS: GLIPIZIDE 5 MG TABLET PO SCH (17:52)
[2016-11-01] MEDS: SIMVASTATIN 10 MG TABLET PO SCH (22:00)
[2016-11-01] MEDS: CEFTRIAXONE 1 GM/D5W RTU 1 GM/50 ML RTUPB IV SCH (22:01)
[2016-11-02] MEDS: LEVOTHYROXINE SODIUM 0.15 MG TABLET PO SCH (05:59)
[2016-11-02] MEDS: LANSOPRAZOLE 30 MG TAB.RAP.DR PO SCH (05:59)
[2016-11-02] MEDS: ENOXAPARIN SODIUM INJ 40 MG/0.4 ML DISP.SYRIN SUBCUT SCH (07:19)
[2016-11-02] MEDS: INSULIN LISPRO 100 UNIT/ML 3 ML VIAL SUBCUT PRN ×3 (07:44→16:34)
[2016-11-02] MEDS: BUDESONIDE/FORMOTEROL 80-4.5 MCG 60 PUFF/6.9 GM MDI IH SCH ×2 (09:36→21:04)
[2016-11-02] MEDS: FOLIC ACID/VITAMIN B COMP W-C CAPSULE PO SCH (09:37)
[2016-11-02] MEDS: ASPIRIN 81 MG TABLET, ENT COATED PO SCH ×2 (09:37→21:04)
[2016-11-02] MEDS: CITALOPRAM HYDROBROMIDE 20 MG TABLET PO SCH (09:37)
[2016-11-02] MEDS: GLIPIZIDE 5 MG TABLET PO SCH (17:03)
--- NOTE | 2016-11-02 18:16 | PDOC PROGRESS REPORT ---
Subjective Progress Note for:: 11/02/16 Subjective:: Patient was seen by the bedside, she was admitted because of cellulitis and acute on chronic kidney disease. She has no new complaints today. Physical Exam Vital Signs: Temp Pulse Resp BP Pulse Ox 98.3 F 75 22 H 124/88 H 87 L 11/02/16 15:45 11/02/16 15:45 11/02/16 15:45 11/02/16 15:45 11/02/16 15:45 Intake & Output 11/01/16 11/02/16 11/03/16 06:59 06:59 06:59 Intake Total 2145 2420 243 Output Total 900 0 Balance 1245 2420 243 Weight 191.6 kg 186.9 kg General appearance: PRESENT: no acute distress Head exam: PRESENT: atraumatic, normocephalic Eye exam: PRESENT: PERRLA Neck exam: PRESENT: full ROM Respiratory exam: PRESENT: clear to auscultation jerome Cardiovascular exam: PRESENT: RRR, +S1, +S2 Vascular exam: PRESENT: normal capillary refill GI/Abdominal exam: PRESENT: normal bowel sounds, soft Rectal exam: PRESENT: deferred Neurological exam: PRESENT: alert Results Laboratory Results: 11/01/16 04:34 11/01/16 04:34 10/31/16 08:40 Catheterized Urine Urine Culture - Final Yeast, Not Jeannette Albicans Mixed Urogenital Tamar Impressions: Ankle X-Ray 10/30/16 15:27 IMPRESSION: Improved alignment. Some callus noted about the distal fibular fracture. Some distraction seen of the medial fragment of the tibia. Widening of the talotibial articulation. Foot X-Ray 10/30/16 15:27 IMPRESSION: External fixator stabilizing a trimalleolar ankle fracture. There is evidence of bony callus at the fracture sites at the ankle. Disuse osteopenia No lucency around the hardware worrisome for loosening or infection Chest X-Ray 10/30/16 18:51 IMPRESSION: CARDIAC ENLARGEMENT. VASCULAR CONGESTION. LEFT BASILAR DENSITY PROBABLY ATELECTASIS ALTHOUGH INFILTRATE SECONDARY TO PNEUMONIA IS NOT EXCLUDED. Assessment & Plan - Diagnosis (1) Rxjrx-xu-hbrakmi kidney injury Is this a current diagnosis for this admission?: Yes (2) Cellulitis Qualifiers: Site of cellulitis: extremity Site of cellulitis of extremity: lower extremity Laterality: right Qualified Code(s): L03.115 - Cellulitis of right lower limb Is this a current diagnosis for this admission?: YesPlan: She will continue IV antibiotic (3) Morbid obesity Qualifiers: Obesity type: unspecified obesity type Qualified Code(s): E66.01 - Morbid (severe) obesity due to excess calories Is this a current diagnosis for this admission?: Yes
[2016-11-02] MEDS: SIMVASTATIN 10 MG TABLET PO SCH (21:04)
[2016-11-02] MEDS: CEFTRIAXONE 1 GM/D5W RTU 1 GM/50 ML RTUPB IV SCH (21:04)
[2016-11-02] MEDS: INSULIN GLARGINE,HUM.REC.ANLOG 300 UNIT/3 ML INSULN.PEN SUBCUT SCH (22:34)
[2016-11-02] MEDS ORDERED: INSULIN GLARGINE,HUM.REC.ANLOG 1,000 UNIT/10 ML UNIT SUBCUT ONE (22:34)
[2016-11-03] MEDS: LEVOTHYROXINE SODIUM 0.15 MG TABLET PO SCH (05:35)
[2016-11-03] MEDS: LANSOPRAZOLE 30 MG TAB.RAP.DR PO SCH (05:35)
[2016-11-03] MEDS ORDERED: ERGOCALCIFEROL (VITAMIN D2) 50000 UNIT (1.25 MG) CAPSULE PO SCH (10:00)
[2016-11-03] MEDS: CITALOPRAM HYDROBROMIDE 20 MG TABLET PO SCH (10:18)
[2016-11-03] MEDS: FOLIC ACID/VITAMIN B COMP W-C CAPSULE PO SCH (10:18)
[2016-11-03] MEDS: ASPIRIN 81 MG TABLET, ENT COATED PO SCH ×2 (10:18→23:14)
[2016-11-03] MEDS: ENOXAPARIN SODIUM INJ 40 MG/0.4 ML DISP.SYRIN SUBCUT SCH (10:19)
[2016-11-03] MEDS: BUDESONIDE/FORMOTEROL 80-4.5 MCG 60 PUFF/6.9 GM MDI IH SCH ×2 (14:34→23:13)
[2016-11-03 15:20] LABS: HEMOGLOBIN 8.1 g/dL (12.0-15.5); HGB HCT DIFFERENCE -0.7; MEAN CORPUSCULAR HEMOGLOBIN 27.6 pg (27.0-33.4); MEAN CORPUSCULAR HGB CONC 32.4 g/dL (32.0-36.0); MEAN CORPUSCULAR VOLUME 85 fl (80-97); RED BLOOD COUNT 2.93 10^6/uL (3.72-5.28); WHITE BLOOD COUNT 5.7 10^3/uL (4.0-10.5)
[2016-11-03 15:34] LABS: ALANINE AMINOTRANSFERASE 24 U/L (9-52); ALKALINE PHOSPHATASE 72 U/L (38-126); ANION GAP 14 (5-19); ASPARTATE AMINO TRANSFERASE 13 U/L (14-36); BLOOD UREA NITROGEN 89 mg/dL (7-20); CALCIUM 9.3 mg/dL (8.4-10.2); CARBON DIOXIDE 23 mmol/L (22-30); CHLORIDE 103 mmol/L (98-107); CREATININE RESULT 2.62 mg/dL (0.52-1.25); GLUCOSE 172 mg/dL (75-110); POTASSIUM 4.6 mmol/L (3.6-5.0); SODIUM 140.1 mmol/L (137-145); TOTAL PROTEIN 6.3 g/dL (6.3-8.2)
[2016-11-03 15:50] LABS: BASOPHILS % (MANUAL) 0 % (0-2); EOSINOPHILS % (MANUAL) 2 % (0-6); LYMPHOCYTES % (MANUAL) 11 % (13-45); TOTAL CELLS COUNTED 100
[2016-11-03 15:51] LABS: ANISOCYTOSIS 1+; HYPOCHROMASIA SLIGHT
--- NOTE | 2016-11-03 17:54 | PDOC PROGRESS REPORT ---
Subjective Progress Note for:: 11/03/16 Subjective:: She was seen by the bedside the cellulitis is improving on antibiotic Physical Exam Vital Signs: Temp Pulse Resp BP Pulse Ox 97.4 F 80 24 H 127/56 H 96 11/03/16 16:00 11/03/16 16:00 11/03/16 16:00 11/03/16 16:00 11/03/16 16:00 Intake & Output 11/02/16 11/03/16 11/04/16 06:59 06:59 06:59 Intake Total 2420 367 650 Output Total 0 0 Balance 2420 367 650 Weight 186.9 kg 190.1 kg General appearance: PRESENT: no acute distress Eye exam: PRESENT: PERRLA Respiratory exam: PRESENT: clear to auscultation jerome Cardiovascular exam: PRESENT: +S1, +S2 GI/Abdominal exam: PRESENT: soft Results Laboratory Results: 11/03/16 15:00 11/03/16 15:00 11/03/16 11/03/16 15:00 15:00 WBC 5.7 RBC 2.93 L Hgb 8.1 L Hct 25.0 L MCV 85 MCH 27.6 MCHC 32.4 RDW 18.0 H Plt Count 128 L Seg Neutrophils % Not Reportable Lymphocytes % Not Reportable Monocytes % Not Reportable Eosinophils % Not Reportable Basophils % Not Reportable Absolute Neutrophils Not Reportable Absolute Lymphocytes Not Reportable Absolute Monocytes Not Reportable Absolute Eosinophils Not Reportable Absolute Basophils Not Reportable Sodium 140.1 Potassium 4.6 Chloride 103 Carbon Dioxide 23 Anion Gap 14 BUN 89 H Creatinine 2.62 H Est GFR ( Amer) 23 L Est GFR (Non-Af Amer) 19 L Glucose 172 H Calcium 9.3 Total Bilirubin 1.0 AST 13 L ALT 24 Alkaline Phosphatase 72 Total Protein 6.3 Albumin 3.0 L 10/31/16 08:40 Catheterized Urine Urine Culture - Final Yeast, Not Jeannette Albicans Mixed Urogenital Tamar Impressions: Ankle X-Ray 10/30/16 15:27 IMPRESSION: Improved alignment. Some callus noted about the distal fibular fracture. Some distraction seen of the medial fragment of the tibia. Widening of the talotibial articulation. Foot X-Ray 10/30/16 15:27 IMPRESSION: External fixator stabilizing a trimalleolar ankle fracture. There is evidence of bony callus at the fracture sites at the ankle. Disuse osteopenia No lucency around the hardware worrisome for loosening or infection Chest X-Ray 10/30/16 18:51 IMPRESSION: CARDIAC ENLARGEMENT. VASCULAR CONGESTION. LEFT BASILAR DENSITY PROBABLY ATELECTASIS ALTHOUGH INFILTRATE SECONDARY TO PNEUMONIA IS NOT EXCLUDED. Assessment & Plan - Diagnosis (1) Ocpxk-ih-otwgkyr kidney injury Is this a current diagnosis for this admission?: Yes (2) Cellulitis Qualifiers: Site of cellulitis: extremity Site of cellulitis of extremity: lower extremity Laterality: right Qualified Code(s): L03.115 - Cellulitis of right lower limb Is this a current diagnosis for this admission?: YesPlan: She will continue IV antibiotic (3) Morbid obesity Qualifiers: Obesity type: unspecified obesity type Qualified Code(s): E66.01 - Morbid (severe) obesity due to excess calories Is this a current diagnosis for this admission?: Yes
[2016-11-03] MEDS: GLIPIZIDE 5 MG TABLET PO SCH (18:08)
[2016-11-03] MEDS: SIMVASTATIN 10 MG TABLET PO SCH (23:14)
[2016-11-03] MEDS: INSULIN LISPRO 100 UNIT/ML 3 ML VIAL SUBCUT PRN (23:14)
[2016-11-03] MEDS: CEFTRIAXONE 1 GM/D5W RTU 1 GM/50 ML RTUPB IV SCH (23:14)
[2016-11-03] MEDS: INSULIN GLARGINE,HUM.REC.ANLOG 300 UNIT/3 ML INSULN.PEN SUBCUT SCH (23:15)
[2016-11-04 05:00] LABS: ABSOLUTE EOSINOPHILS # (AUTO) 0.1 10^3/uL (0.0-0.6); ABSOLUTE LYMPHOCYTES (AUTO) 0.8 10^3/uL (0.5-4.7); ABSOLUTE MONOCYTES (AUTO) 0.8 10^3/uL (0.1-1.4); ABSOLUTE NEUT (AUTO) 3.6 10^3/uL (1.7-8.2); BASOPHILS % (AUTO) 0.5 % (0-2); EOSINOPHILS % (AUTO) 2.8 % (0-6); HEMATOCRIT 24.6 % (36.0-47.0); HGB HCT DIFFERENCE -0.6; LYMPHOCYTES % (AUTO) 14.7 % (13-45); MEAN CORPUSCULAR HEMOGLOBIN 28.1 pg (27.0-33.4); MEAN CORPUSCULAR HGB CONC 32.6 g/dL (32.0-36.0); MEAN CORPUSCULAR VOLUME 86 fl (80-97); MONOCYTES % (AUTO) 14.1 % (3-13); RED BLOOD COUNT 2.86 10^6/uL (3.72-5.28); SEGMENTED NEUTROPHILS % (AUTO) 67.9 % (42-78); WHITE BLOOD COUNT 5.3 10^3/uL (4.0-10.5)
[2016-11-04 05:21] LABS: ALANINE AMINOTRANSFERASE 21 U/L (9-52); ALBUMIN 2.9 g/dL (3.5-5.0); ALKALINE PHOSPHATASE 71 U/L (38-126); ANION GAP 10 (5-19); ASPARTATE AMINO TRANSFERASE 9 U/L (14-36); BILIRUBIN,TOTAL 0.8 mg/dL (0.2-1.3); BLOOD UREA NITROGEN 86 mg/dL (7-20); CALCIUM 9.8 mg/dL (8.4-10.2); CARBON DIOXIDE 27 mmol/L (22-30); CHLORIDE 105 mmol/L (98-107); CREATININE RESULT 2.54 mg/dL (0.52-1.25); GLUCOSE 150 mg/dL (75-110); POTASSIUM 4.2 mmol/L (3.6-5.0); TOTAL PROTEIN 6.2 g/dL (6.3-8.2)
[2016-11-04] MEDS: LANSOPRAZOLE 30 MG TAB.RAP.DR PO SCH (05:26)
[2016-11-04] MEDS: LEVOTHYROXINE SODIUM 0.15 MG TABLET PO SCH (05:26)
[2016-11-04] MEDS: FOLIC ACID/VITAMIN B COMP W-C CAPSULE PO SCH (09:26)
[2016-11-04] MEDS: ASPIRIN 81 MG TABLET, ENT COATED PO SCH ×2 (09:26→22:49)
[2016-11-04] MEDS: CITALOPRAM HYDROBROMIDE 20 MG TABLET PO SCH (09:26)
[2016-11-04] MEDS: ENOXAPARIN SODIUM INJ 40 MG/0.4 ML DISP.SYRIN SUBCUT SCH (09:28)
[2016-11-04] MEDS: BUDESONIDE/FORMOTEROL 80-4.5 MCG 60 PUFF/6.9 GM MDI IH SCH ×2 (09:30→22:50)
[2016-11-04] MEDS: INSULIN LISPRO 100 UNIT/ML 3 ML VIAL SUBCUT PRN ×3 (12:35→22:50)
[2016-11-04] MEDS: GLIPIZIDE 5 MG TABLET PO SCH (17:11)
--- NOTE | 2016-11-04 18:51 | PDOC PROGRESS REPORT ---
Subjective Progress Note for:: 11/04/16 Subjective:: Denied any fever or chills. No chest pain or difficulty with breathing. No nausea, vomiting, abdominal pain. No diarrhea. Physical Exam Vital Signs: Temp Pulse Resp BP Pulse Ox 97.9 F 74 19 118/42 L 94 11/04/16 15:11 11/04/16 15:11 11/04/16 15:11 11/04/16 15:11 11/04/16 15:11 Intake & Output 11/03/16 11/04/16 11/05/16 06:59 06:59 06:59 Intake Total 367 1409 340 Output Total 0 0 Balance 367 1409 340 Weight 190.1 kg 186.3 kg Physical Exam: General appearance: PRESENT: no acute distress, cooperative, morbidly obese Head exam: PRESENT: atraumatic, normocephalic Eye exam: PRESENT: conjunctiva pink, EOMI, PERRLA. ABSENT: scleral icterus Respiratory exam: PRESENT: clear to auscultation jerome Cardiovascular exam: PRESENT: RRR. ABSENT: diastolic murmur, rubs, systolic murmur GI/Abdominal exam: PRESENT: hernia, normal bowel sounds - right large ventral hernia Extremities exam: PRESENT: other - right leg halo device for recent right ankle trimalleolar fracture with charcot joint Neurological exam: PRESENT: alert, awake, oriented to person, oriented to place , oriented to time, oriented to situation, CN II-XII grossly intact. ABSENT: motor sensory deficit Psychiatric exam: PRESENT: appropriate affect, normal mood. ABSENT: homicidal ideation, suicidal ideation Skin exam: PRESENT: dry, warm, other - minimal erythematous area around exit points of halo device rods Results Laboratory Results: 11/04/16 04:11 11/04/16 04:14 11/04/16 11/04/16 04:11 04:14 WBC 5.3 RBC 2.86 L Hgb 8.0 L Hct 24.6 L MCV 86 MCH 28.1 MCHC 32.6 RDW 18.0 H Plt Count 133 L Seg Neutrophils % 67.9 Lymphocytes % 14.7 Monocytes % 14.1 H Eosinophils % 2.8 Basophils % 0.5 Absolute Neutrophils 3.6 Absolute Lymphocytes 0.8 Absolute Monocytes 0.8 Absolute Eosinophils 0.1 Absolute Basophils 0.0 Sodium 142.0 Potassium 4.2 Chloride 105 Carbon Dioxide 27 Anion Gap 10 BUN 86 H Creatinine 2.54 H Est GFR ( Amer) 23 L Est GFR (Non-Af Amer) 19 L Glucose 150 H Calcium 9.8 Total Bilirubin 0.8 AST 9 L ALT 21 Alkaline Phosphatase 71 Total Protein 6.2 L Albumin 2.9 L Impressions: Ankle X-Ray 10/30/16 15:27 IMPRESSION: Improved alignment. Some callus noted about the distal fibular fracture. Some distraction seen of the medial fragment of the tibia. Widening of the talotibial articulation. Foot X-Ray 10/30/16 15:27 IMPRESSION: External fixator stabilizing a trimalleolar ankle fracture. There is evidence of bony callus at the fracture sites at the ankle. Disuse osteopenia No lucency around the hardware worrisome for loosening or infection Chest X-Ray 10/30/16 18:51 IMPRESSION: CARDIAC ENLARGEMENT. VASCULAR CONGESTION. LEFT BASILAR DENSITY PROBABLY ATELECTASIS ALTHOUGH INFILTRATE SECONDARY TO PNEUMONIA IS NOT EXCLUDED. Assessment & Plan - Diagnosis (1) Nppch-kp-iqrfrgs kidney injury Is this a current diagnosis for this admission?: YesPlan: See attending physician orders. (2) Cellulitis Qualifiers: Site of cellulitis: extremity Site of cellulitis of extremity: lower extremity Laterality: right Qualified Code(s): L03.115 - Cellulitis of right lower limb Is this a current diagnosis for this admission?: YesPlan: See attending physician orders. Continue IV Rocephin coverage. Blood remain no growth x 4 days. (3) CKD (chronic kidney disease) stage 3, GFR 30-59 ml/min Is this a current diagnosis for this admission?: YesPlan: See attending physician orders. (4) Diabetes mellitus type 2 with complications Qualifiers: Diabetes mellitus snf insulin use: with rat exterminator use Qualified Code(s): E11.8 - Type 2 diabetes mellitus with unspecified complications Is this a current diagnosis for this admission?: YesPlan: See attending physician orders. She will restart on NPH insulin at 50 units SC qhs to improve her glycemic management. (5) Diastolic CHF, chronic Is this a current diagnosis for this admission?: YesPlan: See attending physician orders. (6) Hyperlipidemia associated with type 2 diabetes mellitus Is this a current diagnosis for this admission?: YesPlan: See attending physician orders. (7) Hypertension Qualifiers: Hypertension type: essential hypertension Qualified Code(s): I10 - Essential (primary) hypertension Is this a current diagnosis for this admission?: YesPlan: See attending physician orders. (8) Trimalleolar fracture of right ankle Qualifiers: Encounter type: subsequent encounter Fracture type: closed Fracture healing: with routine healing Qualified Code(s): S82.851D - Displaced trimalleolar fracture of right lower leg, subsequent encounter for closed fracture with routine healing Is this a current diagnosis for this admission?: Yes (9) Ventral hernia without obstruction or gangrene Is this a current diagnosis for this admission?: Yes (10) Anemia of chronic disease Is this a current diagnosis for this admission?: YesPlan: Obtain stool guaiac test for further evaluation. See attending physician orders. - Time Time Spent with patient: 25-34 minutes Medications reviewed and adjusted accordingly: Yes Anticipated discharge: Home with Homehealth Within: Other - Inpatient Certification Based on my medical assessment, after consideration of the patient's comorbidities, presenting symptoms, or acuity I expect that the services needed warrant INPATIENT care.: Yes I certify that my determination is in accordance with my understanding of Medicare's requirements for reasonable and necessary INPATIENT services [42 CFR 412.3e].: Yes Medical Necessity: Need Close Monitoring Due to Risk of Patient Decompensation, Need for IV Antibiotics, Risk of Complication if Not Cared For in Hospital - Plan Summary Plan Summary: See attending physician orders.
[2016-11-04] MEDS ORDERED: INSULIN NPH (ISOPHANE), HUMAN 100 UNIT/ML 3 ML SUBCUT SCH ×2 (22:00)
[2016-11-04] MEDS: SIMVASTATIN 10 MG TABLET PO SCH (22:50)
[2016-11-04] MEDS: CEFTRIAXONE 1 GM/D5W RTU 1 GM/50 ML RTUPB IV SCH (22:50)
[2016-11-05] MEDS: DOCUSATE SODIUM 100 MG CAPSULE PO PRN (00:06)
[2016-11-05] MEDS: LEVOTHYROXINE SODIUM 0.15 MG TABLET PO SCH (05:40)
[2016-11-05] MEDS: LANSOPRAZOLE 30 MG TAB.RAP.DR PO SCH (05:41)
[2016-11-05] MEDS: ASPIRIN 81 MG TABLET, ENT COATED PO SCH (09:11)
[2016-11-05] MEDS: FOLIC ACID/VITAMIN B COMP W-C CAPSULE PO SCH (09:11)
[2016-11-05] MEDS: BUDESONIDE/FORMOTEROL 80-4.5 MCG 60 PUFF/6.9 GM MDI IH SCH (09:11)
[2016-11-05] MEDS: CITALOPRAM HYDROBROMIDE 20 MG TABLET PO SCH (09:11)
[2016-11-05] MEDS: ENOXAPARIN SODIUM INJ 40 MG/0.4 ML DISP.SYRIN SUBCUT SCH (09:12)
[2016-11-05] MEDS: INSULIN LISPRO 100 UNIT/ML 3 ML VIAL SUBCUT PRN (11:25)
--- NOTE | 2016-11-05 13:23 | PDOC DISCHARGE SUMMARY ---
General - Admit/Disc Date/PCP Admission Date/Primary Care Provider: 10/30/16 19:52 SHAYY MIKE Discharge Date: 11/05/16 - Discharge Diagnosis (1) Vdund-vj-acykadi kidney injury Is this a current diagnosis for this admission?: Yes (2) Cellulitis Is this a current diagnosis for this admission?: Yes (3) CKD (chronic kidney disease) stage 3, GFR 30-59 ml/min Is this a current diagnosis for this admission?: Yes (4) Diabetes mellitus type 2 with complications Is this a current diagnosis for this admission?: Yes (5) Diastolic CHF, chronic Is this a current diagnosis for this admission?: Yes (6) Hyperlipidemia associated with type 2 diabetes mellitus Is this a current diagnosis for this admission?: Yes (7) Hypertension Is this a current diagnosis for this admission?: Yes (8) Trimalleolar fracture of right ankle Is this a current diagnosis for this admission?: Yes (9) Ventral hernia without obstruction or gangrene Is this a current diagnosis for this admission?: Yes (10) Anemia of chronic disease Is this a current diagnosis for this admission?: Yes - Additional Information Discharge Diet: Cardiac, Diabetic Discharge Activity: Activity As Tolerated Home Medications: Albuterol Sulfate [Proair HFA Inhalation Aerosol 8.5 gm MDI] 2 puff IH Q4HP PRN 10/17/16 Amlodipine Besylate [Norvasc 5 mg Tablet] 5 mg PO QAM 10/17/16 Aspirin [Aspirin EC] 81 mg PO Q12 10/17/16 Budesonide/Formoterol Fumarate [Symbicort HFA 80-4.5 mcg Inhaler 6.9 gm] 2 puff IH Q12 10/17/16 Cetirizine HCl [Zyrtec 10 mg Tablet] 10 mg PO DAILYP PRN 10/17/16 Citalopram Hydrobromide [Celexa 40 mg Tablet] 40 mg PO QAM 10/17/16 Ergocalciferol (Vitamin D2) [Vitamin D2] 50,000 unit PO MARIE@1000 10/17/16 Furosemide [Lasix] 40 mg PO BID 10/17/16 Glipizide [Glucotrol 5 mg Tablet] 5 mg PO QPM 10/17/16 Insulin NPH Human Isophane [Humulin N] 50 units SQ QHS 10/17/16 Insulin Regular, Human [Humulin R (Reg) Insulin 100 unit/mL] 0 units SQ .PERSLIDINGSCALE 10/17/16 Levothyroxine Sodium [Synthroid 0.15 mg Tablet] 0.15 mg PO QAM 10/17/16 Metoprolol Succinate [Toprol Xl 25 mg Tab.sr] 25 mg PO Q12 10/17/16 Oxycodone HCl/Acetaminophen [Percocet 10-325 mg Tablet] 1 tab PO Q6HP PRN Simvastatin [Zocor 10 mg Tablet] 10 mg PO DAILY 10/17/16 Vitamin B Complex 1 cap PO QAM 10/17/16 Docusate Sodium [Colace 100 mg Capsule] 100 mg PO Q12HP PRN 10/30/16 History of Present Illness History of Present Illness: JOJO BACK is a 61 year old female who was recently discharged from this facility following admission for UTI. She was brought back to ED today due to spouse reported worsening leg swelling and redness around her right leg halo devise for management of her right trimalleolar fracture involving right ankle charcot joint Patient and spouse reported compliance with prescribed Levofloxacin usage upon discharge. She denied any fever or chills. No chest pain or difficulty with breathing. Patient reported self restating of Metolazone usage along with prescribed Furosemide since discharged form this facility. Spouse reported poor oral fluid intake to less than 300mL per day. She denied any nausea, vomiting or diarrhea. No abdominal pain. She denied any headache, nasal or sinus problems. Patient has remain non-ambulatory on recommendation of her orthopedic team at [facility]. She has not been able to keep post discharge follow up with the surgical team due to difficulty getting appropriate vehicle and device to transfer her to [facility]. Efforts are in progress to arrange for transfer board to assist family and patient at home with regard to ability to transfer to wheelchair. The ED physician did try to transfer patient to [facility] but orthopedic team declined transfer and suggested follow up on outpatient as earlier arranged with patient upon discharged. Hospital Course Hospital Course: Patient was admitted for worsening renal indices due to excessive diuretic usage at home. Also, there was concern for possible cellulitis around her halo device spikes. Her blood culture was no growth after 5 days. She was managed with IV Rocephin during this hospitalization. Her renal indices did improved to her baseline with withholding of her diuretic therapy and IV hydration. She will be discharged home today with follow up plan at [facility] on outpatient basis. She will follow up with me in office as instructed upon discharge. Physical Exam Vital Signs: Temp Pulse Resp BP Pulse Ox 97.3 F 78 18 149/68 H 92 11/05/16 11:46 11/05/16 11:46 11/05/16 03:53 11/05/16 11:46 11/05/16 11:46 Intake & Output 11/04/16 11/05/16 11/06/16 06:59 06:59 06:59 Intake Total 1409 970 Output Total 0 Balance 1409 970 Weight 186.3 kg Physical Exam: General appearance: PRESENT: no acute distress, cooperative, morbidly obese Head exam: PRESENT: atraumatic, normocephalic Eye exam: PRESENT: conjunctiva pink, EOMI, PERRLA. ABSENT: scleral icterus Respiratory exam: PRESENT: clear to auscultation jerome Cardiovascular exam: PRESENT: RRR. ABSENT: diastolic murmur, rubs, systolic murmur GI/Abdominal exam: PRESENT: hernia, normal bowel sounds - right large ventral hernia Extremities exam: PRESENT: other - right leg halo device for recent right ankle trimalleolar fracture with charcot joint Neurological exam: PRESENT: alert, awake, oriented to person, oriented to place , oriented to time, oriented to situation, CN II-XII grossly intact. ABSENT: motor sensory deficit Psychiatric exam: PRESENT: appropriate affect, normal mood. ABSENT: homicidal ideation, suicidal ideation Skin exam: PRESENT: dry, warm, improved area around exit points of halo device rods Results Laboratory Results: 11/04/16 04:11 11/04/16 04:14 11/05/16 11/05/16 11/05/16 05:30 05:54 05:54 Retic Count (auto) 3.72 H Absolute Retic 0.112 Iron 24.1 L TIBC 319 % Saturation 8 Ferritin 42.20 Vitamin B12 898.0 Folate 12.60 Stool Occult Blood NEGATIVE Impressions: Ankle X-Ray 10/30/16 15:27 IMPRESSION: Improved alignment. Some callus noted about the distal fibular fracture. Some distraction seen of the medial fragment of the tibia. Widening of the talotibial articulation. Foot X-Ray 10/30/16 15:27 IMPRESSION: External fixator stabilizing a trimalleolar ankle fracture. There is evidence of bony callus at the fracture sites at the ankle. Disuse osteopenia No lucency around the hardware worrisome for loosening or infection Chest X-Ray 10/30/16 18:51 IMPRESSION: CARDIAC ENLARGEMENT. VASCULAR CONGESTION. LEFT BASILAR DENSITY PROBABLY ATELECTASIS ALTHOUGH INFILTRATE SECONDARY TO PNEUMONIA IS NOT EXCLUDED. Qualifiers PATEINT BEING DISCHARGED WITH ANY OF THE FOLLOWING DIAGNOSIS?: No Plan Discharge Plan: See attending physician discharge orders.
[2016-11-05 14:34] VITALS: BP 118/41
[2016-11-05] MEDS: OXYCODONE-ACETAMINOPHEN 5-325 MG TABLET PO PRN (15:49)
== END 2016-11-05 16:25 | disposition home health service (06) | DRG 683 ==
LOC: ER 13:54 → UNDOADMIN 19:41 → EH 19:41 → 3W 10-31 02:12 → 4W 11-02 21:30
PROVIDERS: ADMIT Internal Medicine Geriatric Medicine; ATTEND Internal Medicine Geriatric Medicine
DX: N17.9 Acute kidney failure, unspecified (principal); I13.0 Hypertensive heart and chronic kidney disease with heart failure and stage 1 through stage 4 chronic kidney disease, or unspecified chronic kidney disease; I50.32 Chronic diastolic (congestive) heart failure; L03.115 Cellulitis of right lower limb; Z68.43 Body mass index [BMI] 50.0-59.9, adult; E11.22 Type 2 diabetes mellitus with diabetic chronic kidney disease; N18.3 Chronic kidney disease, stage 3 (moderate); E78.5 Hyperlipidemia, unspecified; E11.628 Type 2 diabetes mellitus with other skin complications; S82.851D Displaced trimalleolar fracture of right lower leg, subsequent encounter for closed fracture with routine healing; K43.9 Ventral hernia without obstruction or gangrene; D63.1 Anemia in chronic kidney disease; E11.610 Type 2 diabetes mellitus with diabetic neuropathic arthropathy; M85.80 Other specified disorders of bone density and structure, unspecified site; J44.9 Chronic obstructive pulmonary disease, unspecified; E03.9 Hypothyroidism, unspecified; M10.9 Gout, unspecified; F32.9 Major depressive disorder, single episode, unspecified; E66.01 Morbid (severe) obesity due to excess calories; Z79.4 Long term (current) use of insulin; Z79.82 Long term (current) use of aspirin; Z79.899 Other long term (current) drug therapy; Z85.038 Personal history of other malignant neoplasm of large intestine; Z90.49 Acquired absence of other specified parts of digestive tract; Z88.8 Allergy status to other drugs, medicaments and biological substances
CPT/HCPCS: 36415; 71010; 80048; 80053; 81001; 82272; 82607; 82728; 82746; 82962; 83540; 83550; 83880; 85025; 85045; 85610; 85730; 87040; 87086; 96361; 96365; 99285; J0690; J0696; J1815; J3490; J7030

== ENCOUNTER 2016-12-28 17:45 | Inpatient (IN) | payer MEDICARE ==
--- NOTE | 2016-12-28 18:40 | ER Document Report ---
ED General - General Chief Complaint: Ankle Injury Stated Complaint: LEG PAIN Time Seen by Provider: 12/28/16 18:14 Notes: Patient is a 61-year-old female with an external fixation on the right ankle secondary to a fracture she sustained back in August, morbid obesity weighing 190 kg, oxygen dependence at baseline, and her current concerns of infection secondary to external fixation who again presents today with 3 days of progressively increasing drainage from several areas of external fixation device as well as now spreading erythema from the medial pins. The patient is not had any additional symptoms. They did contact the orthopedic surgeon who placed external fixation device and patient was started on cephalexin. However they note this has not improved her symptoms prompted them to come to the emergency department. She does note a dull, constant throbbing pain to the foot and ankle. Nothing improves or worsens her pain. This is similar when she 's had prior infections of the area. TRAVEL OUTSIDE OF THE [place] IN LAST 30 DAYS: No - Related Data Allergies/Adverse Reactions: heparin Allergy (Verified 12/28/16 18:15) Penicillins Allergy (Verified 12/28/16 18:15) spironolactone Adverse Reaction (Verified 12/28/16 18:15) Past Medical History - General Information source: Patient - Social History Smoking Status: Never Smoker Frequency of alcohol use: None Drug Abuse: None Lives with: Spouse/Significant other Family History: Reviewed & Not Pertinent - Past Medical History Cardiac Medical History: Reports: Hx Congestive Heart Failure, Hx Hypercholesterolemia, Hx Hypertension Pulmonary Medical History: Reports: Hx COPD Endocrine Medical History: Reports: Hx Diabetes Mellitus Type 2, Hx Hypothyroidism Renal/ Medical History: Reports: Hx End Stage Renal Disease. Denies: Hx Peritoneal Dialysis Malignancy Medical History: Reports: Hx Colorectal Cancer Musculoskeltal Medical History: Reports Hx Arthritis - gout Psychiatric Medical History: Reports: Hx Depression Past Surgical History: Reports: Hx Orthopedic Surgery - right ankle surgery secondary to trimalleolar fracture 09/2016, Other - History of colectomy - Immunizations Hx Diphtheria, Pertussis, Tetanus Vaccination: Yes Hx Pneumococcal Vaccination: 08/18/12 Review of Systems - Review of Systems Notes: Constitutional: Negative for fever. HENT: Negative for sore throat. Eyes: Negative for visual changes. Cardiovascular: Negative for chest pain. Respiratory: Negative for shortness of breath. Gastrointestinal: Negative for abdominal pain, vomiting or diarrhea. Genitourinary: Negative for dysuria. Musculoskeletal: Positive for right ankle pain Skin: Positive for rash. Neurological: Negative for headaches, weakness or numbness. 10 point ROS negative except as marked above and in HPI. Physical Exam - Vital signs Vitals: Temp Pulse Resp BP Pulse Ox 97.8 F 54 L 19 129/54 H 94 12/28/16 17:55 12/28/16 17:55 12/28/16 17:55 12/28/16 17:55 12/28/16 17:55 Interpretation: Bradycardic Notes: PHYSICAL EXAMINATION: GENERAL: Morbidly obese woman in no acute distress. HEAD: Atraumatic, normocephalic. EYES: Pupils equal round and reactive to light, extraocular movements intact, sclera anicteric, conjunctiva are normal. ENT: nares patent, oropharynx clear without exudates. Moderately dry NECK: Normal range of motion, supple without lymphadenopathy LUNGS: Breath sounds clear to auscultation bilaterally and equal. No wheezes rales or rhonchi. HEART: Regular bradycardia without murmurs ABDOMEN: Morbidly obese abdomen. No focal tenderness. EXTREMITIES: There is an external fixation device on the right distal lower extremity. Moderate swelling of the right ankle NEUROLOGICAL: No focal neurological deficits. Moves all extremities spontaneously and on command. PSYCH: Normal mood, normal affect. SKIN: Warm, Dry, normal turgor, there is a mild to moderate amount of yellow, green discharge from 4 of the points of external fixation axis along the lateral aspect of the halo. There is a 3 x 2 area of erythema extending from one of the areas of purulent expression. Course - Re-evaluation Re-evalutation: 12/28/16 18:39 Patient presents with purulent drainage and spreading erythema from several of the external fixation pins on the lateral aspect of her right lower extremity. She is otherwise nontoxic in appearance although is morbidly obese and appears to have chronic obstructive respiratory difficulty secondary to her weight. Vitals within normal limits at time of arrival and she does not immediately meet sepsis criteria. She is ready on cephalexin outpatient as prescribed by her orthopedic surgeon at [facility]. Per the at the bedside they were instructed to have a brief evaluation here in the and request transfer to [place]. Will obtain basic laboratories, plain x-ray of the ankle, and discussed with orthopedic surgery at [place] 05/13/17 21:17 I discussed this case with the hospitalist on-call at [place] [facility] was except the patient in transfer although there are no beds available at this time. She is on a wait list. Will request the patient be admitted here on IV antibiotics until a bed is available at [place]. I discussed this case with Dr. Frias has agreed to admit the patient on IV antibiotics at this time. - Vital Signs Vital signs: Temp Pulse Resp BP Pulse Ox 97.5 F 58 L 20 125/48 L 96 12/29/16 00:37 12/29/16 00:37 12/29/16 00:37 12/29/16 00:37 12/29/16 00:37 - Laboratory Result Diagrams: 12/28/16 19:05 12/28/16 19:05 Laboratory results interpreted by me: 12/28/16 12/28/16 19:05 19:05 RBC 3.50 L Hgb 9.3 L Hct 29.1 L MCH 26.4 L MCHC 31.8 L RDW 17.6 H Plt Count 140 L Eosinophils % 10.8 H Absolute Eosinophils 0.8 H Sodium 133.2 L Potassium 5.2 H Chloride 92 L Carbon Dioxide 35 H BUN 58 H Creatinine 1.96 H Est GFR ( Amer) 32 L Est GFR (Non-Af Amer) 26 L Glucose 132 H - Diagnostic Test Radiology reviewed: Image reviewed, Reports reviewed Discharge - Discharge Clinical Impression: Cellulitis of leg, right Hardware complicating wound infection Qualifiers: Encounter type: initial encounter Qualified Code(s): T84.7XXA - Infection and inflammatory reaction due to other internal orthopedic prosthetic devices, implants and grafts, initial encounter Disposition: ADMITTED INPATIENT Admitting Provider: Rodriguez Unit Admitted: Medical Floor
[2016-12-28 19:20] LABS: ABSOLUTE BASOPHILS # (AUTO) 0.1 10^3/uL (0.0-0.2); ABSOLUTE EOSINOPHILS # (AUTO) 0.8 10^3/uL (0.0-0.6); ABSOLUTE LYMPHOCYTES (AUTO) 1.2 10^3/uL (0.5-4.7); ABSOLUTE MONOCYTES (AUTO) 0.8 10^3/uL (0.1-1.4); ABSOLUTE NEUT (AUTO) 4.5 10^3/uL (1.7-8.2); BASOPHILS % (AUTO) 0.9 % (0-2); EOSINOPHILS % (AUTO) 10.8 % (0-6); HEMATOCRIT 29.1 % (36.0-47.0); HEMOGLOBIN 9.3 g/dL (12.0-15.5); HGB HCT DIFFERENCE -1.2; LYMPHOCYTES % (AUTO) 16.1 % (13-45); MEAN CORPUSCULAR HEMOGLOBIN 26.4 pg (27.0-33.4); MEAN CORPUSCULAR HGB CONC 31.8 g/dL (32.0-36.0); MEAN CORPUSCULAR VOLUME 83 fl (80-97); MONOCYTES % (AUTO) 10.3 % (3-13); RED CELL DISTRIBUTION WIDTH 17.6 % (11.5-14.0); SEGMENTED NEUTROPHILS % (AUTO) 61.9 % (42-78); WHITE BLOOD COUNT 7.3 10^3/uL (4.0-10.5)
[2016-12-28 19:32] LABS: ANION GAP 6 (5-19); BLOOD UREA NITROGEN 58 mg/dL (7-20); CALCIUM 10.1 mg/dL (8.4-10.2); CARBON DIOXIDE 35 mmol/L (22-30); CHLORIDE 92 mmol/L (98-107); CREATININE RESULT 1.96 mg/dL (0.52-1.25); GLUCOSE 132 mg/dL (75-110); POTASSIUM 5.2 mmol/L (3.6-5.0); SODIUM 133.2 mmol/L (137-145)
[2016-12-28] MEDS ORDERED: VANCOMYCIN HCL INJ 1000 MG VIAL IV ONE (21:17)
[2016-12-28] MEDS ORDERED: CEFTRIAXONE 1 GM/D5W RTU 50 ML IV ONE (21:17)
[2016-12-28] MEDS ORDERED: NORMAL SALINE 1000 ML 1,000 ML IV PRN (21:56)
[2016-12-28] MEDS ORDERED: CLINDAMYCIN 600 MG/D5W RTU 600 MG/50 ML RTUPB IV ONE (22:15)
[2016-12-29] MEDS: HEPARIN SOD (PORCINE) 5,000 UNIT/ML 1 ML SYRINGE SUBCUT SCH ×4 (00:33→22:23)
[2016-12-29] MEDS ORDERED: CETIRIZINE 10 MG TABLET PO PRN (03:31)
[2016-12-29] MEDS ORDERED: DOCUSATE SODIUM 100 MG CAPSULE PO PRN (03:31)
[2016-12-29] MEDS ORDERED: ALBUTEROL SULFATE HFA (90 MCG/PUFF) 200 PUFF/8.5 GM MDI IH PRN (03:31)
[2016-12-29] MEDS: CLINDAMYCIN 600 MG/D5W RTU 600 MG/50 ML RTUPB IV SCH ×3 (05:24→22:21)
[2016-12-29 06:22] LABS: ABSOLUTE EOSINOPHILS # (AUTO) 0.6 10^3/uL (0.0-0.6); ABSOLUTE LYMPHOCYTES (AUTO) 0.8 10^3/uL (0.5-4.7); ABSOLUTE MONOCYTES (AUTO) 0.5 10^3/uL (0.1-1.4); ABSOLUTE NEUT (AUTO) 4.5 10^3/uL (1.7-8.2); BASOPHILS % (AUTO) 0.6 % (0-2); EOSINOPHILS % (AUTO) 9.9 % (0-6); HEMATOCRIT 28.7 % (36.0-47.0); HEMOGLOBIN 9.1 g/dL (12.0-15.5); HGB HCT DIFFERENCE -1.4; LYMPHOCYTES % (AUTO) 12.2 % (13-45); MEAN CORPUSCULAR HEMOGLOBIN 26.3 pg (27.0-33.4); MEAN CORPUSCULAR HGB CONC 31.8 g/dL (32.0-36.0); MEAN CORPUSCULAR VOLUME 83 fl (80-97); MONOCYTES % (AUTO) 8.2 % (3-13); RED BLOOD COUNT 3.47 10^6/uL (3.72-5.28); RED CELL DISTRIBUTION WIDTH 17.8 % (11.5-14.0); SEGMENTED NEUTROPHILS % (AUTO) 69.1 % (42-78); WHITE BLOOD COUNT 6.5 10^3/uL (4.0-10.5)
[2016-12-29 06:38] LABS: ALANINE AMINOTRANSFERASE 20 U/L (9-52); ALBUMIN 2.8 g/dL (3.5-5.0); ALKALINE PHOSPHATASE 72 U/L (38-126); ANION GAP 5 (5-19); ASPARTATE AMINO TRANSFERASE 14 U/L (14-36); BILIRUBIN,DIRECT 0.4 mg/dL (0.0-0.4); BILIRUBIN,TOTAL 1.2 mg/dL (0.2-1.3); BLOOD UREA NITROGEN 57 mg/dL (7-20); CALCIUM 9.8 mg/dL (8.4-10.2); CARBON DIOXIDE 35 mmol/L (22-30); CHLORIDE 92 mmol/L (98-107); CREATININE RESULT 1.93 mg/dL (0.52-1.25); GLUCOSE 255 mg/dL (75-110); SODIUM 132.1 mmol/L (137-145); TOTAL PROTEIN 6.5 g/dL (6.3-8.2)
[2016-12-29] MEDS ORDERED: (PENDING PHARMACY ID) (Vitamin B Complex [Vitamin B Complex] 1 CAP) PO SCH (08:00)
[2016-12-29] MEDS ORDERED: LEVOTHYROXINE SODIUM 0.15 MG TABLET PO SCH (08:00)
[2016-12-29] MEDS ORDERED: ERGOCALCIFEROL (VITAMIN D2) 50000 UNIT (1.25 MG) CAPSULE PO SCH (10:00)
[2016-12-29] MEDS: METOPROLOL SUCCINATE 25 MG TAB.SR.24H PO SCH ×2 (11:13→22:21)
[2016-12-29] MEDS: ASPIRIN 81 MG TABLET, ENT COATED PO SCH ×2 (11:13→22:21)
[2016-12-29] MEDS: BUDESONIDE/FORMOTEROL 80-4.5 MCG 60 PUFF/6.9 GM MDI IH SCH ×2 (11:14→22:25)
[2016-12-29] MEDS: CITALOPRAM HYDROBROMIDE 20 MG TABLET PO SCH (11:14)
[2016-12-29] MEDS: FUROSEMIDE 40 MG TABLET PO SCH ×2 (11:14→17:44)
[2016-12-29] MEDS: AMLODIPINE BESYLATE 5 MG TABLET PO SCH (11:18)
[2016-12-29] MEDS ORDERED: LEVOTHYROXINE SODIUM 0.1 MG TABLET PO ONE (12:00)
--- NOTE | 2016-12-29 15:28 | PDOC H&P ---
History of Present Illness Admission Date/PCP: 12/28/16 21:49 SOFIA CAMARENA NP History of Present Illness: JOJO BACK is a 61 year old female, she has external fixation on the right ankle secondary to a fracture she sustained back in August, she is obese, body mass index 58 she came to the emergency room because of worsening cellulitis of the right ankle, patient's family spoke to the orthopedic surgeon at [facility], the surgeon that inserted the halo, the surgeon called in a prescription cephalexin for the patient to use, the surgeon also advised them if there is no improvement in the cellulitis she should go to the emergency room. Patient's family brought her to the ER last night. The ED physician attempted to have patient transfer to [facility] [place], patient was actually accepted in transfer but there was no bed available for the patient and that is the reason for inpatient care at this time. I also called [facility] this morning regarding the transfer and I was advised by the transfer center that she is on the transfer list but there is no bed available presently. She has indwelling Thompson catheter that is draining clear urine. Past Medical History Cardiac Medical History: Reports: Hyperlipidema, Hypertension Pulmonary Medical History: Reports: Chronic Obstructive Pulmonary Disease (COPD) Endocrine Medical History: Reports: Diabetes Mellitus Type 2, Hypothyroidism Renal/ Medical History: Reports: End Stage Renal Disease Malignancy Medical History: Reports: Colorectal Cancer Musculoskeltal Medical History: Reports: Arthritis - gout Psychiatric Medical History: Reports: Depression Past Surgical History Past Surgical History: Reports: Orthopedic Surgery - right ankle surgery secondary to trimalleolar fracture 09/2016, Other - History of colectomy Social History Lives with: Spouse/Significant other Smoking Status: Never Smoker Frequency of Alcohol Use: None Hx Recreational Drug Use: No Hx Prescription Drug Abuse: No - Advance Directive Resuscitation Status: Full Code Family History Family History: Reviewed & Not Pertinent Parental Family History Reviewed: Yes Children Family History Reviewed: Yes Sibling(s) Family History Reviewed.: Yes Medication/Allergy Home Medications: Albuterol Sulfate [Proair HFA Inhalation Aerosol 8.5 gm MDI] 2 puff IH Q4HP PRN 10/17/16 Amlodipine Besylate [Norvasc 5 mg Tablet] 5 mg PO QAM 10/17/16 Aspirin [Aspirin EC] 81 mg PO Q12 10/17/16 Budesonide/Formoterol Fumarate [Symbicort HFA 80-4.5 mcg Inhaler 6.9 gm] 2 puff IH Q12 10/17/16 Cetirizine HCl [Zyrtec 10 mg Tablet] 10 mg PO DAILYP PRN 10/17/16 Citalopram Hydrobromide [Celexa 40 mg Tablet] 40 mg PO QAM 10/17/16 Ergocalciferol (Vitamin D2) [Vitamin D2] 50,000 unit PO MARIE@1000 10/17/16 Furosemide [Lasix] 40 mg PO BID 10/17/16 Insulin NPH Human Isophane [Humulin N] 60 units SQ QHS 10/17/16 Insulin Regular, Human [Humulin R (Reg) Insulin 100 unit/mL] 0 units SQ .PERSLIDINGSCALE 10/17/16 Metoprolol Succinate [Toprol Xl 25 mg Tab.sr] 25 mg PO Q12 10/17/16 Oxycodone HCl/Acetaminophen [Percocet 10-325 mg Tablet] 1 tab PO Q6HP PRN Simvastatin [Zocor 10 mg Tablet] 10 mg PO QHS 10/17/16 Vitamin B Complex 1 cap PO QAM 10/17/16 Docusate Sodium [Colace 100 mg Capsule] 100 mg PO Q12HP PRN 10/30/16 Lactulose [Cephulac 20 gm/30 ml Syrup UD Cup] 20 gm PO BID 12/29/16 Levothyroxine Sodium [Synthroid] 200 mcg PO QAM 12/29/16 Allergies/Adverse Reactions: heparin Allergy (Verified 12/28/16 18:15) Penicillins Allergy (Verified 12/28/16 18:15) spironolactone Adverse Reaction (Verified 12/28/16 18:15) Review of Systems Constitutional: ABSENT: chills, fever(s), headache(s), weight gain, weight loss Eyes: ABSENT: visual disturbances Ears: ABSENT: hearing changes Cardiovascular: ABSENT: chest pain, dyspnea on exertion, edema, orthropnea, palpitations Respiratory: ABSENT: cough, hemoptysis Gastrointestinal: ABSENT: abdominal pain, constipation, diarrhea, hematemesis, hematochezia, nausea, vomiting Genitourinary: ABSENT: dysuria, hematuria Musculoskeletal: ABSENT: joint swelling Integumentary: ABSENT: rash, wounds Neurological: ABSENT: abnormal gait, abnormal speech, confusion, dizziness, focal weakness, syncope Psychiatric: ABSENT: anxiety, depression, homidical ideation, suicidal ideation Endocrine: ABSENT: cold intolerance, heat intolerance, menstrual abnormalities, polydipsia, polyuria Hematologic/Lymphatic: ABSENT: easy bleeding, easy bruising, lymphadenopathy Physical Exam Vital Signs: Temp Pulse Resp BP Pulse Ox 98.6 F 60 16 124/51 L 95 12/29/16 12:00 12/29/16 12:00 12/29/16 12:00 12/29/16 12:00 12/29/16 12:00 Intake & Output 12/28/16 12/29/16 12/30/16 06:59 06:59 06:59 Output Total 300 Balance -300 Weight 188.6 kg General appearance: PRESENT: no acute distress, morbidly obese Head exam: PRESENT: atraumatic, normocephalic Eye exam: PRESENT: conjunctiva pink, EOMI, PERRLA Ear exam: PRESENT: normal external ear exam Mouth exam: PRESENT: moist, tongue midline Neck exam: PRESENT: other - Neck is supple Respiratory exam: PRESENT: clear to auscultation jerome Cardiovascular exam: PRESENT: +S1, +S2 Vascular exam: PRESENT: normal capillary refill GI/Abdominal exam: PRESENT: normal bowel sounds, soft Rectal exam: PRESENT: deferred Extremities exam: PRESENT: other - There is an external fixation device on the right distal lower extremity with colored drainage from different points of the external fixation device Neurological exam: PRESENT: alert, awake, oriented to person, oriented to place , oriented to time, oriented to situation, CN II-XII grossly intact Psychiatric exam: PRESENT: appropriate affect, normal mood Skin exam: PRESENT: dry, intact, warm Results Laboratory Results: 12/29/16 05:24 12/29/16 05:24 12/29/16 12/29/16 05:24 05:24 WBC 6.5 RBC 3.47 L Hgb 9.1 L Hct 28.7 L MCV 83 MCH 26.3 L MCHC 31.8 L RDW 17.8 H Plt Count 125 L Seg Neutrophils % 69.1 Lymphocytes % 12.2 L Monocytes % 8.2 Eosinophils % 9.9 H Basophils % 0.6 Absolute Neutrophils 4.5 Absolute Lymphocytes 0.8 Absolute Monocytes 0.5 Absolute Eosinophils 0.6 Absolute Basophils 0.0 Sodium 132.1 L Potassium 5.0 Chloride 92 L Carbon Dioxide 35 H Anion Gap 5 BUN 57 H Creatinine 1.93 H Est GFR ( Amer) 32 L Est GFR (Non-Af Amer) 27 L Glucose 255 H Calcium 9.8 Total Bilirubin 1.2 AST 14 ALT 20 Alkaline Phosphatase 72 Total Protein 6.5 Albumin 2.8 L Impressions: Ankle X-Ray 12/28/16 18:17 IMPRESSION: RELATIVELY STABLE RADIOGRAPHIC APPEARANCE OF THE ANKLE WITH POSTTRAUMATIC AND SURGICAL CHANGES AND HARDWARE. Assessment & Plan - Diagnosis (1) Cellulitis of leg, right Is this a current diagnosis for this admission?: YesPlan: She failed outpatient p.o. antibiotic, she will be started on intravenous clindamycin, she probably need to have the halo removed at this time. I called [facility] and no bed is still available at this time (2) Chronic renal disease Qualifiers: Chronic kidney disease stage: stage 3 (moderate) Qualified Code(s): N18.3 - Chronic kidney disease, stage 3 (moderate) Is this a current diagnosis for this admission?: Yes (3) Diabetes mellitus type 2 with complications Qualifiers: Diabetes mellitus nursing home insulin use: with director long term care use Qualified Code(s): E11.8 - Type 2 diabetes mellitus with unspecified complications Is this a current diagnosis for this admission?: Yes (4) Diastolic CHF, chronic Is this a current diagnosis for this admission?: Yes (5) Hyperlipidemia associated with type 2 diabetes mellitus Is this a current diagnosis for this admission?: Yes (6) Hypertension Qualifiers: Hypertension type: essential hypertension Qualified Code(s): I10 - Essential (primary) hypertension Is this a current diagnosis for this admission?: Yes (7) Morbid obesity Qualifiers: Obesity type: unspecified obesity type Qualified Code(s): E66.01 - Morbid (severe) obesity due to excess calories Is this a current diagnosis for this admission?: Yes (8) Pulmonary fibrosis Is this a current diagnosis for this admission?: Yes (9) Pulmonary hypertension Is this a current diagnosis for this admission?: Yes (10) Trimalleolar fracture of right ankle Qualifiers: Encounter type: subsequent encounter Fracture type: closed Fracture healing: with routine healing Qualified Code(s): S82.851D - Displaced trimalleolar fracture of right lower leg, subsequent encounter for closed fracture with routine healing Is this a current diagnosis for this admission?: Yes (11) Ventral hernia without obstruction or gangrene Is this a current diagnosis for this admission?: Yes
[2016-12-29] MEDS ORDERED: DEXTROSE 50%-WATER SYRINGE 25 GM/50 ML DOSE IV PRN (16:38)
[2016-12-29] MEDS ORDERED: DEXTROSE 40% GEL 15 GM TUBE X 2 PO PRN (16:38)
[2016-12-29] MEDS ORDERED: DEXTROSE 50%-WATER SYRINGE 12.5 GM/25 ML DOSE IV PRN (16:38)
[2016-12-29] MEDS ORDERED: DEXTROSE 40% GEL 15 GM TUBE PO PRN (16:38)
[2016-12-29] MEDS ORDERED: GLUCAGON,HUMAN RECOMB 1 MG INJ IM PRN (16:38)
[2016-12-29] MEDS: INSULIN LISPRO 100 UNIT/ML 3 ML VIAL SUBCUT PRN ×2 (17:44→22:23)
[2016-12-29] MEDS: OXYCODONE-ACETAMINOPHEN 5-325 MG TABLET PO PRN (17:56)
[2016-12-29] MEDS ORDERED: INSULIN NPH (ISOPHANE), HUMAN 100 UNIT/ML 3 ML SUBCUT SCH (22:00)
[2016-12-29] MEDS ORDERED: SIMVASTATIN 10 MG TABLET PO SCH (22:00)
[2016-12-30] MEDS: HEPARIN SOD (PORCINE) 5,000 UNIT/ML 1 ML SYRINGE SUBCUT SCH (05:33)
[2016-12-30] MEDS: CLINDAMYCIN 600 MG/D5W RTU 600 MG/50 ML RTUPB IV SCH (05:53)
[2016-12-30 07:22] LABS: ABSOLUTE BASOPHILS # (AUTO) 0.1 10^3/uL (0.0-0.2); ABSOLUTE EOSINOPHILS # (AUTO) 0.8 10^3/uL (0.0-0.6); ABSOLUTE LYMPHOCYTES (AUTO) 1.2 10^3/uL (0.5-4.7); ABSOLUTE MONOCYTES (AUTO) 0.6 10^3/uL (0.1-1.4); ABSOLUTE NEUT (AUTO) 3.3 10^3/uL (1.7-8.2); HEMATOCRIT 27.7 % (36.0-47.0); HGB HCT DIFFERENCE -0.7; LYMPHOCYTES % (AUTO) 20.4 % (13-45); MEAN CORPUSCULAR HEMOGLOBIN 26.8 pg (27.0-33.4); MEAN CORPUSCULAR HGB CONC 32.4 g/dL (32.0-36.0); MEAN CORPUSCULAR VOLUME 83 fl (80-97); MONOCYTES % (AUTO) 9.4 % (3-13); RED BLOOD COUNT 3.35 10^6/uL (3.72-5.28); RED CELL DISTRIBUTION WIDTH 18.1 % (11.5-14.0); SEGMENTED NEUTROPHILS % (AUTO) 56.2 % (42-78); WHITE BLOOD COUNT 5.9 10^3/uL (4.0-10.5)
[2016-12-30] MEDS ORDERED: LEVOTHYROXINE SODIUM 0.1 MG TABLET PO SCH (08:00)
[2016-12-30 08:19] VITALS: BP 91/43
--- NOTE | 2016-12-30 09:09 | PDOC TRANSFER SUMMARY ---
General Admission Date/PCP: 12/28/16 21:49 SOFIA CAMARENA NP Resuscitation Status: Full Code - Transfer Medications Home Medications: Albuterol Sulfate [Proair HFA Inhalation Aerosol 8.5 gm MDI] 2 puff IH Q4HP PRN 10/17/16 Amlodipine Besylate [Norvasc 5 mg Tablet] 5 mg PO QAM 10/17/16 Aspirin [Aspirin EC] 81 mg PO Q12 10/17/16 Budesonide/Formoterol Fumarate [Symbicort HFA 80-4.5 mcg Inhaler 6.9 gm] 2 puff IH Q12 10/17/16 Cetirizine HCl [Zyrtec 10 mg Tablet] 10 mg PO DAILYP PRN 10/17/16 Citalopram Hydrobromide [Celexa 40 mg Tablet] 40 mg PO QAM 10/17/16 Ergocalciferol (Vitamin D2) [Vitamin D2] 50,000 unit PO MARIE@1000 10/17/16 Furosemide [Lasix] 40 mg PO BID 10/17/16 Insulin NPH Human Isophane [Humulin N] 60 units SQ QHS 10/17/16 Insulin Regular, Human [Humulin R (Reg) Insulin 100 unit/mL] 0 units SQ .PERSLIDINGSCALE 10/17/16 Metoprolol Succinate [Toprol Xl 25 mg Tab.sr] 25 mg PO Q12 10/17/16 Oxycodone HCl/Acetaminophen [Percocet 10-325 mg Tablet] 1 tab PO Q6HP PRN Simvastatin [Zocor 10 mg Tablet] 10 mg PO QHS 10/17/16 Vitamin B Complex 1 cap PO QAM 10/17/16 Docusate Sodium [Colace 100 mg Capsule] 100 mg PO Q12HP PRN 10/30/16 Lactulose [Cephulac 20 gm/30 ml Syrup UD Cup] 20 gm PO BID 12/29/16 Levothyroxine Sodium [Synthroid] 200 mcg PO QAM 12/29/16 Transfer Medications: Current Medications Albuterol (Proair Hfa Inhalation Aerosol 8.5 Gm Mdi) 2 puff IH Q4HP PRN PRN Reason: SHORTNESS OF BREATH Stop: 01/28/17 03:30 Amlodipine Besylate (Norvasc 5 Mg Tablet) 5 mg PO QAM [facility] Stop: 01/28/17 07:59 Last Admin: 12/29/16 11:18 Dose: 5 mg Aspirin (Ecotrin 81 Mg Ec Tablet) 81 mg PO Q12 [facility] Stop: 01/28/17 09:59 Last Admin: 12/29/16 22:21 Dose: 81 mg Budesonide/Formoterol Fumarate (Symbicort Hfa 80-4.5 Mcg Inhaler 6.9 Gm) 2 puff IH Q12 [facility] Stop: 01/28/17 09:59 Last Admin: 12/29/16 22:25 Dose: 2 puff Cetirizine HCl (Zyrtec 10 Mg Tablet) 10 mg PO DAILYP PRN PRN Reason: FOR ALLERGIES Stop: 01/28/17 03:30 Citalopram Hydrobromide (Celexa 20 Mg Tablet) 40 mg PO DAILY [facility] Stop: 01/28/17 09:59 Last Admin: 12/29/16 11:14 Dose: 40 mg Dextrose (Dextrose Inj 50% Syringe (25 Gm/50 Ml)) 12.5 gm IV PRN PRN; Protocol PRN Reason: FOR BG 50-69 IN ALERT PATIENT Stop: 01/28/17 16:37 Dextrose (Dextrose Inj 50% Syringe (25 Gm/50 Ml)) 25 gm IV PRN PRN PRN Reason: Protocol Stop: 01/28/17 16:37 Docusate Sodium (Colace 100 Mg Capsule) 100 mg PO Q12HP PRN PRN Reason: CONSTIPATION Stop: 01/28/17 03:30 Ergocalciferol (Drisdol 50,000 Unit (1.25mg) Capsule) 50,000 unit PO MARIE@1000 [facility] Stop: 01/28/17 09:59 Last Admin: 12/29/16 11:12 Dose: 50,000 unit Furosemide (Lasix 40 Mg Tablet) 40 mg PO BID [facility] Stop: 01/28/17 09:59 Last Admin: 12/29/16 17:44 Dose: 40 mg Glucagon (Glucagen Inj 1 Mg Vial) 1 mg IM PRN PRN; Protocol PRN Reason: EVALUATE FOR BG < 70 Stop: 01/28/17 16:37 Glucose (Glutose 40% Gel 15 Gm Tube) 15 gm PO PRN PRN; Protocol PRN Reason: FOR BG 50-69 IN ALERT PATIENT Stop: 01/28/17 16:37 Glucose (Glutose 40% Gel 15 Gm Tube) 30 gm PO PRN PRN; Protocol PRN Reason: FOR BG < 50 IN ALERT PATIENT Stop: 01/28/17 16:37 Sodium Chloride (Nacl 0.9% 1000 Ml Iv Soln) 1,000 mls @ 70 mls/hr IV CONTINUOUS PRN PRN Reason: THIS MED IS NOT "PRN" Stop: 01/27/17 21:55 Last Admin: 12/29/16 22:28 Dose: 1,000 ml Clindamycin Phosphate/Dextrose (Cleocin Rtu 600 Mg/D5w 50 Ml Premix) 600 mg in 50 mls @ 50 mls/hr IV Q8 [facility] Stop: 01/05/17 05:59 Last Admin: 12/30/16 05:53 Dose: 50 ml Insulin Human Lispro (Humalog Insulin 100 Unit/1 Ml 3 Ml Vial) 0 - 12 unit SUBCUT ACHSP PRN PRN Reason: Protocol Stop: 01/28/17 16:37 Last Admin: 12/29/16 22:23 Dose: 10 unit Insulin Human NPH (Humulin N (Nph) Insulin 100 Unit/1 Ml 3 Ml) 60 unit SUBCUT QHS [facility] Stop: 01/28/17 21:59 Last Admin: 12/29/16 22:21 Dose: 60 unit Levothyroxine Sodium (Synthroid 0.1 Mg Tablet) 0.2 mg PO QAM [facility] Stop: 01/29/17 07:59 Metoprolol Succinate (Toprol Xl 25 Mg Tab.Sr) 25 mg PO Q12 [facility] Stop: 01/28/17 09:59 Last Admin: 12/29/16 22:21 Dose: 25 mg Oxycodone/Acetaminophen (Percocet 5-325 Mg Tablet) 2 tab PO Q6HP PRN PRN Reason: PAIN Stop: 01/05/17 03:59 Last Admin: 12/29/16 17:56 Dose: 2 tab Simvastatin (Zocor 10 Mg Tablet) 10 mg PO QHS [facility] Stop: 01/28/17 21:59 Last Admin: 12/29/16 22:21 Dose: 10 mg Vitamin B Complex/Vit C/Vit E/Zinc (Zbec Tablet) 1 tab PO DAILY [facility] Stop: 01/29/17 09:59 - Allergies Allergies/Adverse Reactions: heparin Allergy (Verified 05/13/17 18:15) Penicillins Allergy (Verified 12/28/16 18:15) spironolactone Adverse Reaction (Verified 12/28/16 18:15) Hospital Course Hospital Course: Patient was admitted for cellulitis of legs but needed further input for her right leg external fixation rods at multiple sites. The fixation was placed following her right lower extremity fracture. Patient will be transferred to [facility] for orthopedic intervention. Physical Exam Vital Signs: Temp Pulse Resp BP Pulse Ox 97.9 F 75 17 91/43 L 97 12/30/16 07:55 12/30/16 07:55 12/30/16 07:55 12/30/16 07:55 12/30/16 07:55 Intake & Output 12/29/16 12/30/16 12/31/16 06:59 06:59 06:59 Intake Total 3170 Output Total 300 940 Balance -300 2230 Weight 188.6 kg 171.3 kg General appearance: PRESENT: no acute distress, morbidly obese Head exam: PRESENT: atraumatic, normocephalic Eye exam: PRESENT: conjunctiva pink, EOMI, PERRLA Ear exam: PRESENT: normal external ear exam Mouth exam: PRESENT: moist, tongue midline Neck exam: PRESENT: other - Neck is supple Respiratory exam: PRESENT: clear to auscultation jerome Cardiovascular exam: PRESENT: +S1, +S2 Vascular exam: PRESENT: normal capillary refill GI/Abdominal exam: PRESENT: normal bowel sounds, soft Rectal exam: PRESENT: deferred Extremities exam: PRESENT: other - There is an external fixation device on the right distal lower extremity with colored drainage from different points of the external fixation device Neurological exam: PRESENT: alert, awake, oriented to person, oriented to place , oriented to time, oriented to situation, CN II-XII grossly intact Psychiatric exam: PRESENT: appropriate affect, normal mood Skin exam: PRESENT: dry, intact, warm Results Laboratory Results: 12/30/16 06:30 12/29/16 05:24 12/30/16 06:30 WBC 5.9 RBC 3.35 L Hgb 9.0 L Hct 27.7 L MCV 83 MCH 26.8 L MCHC 32.4 RDW 18.1 H Plt Count 117 L Seg Neutrophils % 56.2 Lymphocytes % 20.4 Monocytes % 9.4 Eosinophils % 13.0 H Basophils % 1.0 Absolute Neutrophils 3.3 Absolute Lymphocytes 1.2 Absolute Monocytes 0.6 Absolute Eosinophils 0.8 H Absolute Basophils 0.1 Impressions: Ankle X-Ray 12/28/16 18:17 IMPRESSION: RELATIVELY STABLE RADIOGRAPHIC APPEARANCE OF THE ANKLE WITH POSTTRAUMATIC AND SURGICAL CHANGES AND HARDWARE. Plan Discharge Plan: Transfer to [facility]
[2016-12-30] MEDS: FUROSEMIDE 40 MG TABLET PO SCH (09:10)
[2016-12-30] MEDS: CITALOPRAM HYDROBROMIDE 20 MG TABLET PO SCH (09:10)
[2016-12-30] MEDS: ASPIRIN 81 MG TABLET, ENT COATED PO SCH (09:10)
[2016-12-30] MEDS: AMLODIPINE BESYLATE 5 MG TABLET PO SCH (09:11)
[2016-12-30] MEDS: METOPROLOL SUCCINATE 25 MG TAB.SR.24H PO SCH (09:11)
[2016-12-30] MEDS: INSULIN LISPRO 100 UNIT/ML 3 ML VIAL SUBCUT PRN (09:16)
[2016-12-30] MEDS: BUDESONIDE/FORMOTEROL 80-4.5 MCG 60 PUFF/6.9 GM MDI IH SCH (09:18)
[2016-12-30] MEDS ORDERED: MULTIVIT-STRESS FORMULA/ZINC TABLET PO SCH (10:00)
[2016-12-30] MEDS: OXYCODONE-ACETAMINOPHEN 5-325 MG TABLET PO PRN (10:57)
== END 2016-12-30 11:45 | disposition short-term general hospital (02) | DRG 559 ==
LOC: ER 17:45 → EH 21:49 → 5 23:52
PROVIDERS: ADMIT Internal Medicine; ATTEND Internal Medicine Geriatric Medicine
DX: T84.7XXA Infection and inflammatory reaction due to other internal orthopedic prosthetic devices, implants and grafts, initial encounter (principal); N18.6 End stage renal disease; L03.115 Cellulitis of right lower limb; Z68.43 Body mass index [BMI] 50.0-59.9, adult; I13.2 Hypertensive heart and chronic kidney disease with heart failure and with stage 5 chronic kidney disease, or end stage renal disease; I50.32 Chronic diastolic (congestive) heart failure; S82.851D Displaced trimalleolar fracture of right lower leg, subsequent encounter for closed fracture with routine healing; Y79.1 Therapeutic (nonsurgical) and rehabilitative orthopedic devices associated with adverse incidents; E66.01 Morbid (severe) obesity due to excess calories; E78.5 Hyperlipidemia, unspecified; E11.22 Type 2 diabetes mellitus with diabetic chronic kidney disease; J44.9 Chronic obstructive pulmonary disease, unspecified; E03.9 Hypothyroidism, unspecified; M10.9 Gout, unspecified; J84.10 Pulmonary fibrosis, unspecified; I27.2 Other secondary pulmonary hypertension; F32.9 Major depressive disorder, single episode, unspecified; Z85.038 Personal history of other malignant neoplasm of large intestine; Z90.49 Acquired absence of other specified parts of digestive tract; Z79.82 Long term (current) use of aspirin; Z79.4 Long term (current) use of insulin; Z79.899 Other long term (current) drug therapy; Z88.8 Allergy status to other drugs, medicaments and biological substances; Z88.0 Allergy status to penicillin
CPT/HCPCS: 36415; 80048; 80053; 82962; 85025; 87040; 99284; J0696; J1815; J3370; J3490; J7030

== ENCOUNTER 2017-01-31 14:05 | Inpatient (IN) | payer MEDICARE ==
[2017-01-31] MEDS ORDERED: IPRATROPIUM/ALBUTEROL 0.5-2.5 MG/3 ML AMPUL NEB ONE (14:49)
[2017-01-31] MEDS ORDERED: LEVOFLOXACIN 500 MG/D5W RTU 100 ML IV ONE (14:49)
[2017-01-31] MEDS ORDERED: VANCOMYCIN HCL INJ 1000 MG VIAL IV ONE (14:49)
--- NOTE | 2017-01-31 14:51 | ER Document Report ---
ED General - General Chief Complaint: Productive Cough Stated Complaint: COUGH AND LEG SWELLING Time Seen by Provider: 01/31/17 14:33 Mode of Arrival: Ambulatory Information source: Patient Notes: This is a 61-year-old female with a complicated medical history who presents to the emergency room with productive cough, shortness of breath, wheezing, UTI and elevation in her renal function studies. The patient is non-ambulatory, she is seen by Dr. Sarah Keane the part of doctors making house calls and was referred in by her. The patient's past medical history includes morbid obesity , colon cancer (status post partial colectomy), pulmonary hypertension, reactive airway disease, diabetes, hypertension, chronic kidney disease. TRAVEL OUTSIDE OF THE [place] IN LAST 30 DAYS: No - HPI Onset: Last week Onset/Duration: Gradual Quality of pain: No pain Severity: None Pain Level: Denies Associated symptoms: Productive cough, Shortness of breath. denies: Chills, Fever Exacerbated by: Denies Relieved by: Denies Similar symptoms previously: Yes Recently seen / treated by doctor: Yes - Related Data Allergies/Adverse Reactions: heparin Allergy (Verified 12/28/16 18:15) Penicillins Allergy (Verified 12/28/16 18:15) spironolactone Adverse Reaction (Verified 12/28/16 18:15) Home Medications: Current Home Medications Albuterol Sulfate [Proair HFA] 2 puff IH Q4HP PRN 01/31/17 [History] Aspirin [Aspirin EC] 81 mg PO Q12 01/31/17 [History] Budesonide/Formoterol Fumarate [Symbicort Hfa 80-4.5 Mcg Inhaler 6.9 gm] 2 puff IH Q12 01/31/17 [History] Cetirizine HCl [Zyrtec 10 mg Tablet] 10 mg PO DAILYP PRN 01/31/17 [History] Citalopram Hydrobromide [Celexa 40 mg Tablet] 1 tab PO QAM 01/31/17 [History] Docusate Sodium [Colace 100 mg Capsule] 100 mg PO Q12HP PRN 01/31/17 [History] Ergocalciferol (Vitamin D2) [Vitamin D2] 50,000 unit PO MARIE@1000 01/31/17 [ History] Insulin NPH Human Isophane [Humulin N] 60 unit SQ QHS 01/31/17 [History] Insulin Regular, Human [Humulin R (Pyxis) Insulin 100 Unit/ml 3Ml] 0 unit SUBCUT .SLD SCALE 01/31/17 [History] Levothyroxine Sodium [Synthroid 0.1 mg Tablet] 0.2 mg PO QAM 01/31/17 [History] Metoprolol Succinate [Toprol Xl 25 mg Tab.sr] 25 mg PO Q12 01/31/17 [History] Oxycodone HCl/Acetaminophen [Percocet 10-325 Mg Tablet] 1 each PO Q6HP PRN 01/31 [History] Simvastatin [Zocor 10 mg Tablet] 10 mg PO QHS 01/31/17 [History] Sulfamethoxazole/Trimethoprim [Bactrim Ds Tablet] 1 each PO Q12 01/31/17 [ History] Vitamin B Complex [B Complex] 1 each PO QAM 01/31/17 [History] Past Medical History - General Information source: Patient, Relative - Social History Smoking Status: Former Smoker Cigarette use (# per day): No Chew tobacco use (# tins/day): No Frequency of alcohol use: None Drug Abuse: None Lives with: Spouse/Significant other Family History: Reviewed & Not Pertinent Patient has suicidal ideation: No Patient has homicidal ideation: No - Past Medical History Cardiac Medical History: Reports: Hx Congestive Heart Failure, Hx Hypercholesterolemia, Hx Hypertension Pulmonary Medical History: Reports: Hx COPD Endocrine Medical History: Reports: Hx Diabetes Mellitus Type 2, Hx Hypothyroidism Renal/ Medical History: Reports: Hx End Stage Renal Disease. Denies: Hx Peritoneal Dialysis Malignancy Medical History: Reports: Hx Colorectal Cancer Musculoskeltal Medical History: Reports Hx Arthritis - gout Psychiatric Medical History: Reports: Hx Depression Past Surgical History: Reports: Hx Orthopedic Surgery - right ankle surgery secondary to trimalleolar fracture 09/2016, Other - History of colectomy - Immunizations Hx Diphtheria, Pertussis, Tetanus Vaccination: Yes Hx Pneumococcal Vaccination: 08/18/12 Review of Systems - Review of Systems Constitutional: denies: Chills, Fever EENT: No symptoms reported Cardiovascular: No symptoms reported Respiratory: See HPI Gastrointestinal: No symptoms reported Genitourinary: No symptoms reported Female Genitourinary: No symptoms reported Musculoskeletal: See HPI Skin: See HPI Hematologic/Lymphatic: No symptoms reported Neurological/Psychological: No symptoms reported Physical Exam - Vital signs Vitals: Temp Pulse Resp BP Pulse Ox 98.1 F 80 24 H 137/53 H 98 01/31/17 14:19 01/31/17 14:19 01/31/17 14:19 01/31/17 14:19 01/31/17 14:19 Notes: Physical exam: GENERAL: Obese 61-year-old female, alert and oriented 3. He is an mild respiratory distress HEAD: Atraumatic, normocephalic. EYES: Pupils equal round and reactive to light, extraocular movements intact, sclera anicteric, conjunctiva are normal. ENT: TMs normal, nares patent, oropharynx clear without exudates. Moist mucous membranes. NECK: Normal range of motion, supple without lymphadenopathy or JVD. LUNGS: Pleural wheezing, productive cough HEART: Regular rate and rhythm without murmurs, rubs or gallops. ABDOMEN: Abdomen, soft, normoactive bowel sounds. No tenderness to palpation. Has a large pannus that tends to lie on the right side. There is erythema to the pannus with induration but the patient's states that this is chronic EXTREMITIES: There is mild erythema and swelling to the right lower extremity. There is no tenderness. This is the side that the pannus is lying on so it may be dependent swelling. There is no pus discharge. The patient did have what sounds like an ex fix of the tib-fib (because of fracture) within the last several months NEUROLOGICAL: Cranial nerves II through XII grossly intact. Normal speech, nonambulatory PSYCH: Normal mood, normal affect. Course - Vital Signs Vital signs: Temp Pulse Resp BP Pulse Ox 97.3 F 64 22 H 150/45 H 95 01/31/17 22:04 01/31/17 22:04 01/31/17 22:04 01/31/17 22:04 01/31/17 22:04 - Laboratory Result Diagrams: 01/31/17 14:28 01/31/17 14:28 Laboratory results interpreted by me: 01/31/17 01/31/17 01/31/17 14:28 14:28 14:28 RBC 3.51 L Hgb 9.1 L Hct 29.1 L MCH 25.9 L MCHC 31.2 L RDW 18.3 H Eosinophils % 10.2 H ESR 38 H D-Dimer 2.97 H Potassium 5.4 H BUN 47 H Creatinine 1.99 H Est GFR ( Amer) 31 L Est GFR (Non-Af Amer) 26 L Glucose 112 H Lactic Acid AST 13 L Alkaline Phosphatase 137 H C-Reactive Protein 15.6 H Albumin 2.9 L 01/31/17 15:51 RBC Hgb Hct MCH MCHC RDW Eosinophils % ESR D-Dimer Potassium BUN Creatinine Est GFR ( Amer) Est GFR (Non-Af Amer) Glucose Lactic Acid 0.6 L AST Alkaline Phosphatase C-Reactive Protein Albumin - Diagnostic Test Radiology reviewed: Image reviewed, Reports reviewed - Study, cardiomegaly - EKG Interpretation by Me Rate: Normal Rhythm: NSR - He shows normal sinus rhythm with a ventricular rate of 60, left bundle branch block, no acute ST-T wave changes no old EKG to compare Discharge - Discharge Clinical Impression: Panniculitis, reactive Airway disease, DVT Condition: Stable Disposition: ADMITTED INPATIENT Admitting Provider: Hospitalist - Dr Collado Unit Admitted: Telemetry
[2017-01-31 14:54] LABS: ABSOLUTE EOSINOPHILS # (AUTO) 0.6 10^3/uL (0.0-0.6); ABSOLUTE LYMPHOCYTES (AUTO) 1.1 10^3/uL (0.5-4.7); ABSOLUTE MONOCYTES (AUTO) 0.6 10^3/uL (0.1-1.4); ABSOLUTE NEUT (AUTO) 3.4 10^3/uL (1.7-8.2); BASOPHILS % (AUTO) 0.4 % (0-2); EOSINOPHILS % (AUTO) 10.2 % (0-6); HEMATOCRIT 29.1 % (36.0-47.0); HEMOGLOBIN 9.1 g/dL (12.0-15.5); HGB HCT DIFFERENCE -1.8; LYMPHOCYTES % (AUTO) 18.9 % (13-45); MEAN CORPUSCULAR HEMOGLOBIN 25.9 pg (27.0-33.4); MEAN CORPUSCULAR HGB CONC 31.2 g/dL (32.0-36.0); MEAN CORPUSCULAR VOLUME 83 fl (80-97); MONOCYTES % (AUTO) 11.1 % (3-13); RED BLOOD COUNT 3.51 10^6/uL (3.72-5.28); RED CELL DISTRIBUTION WIDTH 18.3 % (11.5-14.0); SEGMENTED NEUTROPHILS % (AUTO) 59.4 % (42-78); WHITE BLOOD COUNT 5.8 10^3/uL (4.0-10.5)
[2017-01-31 15:12] LABS: ALANINE AMINOTRANSFERASE 35 U/L (9-52); ALBUMIN 2.9 g/dL (3.5-5.0); ALKALINE PHOSPHATASE 137 U/L (38-126); ANION GAP 7 (5-19); ASPARTATE AMINO TRANSFERASE 13 U/L (14-36); BILIRUBIN,DIRECT 0.3 mg/dL (0.0-0.4); BILIRUBIN,TOTAL 0.6 mg/dL (0.2-1.3); BLOOD UREA NITROGEN 47 mg/dL (7-20); C-REACTIVE PROTEIN 15.6 mg/L (<10.0); CALCIUM 9.4 mg/dL (8.4-10.2); CARBON DIOXIDE 30 mmol/L (22-30); CHLORIDE 103 mmol/L (98-107); CREATININE RESULT 1.99 mg/dL (0.52-1.25); GLUCOSE 112 mg/dL (75-110); POTASSIUM 5.4 mmol/L (3.6-5.0); SODIUM 139.7 mmol/L (137-145); TOTAL PROTEIN 6.6 g/dL (6.3-8.2)
[2017-01-31 15:32] LABS: ERYTHROCYTE SEDIMENTATION RATE 38 mm/hr (0-30)
--- NOTE | 2017-01-31 15:34 | RADIOLOGY REPORT (SQ) ---
EXAM DESCRIPTION: CHEST SINGLE VIEW COMPLETED DATE/TIME: 01/31/2017 3:19 pm REASON FOR STUDY: cough, sob COMPARISON: 10/30/2016. NUMBER OF VIEWS: One view. TECHNIQUE: Single frontal radiographic view of the chest acquired. LIMITATIONS: None. FINDINGS: LUNGS AND PLEURA: No opacities, masses or pneumothorax. No pleural effusion. MEDIASTINUM AND HILAR STRUCTURES: No masses or contour abnormality. HEART AND VASCULATURE: Cardiac enlargement. Vascular congestion. BONES: No acute findings. HARDWARE: None in the chest. OTHER: No other significant finding. IMPRESSION: CARDIAC ENLARGEMENT. VASCULAR CONGESTION. TECHNICAL DOCUMENTATION: JOB ID: [id number] [employer]- All Rights Reserved
[2017-01-31] MEDS ORDERED: ACETAMINOPHEN 325 MG TABLET PO PRN (17:27)
[2017-01-31] MEDS ORDERED: ONDANSETRON HCL INJ/PF 4 MG/2 ML SDV IV PRN (17:27)
[2017-01-31] MEDS ORDERED: OXYCODONE HCL IR 5 MG TABLET PO PRN (17:33)
[2017-01-31] MEDS ORDERED: DEXTROSE 40% GEL 15 GM TUBE PO PRN ×2 (17:37)
[2017-01-31] MEDS ORDERED: DEXTROSE 50%-WATER 25 GM/50 ML DISP.SYRIN IV PRN ×2 (17:37)
[2017-01-31] MEDS ORDERED: GLUCAGON,HUMAN RECOMB 1 MG INJ IM PRN (17:37)
--- NOTE | 2017-01-31 17:51 | EKG REPORT ---
SEVERITY:- ABNORMAL ECG - SINUS RHYTHM LEFT BUNDLE BRANCH BLOCK : Confirmed by: Jarret Bowen 31-Jan-2017 17:50:34
[2017-01-31] MEDS ORDERED: HYDRALAZINE HCL INJ/PF 20 MG/1 ML SDV IV PRN (17:52)
--- NOTE | 2017-01-31 17:54 | PDOC H&P ---
History of Present Illness Admission Date/PCP: MARYAM Coulter Patient complains of: Shortness of breath History of Present Illness: JOJO BACK is a 61 year old female with past medical history of morbid obesity , chronic kidney disease, left ventricular diastolic dysfunction, COPD, anemia, diabetes, hypertension, hypothyroidism presents to the emergency department with several complaints most notable of which is shortness of breath has worsened over the past day. She also has 1 day of pain and swelling in her right leg. It is notable that she has been immobile for the past several months secondary to right lower extremity fracture. She had external fixation of the right lower extremity fracture and external fixator has recently been removed. She denies chest pain. He denies fever or chills. Medications have not been verified. Past Medical History Cardiac Medical History: Reports: Congestive Heart Failure, Hyperlipidema, Hypertension Pulmonary Medical History: Reports: Chronic Obstructive Pulmonary Disease (COPD) Endocrine Medical History: Reports: Diabetes Mellitus Type 2, Hypothyroidism Renal/ Medical History: Reports: Chronic Kidney Disease Malignancy Medical History: Reports: Colorectal Cancer Musculoskeltal Medical History: Reports: Arthritis - gout Psychiatric Medical History: Reports: Depression Past Surgical History Past Surgical History: Reports: Orthopedic Surgery - right ankle surgery secondary to trimalleolar fracture 09/2016, Other - History of colectomy Social History Information Source: Patient Lives with: Family Smoking Status: Never Smoker Frequency of Alcohol Use: None Hx Recreational Drug Use: No Hx Prescription Drug Abuse: No - Advance Directive Resuscitation Status: Full Code Surrogate healthcare decision maker:: -Mohsen Back Family History Family History: Reviewed & Not Pertinent Parental Family History Reviewed: Yes Children Family History Reviewed: Yes Sibling(s) Family History Reviewed.: Yes Medication/Allergy Home Medications: Albuterol Sulfate [Proair HFA Inhalation Aerosol 8.5 gm MDI] 2 puff IH Q4HP PRN 10/17/16 Amlodipine Besylate [Norvasc 5 mg Tablet] 5 mg PO QAM 10/17/16 Aspirin [Aspirin EC] 81 mg PO Q12 10/17/16 Budesonide/Formoterol Fumarate [Symbicort HFA 80-4.5 mcg Inhaler 6.9 gm] 2 puff IH Q12 10/17/16 Cetirizine HCl [Zyrtec 10 mg Tablet] 10 mg PO DAILYP PRN 10/17/16 Citalopram Hydrobromide [Celexa 40 mg Tablet] 40 mg PO QAM 10/17/16 Ergocalciferol (Vitamin D2) [Vitamin D2] 50,000 unit PO MARIE@1000 10/17/16 Furosemide [Lasix] 40 mg PO BID 10/17/16 Insulin NPH Human Isophane [Humulin N] 60 units SQ QHS 10/17/16 Insulin Regular, Human [Humulin R (Reg) Insulin 100 unit/mL] 0 units SQ .PERSLIDINGSCALE 10/17/16 Metoprolol Succinate [Toprol Xl 25 mg Tab.sr] 25 mg PO Q12 10/17/16 Oxycodone HCl/Acetaminophen [Percocet 10-325 mg Tablet] 1 tab PO Q6HP PRN Simvastatin [Zocor 10 mg Tablet] 10 mg PO QHS 10/17/16 Vitamin B Complex 1 cap PO QAM 10/17/16 Docusate Sodium [Colace 100 mg Capsule] 100 mg PO Q12HP PRN 10/30/16 Lactulose [Cephulac 20 gm/30 ml Syrup UD Cup] 20 gm PO BID 12/29/16 Levothyroxine Sodium [Synthroid] 200 mcg PO QAM 12/29/16 Allergies/Adverse Reactions: heparin Allergy (Verified 12/28/16 18:15) Penicillins Allergy (Verified 12/28/16 18:15) spironolactone Adverse Reaction (Verified 12/28/16 18:15) Review of Systems Constitutional: ABSENT: chills, fever(s), headache(s), weight gain, weight loss Eyes: ABSENT: visual disturbances Ears: ABSENT: hearing changes Cardiovascular: PRESENT: edema. ABSENT: chest pain, dyspnea on exertion, orthropnea, palpitations Respiratory: PRESENT: dyspnea. ABSENT: cough, hemoptysis Gastrointestinal: ABSENT: abdominal pain, constipation, diarrhea, hematemesis, hematochezia, nausea, vomiting Genitourinary: ABSENT: dysuria, hematuria Musculoskeletal: PRESENT: deformity - Right lower extremity shortened and externally rotated since external fixator removed, other - Right leg pain. ABSENT: joint swelling Integumentary: ABSENT: rash, wounds Neurological: ABSENT: abnormal gait, abnormal speech, confusion, dizziness, focal weakness, syncope Psychiatric: ABSENT: anxiety, depression, homidical ideation, suicidal ideation Endocrine: ABSENT: cold intolerance, heat intolerance, polydipsia, polyuria Hematologic/Lymphatic: ABSENT: easy bleeding, easy bruising Physical Exam Vital Signs: Temp Pulse Resp BP Pulse Ox 97 01/31/17 16:20 PHYSICAL EXAM: GENERAL: Appears well, no acute distress, morbidly obese HEENT: Normocephalic, no scleral icterus, conjunctiva clear, EOEM intact, PERRLA , moist mucous membranes NECK: trachea midline, no thyromegally RESPIRATORY: Bilateral wheezes, good air movement CARDIAC: Regular rate and rhythm, no murmur/trinh/rub ABDOMEN: Soft, no distension, no tenderness, no guarding, normal bowel sounds, negative Scott sign RECTAL: deferred : deferred EXTREMITIES: No edema, cyanosis, clubbing MUSCULOSKELETAL: Right lower extremity shorter than left lower extremity and externally rotated distally VASCULAR: normal peripheral pulses NEUROLOGIC: Alert, oriented to person/place/time, normal speech, cranial nerves grossly intact, 5/5 strength in all extremities, tactile sensation intact in all extremities SKIN: Large abdominal pannus with mild erythema. Erythema/induration right lower extremity distal to the knee PSYCHIATRIC: Normal mood, normal affect Results Laboratory Results: 01/31/17 14:28 01/31/17 14:28 01/31/17 01/31/17 01/31/17 14:28 14:28 15:51 WBC 5.8 RBC 3.51 L Hgb 9.1 L Hct 29.1 L MCV 83 MCH 25.9 L MCHC 31.2 L RDW 18.3 H Plt Count 161 Seg Neutrophils % 59.4 Lymphocytes % 18.9 Monocytes % 11.1 Eosinophils % 10.2 H Basophils % 0.4 Absolute Neutrophils 3.4 Absolute Lymphocytes 1.1 Absolute Monocytes 0.6 Absolute Eosinophils 0.6 Absolute Basophils 0.0 Sodium 139.7 Potassium 5.4 H Chloride 103 Carbon Dioxide 30 Anion Gap 7 BUN 47 H Creatinine 1.99 H Est GFR ( Amer) 31 L Est GFR (Non-Af Amer) 26 L Glucose 112 H Lactic Acid 0.6 L Calcium 9.4 Total Bilirubin 0.6 AST 13 L ALT 35 Alkaline Phosphatase 137 H C-Reactive Protein 15.6 H Total Protein 6.6 Albumin 2.9 L Impressions: Chest X-Ray 01/31/17 14:45 IMPRESSION: CARDIAC ENLARGEMENT. VASCULAR CONGESTION. Right lower extremity venous Doppler: Verbal report from radiologist indicates DVT present Assessment & Plan - Diagnosis (1) Acute diastolic CHF (congestive heart failure) Is this a current diagnosis for this admission?: YesPlan: Patient has acutely decompensated CHF reportedly secondary to diastolic dysfunction based on previous hospital documentation. We will admit her under CHF protocol on telemetry monitoring. Lasix 40 mg IV every 12 hours. Verify outpatient medications and resume if appropriate. Check echocardiogram. (2) Acute deep vein thrombosis (DVT) of right lower extremity Is this a current diagnosis for this admission?: YesPlan: Patient has acute right lower extremity DVT associated with recent surgery and immobility. This is her first episode of DVT. Management of this is complicated by the fact that she is allergic to heparin and has stage IV chronic kidney disease. After discussion with Dr. Rivera of hematology decision has been made to start patient on Eliquis 5 mg twice daily. Patient will need at least 3 months of treatment followed by repeat Doppler ultrasound. Dr. Rivera has requested d-dimer checked so that this can be compared at follow-up visit. Patient will need to follow-up with hematology after discharge. (3) Lower extremity cellulitis Qualifiers: Laterality: right Qualified Code(s): L03.115 - Cellulitis of right lower limb Is this a current diagnosis for this admission?: YesPlan: IV clindamycin. (4) CKD (chronic kidney disease) stage 4, GFR 15-29 ml/min Is this a current diagnosis for this admission?: YesPlan: Monitor renal function closely with aggressive diuresis. (5) COPD (chronic obstructive pulmonary disease) Is this a current diagnosis for this admission?: YesPlan: As needed albuterol. Verify home medications. (6) Hypothyroid Is this a current diagnosis for this admission?: YesPlan: Synthroid. (7) Diabetes mellitus type 2 with complications Qualifiers: Diabetes mellitus custodial insulin use: with custodial use Qualified Code(s): E11.8 - Type 2 diabetes mellitus with unspecified complications Is this a current diagnosis for this admission?: YesPlan: Sliding scale insulin coverage. Verify outpatient insulin regimen and resume. (8) Hypertension Qualifiers: Hypertension type: essential hypertension Qualified Code(s): I10 - Essential (primary) hypertension Is this a current diagnosis for this admission?: YesPlan: As needed IV hydralazine for now. Verify outpatient medications and resume. (9) Morbid obesity Qualifiers: Obesity type: unspecified obesity type Qualified Code(s): E66.01 - Morbid (severe) obesity due to excess calories Is this a current diagnosis for this admission?: Yes (10) Ambulatory dysfunction Is this a current diagnosis for this admission?: YesPlan: Physical therapy to evaluate. Patient will need to follow-up with orthopedic surgeon as an outpatient given her apparent limb length discrepancy and external rotation of right leg. - Time Time Spent: Greater than 70 Minutes
[2017-01-31] MEDS ORDERED: CEFAZOLIN 1 GM/D5W RTU 50 ML IV SCH (18:00)
--- NOTE | 2017-01-31 22:56 | XCELERA REPORT ---
[address] [address] Lower Extremity Venous Evaluation Name: JOJO BACK Age: 61 yrs Gender: Female : 1955 Patient Status: Emergency Patient Location: ER Study Date: 01/31/2017 03:23 PM Procedure: Color flow and duplex imaging of the veins of the right lower extremity as well as the left Common Femoral vein. Reason For Study: right lower ext swelling Ordering Physician: LIZA MORRISON Performed By: Sally Dumont Right Sided Venous Evaluation Abnormal vessel filling , partial compression and augmentation noted in the distal Femoral vein. Pulsatility and slurred, pulsatile flow in the Popliteal vein. Left Sided Venous Evaluation The left common femoral vein is fully compressible. Spontaneous and phasic flow is present in the left common femoral vein. Critical Findings Discussed with Dr Bone in the ER at about 17[address] hours and again with Dr Ramirez at 2250. Interpretation Summary Positive for DVT, possible subacute, in the right distal Femoral vein. Also abnormal waveform in the Popliteal vein, posssibly suggestive of av fistula. : LIZA MORRISON > Thony Gauthier
[2017-01-31] MEDS ORDERED: CLINDAMYCIN 600 MG/D5W RTU 600 MG/50 ML RTUPB IV ONE (23:00)
[2017-01-31] MEDS ORDERED: APIXABAN 5 MG TABLET PO ONE (23:00)
[2017-01-31] MEDS ORDERED: FUROSEMIDE INJ/PF 40 MG/4 ML SDV IV ONE (23:00)
[2017-02-01] MEDS: INSULIN LISPRO 100 UNIT/ML 3 ML VIAL SUBCUT PRN (00:32)
[2017-02-01 05:09] LABS: ABSOLUTE EOSINOPHILS # (AUTO) 0.5 10^3/uL (0.0-0.6); ABSOLUTE LYMPHOCYTES (AUTO) 0.8 10^3/uL (0.5-4.7); ABSOLUTE MONOCYTES (AUTO) 0.6 10^3/uL (0.1-1.4); ABSOLUTE NEUT (AUTO) 4.3 10^3/uL (1.7-8.2); BASOPHILS % (AUTO) 0.4 % (0-2); EOSINOPHILS % (AUTO) 7.6 % (0-6); HEMOGLOBIN 8.9 g/dL (12.0-15.5); HGB HCT DIFFERENCE -1.3; LYMPHOCYTES % (AUTO) 13.2 % (13-45); MEAN CORPUSCULAR HGB CONC 31.6 g/dL (32.0-36.0); MEAN CORPUSCULAR VOLUME 82 fl (80-97); MONOCYTES % (AUTO) 9.3 % (3-13); RED BLOOD COUNT 3.41 10^6/uL (3.72-5.28); RED CELL DISTRIBUTION WIDTH 18.5 % (11.5-14.0); SEGMENTED NEUTROPHILS % (AUTO) 69.5 % (42-78); WHITE BLOOD COUNT 6.1 10^3/uL (4.0-10.5)
[2017-02-01 05:31] LABS: ANION GAP 8 (5-19); BLOOD UREA NITROGEN 45 mg/dL (7-20); CALCIUM 9.3 mg/dL (8.4-10.2); CARBON DIOXIDE 28 mmol/L (22-30); CHLORIDE 103 mmol/L (98-107); CREATININE RESULT 1.92 mg/dL (0.52-1.25); GLUCOSE 184 mg/dL (75-110); POTASSIUM 5.5 mmol/L (3.6-5.0)
[2017-02-01] MEDS: CLINDAMYCIN 600 MG/D5W RTU 600 MG/50 ML RTUPB IV SCH ×3 (06:53→21:23)
[2017-02-01] MEDS: FUROSEMIDE INJ/PF 20 MG/2 ML SDV IV SCH ×2 (06:54→17:55)
[2017-02-01] MEDS ORDERED: DOCUSATE SODIUM 100 MG CAPSULE PO PRN (07:33)
[2017-02-01] MEDS ORDERED: (PENDING PHARMACY ID) (Oxycodone Hcl/Acetaminophen [Percocet 10-325 Mg Tablet] 1 EACH) PO PRN (07:33)
[2017-02-01] MEDS ORDERED: CETIRIZINE 10 MG TABLET PO PRN (07:33)
[2017-02-01] MEDS ORDERED: (PENDING PHARMACY ID) (Citalopram Hydrobromide [Celexa 40 Mg Tablet] 1 TAB) PO SCH (08:00)
[2017-02-01] MEDS ORDERED: OXYCODONE-ACETAMINOPHEN 5-325 MG TABLET PO PRN (08:50)
--- NOTE | 2017-02-01 08:59 | RADIOLOGY REPORT (SQ) ---
EXAM DESCRIPTION: CHEST SINGLE VIEW COMPLETED DATE/TIME: 02/01/2017 8:19 am REASON FOR STUDY: chf COMPARISON: 01/31/2017, 10/30/2016 chest films EXAM PARAMETERS: NUMBER OF VIEWS: One view. TECHNIQUE: Single frontal radiographic view of the chest acquired. RADIATION DOSE: NA LIMITATIONS: AP portable chest film, obese patient FINDINGS: LUNGS AND PLEURA: No opacities, masses or pneumothorax. No pleural effusion. MEDIASTINUM AND HILAR STRUCTURES: No masses. Contour normal. HEART AND VASCULAR STRUCTURES: Stable cardiomegaly BONES: No acute findings. HARDWARE: None in the chest. OTHER: No other significant finding. IMPRESSION: Cardiomegaly. No acute findings TECHNICAL DOCUMENTATION: JOB ID: [id number]
[2017-02-01] MEDS ORDERED: CITALOPRAM HYDROBROMIDE 20 MG TABLET PO ONE (09:15)
[2017-02-01] MEDS ORDERED: INSULIN NPH (ISOPHANE), HUMAN 100 UNIT/ML 3 ML SUBCUT ONE (09:15)
[2017-02-01] MEDS: APIXABAN 5 MG TABLET PO SCH ×2 (10:03→21:23)
[2017-02-01] MEDS: LEVOTHYROXINE SODIUM 0.1 MG TABLET PO SCH (10:03)
[2017-02-01] MEDS: METOPROLOL SUCCINATE 25 MG TAB.SR.24H PO SCH ×2 (10:03→21:22)
[2017-02-01] MEDS: BUDESONIDE/FORMOTEROL 80-4.5 MCG 60 PUFF/6.9 GM MDI IH SCH ×2 (12:00→21:23)
[2017-02-01] MEDS: ALBUTEROL SULFATE 0.083% NEB 2.5 MG/3 ML AMPUL NEB PRN ×2 (12:30→23:55)
--- NOTE | 2017-02-01 12:53 | PDOC PROGRESS REPORT ---
Subjective Progress Note for:: 02/01/17 Subjective:: Patient states that she was anxious all night about the diagnosis of a blood clot in her leg. Her shortness of breath has improved however. She continues to have swelling in both legs. She denies fever, chills, chest pain, abdominal pain, nausea, vomiting. Physical Exam Vital Signs: Temp Pulse Resp BP Pulse Ox 98.4 F 66 16 138/60 H 91 L 02/01/17 09:05 02/01/17 12:30 02/01/17 12:30 02/01/17 09:05 02/01/17 12:30 Intake & Output 01/31/17 02/01/17 02/02/17 06:59 06:59 06:59 Intake Total 466 Output Total 2300 Balance -1834 Weight 176.7 kg GENERAL: No acute distress, morbidly obese HEENT: Conjunctiva clear, nonicteric, moist mucous membranes, no JVD, midline trachea RESPIRATORY: Clear to auscultation bilaterally, no wheezes, no rhonchi CARDIAC: Regular rate and rhythm, no murmurs/gallops/rubs ABDOMEN: Soft, nondistended, nontender, positive bowel sounds, no rebound, no guarding EXTREMETIES: Pitting edema in both lower extremities (right greater than left) NEUROLOGIC: Alert, oriented to person/place/time, CN's grossly intact, no focal deficits SKIN: Improved erythema right lower extremity PSYCH: Normal mood, normal affect Results Laboratory Results: 02/01/17 04:55 02/01/17 04:55 02/01/17 02/01/17 04:55 04:55 WBC 6.1 RBC 3.41 L Hgb 8.9 L Hct 28.0 L MCV 82 MCH 26.0 L MCHC 31.6 L RDW 18.5 H Plt Count 155 Seg Neutrophils % 69.5 Lymphocytes % 13.2 Monocytes % 9.3 Eosinophils % 7.6 H Basophils % 0.4 Absolute Neutrophils 4.3 Absolute Lymphocytes 0.8 Absolute Monocytes 0.6 Absolute Eosinophils 0.5 Absolute Basophils 0.0 Sodium 139.0 Potassium 5.5 H Chloride 103 Carbon Dioxide 28 Anion Gap 8 BUN 45 H Creatinine 1.92 H Est GFR ( Amer) 32 L Est GFR (Non-Af Amer) 27 L Glucose 184 H Calcium 9.3 Impressions: Chest X-Ray 02/01/17 06:00 IMPRESSION: Cardiomegaly. No acute findings Assessment & Plan - Diagnosis (1) Acute diastolic CHF (congestive heart failure) Is this a current diagnosis for this admission?: YesPlan: Patient has acutely decompensated CHF reportedly secondary to diastolic dysfunction based on previous hospital documentation. CHF protocol on telemetry monitoring. Lasix 40 mg IV every 12 hours. Continue Toprol-XL. Check echocardiogram. (2) Acute deep vein thrombosis (DVT) of right lower extremity Is this a current diagnosis for this admission?: YesPlan: Patient has acute right lower extremity DVT associated with recent surgery and immobility. This is her first episode of DVT. Management of this is complicated by the fact that she is allergic to heparin and has stage IV chronic kidney disease. After discussion with Dr. Rivera of hematology decision has been made to start patient on Eliquis 5 mg twice daily. Patient will need at least 3 months of treatment followed by repeat Doppler ultrasound. Dr. Rivera has requested d-dimer checked so that this can be compared at follow-up visit. Patient will need to follow-up with hematology after discharge. (3) Lower extremity cellulitis Qualifiers: Laterality: right Qualified Code(s): L03.115 - Cellulitis of right lower limb Is this a current diagnosis for this admission?: YesPlan: Improving on IV clindamycin. Convert to oral clindamycin on discharge. (4) CKD (chronic kidney disease) stage 4, GFR 15-29 ml/min Is this a current diagnosis for this admission?: YesPlan: Monitor renal function closely with aggressive diuresis. 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 She will need to follow-up with her bottom precipitator operator after discharge. (5) COPD (chronic obstructive pulmonary disease) Is this a current diagnosis for this admission?: YesPlan: As needed albuterol. Symbicort. (6) Hypothyroid Is this a current diagnosis for this admission?: YesPlan: Synthroid. (7) Diabetes mellitus type 2 with complications Qualifiers: Diabetes mellitus correction insulin use: with correction use Qualified Code(s): E11.8 - Type 2 diabetes mellitus with unspecified complications Is this a current diagnosis for this admission?: YesPlan: Sliding scale insulin coverage. NPH insulin 30 units twice daily. (8) Hypertension Qualifiers: Hypertension type: essential hypertension Qualified Code(s): I10 - Essential (primary) hypertension Is this a current diagnosis for this admission?: Yes (9) Morbid obesity Qualifiers: Obesity type: unspecified obesity type Qualified Code(s): E66.01 - Morbid (severe) obesity due to excess calories Is this a current diagnosis for this admission?: Yes (10) Ambulatory dysfunction Is this a current diagnosis for this admission?: YesPlan: Physical therapy to evaluate. Patient will need to follow-up with orthopedic surgeon as an outpatient given her apparent limb length discrepancy and external rotation of right leg. Patient had home physical therapy in place prior to admission will resume this upon discharge. Given patient's multiple comorbid conditions I think she should transition care to a MD (she is currently followed by a PA). I have made arrangements for her to be seen by Dr. Ashutosh Calzada as he also does home visits. We will need to fax her face sheet and history and physical to his office [phone]. - Time Time Spent with patient: 35 or more minutes Anticipated discharge: Home with Homehealth Within: within 72 hours
[2017-02-01] MEDS: INSULIN NPH (ISOPHANE), HUMAN 100 UNIT/ML 3 ML SUBCUT SCH (17:55)
[2017-02-01] MEDS: SIMVASTATIN 10 MG TABLET PO SCH (21:22)
[2017-02-01 22:52] LABS: ANION GAP 6 (5-19); BLOOD UREA NITROGEN 41 mg/dL (7-20); CALCIUM 9.3 mg/dL (8.4-10.2); CARBON DIOXIDE 30 mmol/L (22-30); CHLORIDE 102 mmol/L (98-107); CREATININE RESULT 1.97 mg/dL (0.52-1.25); GLUCOSE 147 mg/dL (75-110); MAGNESIUM 2.1 mg/dL (1.6-2.3); POTASSIUM 5.3 mmol/L (3.6-5.0); SODIUM 137.8 mmol/L (137-145)
[2017-02-02] MEDS: CLINDAMYCIN 600 MG/D5W RTU 600 MG/50 ML RTUPB IV SCH (05:31)
[2017-02-02] MEDS: FUROSEMIDE INJ/PF 20 MG/2 ML SDV IV SCH ×2 (05:31→17:30)
[2017-02-02 06:47] LABS: ABSOLUTE EOSINOPHILS # (AUTO) 0.4 10^3/uL (0.0-0.6); ABSOLUTE MONOCYTES (AUTO) 0.7 10^3/uL (0.1-1.4); ABSOLUTE NEUT (AUTO) 2.8 10^3/uL (1.7-8.2); BASOPHILS % (AUTO) 0.7 % (0-2); EOSINOPHILS % (AUTO) 8.3 % (0-6); HEMATOCRIT 27.7 % (36.0-47.0); HEMOGLOBIN 8.7 g/dL (12.0-15.5); HGB HCT DIFFERENCE -1.6; LYMPHOCYTES % (AUTO) 20.7 % (13-45); MEAN CORPUSCULAR HEMOGLOBIN 25.9 pg (27.0-33.4); MEAN CORPUSCULAR HGB CONC 31.4 g/dL (32.0-36.0); MEAN CORPUSCULAR VOLUME 83 fl (80-97); MONOCYTES % (AUTO) 13.5 % (3-13); RED BLOOD COUNT 3.35 10^6/uL (3.72-5.28); RED CELL DISTRIBUTION WIDTH 17.8 % (11.5-14.0); SEGMENTED NEUTROPHILS % (AUTO) 56.8 % (42-78); WHITE BLOOD COUNT 4.9 10^3/uL (4.0-10.5)
[2017-02-02 07:01] LABS: ANION GAP 6 (5-19); BLOOD UREA NITROGEN 41 mg/dL (7-20); CALCIUM 9.3 mg/dL (8.4-10.2); CARBON DIOXIDE 30 mmol/L (22-30); CHLORIDE 103 mmol/L (98-107); CREATININE RESULT 1.94 mg/dL (0.52-1.25); GLUCOSE 84 mg/dL (75-110); SODIUM 138.5 mmol/L (137-145)
[2017-02-02] MEDS: CITALOPRAM HYDROBROMIDE 20 MG TABLET PO SCH ×2 (07:26→10:57)
[2017-02-02] MEDS: INSULIN NPH (ISOPHANE), HUMAN 100 UNIT/ML 3 ML SUBCUT SCH ×2 (07:27→17:30)
--- NOTE | 2017-02-02 07:43 | RADIOLOGY REPORT (SQ) ---
EXAM DESCRIPTION: CHEST SINGLE VIEW COMPLETED DATE/TIME: 02/02/2017 7:23 am REASON FOR STUDY: chf COMPARISON: 02/01/2017. 10/30/2016. EXAM PARAMETERS: NUMBER OF VIEWS: One view. TECHNIQUE: Single frontal radiographic view of the chest acquired. RADIATION DOSE: NA LIMITATIONS: Rotated. FINDINGS: LUNGS AND PLEURA: Moderate lung volumes. Small airspace opacity of the left lower lobe an d right lung base. Mild interstitial markings. MEDIASTINUM AND HILAR STRUCTURES: No masses. Contour normal. HEART AND VASCULAR STRUCTURES: Moderate enlargement of the cardiac silhouette. BONES: No acute findings. HARDWARE: None in the chest. OTHER: No other significant finding. IMPRESSION: Bilateral lower lobar opacity, interval worsening. Limitation. TECHNICAL DOCUMENTATION: JOB ID: [id number]
[2017-02-02] MEDS: ALBUTEROL SULFATE 0.083% NEB 2.5 MG/3 ML AMPUL NEB PRN (08:46)
[2017-02-02] MEDS ORDERED: ERGOCALCIFEROL (VITAMIN D2) 50000 UNIT (1.25 MG) CAPSULE PO SCH (10:00)
[2017-02-02] MEDS ORDERED: FERROUS SULFATE 325 MG TABLET PO SCH (10:00)
[2017-02-02] MEDS: APIXABAN 5 MG TABLET PO SCH ×2 (10:53→21:47)
[2017-02-02] MEDS: LEVOTHYROXINE SODIUM 0.1 MG TABLET PO SCH (10:56)
[2017-02-02] MEDS: DOXYCYCLINE HYCLATE 100 MG TABLET PO SCH ×2 (10:56→21:47)
[2017-02-02] MEDS: METOPROLOL SUCCINATE 25 MG TAB.SR.24H PO SCH ×2 (10:57→22:47)
[2017-02-02] MEDS: BUDESONIDE/FORMOTEROL 80-4.5 MCG 60 PUFF/6.9 GM MDI IH SCH ×2 (10:57→21:47)
[2017-02-02] MEDS: FERROUS SULFATE 325 MG TABLET PO SCH (10:59)
--- NOTE | 2017-02-02 12:59 | EKG REPORT ---
SEVERITY:- ABNORMAL ECG - SINUS RHYTHM MULTIPLE VENTRICULAR PREMATURE COMPLEXES LEFT BUNDLE BRANCH BLOCK : Confirmed by: Veronica Aguilar MD 02-Feb-2017 12:58:39
--- NOTE | 2017-02-02 14:43 | PDOC PROGRESS REPORT ---
Subjective Progress Note for:: 02/02/17 Subjective:: Patient states that her shortness of breath continues and she also has productive cough. She continues to have swelling in both legs. She denies fever, chills, chest pain, abdominal pain, nausea, vomiting. Physical Exam Vital Signs: Temp Pulse Resp BP Pulse Ox 98.6 F 66 20 134/52 H 98 02/02/17 11:43 02/02/17 11:43 02/02/17 11:43 02/02/17 11:43 02/02/17 11:43 Intake & Output 02/01/17 02/02/17 02/03/17 06:59 06:59 06:59 Intake Total 976 310 5367 Output Total 2300 5595 900 Balance -1834 -2225 178 Weight 176.7 kg 172.2 kg GENERAL: No acute distress, morbidly obese HEENT: Conjunctiva clear, nonicteric, moist mucous membranes, no JVD, midline trachea RESPIRATORY: Clear to auscultation bilaterally, no wheezes, no rhonchi CARDIAC: Regular rate and rhythm, no murmurs/gallops/rubs ABDOMEN: Soft, nondistended, nontender, positive bowel sounds, no rebound, no guarding EXTREMETIES: Pitting edema in both lower extremities (right greater than left) NEUROLOGIC: Alert, oriented to person/place/time, CN's grossly intact, no focal deficits SKIN: Improved erythema right lower extremity PSYCH: Normal mood, normal affect Results Laboratory Results: 02/02/17 06:09 02/02/17 06:09 02/01/17 02/01/17 02/02/17 22:30 22:30 06:09 WBC 4.9 RBC 3.35 L Hgb 8.7 L Hct 27.7 L MCV 83 MCH 25.9 L MCHC 31.4 L RDW 17.8 H Plt Count 145 L Seg Neutrophils % 56.8 Lymphocytes % 20.7 Monocytes % 13.5 H Eosinophils % 8.3 H Basophils % 0.7 Absolute Neutrophils 2.8 Absolute Lymphocytes 1.0 Absolute Monocytes 0.7 Absolute Eosinophils 0.4 Absolute Basophils 0.0 Sodium 137.8 Potassium 5.3 H Chloride 102 Carbon Dioxide 30 Anion Gap 6 BUN 41 H Creatinine 1.97 H Est GFR ( Amer) 31 L Est GFR (Non-Af Amer) 26 L Glucose 147 H Calcium 9.3 Magnesium 2.1 TSH 4.07 02/02/17 06:09 WBC RBC Hgb Hct MCV MCH MCHC RDW Plt Count Seg Neutrophils % Lymphocytes % Monocytes % Eosinophils % Basophils % Absolute Neutrophils Absolute Lymphocytes Absolute Monocytes Absolute Eosinophils Absolute Basophils Sodium 138.5 Potassium 5.0 Chloride 103 Carbon Dioxide 30 Anion Gap 6 BUN 41 H Creatinine 1.94 H Est GFR ( Amer) 32 L Est GFR (Non-Af Amer) 26 L Glucose 84 Calcium 9.3 Magnesium TSH 02/01/17 22:30 Troponin I 0.026 Impressions: Chest X-Ray 02/02/17 06:00 IMPRESSION: Bilateral lower lobar opacity, interval worsening. Limitation. Assessment & Plan - Diagnosis (1) Acute diastolic CHF (congestive heart failure) Is this a current diagnosis for this admission?: YesPlan: Patient has acutely decompensated CHF reportedly secondary to diastolic dysfunction based on previous hospital documentation. CHF protocol on telemetry monitoring. Patient had -4 L fluid balance for the past 2 days. Continue Lasix 40 mg IV every 12 hours. Continue Toprol-XL. Check echocardiogram. (2) Acute deep vein thrombosis (DVT) of right lower extremity Is this a current diagnosis for this admission?: YesPlan: Patient has acute right lower extremity DVT associated with recent surgery and immobility. This is her first episode of DVT. Management of this is complicated by the fact that she is allergic to heparin and has stage IV chronic kidney disease. After discussion with Dr. Rivera of hematology decision has been made to start patient on Eliquis 5 mg twice daily. Patient will need at least 3 months of treatment followed by repeat Doppler ultrasound. Patient will need to follow-up with hematology after discharge. (3) Lower extremity cellulitis Qualifiers: Laterality: right Qualified Code(s): L03.115 - Cellulitis of right lower limb Is this a current diagnosis for this admission?: YesPlan: Improving. Discontinue IV clindamycin. Start oral doxycycline for this as well as bibasilar pneumonia. (4) CKD (chronic kidney disease) stage 4, GFR 15-29 ml/min Is this a current diagnosis for this admission?: YesPlan: Monitor renal function closely with aggressive diuresis. Patient has outpatient greenhouse specialist OOT. She will need to follow-up with her greenhouse specialist after discharge. (5) COPD (chronic obstructive pulmonary disease) Is this a current diagnosis for this admission?: YesPlan: As needed albuterol. Symbicort. (6) Hypothyroid Is this a current diagnosis for this admission?: YesPlan: Synthroid. (7) Diabetes mellitus type 2 with complications Qualifiers: Diabetes mellitus custodial insulin use: with vermin exterminator use Qualified Code(s): E11.8 - Type 2 diabetes mellitus with unspecified complications Is this a current diagnosis for this admission?: YesPlan: Sliding scale insulin coverage. NPH insulin 30 units twice daily. (8) Hypertension Qualifiers: Hypertension type: essential hypertension Qualified Code(s): I10 - Essential (primary) hypertension Is this a current diagnosis for this admission?: YesPlan: As needed IV hydralazine for now. Metoprolol XL 25 mg twice daily (9) Morbid obesity Qualifiers: Obesity type: unspecified obesity type Qualified Code(s): E66.01 - Morbid (severe) obesity due to excess calories Is this a current diagnosis for this admission?: Yes (10) Ambulatory dysfunction Is this a current diagnosis for this admission?: Yes (11) Pneumonia Qualifiers: Pneumonia type: due to unspecified organism Laterality: unspecified laterality Lung location: unspecified part of lung Qualified Code(s) : J18.9 - Pneumonia, unspecified organism Is this a current diagnosis for this admission?: YesPlan: Likely bacterial. Doxycycline. (12) Anemia Qualifiers: Anemia type: iron deficiency Is this a current diagnosis for this admission?: YesPlan: Iron deficiency. Start iron supplementation. Recent B12 level normal. Patient may also have anemia related to chronic kidney disease and may benefit from Procrit. She should discuss this with her greenhouse specialist. - Time Time Spent with patient: 35 or more minutes
[2017-02-02] MEDS: SIMVASTATIN 10 MG TABLET PO SCH (21:47)
[2017-02-02] MEDS: INSULIN LISPRO 100 UNIT/ML 3 ML VIAL SUBCUT PRN (21:51)
[2017-02-03] MEDS: FUROSEMIDE INJ/PF 20 MG/2 ML SDV IV SCH ×2 (05:14→17:20)
[2017-02-03 07:29] LABS: ABSOLUTE EOSINOPHILS # (AUTO) 0.4 10^3/uL (0.0-0.6); ABSOLUTE LYMPHOCYTES (AUTO) 1.1 10^3/uL (0.5-4.7); ABSOLUTE MONOCYTES (AUTO) 0.6 10^3/uL (0.1-1.4); ABSOLUTE NEUT (AUTO) 2.5 10^3/uL (1.7-8.2); BASOPHILS % (AUTO) 0.6 % (0-2); EOSINOPHILS % (AUTO) 8.6 % (0-6); HEMATOCRIT 28.1 % (36.0-47.0); HEMOGLOBIN 8.9 g/dL (12.0-15.5); HGB HCT DIFFERENCE -1.4; MEAN CORPUSCULAR HEMOGLOBIN 25.7 pg (27.0-33.4); MEAN CORPUSCULAR HGB CONC 31.5 g/dL (32.0-36.0); MEAN CORPUSCULAR VOLUME 82 fl (80-97); MONOCYTES % (AUTO) 13.3 % (3-13); RED BLOOD COUNT 3.44 10^6/uL (3.72-5.28); RED CELL DISTRIBUTION WIDTH 17.7 % (11.5-14.0); SEGMENTED NEUTROPHILS % (AUTO) 54.5 % (42-78); WHITE BLOOD COUNT 4.7 10^3/uL (4.0-10.5)
[2017-02-03 07:45] LABS: ALANINE AMINOTRANSFERASE 22 U/L (9-52); ALBUMIN 2.6 g/dL (3.5-5.0); ALKALINE PHOSPHATASE 112 U/L (38-126); ANION GAP 7 (5-19); ASPARTATE AMINO TRANSFERASE 11 U/L (14-36); BILIRUBIN,DIRECT 0.3 mg/dL (0.0-0.4); BILIRUBIN,TOTAL 0.8 mg/dL (0.2-1.3); BLOOD UREA NITROGEN 39 mg/dL (7-20); CALCIUM 9.2 mg/dL (8.4-10.2); CARBON DIOXIDE 30 mmol/L (22-30); CHLORIDE 99 mmol/L (98-107); CREATININE RESULT 1.95 mg/dL (0.52-1.25); GLUCOSE 115 mg/dL (75-110); POTASSIUM 5.1 mmol/L (3.6-5.0); SODIUM 136.2 mmol/L (137-145); TOTAL PROTEIN 6.1 g/dL (6.3-8.2)
[2017-02-03] MEDS: INSULIN NPH (ISOPHANE), HUMAN 100 UNIT/ML 3 ML SUBCUT SCH (08:13)
[2017-02-03] MEDS: MULTIVIT-STRESS FORMULA/ZINC TABLET PO SCH (08:13)
[2017-02-03] MEDS: DOXYCYCLINE HYCLATE 100 MG TABLET PO SCH ×2 (09:31→21:42)
[2017-02-03] MEDS: METOPROLOL SUCCINATE 25 MG TAB.SR.24H PO SCH ×2 (09:32→21:38)
[2017-02-03] MEDS: LEVOTHYROXINE SODIUM 0.1 MG TABLET PO SCH (09:32)
[2017-02-03] MEDS: BUDESONIDE/FORMOTEROL 80-4.5 MCG 60 PUFF/6.9 GM MDI IH SCH ×2 (09:33→21:39)
[2017-02-03] MEDS: APIXABAN 5 MG TABLET PO SCH ×2 (09:33→21:39)
--- NOTE | 2017-02-03 09:33 | RADIOLOGY REPORT (SQ) ---
EXAM DESCRIPTION: CHEST SINGLE VIEW COMPLETED DATE/TIME: 02/03/2017 8:57 am REASON FOR STUDY: chf COMPARISON: CT abdomen pelvis 10/18/2016 Chest films 10/30/2016, 01/31/2017, 02/01/2017, 02/02/2017 EXAM PARAMETERS: NUMBER OF VIEWS: One view. TECHNIQUE: Single frontal radiographic view of the chest acquired. RADIATION DOSE: NA LIMITATIONS: Morbidly obese patient, portable technique, rotated toward the LA0 orientation FINDINGS: LUNGS AND PLEURA: Collapse and consolidation the right middle lobe, worrisome for pneumoni a. Bandlike atelectasis at the left lung base. No fluffy alveolar infiltrates worrisome for edema. No gross pleural effusions. MEDIASTINUM AND HILAR STRUCTURES: No masses. Contour normal. HEART AND VASCULAR STRUCTURES: Stable cardiomegaly BONES: No acute findings. HARDWARE: None in the chest. OTHER: No other significant finding. IMPRESSION: Right middle lobe collapse and consolidation Left basilar atelectasis TECHNICAL DOCUMENTATION: JOB ID: [id number]
[2017-02-03] MEDS: INSULIN LISPRO 100 UNIT/ML 3 ML VIAL SUBCUT PRN ×2 (11:33→16:29)
[2017-02-03] MEDS: FERROUS SULFATE 325 MG TABLET PO SCH (11:38)
--- NOTE | 2017-02-03 13:49 | PDOC PROGRESS REPORT ---
Subjective Progress Note for:: 02/03/17 Subjective:: Patient states that her shortness of breath is improving daily. She continues to have swelling in both legs. She denies fever, chills, chest pain, abdominal pain, nausea, vomiting. Physical Exam Vital Signs: Temp Pulse Resp BP Pulse Ox 98.4 F 72 23 H 137/44 H 100 02/03/17 11:30 02/03/17 11:30 02/03/17 11:30 02/03/17 11:30 02/03/17 11:30 Intake & Output 02/02/17 02/03/17 02/04/17 06:59 06:59 06:59 Intake Total 647 1236 Output Total 8014 7289 Balance -8898 -1420 Weight 172.2 kg 169.9 kg GENERAL: No acute distress, morbidly obese HEENT: Conjunctiva clear, nonicteric, moist mucous membranes, no JVD, midline trachea RESPIRATORY: Clear to auscultation bilaterally, no wheezes, no rhonchi CARDIAC: Regular rate and rhythm, no murmurs/gallops/rubs ABDOMEN: Soft, nondistended, nontender, positive bowel sounds, no rebound, no guarding EXTREMETIES: Pitting edema in both lower extremities (right greater than left) NEUROLOGIC: Alert, oriented to person/place/time, CN's grossly intact, no focal deficits SKIN: Improved erythema right lower extremity PSYCH: Normal mood, normal affect Results Laboratory Results: 02/03/17 06:35 02/03/17 06:35 02/03/17 02/03/17 06:35 06:35 WBC 4.7 RBC 3.44 L Hgb 8.9 L Hct 28.1 L MCV 82 MCH 25.7 L MCHC 31.5 L RDW 17.7 H Plt Count 141 L Seg Neutrophils % 54.5 Lymphocytes % 23.0 Monocytes % 13.3 H Eosinophils % 8.6 H Basophils % 0.6 Absolute Neutrophils 2.5 Absolute Lymphocytes 1.1 Absolute Monocytes 0.6 Absolute Eosinophils 0.4 Absolute Basophils 0.0 Sodium 136.2 L Potassium 5.1 H Chloride 99 Carbon Dioxide 30 Anion Gap 7 BUN 39 H Creatinine 1.95 H Est GFR ( Amer) 32 L Est GFR (Non-Af Amer) 26 L Glucose 115 H Calcium 9.2 Magnesium 2.0 Total Bilirubin 0.8 AST 11 L ALT 22 Alkaline Phosphatase 112 Total Protein 6.1 L Albumin 2.6 L 02/01/17 22:30 Troponin I 0.026 Impressions: Chest X-Ray 02/03/17 06:00 IMPRESSION: Right middle lobe collapse and consolidation Left basilar atelectasis Assessment & Plan - Diagnosis (1) Acute diastolic CHF (congestive heart failure) Is this a current diagnosis for this admission?: YesPlan: Patient has acutely decompensated CHF reportedly secondary to diastolic dysfunction based on previous hospital documentation. CHF protocol on telemetry monitoring. Patient had -5.5 L fluid balance for the past 2 days. Continue Lasix 40 mg IV every 12 hours. Continue Toprol-XL. Check echocardiogram. (2) Acute deep vein thrombosis (DVT) of right lower extremity Is this a current diagnosis for this admission?: YesPlan: Patient has acute right lower extremity DVT associated with recent surgery and immobility. This is her first episode of DVT. Management of this is complicated by the fact that she is allergic to heparin and has stage IV chronic kidney disease. After discussion with Dr. Rivera of hematology decision has been made to start patient on Eliquis 5 mg twice daily. Patient will need at least 3 months of treatment followed by repeat Doppler ultrasound. Patient will need to follow-up with hematology after discharge. (3) Lower extremity cellulitis Qualifiers: Laterality: right Qualified Code(s): L03.115 - Cellulitis of right lower limb Is this a current diagnosis for this admission?: YesPlan: Improving. Continue oral doxycycline for this as well as bibasilar pneumonia. (4) CKD (chronic kidney disease) stage 4, GFR 15-29 ml/min Is this a current diagnosis for this admission?: YesPlan: Monitor renal function closely with aggressive diuresis. Patient has outpatient drapery sewer hand OOT. She will need to follow-up with her drapery sewer hand after discharge. (5) COPD (chronic obstructive pulmonary disease) Is this a current diagnosis for this admission?: YesPlan: As needed albuterol. Symbicort. (6) Hypothyroid Is this a current diagnosis for this admission?: YesPlan: Synthroid. (7) Diabetes mellitus type 2 with complications Qualifiers: Diabetes mellitus watermelon inspector insulin use: with chcf use Qualified Code(s): E11.8 - Type 2 diabetes mellitus with unspecified complications Is this a current diagnosis for this admission?: YesPlan: Sliding scale insulin coverage. NPH insulin 30 units twice daily. (8) Hypertension Qualifiers: Hypertension type: essential hypertension Qualified Code(s): I10 - Essential (primary) hypertension Is this a current diagnosis for this admission?: YesPlan: As needed IV hydralazine for now. Metoprolol XL 25 mg twice daily (9) Morbid obesity Qualifiers: Obesity type: unspecified obesity type Qualified Code(s): E66.01 - Morbid (severe) obesity due to excess calories Is this a current diagnosis for this admission?: Yes (10) Ambulatory dysfunction Is this a current diagnosis for this admission?: YesPlan: Physical therapy. Patient will need to follow-up with orthopedic surgeon as an outpatient given her apparent limb length discrepancy and external rotation of right leg. Patient had home physical therapy in place prior to admission will resume this upon discharge. Given patient's multiple comorbid conditions I think she should transition care to a MD (she is currently followed by a PA). I have made arrangements for her to be seen by Dr. Ashutosh Calzada as he also does home visits. We will need to fax her face sheet and history and physical to his office [phone]. (11) Pneumonia Qualifiers: Pneumonia type: due to unspecified organism Laterality: unspecified laterality Lung location: unspecified part of lung Qualified Code(s) : J18.9 - Pneumonia, unspecified organism Is this a current diagnosis for this admission?: YesPlan: Likely bacterial. Doxycycline. (12) Anemia Qualifiers: Anemia type: iron deficiency Is this a current diagnosis for this admission?: YesPlan: Iron deficiency. Start iron supplementation. Recent B12 level normal. Patient may also have anemia related to chronic kidney disease and may benefit from Procrit. She should discuss this with her drapery sewer hand. - Time Time Spent with patient: 35 or more minutes Anticipated discharge: Home Within: within 72 hours
[2017-02-03] MEDS: ALBUTEROL SULFATE 0.083% NEB 2.5 MG/3 ML AMPUL NEB PRN (14:38)
--- NOTE | 2017-02-03 19:36 | XCELERA REPORT ---
[address] [address] Transthoracic Echocardiogram Report Name: JOJO BACK Age: 61 yrs Gender: Female : 1955 Patient Status: Inpatient Patient Location: [id number]\S\326\S\A Study Date: 02/03/2017 09:44 AM Height: 71 in Weight: 374 lb BSA: 2.8 m2 Procedure: A complete two-dimensional transthoracic echocardiogram was performed (2D, M-mode, spectral and color flow Doppler). The study was technically adequate with some images being suboptimal in quality. Reason For Study: CHF Ordering Physician: MERLENE REDD Performed By: Rukhsana Ireland Interpretation Summary There is servere pulmonary hypertension by echo Best estimated RVSP is approximately 80 mm/Hg. The left ventricular ejection fraction is normal. Doppler measurements suggest pseudonormalized left ventricular relaxation, which is associated with grade II/IV or mild to moderate diastolic dysfunction There is moderate concentric left ventricular hypertrophy. The left ventricle is grossly normal size. Wall motion cannot be accurately commented on, but no definite regional wall motion abnormalities noted. The right ventricle is mild to moderately dilated. The right ventricular systolic function is mildly reduced. The right ventricle appears to be hypertrophied The right atrium is mildly dilated. The left atrium is moderately dilated. There is a mild amount of mitral regurgitation There is no mitral valve stenosis. No aortic regurgitation is present. There is no aortic valve stenosis There is a moderate amount of tricuspid regurgitation There is servere pulmonary hypertension by echo Best estimated RVSP is approximately 80 mm/Hg. The aortic root is not well visualized but is probably normal size. The inferior vena cava appeared dilated and decreased < 50% with respiration (RAP 15-20 mmHg) There is no pericardial effusion. MMode/2D Measurements \T\ Calculations RVDd: 4.0 cm LVIDd: 5.4 cmFS: 21.6 % Ao root diam: 3.8 cm IVSd: 1.6 cm LVIDs: 4.2 cmEDV(Teich): 138.6 ml LVPWd: 1.5 cmESV(Teich): 78.5 ml Ao root area: 11.6 cm2 EF(Teich): 43.3 % LA dimension: 5.5 cm LVOT diam: 2.5 cm LVOT area: 4.8 cm2 Doppler Measurements \T\ Calculations MV E max rey: MV P1/2t max rey: Ao V2 max: LV V1 max P.8 cm/sec 128.9 cm/sec 134.4 cm/sec 5.4 mmHg MV A max rey: MV P1/2t: 42.1 msec Ao max PG: LV V1 max: 77.3 cm/sec MVA(P1/2t): 5.2 cm2 7.2 mmHg 116.1 cm/sec MV E/A: 1.7 MV dec slope: EMORY(V,D): 4.2 cm2 895.5 cm/sec2 PA V2 max: PI end-d rey: TR max rey: 120.1 cm/sec 112.2 cm/sec 427.6 cm/sec PA max PG: TR max P.8 mmHg 73.1 mmHg Left Ventricle The left ventricle is grossly normal size. There is moderate concentric left ventricular hypertrophy. The left ventricular ejection fraction is normal. Doppler measurements suggest pseudonormalized left ventricular relaxation, which is associated with grade II/IV or mild to moderate diastolic dysfunction. Wall motion cannot be accurately commented on, but no definite regional wall motion abnormalities noted. Right Ventricle The right ventricle is mild to moderately dilated. The right ventricle appears to be hypertrophied. The right ventricular systolic function is mildly reduced. Atria The right atrium is mildly dilated. The left atrium is moderately dilated. Mitral Valve The mitral valve leaflets are sclerotic, but show no functional abnormalities. There is no mitral valve stenosis. There is a mild amount of mitral regurgitation. Aortic Valve The aortic valve is grossly normal. There is no aortic valve stenosis. No aortic regurgitation is present. Tricuspid Valve The tricuspid valve is not well visualized, but is grossly normal. There is no tricuspid stenosis. There is a moderate amount of tricuspid regurgitation. There is servere pulmonary hypertension by echo. Best estimated RVSP is approximately 80 mm/Hg. Pulmonic Valve The pulmonic valve is not well visualized. There is a mild amount of pulmonic regurgitation. Great Vessels The aortic root is not well visualized but is probably normal size. The inferior vena cava appeared dilated and decreased < 50% with respiration (RAP 15-20 mmHg). Effusions There is no pericardial effusion. : MERLENE REDD > Jarret Bowen
[2017-02-03] MEDS: SIMVASTATIN 10 MG TABLET PO SCH (21:38)
[2017-02-03] MEDS ORDERED: INSULIN GLARGINE,HUM.REC.ANLOG 300 UNIT/3 ML INSULN.PEN SUBCUT SCH (22:00)
[2017-02-03] MEDS ORDERED: INSULIN NPH (ISOPHANE), HUMAN 100 UNIT/ML 3 ML SUBCUT SCH (22:00)
[2017-02-04] MEDS: FUROSEMIDE INJ/PF 20 MG/2 ML SDV IV SCH (05:21)
[2017-02-04 05:56] LABS: ABSOLUTE BASOPHILS # (AUTO) 0.1 10^3/uL (0.0-0.2); ABSOLUTE EOSINOPHILS # (AUTO) 0.5 10^3/uL (0.0-0.6); ABSOLUTE MONOCYTES (AUTO) 0.6 10^3/uL (0.1-1.4); ABSOLUTE NEUT (AUTO) 2.9 10^3/uL (1.7-8.2); EOSINOPHILS % (AUTO) 9.2 % (0-6); HEMATOCRIT 27.6 % (36.0-47.0); HEMOGLOBIN 8.8 g/dL (12.0-15.5); HGB HCT DIFFERENCE -1.2; MEAN CORPUSCULAR HEMOGLOBIN 25.9 pg (27.0-33.4); MEAN CORPUSCULAR VOLUME 81 fl (80-97); MONOCYTES % (AUTO) 11.5 % (3-13); RED CELL DISTRIBUTION WIDTH 17.7 % (11.5-14.0); SEGMENTED NEUTROPHILS % (AUTO) 58.3 % (42-78)
[2017-02-04 06:14] LABS: ANION GAP 5 (5-19); BLOOD UREA NITROGEN 35 mg/dL (7-20); CARBON DIOXIDE 33 mmol/L (22-30); CHLORIDE 97 mmol/L (98-107); CREATININE RESULT 1.86 mg/dL (0.52-1.25); GLUCOSE 163 mg/dL (75-110); MAGNESIUM 1.8 mg/dL (1.6-2.3); SODIUM 135.4 mmol/L (137-145)
[2017-02-04] MEDS: MULTIVIT-STRESS FORMULA/ZINC TABLET PO SCH (08:03)
[2017-02-04] MEDS: CITALOPRAM HYDROBROMIDE 20 MG TABLET PO SCH (08:03)
[2017-02-04] MEDS: LEVOTHYROXINE SODIUM 0.1 MG TABLET PO SCH (09:25)
[2017-02-04] MEDS: METOPROLOL SUCCINATE 25 MG TAB.SR.24H PO SCH ×2 (09:25→22:43)
[2017-02-04] MEDS: BUDESONIDE/FORMOTEROL 80-4.5 MCG 60 PUFF/6.9 GM MDI IH SCH ×2 (09:26→22:34)
[2017-02-04] MEDS: DOXYCYCLINE HYCLATE 100 MG TABLET PO SCH ×2 (09:26→22:35)
[2017-02-04] MEDS: APIXABAN 5 MG TABLET PO SCH ×2 (09:27→22:33)
[2017-02-04] MEDS: FERROUS SULFATE 325 MG TABLET PO SCH (11:11)
[2017-02-04] MEDS: INSULIN LISPRO 100 UNIT/ML 3 ML VIAL SUBCUT PRN (12:19)
--- NOTE | 2017-02-04 16:06 | PDOC PROGRESS REPORT ---
Subjective Progress Note for:: 02/04/17 Subjective:: patient reports dexter catheter was placed by home health. Physical therapy reports the patient is a 2 person max assist. Denies fever, chills, chest pain, nausea, vomiting, diarrhea. Patient reports shortness of breath but denies that this is above baseline. Physical Exam Vital Signs: Temp Pulse Resp BP Pulse Ox 98.2 F 61 14 122/46 L 94 02/04/17 04:00 02/04/17 06:52 02/04/17 04:00 02/04/17 03:14 02/04/17 04:00 Intake & Output 02/03/17 02/04/17 02/05/17 06:59 06:59 06:59 Intake Total 1236 1102 Output Total 2825 1000 Balance -1589 102 Weight 169.9 kg 167.4 kg Exam: GENERAL: No acute distress, morbidly obese HEENT: Conjunctiva clear, nonicteric, moist mucous membranes, no JVD, midline trachea RESPIRATORY: Clear to auscultation bilaterally, no wheezes, no rhonchi; limited by body habitus CARDIAC: Regular rate and rhythm, no murmurs/gallops/rubs ABDOMEN: Soft, nondistended, nontender, positive bowel sounds, no rebound, no guarding EXTREMETIES: Pitting edema in both lower extremities (right greater than left) NEUROLOGIC: Alert, oriented to person/place/time, CN's grossly intact except vision due to retinopathy, no focal deficits SKIN: no Overt erythema PSYCH: Normal mood, normal affect Results Laboratory Results: 02/04/17 05:15 02/04/17 05:15 02/03/17 02/03/17 02/04/17 06:35 06:35 05:15 WBC 4.7 5.0 RBC 3.44 L 3.40 L Hgb 8.9 L 8.8 L Hct 28.1 L 27.6 L MCV 82 81 MCH 25.7 L 25.9 L MCHC 31.5 L 32.0 RDW 17.7 H 17.7 H Plt Count 141 L 146 L Seg Neutrophils % 54.5 58.3 Lymphocytes % 23.0 20.0 Monocytes % 13.3 H 11.5 Eosinophils % 8.6 H 9.2 H Basophils % 0.6 1.0 Absolute Neutrophils 2.5 2.9 Absolute Lymphocytes 1.1 1.0 Absolute Monocytes 0.6 0.6 Absolute Eosinophils 0.4 0.5 Absolute Basophils 0.0 0.1 Sodium 136.2 L Potassium 5.1 H Chloride 99 Carbon Dioxide 30 Anion Gap 7 BUN 39 H Creatinine 1.95 H Est GFR ( Amer) 32 L Est GFR (Non-Af Amer) 26 L Glucose 115 H Calcium 9.2 Magnesium 2.0 Total Bilirubin 0.8 AST 11 L ALT 22 Alkaline Phosphatase 112 Total Protein 6.1 L Albumin 2.6 L 02/04/17 05:15 WBC RBC Hgb Hct MCV MCH MCHC RDW Plt Count Seg Neutrophils % Lymphocytes % Monocytes % Eosinophils % Basophils % Absolute Neutrophils Absolute Lymphocytes Absolute Monocytes Absolute Eosinophils Absolute Basophils Sodium 135.4 L Potassium 5.0 Chloride 97 L Carbon Dioxide 33 H Anion Gap 5 BUN 35 H Creatinine 1.86 H Est GFR ( Amer) 34 L Est GFR (Non-Af Amer) 28 L Glucose 163 H Calcium 9.0 Magnesium 1.8 Total Bilirubin AST ALT Alkaline Phosphatase Total Protein Albumin 02/01/17 22:30 Troponin I 0.026 Impressions: Chest X-Ray 02/03/17 06:00 IMPRESSION: Right middle lobe collapse and consolidation Left basilar atelectasis Assessment & Plan - Diagnosis (1) Acute deep vein thrombosis (DVT) of right lower extremity Qualifiers: Affected thrombotic vein of extremity: unspecified vein of extremity Qualified Code(s): I82.401 - Acute embolism and thrombosis of unspecified deep veins of right lower extremity Is this a current diagnosis for this admission?: YesPlan: On Eliquis (2) Acute diastolic CHF (congestive heart failure) Is this a current diagnosis for this admission?: YesPlan: Currently still volume overloaded. Continue diuresis. Echo from 02/03/2017 reveals grade 2 out of 4 diastolic dysfunction and severe pulmonary hypertension with LVH and right-sided ventricular hypertrophy. Currently on metoprolol, Bumex. No RADAMES/ARB secondary to CKD stage IV. (3) Ambulatory dysfunction Is this a current diagnosis for this admission?: YesPlan: I have been unable to reach patient's family at this time; however, due to her need of to max assist would strongly recommend inpatient rehab for this patient. (4) Anemia Qualifiers: Anemia type: due to chronic kidney disease Chronic kidney disease stage : stage 4 (severe) Qualified Code(s): N18.4 - Chronic kidney disease, stage 4 (severe); D63.1 - Anemia in chronic kidney disease Is this a current diagnosis for this admission?: YesPlan: Both iron deficiency anemia and anemia of chronic disease. (5) CKD (chronic kidney disease) stage 4, GFR 15-29 ml/min Is this a current diagnosis for this admission?: YesPlan: Adjust renally medications (6) COPD (chronic obstructive pulmonary disease) Is this a current diagnosis for this admission?: Yes (7) Hypothyroid Is this a current diagnosis for this admission?: Yes (8) Lower extremity cellulitis Qualifiers: Laterality: right Qualified Code(s): L03.115 - Cellulitis of right lower limb Is this a current diagnosis for this admission?: YesPlan: Patient on doxycycline with marked improvement. (9) Hyperlipidemia associated with type 2 diabetes mellitus Is this a current diagnosis for this admission?: Yes (10) Morbid obesity Qualifiers: Obesity type: due to excess calories Qualified Code(s): E66.01 - Morbid (severe) obesity due to excess calories Is this a current diagnosis for this admission?: Yes (11) Moderate to severe pulmonary hypertension Is this a current diagnosis for this admission?: YesPlan: Patient with severe pulmonary hypertension. Overall this there is a very poor prognosis for this patient who has a possible questionable history of pulmonary fibrosis in addition to her morbid obesity. Have attempted to reach patient's family but was unable. Will consult palliative care for this patient. - Time Time Spent with patient: 25-34 minutes Medications reviewed and adjusted accordingly: Yes Anticipated discharge: Acute Rehab Within: when bed available
[2017-02-04] MEDS ORDERED: FUROSEMIDE INJ/PF 40 MG/4 ML SDV IV SCH (18:00)
[2017-02-04] MEDS: INSULIN NPH (ISOPHANE), HUMAN 100 UNIT/ML 3 ML SUBCUT SCH (22:34)
[2017-02-04] MEDS: BUMETANIDE INJ/PF 1 MG/4 ML SDV IV SCH (22:36)
[2017-02-04] MEDS: ALBUTEROL SULFATE 0.083% NEB 2.5 MG/3 ML AMPUL NEB PRN (22:53)
[2017-02-05] MEDS: LEVOTHYROXINE SODIUM 0.1 MG TABLET PO SCH (05:41)
[2017-02-05 06:52] LABS: ABSOLUTE EOSINOPHILS # (AUTO) 0.5 10^3/uL (0.0-0.6); ABSOLUTE LYMPHOCYTES (AUTO) 1.1 10^3/uL (0.5-4.7); ABSOLUTE MONOCYTES (AUTO) 0.6 10^3/uL (0.1-1.4); ABSOLUTE NEUT (AUTO) 3.6 10^3/uL (1.7-8.2); BASOPHILS % (AUTO) 0.8 % (0-2); EOSINOPHILS % (AUTO) 8.1 % (0-6); HEMATOCRIT 29.4 % (36.0-47.0); HEMOGLOBIN 9.2 g/dL (12.0-15.5); HGB HCT DIFFERENCE -1.8; LYMPHOCYTES % (AUTO) 18.5 % (13-45); MEAN CORPUSCULAR HEMOGLOBIN 25.7 pg (27.0-33.4); MEAN CORPUSCULAR HGB CONC 31.3 g/dL (32.0-36.0); MEAN CORPUSCULAR VOLUME 82 fl (80-97); MONOCYTES % (AUTO) 10.4 % (3-13); RED BLOOD COUNT 3.59 10^6/uL (3.72-5.28); RED CELL DISTRIBUTION WIDTH 17.4 % (11.5-14.0); SEGMENTED NEUTROPHILS % (AUTO) 62.2 % (42-78); WHITE BLOOD COUNT 5.7 10^3/uL (4.0-10.5)
[2017-02-05 07:11] LABS: ANION GAP 7 (5-19); BLOOD UREA NITROGEN 33 mg/dL (7-20); CALCIUM 9.2 mg/dL (8.4-10.2); CARBON DIOXIDE 33 mmol/L (22-30); CHLORIDE 96 mmol/L (98-107); CREATININE RESULT 1.75 mg/dL (0.52-1.25); GLUCOSE 185 mg/dL (75-110); MAGNESIUM 1.6 mg/dL (1.6-2.3); PHOSPHORUS 3.2 mg/dL (2.5-4.5); POTASSIUM 4.7 mmol/L (3.6-5.0); SODIUM 135.8 mmol/L (137-145)
[2017-02-05] MEDS: INSULIN LISPRO 100 UNIT/ML 3 ML VIAL SUBCUT PRN ×4 (08:15→23:16)
[2017-02-05] MEDS: CITALOPRAM HYDROBROMIDE 20 MG TABLET PO SCH (08:15)
[2017-02-05] MEDS: MULTIVIT-STRESS FORMULA/ZINC TABLET PO SCH (08:15)
[2017-02-05] MEDS: MAGNESIUM SULFATE/D5W 100 ML IV SCH ×2 (10:55→14:48)
[2017-02-05] MEDS: APIXABAN 5 MG TABLET PO SCH ×2 (10:56→22:59)
[2017-02-05] MEDS: BUDESONIDE/FORMOTEROL 80-4.5 MCG 60 PUFF/6.9 GM MDI IH SCH ×2 (10:56→22:54)
[2017-02-05] MEDS: BUMETANIDE INJ/PF 1 MG/4 ML SDV IV SCH ×2 (10:57→22:56)
[2017-02-05] MEDS: METOPROLOL SUCCINATE 25 MG TAB.SR.24H PO SCH ×2 (10:58→23:01)
[2017-02-05] MEDS: DOXYCYCLINE HYCLATE 100 MG TABLET PO SCH ×2 (11:04→23:26)
[2017-02-05] MEDS: FERROUS SULFATE 325 MG TABLET PO SCH (12:30)
[2017-02-05] MEDS: ALBUTEROL SULFATE 0.083% NEB 2.5 MG/3 ML AMPUL NEB PRN (18:24)
--- NOTE | 2017-02-05 18:44 | PDOC PROGRESS REPORT ---
Subjective Progress Note for:: 02/05/17 Subjective:: Physical therapy reports the patient is a 2 person max assist. Denies fever, chills, chest pain, nausea, vomiting, diarrhea. Patient reports shortness of breath but denies that this is above baseline. Physical Exam Vital Signs: Temp Pulse Resp BP Pulse Ox 98.0 F 65 18 131/54 H 98 02/05/17 04:33 02/05/17 04:33 02/05/17 04:33 02/05/17 04:33 02/05/17 04:33 Intake & Output 02/04/17 02/05/17 02/06/17 06:59 06:59 06:59 Intake Total 1102 472 Output Total 1000 3800 Balance 102 -3328 Weight 167.4 kg 169.9 kg Exam: GENERAL: No acute distress, morbidly obese HEENT: Conjunctiva clear, nonicteric, moist mucous membranes, no JVD, midline trachea RESPIRATORY: Clear to auscultation bilaterally, no wheezes, no rhonchi; limited by body habitus CARDIAC: Regular rate and rhythm, no murmurs/gallops/rubs ABDOMEN: Soft, nondistended, nontender, positive bowel sounds, no rebound, no guarding EXTREMETIES: Pitting edema in both lower extremities (right greater than left) NEUROLOGIC: Alert, oriented to person/place/time, CN's grossly intact except vision due to retinopathy, no focal deficits SKIN: No erythema of her lower extremities PSYCH: Normal mood, normal affect Results Laboratory Results: 02/05/17 05:54 02/05/17 05:54 WBC 5.7 RBC 3.59 L Hgb 9.2 L Hct 29.4 L MCV 82 MCH 25.7 L MCHC 31.3 L RDW 17.4 H Plt Count 138 L Seg Neutrophils % 62.2 Lymphocytes % 18.5 Monocytes % 10.4 Eosinophils % 8.1 H Basophils % 0.8 Absolute Neutrophils 3.6 Absolute Lymphocytes 1.1 Absolute Monocytes 0.6 Absolute Eosinophils 0.5 Absolute Basophils 0.0 02/01/17 22:30 Troponin I 0.026 Impressions: Chest X-Ray 02/03/17 06:00 IMPRESSION: Right middle lobe collapse and consolidation Left basilar atelectasis Assessment & Plan - Diagnosis (1) Acute deep vein thrombosis (DVT) of right lower extremity Qualifiers: Affected thrombotic vein of extremity: unspecified vein of extremity Qualified Code(s): I82.401 - Acute embolism and thrombosis of unspecified deep veins of right lower extremity Is this a current diagnosis for this admission?: YesPlan: On Eliquis (2) Acute diastolic CHF (congestive heart failure) Is this a current diagnosis for this admission?: YesPlan: Currently still volume overloaded. Continue diuresis. Echo from 02/03/2017 reveals grade 2/4 diastolic dysfunction and severe pulmonary hypertension with LVH and right-sided ventricular hypertrophy. Currently on metoprolol, Bumex. No RADAMES/ARB secondary to CKD stage IV. (3) Ambulatory dysfunction Is this a current diagnosis for this admission?: YesPlan: Due to her need of to max assist would strongly recommend inpatient rehab for this patient. patient is In agreement (4) Anemia Qualifiers: Anemia type: due to chronic kidney disease Chronic kidney disease stage : stage 4 (severe) Qualified Code(s): N18.4 - Chronic kidney disease, stage 4 (severe); D63.1 - Anemia in chronic kidney disease Is this a current diagnosis for this admission?: Yes (5) CKD (chronic kidney disease) stage 4, GFR 15-29 ml/min Is this a current diagnosis for this admission?: Yes (6) COPD (chronic obstructive pulmonary disease) Is this a current diagnosis for this admission?: Yes (7) Hypothyroid Is this a current diagnosis for this admission?: Yes (8) Lower extremity cellulitis Qualifiers: Laterality: right Qualified Code(s): L03.115 - Cellulitis of right lower limb Is this a current diagnosis for this admission?: YesPlan: Patient on doxycycline with marked improvement. (9) Hyperlipidemia associated with type 2 diabetes mellitus Is this a current diagnosis for this admission?: Yes (10) Morbid obesity Qualifiers: Obesity type: due to excess calories Qualified Code(s): E66.01 - Morbid (severe) obesity due to excess calories Is this a current diagnosis for this admission?: Yes (11) Moderate to severe pulmonary hypertension Is this a current diagnosis for this admission?: YesPlan: Patient with severe pulmonary hypertension. Overall this there is a very poor prognosis for this patient who has a possible questionable history of pulmonary fibrosis in addition to her morbid obesity.Consult palliative care for this patient. Will refer patient to [facility] or [facility] as an outpatient. - Time Time Spent with patient: 25-34 minutes Medications reviewed and adjusted accordingly: Yes Anticipated discharge: Acute Rehab Within: when bed available
--- NOTE | 2017-02-05 21:48 | Palliative Consultation Report ---
Consultation From:: [facility] - [facility] HPI: Palliative Care visit 11:40- 12:15 02/05/17 Appreciate palliative care referral for this unfortunate 61 year old lady who has been admitted for pneumonia and DVT. She has many comorbid conditions including being almost totally blind, having stage 4 chronic kidney disease, COPD, left Ventricular diastolic dysfunction, DM, HTN, morbid obesity, amd anemia. She and her live with their daughter. I explained role of palliative care to support her choices for care and to help with any needs or symptoms she might have. Mrs. Demarco had a fracture of her lower right leg a couple of months ago and now has DVT. She is allergic to heparin and is on Eliquis. She was having increased dyspnea on arrival to ER and is being treated for pneumonia. She reports that her breathing is much improved now in spite of her continued cough. She denies pain at present, but states she still feels very weak. I did talk with Mrs. Demarco about who she would want to be her HCPOA. She states she has papers at home naming her daughter as HCPOA. She also staes she has a living will. But when I spoke with her about completing a MOST form she said she would want CPR, just not assisted mechanical ventilation. We did discuss this for a short while as I was helping her with her lunch, but she reported nausea and not feeling well after eating her soup. She did not want to continue conversation. She said she had felt nausea after her meds this AM but it went away. She seems very weak and still has productive cough, which may be contributing to the nausea. Onset: Just prior to arrival Onset/Duration: Gradual Quality of Pain: No pain Severity: None Pain Level: Denies Exacerbated by: Coughing Past Medical History(Consults) - General Information Source: Patient, [facility] Records Home Medications: Albuterol Sulfate [Proair HFA] 2 puff IH Q4HP PRN 01/31/17 Aspirin [Aspirin EC] 81 mg PO Q12 01/31/17 Budesonide/Formoterol Fumarate [Symbicort Hfa 80-4.5 Mcg Inhaler 6.9 gm] 2 puff IH Q12 01/31/17 Cetirizine HCl [Zyrtec 10 mg Tablet] 10 mg PO DAILYP PRN 01/31/17 Citalopram Hydrobromide [Celexa 40 mg Tablet] 1 tab PO QAM 01/31/17 Docusate Sodium [Colace 100 mg Capsule] 100 mg PO Q12HP PRN 01/31/17 Ergocalciferol (Vitamin D2) [Vitamin D2] 50,000 unit PO MARIE@1000 01/31/17 Insulin NPH Human Isophane [Humulin N] 30 unit SQ QHS 01/31/17 Insulin Regular, Human [Humulin R (Pyxis) Insulin 100 Unit/ml 3Ml] 5 unit SUBCUT .SLD SCALE 01/31/17 Levothyroxine Sodium [Synthroid 0.1 mg Tablet] 0.2 mg PO QAM 01/31/17 Metoprolol Succinate [Toprol Xl 25 mg Tab.sr] 25 mg PO Q12 01/31/17 Oxycodone HCl/Acetaminophen [Percocet 10-325 Mg Tablet] 1 each PO Q6HP PRN 01/31 Simvastatin [Zocor 10 mg Tablet] 10 mg PO QHS 01/31/17 Sulfamethoxazole/Trimethoprim [Bactrim Ds Tablet] 1 each PO Q12 01/31/17 Vitamin B Complex [B Complex] 1 each PO QAM 01/31/17 Allergies/Adverse Reactions: heparin Allergy (Verified 12/28/16 18:15) Penicillins Allergy (Verified 12/28/16 18:15) spironolactone Adverse Reaction (Verified 12/28/16 18:15) - Social History Lives with: Family, Spouse/Significant other Family History: Reviewed & Not Pertinent Parental Family History Reviewed: No Children Family History Reviewed: No Sibling(s) Family History Reviewed.: No Smoking Status: Former Smoker Frequency of Alcohol Use: None Hx Recreational Drug Use: No Hx Prescription Drug Abuse: No - Past Medical History Cardiac Medical History: Reports: Hx Congestive Heart Failure, Hx Hypercholesterolemia, Hx Hypertension Pulmonary Medical History: Reports: Hx COPD Endocrine Medical History: Reports: Hx Diabetes Mellitus Type 2, Hx Hypothyroidism Renal/ Medical History: Reports: Hx End Stage Renal Disease. Denies: Hx Peritoneal Dialysis Malignancy Medical History: Reports: Hx Colorectal Cancer Musculoskeltal Medical History: Reports Hx Arthritis - gout Psychiatric Medical History: Reports: Hx Depression - Surgical History Past Surgical History: Reports: Hx Orthopedic Surgery - right ankle surgery secondary to trimalleolar fracture 09/2016, Other - History of colectomy Review of systems Constitutional: Malaise, Weakness, Recent illness EENT: Other - Blind Cardiovascular: Dyspnea Respiratory: Short of breath Gastrointestinal: Nausea Geniturinary: No symptoms reported Female Genitourinary: No symptoms reported Musculoskeltal: Muscle pain, Leg swelling Hematologic/Lymphatic: Blood clots Neurological/Psychological: Anxiety, Weakness Ojective:Exam Vital Signs: Temp Pulse Resp BP Pulse Ox 98.8 F 72 18 118/58 L 91 L 02/05/17 20:42 02/05/17 20:42 02/05/17 20:42 02/05/17 20:42 02/05/17 20:42 Intake & Output 02/04/17 02/05/17 02/06/17 06:59 06:59 06:59 Intake Total 2936 685 6550 Output Total 1000 3800 1200 Balance 102 -3319 -4 Weight 167.4 kg 169.9 kg - General General Appearance: Alert In distress: Mild Note:: Alert, weak, having nausea, worse after eating her soup. Productive cough. Some anxiety. - HEENT Head: Atraumatic Eyes: Normal Conjunctiva: Normal Pupils: PERRLA - Neck Neck: Normal, Supple - Respiratory Respiratory Status: Labored Breath sounds: Rhonchi, Productive cough - Cardiovascular Heart Sounds: S1 appreciated, S2 appreciated Pulses: Normal: Radial - Abdominal Inspection: Obese Distension: No distension Tenderness: Nontender - Neurological Cognition: Normal Speech: Normal Cranial nerves: Normal - Psychological Associated symptoms: Anxious, Flat affect Objective-Diagnostic Laboratory: 02/05/17 05:54 02/05/17 05:54 02/05/17 02/05/17 05:54 05:54 WBC 5.7 RBC 3.59 L Hgb 9.2 L Hct 29.4 L MCV 82 MCH 25.7 L MCHC 31.3 L RDW 17.4 H Plt Count 138 L Seg Neutrophils % 62.2 Lymphocytes % 18.5 Monocytes % 10.4 Eosinophils % 8.1 H Basophils % 0.8 Absolute Neutrophils 3.6 Absolute Lymphocytes 1.1 Absolute Monocytes 0.6 Absolute Eosinophils 0.5 Absolute Basophils 0.0 Sodium 135.8 L Potassium 4.7 Chloride 96 L Carbon Dioxide 33 H Anion Gap 7 BUN 33 H Creatinine 1.75 H Est GFR ( Amer) 36 L Est GFR (Non-Af Amer) 30 L Glucose 185 H Calcium 9.2 Phosphorus 3.2 Magnesium 1.6 01/31/17 18:03 Blood Blood Culture - Final NO GROWTH IN 5 DAYS 02/01/17 22:30 Troponin I 0.026 Plan and Recommendation Plan and Recommendation: Patient ried to eat her lunch while we talked, but became nauseated. Appears anxious about advance Directives being discussed.. States she wants her daughter to be HCPOA and they have paperwork which states that. Discussed MOST form briefly, but patient states she did not feel well enough to continue. Left copy of form with palliative care brochure for her daughter, who she says may come to visit today after work. Patient is exhausted with all that she has wrong with her but still wants to continue with aggressive care if needed. She states she enjoys living with her daughter and watching her two year old grand-daughter grow up. I will return tomorrow to discuss further and address any symptoms has. She has zofran ordered for her nausea today. Appreciate opportunity to support this patient. - Time Spent with Patient Time spent with patient: 30 to 40 Minutes Time: 40 min
[2017-02-05] MEDS: INSULIN NPH (ISOPHANE), HUMAN 100 UNIT/ML 3 ML SUBCUT SCH (23:24)
[2017-02-06] MEDS: LEVOTHYROXINE SODIUM 0.1 MG TABLET PO SCH (06:15)
[2017-02-06] MEDS: MULTIVIT-STRESS FORMULA/ZINC TABLET PO SCH (09:01)
[2017-02-06] MEDS: CITALOPRAM HYDROBROMIDE 20 MG TABLET PO SCH (09:01)
[2017-02-06] MEDS: ALBUTEROL SULFATE 0.083% NEB 2.5 MG/3 ML AMPUL NEB PRN ×2 (09:04→18:25)
[2017-02-06] MEDS: BUMETANIDE INJ/PF 1 MG/4 ML SDV IV SCH (11:06)
[2017-02-06] MEDS: BUDESONIDE/FORMOTEROL 80-4.5 MCG 60 PUFF/6.9 GM MDI IH SCH ×2 (11:06→22:50)
[2017-02-06] MEDS: METOPROLOL SUCCINATE 25 MG TAB.SR.24H PO SCH ×2 (11:06→22:50)
[2017-02-06] MEDS: APIXABAN 5 MG TABLET PO SCH (11:06)
[2017-02-06] MEDS: DOXYCYCLINE HYCLATE 100 MG TABLET PO SCH (11:07)
[2017-02-06] MEDS: FERROUS SULFATE 325 MG TABLET PO SCH (13:58)
--- NOTE | 2017-02-06 17:33 | PDOC PROGRESS REPORT ---
Subjective Progress Note for:: 02/06/17 Subjective:: Discussed patient's care with family at bedside. Denies fever, chills, chest pain, nausea, vomiting, diarrhea. Patient reports shortness of breath but denies that this is above baseline. Physical Exam Vital Signs: Temp Pulse Resp BP Pulse Ox 98.3 F 61 19 135/50 H 95 02/06/17 07:28 02/06/17 07:28 02/06/17 07:28 02/06/17 07:28 02/06/17 07:28 Intake & Output 02/05/17 02/06/17 02/07/17 06:59 06:59 06:59 Intake Total 481 1196 Output Total 3800 2600 Balance -3319 -1404 Weight 169.9 kg 169.7 kg Exam: GENERAL: No acute distress, morbidly obese HEENT: Conjunctiva clear, nonicteric, moist mucous membranes, no JVD, midline trachea RESPIRATORY: Clear to auscultation bilaterally, no wheezes, no rhonchi; limited by body habitus CARDIAC: Regular rate and rhythm, no murmurs/gallops/rubs ABDOMEN: Soft, nondistended, nontender, positive bowel sounds, no rebound, no guarding EXTREMETIES: 1+ Pitting edema in both lower extremities (right greater than left ) NEUROLOGIC: Alert, oriented to person/place/time, CN's grossly intact except vision due to retinopathy, no focal deficits SKIN: No erythema of her lower extremities PSYCH: Normal mood, normal affect Results Laboratory Results: 02/05/17 05:54 02/05/17 05:54 01/31/17 18:03 Blood Blood Culture - Final NO GROWTH IN 5 DAYS 02/01/17 22:30 Troponin I 0.026 Impressions: Chest X-Ray 02/03/17 06:00 IMPRESSION: Right middle lobe collapse and consolidation Left basilar atelectasis Assessment & Plan - Diagnosis (1) Acute deep vein thrombosis (DVT) of right lower extremity Qualifiers: Affected thrombotic vein of extremity: unspecified vein of extremity Qualified Code(s): I82.401 - Acute embolism and thrombosis of unspecified deep veins of right lower extremity Is this a current diagnosis for this admission?: YesPlan: On Eliquis (2) Acute diastolic CHF (congestive heart failure) Is this a current diagnosis for this admission?: YesPlan: Currently euvolemic. Transition to oral Bumex Echo from 02/03/2017 reveals grade 2/4 diastolic dysfunction and severe pulmonary hypertension with LVH and right-sided ventricular hypertrophy. Currently on metoprolol, Bumex. No RADAMES/ARB secondary to CKD stage IV. (3) Ambulatory dysfunction Is this a current diagnosis for this admission?: YesPlan: Discussed with family at bedside. They have 2 people to take care of patient at all times. There are comfortable taking her home with continued home health services. We will resume these for her. (4) Anemia Qualifiers: Anemia type: due to chronic kidney disease Chronic kidney disease stage : stage 4 (severe) Qualified Code(s): N18.4 - Chronic kidney disease, stage 4 (severe); D63.1 - Anemia in chronic kidney disease Is this a current diagnosis for this admission?: Yes (5) CKD (chronic kidney disease) stage 4, GFR 15-29 ml/min Is this a current diagnosis for this admission?: Yes (6) COPD (chronic obstructive pulmonary disease) Is this a current diagnosis for this admission?: Yes (7) Hypothyroid Is this a current diagnosis for this admission?: Yes (8) Lower extremity cellulitis Qualifiers: Laterality: right Qualified Code(s): L03.115 - Cellulitis of right lower limb Is this a current diagnosis for this admission?: YesPlan: Patient on doxycycline with marked improvement. (9) Hyperlipidemia associated with type 2 diabetes mellitus Is this a current diagnosis for this admission?: Yes (10) Morbid obesity Qualifiers: Obesity type: due to excess calories Qualified Code(s): E66.01 - Morbid (severe) obesity due to excess calories Is this a current diagnosis for this admission?: Yes (11) Moderate to severe pulmonary hypertension Is this a current diagnosis for this admission?: Yes (12) Urinary retention with incomplete bladder emptying Is this a current diagnosis for this admission?: YesPlan: Presented from home with a Thompson catheter in place. We did attempt to remove the, but patient required reinsertion due to having residuals greater than 400 mL. - Time Time Spent with patient: 35 or more minutes Medications reviewed and adjusted accordingly: Yes Anticipated discharge: Home with Homehealth Within: within 24 hours
[2017-02-06] MEDS: BUMETANIDE 1 MG TABLET PO SCH (18:51)
[2017-02-06] MEDS: INSULIN NPH (ISOPHANE), HUMAN 100 UNIT/ML 3 ML SUBCUT SCH (22:50)
[2017-02-07] MEDS: DOXYCYCLINE HYCLATE 100 MG TABLET PO SCH ×2 (00:41→11:25)
[2017-02-07] MEDS: APIXABAN 5 MG TABLET PO SCH ×2 (00:42→11:26)
[2017-02-07 06:28] LABS: ANION GAP 7 (5-19); BLOOD UREA NITROGEN 30 mg/dL (7-20); CALCIUM 9.4 mg/dL (8.4-10.2); CARBON DIOXIDE 34 mmol/L (22-30); CHLORIDE 96 mmol/L (98-107); CREATININE RESULT 1.68 mg/dL (0.52-1.25); GLUCOSE 77 mg/dL (75-110); POTASSIUM 4.7 mmol/L (3.6-5.0); SODIUM 137.3 mmol/L (137-145)
[2017-02-07] MEDS: LEVOTHYROXINE SODIUM 0.1 MG TABLET PO SCH (06:29)
[2017-02-07 09:03] VITALS: BP 121/59
[2017-02-07] MEDS: MULTIVIT-STRESS FORMULA/ZINC TABLET PO SCH (10:49)
[2017-02-07] MEDS: METOPROLOL SUCCINATE 25 MG TAB.SR.24H PO SCH (10:50)
[2017-02-07] MEDS: CITALOPRAM HYDROBROMIDE 20 MG TABLET PO SCH (10:50)
[2017-02-07] MEDS: BUMETANIDE 1 MG TABLET PO SCH (10:51)
[2017-02-07] MEDS: BUDESONIDE/FORMOTEROL 80-4.5 MCG 60 PUFF/6.9 GM MDI IH SCH (10:53)
[2017-02-07] MEDS: ALBUTEROL SULFATE 0.083% NEB 2.5 MG/3 ML AMPUL NEB PRN (11:17)
--- NOTE | 2017-02-07 19:39 | PDOC DISCHARGE SUMMARY ---
General - Admit/Disc Date/PCP Admission Date/Primary Care Provider: 01/31/17 17:27 Discharge Date: 02/07/17 - Discharge Diagnosis (1) Acute deep vein thrombosis (DVT) of right lower extremity Is this a current diagnosis for this admission?: Yes (2) Acute diastolic CHF (congestive heart failure) Is this a current diagnosis for this admission?: Yes (3) Ambulatory dysfunction Is this a current diagnosis for this admission?: Yes (4) Anemia Is this a current diagnosis for this admission?: Yes (5) CKD (chronic kidney disease) stage 4, GFR 15-29 ml/min Is this a current diagnosis for this admission?: Yes (6) COPD (chronic obstructive pulmonary disease) Is this a current diagnosis for this admission?: Yes (7) Hypothyroid Is this a current diagnosis for this admission?: Yes (8) Lower extremity cellulitis Is this a current diagnosis for this admission?: Yes (9) Hyperlipidemia associated with type 2 diabetes mellitus Is this a current diagnosis for this admission?: Yes (10) Morbid obesity Is this a current diagnosis for this admission?: Yes (11) Moderate to severe pulmonary hypertension Is this a current diagnosis for this admission?: Yes (12) Urinary retention with incomplete bladder emptying Is this a current diagnosis for this admission?: Yes - Additional Information Resuscitation Status: Full Code Discharge Diet: Cardiac, Diabetic Discharge Activity: Activity As Tolerated, Balance Activity w/Rest Home Medications: Albuterol Sulfate [Proair HFA] 2 puff IH Q4HP PRN 01/31/17 Aspirin [Aspirin EC] 81 mg PO Q12 01/31/17 Budesonide/Formoterol Fumarate [Symbicort HFA 80-4.5 mcg Inhaler 6.9 gm] 2 puff IH Q12 01/31/17 Cetirizine HCl [Zyrtec 10 mg Tablet] 10 mg PO DAILYP PRN 01/31/17 Citalopram Hydrobromide [Celexa 40 mg Tablet] 1 tab PO QAM 01/31/17 Docusate Sodium [Colace 100 mg Capsule] 100 mg PO Q12HP PRN 01/31/17 Ergocalciferol (Vitamin D2) [Vitamin D2] 50,000 unit PO MARIE@1000 01/31/17 Insulin Regular, Human [Humulin R (Reg) Insulin 100 unit/mL] 5 unit SUBCUT .SLD SCALE 01/31/17 Levothyroxine Sodium [Synthroid 0.1 mg Tablet] 0.2 mg PO QAM 01/31/17 Metoprolol Succinate [Toprol Xl 25 mg Tab.sr] 25 mg PO Q12 01/31/17 Oxycodone HCl/Acetaminophen [Percocet 10-325 mg Tablet] 1 each PO Q6HP PRN 01/31 Simvastatin [Zocor 10 mg Tablet] 10 mg PO QHS 01/31/17 Vitamin B Complex [B Complex] 1 each PO QAM 01/31/17 Apixaban [Eliquis 5 mg Tablet] 5 mg PO Q12 #60 tablet 02/07/17 Bumetanide [Bumex 1 mg Tablet] 1 mg PO BID #60 tablet 02/07/17 Doxycycline Hyclate [Vibramycin 100 mg Tablet] 100 mg PO Q12 #10 tablet Ferrous Sulfate [Feosol 325 mg Tablet] 325 mg PO NOON #30 tablet 02/07/17 NPH, Human Insulin Isophane [Humulin N (NPH) Insulin 100 unit/mL] 45 unit SUBCUT QHS unit 02/07/17 History of Present Illness History of Present Illness: JOJO BACK is a 61 year old female past medical history of morbid obesity, chronic kidney disease, left ventricular diastolic dysfunction, COPD, anemia, diabetes, hypertension, hypothyroidism presents to the emergency department with several complaints most notable of which is shortness of breath has worsened over the past day. She also has 1 day of pain and swelling in her right leg. It is notable that she has been immobile for the past several months secondary to right lower extremity fracture. She had external fixation of the right lower extremity fracture and external fixator has recently been removed. She denies chest pain. He denies fever or chills. Hospital Course Hospital Course: Patient was found to have acute DVT as well as acute on chronic diastolic heart failure. Echocardiogram was performed and revealed grade 2 diastolic dysfunction as well as severe pulmonary hypertension. It was also found to have pneumonia in the right middle lobe versus atelectasis, and was started on doxycycline for this. Patient also had a small amount of cellulitis on the right extremity which improved dramatically also on doxycycline. Patient continued to improve however was a reluctant if not unwilling participant in physical therapy. Discussion was had with patient's and daughter regarding discharge and they felt comfortable caring for her at home despite her status of max 2 person assist. He was discharged home in stable condition. Physical Exam Vital Signs: Temp Pulse Resp BP Pulse Ox 97.7 F 71 18 121/59 L 98 02/07/17 11:14 02/07/17 11:20 02/07/17 11:20 02/07/17 11:14 02/07/17 11:20 Intake & Output 02/06/17 02/07/17 02/08/17 06:59 06:59 06:59 Intake Total 1196 1693 Output Total 2600 1300 Balance -1404 393 Weight 169.7 kg 169.7 kg Exam: GENERAL: No acute distress, morbidly obese HEENT: Conjunctiva clear, nonicteric, moist mucous membranes, no JVD, midline trachea RESPIRATORY: Clear to auscultation bilaterally, no wheezes, no rhonchi; limited by body habitus CARDIAC: Regular rate and rhythm, no murmurs/gallops/rubs ABDOMEN: Soft, nondistended, nontender, positive bowel sounds, no rebound, no guarding EXTREMETIES: edema in both lower extremities (right greater than left) NEUROLOGIC: Alert, oriented to person/place/time, CN's grossly intact except vision due to retinopathy, no focal deficits SKIN: No erythema of her lower extremities PSYCH: Normal mood, normal affect Results Laboratory Results: 02/05/17 05:54 02/07/17 05:31 02/07/17 05:31 Sodium 137.3 Potassium 4.7 Chloride 96 L Carbon Dioxide 34 H Anion Gap 7 BUN 30 H Creatinine 1.68 H Est GFR ( Amer) 38 L Est GFR (Non-Af Amer) 31 L Glucose 77 Calcium 9.4 02/01/17 22:30 Troponin I 0.026 Impressions: Chest X-Ray 02/03/17 06:00 IMPRESSION: Right middle lobe collapse and consolidation Left basilar atelectasis Qualifiers PATEINT BEING DISCHARGED WITH ANY OF THE FOLLOWING DIAGNOSIS?: Heart Failure HF Pt being discharged on ACEI for LVEF less than 40%?: No Reason(s) for not prescribing ACEI:: Medical Contraindication - There HF Pt being discharged on ARBS for LVEF less than 40%?: No Reason(s) for not prescribing ARBS:: Medical Contraindication - ckd HF Pt with Afib discharged with Warfarin?: No Reason(s) for not prescribing Warfarin:: Not indicated - no fib HF Pt discharged on evidence-based Beta [place]har[place]:: Yes Plan Time Spent: Greater than 30 Minutes
== END 2017-02-07 11:55 | disposition home health service (06) | DRG 299 ==
LOC: ER 14:05 → EH 17:27 → UNDOADMIN 17:50 → EH 17:50 → 3S 21:40 → 4S 02-06 15:21
PROVIDERS: ADMIT Family Medicine; ATTEND Family Medicine
PROC: 3E0F73Z Introduction of Anti-inflammatory into Respiratory Tract, Via Natural or Artificial Opening (ICD-10-PCS; principal; 2017-02-01)
DX: I82.4Z1 Acute embolism and thrombosis of unspecified deep veins of right distal lower extremity (principal); I50.33 Acute on chronic diastolic (congestive) heart failure; N18.6 End stage renal disease; I13.2 Hypertensive heart and chronic kidney disease with heart failure and with stage 5 chronic kidney disease, or end stage renal disease; Z68.43 Body mass index [BMI] 50.0-59.9, adult; L03.115 Cellulitis of right lower limb; E11.22 Type 2 diabetes mellitus with diabetic chronic kidney disease; D63.1 Anemia in chronic kidney disease; J44.9 Chronic obstructive pulmonary disease, unspecified; E03.9 Hypothyroidism, unspecified; E78.5 Hyperlipidemia, unspecified; E66.01 Morbid (severe) obesity due to excess calories; I27.2 Other secondary pulmonary hypertension; R33.9 Retention of urine, unspecified; E78.00 Pure hypercholesterolemia, unspecified; F32.9 Major depressive disorder, single episode, unspecified; M10.9 Gout, unspecified; D50.9 Iron deficiency anemia, unspecified; I44.7 Left bundle-branch block, unspecified; M79.3 Panniculitis, unspecified; Z51.5 Encounter for palliative care; Z90.49 Acquired absence of other specified parts of digestive tract; Z79.82 Long term (current) use of aspirin; Z79.4 Long term (current) use of insulin; Z79.899 Other long term (current) drug therapy; Z88.0 Allergy status to penicillin; Z88.8 Allergy status to other drugs, medicaments and biological substances; Z87.891 Personal history of nicotine dependence; Z85.038 Personal history of other malignant neoplasm of large intestine
CPT/HCPCS: 36415; 71010; 80048; 80053; 81001; 82962; 83605; 83735; 84100; 84443; 84484; 85025; 85379; 85652; 86140; 87040; 87086; 93005; 93010; 93306; 93971; 94640; 94668; 94799; 96365; 96367; 99285; G8978-GP; G8979-GP; J1815; J1940; J1956; J3370; J3475; J3490; J7620

== ENCOUNTER 2017-03-22 15:06 | Emergency (ER) | payer MEDICARE ==
--- NOTE | 2017-03-22 15:39 | ER Document Report ---
ED Wound - General Chief Complaint: Wound Infection Stated Complaint: ABDOMINAL PAIN Time Seen by Provider: 03/22/17 15:09 Mode of Arrival: Stretcher Information source: Patient, Relative TRAVEL OUTSIDE OF THE [place] IN LAST 30 DAYS: No - HPI Patient complains to provider of: Other - Pressure ulcer Occurred: This morning Onset/Duration: Sudden Associated Symptoms: None Notes: Patient is a 61-year-old female who is completely bedridden and cared for at home, reports when he was washing her abdomen earlier he noted blistering skin, when he wiped over at the skin peeled off of this area, she has a large ventral hernia in this area which is soft and reducible, she has had it for quite some time, since she is bedridden this part of her abdomen was sitting up against the rails on her bed, likely causing a pressure ulceration, she denies any pain, no drainage, no active bleeding, no fevers, has been also reports that she had a fall recently injuring her right knee, and now every time he tries to move around in the bed he feels clicking in the right knee, patient does not bear weight chronically - Related Data Allergies/Adverse Reactions: heparin Allergy (Verified 12/28/16 18:15) Penicillins Allergy (Verified 12/28/16 18:15) spironolactone Adverse Reaction (Verified 12/28/16 18:15) Past Medical History - General Information source: Patient, Relative - Social History Smoking Status: Unknown if Ever Smoked Family History: Reviewed & Not Pertinent - Past Medical History Cardiac Medical History: Reports: Hx Congestive Heart Failure, Hx Hypercholesterolemia, Hx Hypertension Pulmonary Medical History: Reports: Hx COPD Endocrine Medical History: Reports: Hx Diabetes Mellitus Type 2, Hx Hypothyroidism Renal/ Medical History: Reports: Hx End Stage Renal Disease. Denies: Hx Peritoneal Dialysis Malignancy Medical History: Reports: Hx Colorectal Cancer Musculoskeltal Medical History: Reports Hx Arthritis - gout Psychiatric Medical History: Reports: Hx Depression Past Surgical History: Reports: Hx Orthopedic Surgery - right ankle surgery secondary to trimalleolar fracture 09/2016, Other - History of colectomy - Immunizations Hx Diphtheria, Pertussis, Tetanus Vaccination: Yes Hx Pneumococcal Vaccination: 08/18/12 Review of Systems - Review of Systems Constitutional: No symptoms reported EENT: No symptoms reported Cardiovascular: No symptoms reported Respiratory: No symptoms reported Gastrointestinal: No symptoms reported Genitourinary: No symptoms reported Female Genitourinary: No symptoms reported Musculoskeletal: See HPI Skin: See HPI Hematologic/Lymphatic: No symptoms reported Neurological/Psychological: No symptoms reported -: Yes All other systems reviewed and negative Physical Exam - Vital signs Vitals: Temp Pulse Resp BP Pulse Ox 97.3 F 62 16 127/57 H 100 03/22/17 15:25 03/22/17 15:25 03/22/17 15:25 03/22/17 15:25 03/22/17 15:25 Interpretation: Normal - General General appearance: Appears well, Alert - HEENT Head: Normocephalic, Atraumatic Eyes: Normal Pupils: PERRL - Respiratory Respiratory status: No respiratory distress Chest status: Nontender Breath sounds: Normal Chest palpation: Normal - Cardiovascular Rhythm: Regular Heart sounds: Normal auscultation Murmur: No - Abdominal Inspection: Morbidly Obese, Other - There is an 8 cm area of erythema in the right lower abdomen consistent with a stage I pressure ulceration, there is a 2 cm serous filled blister just lateral, there is no tenderness, there is mild surrounding erythema, no drainage, no bleeding Distension: No distension Bowel sounds: Normal Tenderness: Nontender Organomegaly: No organomegaly - Back Back: Normal - Extremities General upper extremity: Normal inspection, Nontender, Normal color, Normal ROM , Normal temperature General lower extremity: No: Warner's sign Knee: Other - Right knee with mild swelling, tenderness to palpate along the medial joint line, no deformity, no erythema, distal sensation and motor is intact with 2+ DP pulses - Neurological Neuro grossly intact: Yes Cognition: Normal Orientation: AAOx4 [place] Coma Scale Eye Opening: Spontaneous Marian Coma Scale Verbal: Oriented Marian Coma Scale Motor: Obeys Commands Marian Coma Scale Total: 15 Speech: Normal Motor strength normal: LUE, RUE, LLE, RLE Sensory: Normal - Psychological Associated symptoms: Normal affect, Normal mood - Skin Skin Temperature: Warm Skin Moisture: Dry Skin Color: Normal Course - Re-evaluation Re-evalutation: 03/22/17 20:26 Patient's wound was dressed with Allevyn, she was provided with a prescription for 10 more dressings of this nature, advised to follow-up with the home health nurse for additional wound care, x-ray was performed of the right knee which shows no acute findings, she was placed in an Guillaume wrap as well, provided with a prescription for antibiotics for probable early cellulitis to the right lower abdominal wall, patient was advised to return if any additional concerns, patient acknowledges understanding and agreement with this plan - Vital Signs Vital signs: Temp Pulse Resp BP Pulse Ox 97.3 F 62 20 141/60 H 96 03/22/17 15:25 03/22/17 17:18 03/22/17 17:18 03/22/17 17:18 03/22/17 17:18 - Diagnostic Test Radiology reviewed: Image reviewed, Reports reviewed Procedures - Immobilization Right Knee Time completed: 20:27 Pre-Proc Neuro Vasc Exam: Normal Immobilizer type: Guillaume wrap Performed by: PCT Post-Proc Neuro Vasc Exam: Normal Alignment checked and good: Yes Discharge - Discharge Clinical Impression: Pressure ulcer Qualifiers: Pressure ulcer location: other site Pressure ulcer stage: stage 1 Qualified Code(s): L89.891 - Pressure ulcer of other site, stage 1 Cellulitis Qualifiers: Site of cellulitis: other site Qualified Code(s): L03.818 - Cellulitis of other sites Right knee sprain Qualifiers: Encounter type: initial encounter Involved ligament of knee: unspecified ligament Qualified Code(s): S83.91XA - Sprain of unspecified site of right knee , initial encounter Condition: Stable Disposition: HOME, SELF-CARE Instructions: Ice & Elevation ([facility]), Suspected Internal Knee Injury ([facility]), Prophylactic Antibiotic ([facility]), Soap Cleansing ([facility]), Sprained Knee ([facility]) Additional Instructions: Follow up with your primary care provider in one to 2 days. Return to the emergency room immediately if symptoms worsen or any additional concerns. Prescriptions: Silver Sulfadiaz/Foam Bandage [Allevyn Ag Gentle Dress 8"X8"] 1 each TP DAILY # 10 bandage Sulfamethoxazole/Trimethoprim [Bactrim Ds Tablet] 1 each PO BID #20 tablet Referrals: KINGS BUTTERFIELD MD [Primary Care Provider] - Follow up as needed
--- NOTE | 2017-03-22 16:07 | RADIOLOGY REPORT (SQ) ---
EXAM DESCRIPTION: KNEE RIGHT 4 VIEWS COMPLETED DATE/TIME: 03/22/2017 3:47 pm REASON FOR STUDY: pain COMPARISON: None. NUMBER OF VIEWS: Four views. TECHNIQUE: AP, lateral, and both oblique radiographic images acquired of the right knee. LIMITATIONS: None. FINDINGS: MINERALIZATION: Osteoporotic BONES: No acute fracture or dislocation. No worrisome bone lesions. JOINT: Small suprapatellar knee joint effusion. Advanced patellofemoral joint space narrowing with a [id number] appearance. Mild medial and latera l compartment joint space narrowing. SOFT TISSUES: No soft tissue swelling. No radio-opaque foreign body. OTHER: Old screw tract in the tibial metaphysis at the bottom edge of the field of view. Hardware mark s been removed. IMPRESSION: Advanced patellofemoral osteoarthritis with small joint effusion No acute fracture TECHNICAL DOCUMENTATION: JOB ID: [id number] [employer]- All Rights Reserved
[2017-03-22 17:19] VITALS: BP 141/60
== END 2017-03-22 17:18 | disposition home or self-care (01) ==
LOC: ER 15:06
DX: S83.91XA Sprain of unspecified site of right knee, initial encounter (principal); L89.891 Pressure ulcer of other site, stage 1; L03.818 Cellulitis of other sites; R10.9 Unspecified abdominal pain; K43.9 Ventral hernia without obstruction or gangrene; M25.561 Pain in right knee; W19.XXXA Unspecified fall, initial encounter
CPT/HCPCS: 99284

== ENCOUNTER 2017-03-27 21:03 | Emergency (ER) | payer MEDICARE ==
[2017-03-27 22:23] LABS: ABSOLUTE EOSINOPHILS # (AUTO) 0.6 10^3/uL (0.0-0.6); ABSOLUTE LYMPHOCYTES (AUTO) 0.8 10^3/uL (0.5-4.7); ABSOLUTE MONOCYTES (AUTO) 0.5 10^3/uL (0.1-1.4); ABSOLUTE NEUT (AUTO) 4.6 10^3/uL (1.7-8.2); BASOPHILS % (AUTO) 0.7 % (0-2); EOSINOPHILS % (AUTO) 8.8 % (0-6); HEMATOCRIT 30.4 % (36.0-47.0); HGB HCT DIFFERENCE -0.4; LYMPHOCYTES % (AUTO) 12.6 % (13-45); MEAN CORPUSCULAR HEMOGLOBIN 27.1 pg (27.0-33.4); MEAN CORPUSCULAR HGB CONC 32.9 g/dL (32.0-36.0); MEAN CORPUSCULAR VOLUME 83 fl (80-97); MONOCYTES % (AUTO) 8.1 % (3-13); RED BLOOD COUNT 3.69 10^6/uL (3.72-5.28); RED CELL DISTRIBUTION WIDTH 16.5 % (11.5-14.0); SEGMENTED NEUTROPHILS % (AUTO) 69.8 % (42-78); WHITE BLOOD COUNT 6.6 10^3/uL (4.0-10.5)
--- NOTE | 2017-03-27 22:40 | ER Document Report ---
ED Wound <CRUZITO ZULETA - Last Filed: 03/27/17 23:39> - General Mode of Arrival: Medic Information source: Patient, Relative - spouse, Emergency Med Personnel TRAVEL OUTSIDE OF THE [place] IN LAST 30 DAYS: No - HPI Patient complains to provider of: Wound infection Occurred: Other - Refer to HPI notes Associated Symptoms: Drainage <ELIJAHWILBERT CELESTIN - Last Filed: 03/28/17 01:59> - General Chief Complaint: Wound Infection Stated Complaint: ABDOMINAL PAIN Time Seen by Provider: 03/27/17 22:43 - HPI Notes: Patient is a 61 year old female presenting to the emergency department for a possible wound infection. Patient was brought in via EMS. Patient was seen in this facility 5 days prior and was started on Sulfamethoxazole and silver sulfadiaz bandages. Patient states her wound began as a sore on her ventral hernia. Patient and spouse are concerned for a possible MRSA infection. Patient has had multiple prolonged hospital stays and is bedridden. Patient has [facility] come and change her dressings every other day. Patient's is at the bedside and states the patient has had an odd odor to her urine over the past few days. Patient is allergic to heparin, penicillin, and spironolactone. PCP: Dr. Terrence Wasserman ([facility]BERT US) - Related Data Allergies/Adverse Reactions: heparin Allergy (Verified 12/28/16 18:15) Penicillins Allergy (Verified 12/28/16 18:15) spironolactone Adverse Reaction (Verified 12/28/16 18:15) Past Medical History - General Information source: Patient - Social History Smoking Status: Never Smoker Chew tobacco use (# tins/day): No Frequency of alcohol use: None Drug Abuse: None Family History: None Patient has suicidal ideation: No Patient has homicidal ideation: No - Past Medical History Cardiac Medical History: Reports: Hx Congestive Heart Failure, Hx Hypercholesterolemia, Hx Hypertension Pulmonary Medical History: Reports: Hx COPD Endocrine Medical History: Reports: Hx Diabetes Mellitus Type 2, Hx Hypothyroidism Renal/ Medical History: Reports: Hx End Stage Renal Disease Malignancy Medical History: Reports: Hx Colorectal Cancer Musculoskeltal Medical History: Reports Hx Arthritis - gout Psychiatric Medical History: Reports: Hx Depression Past Surgical History: Reports: Hx Orthopedic Surgery - right ankle surgery secondary to trimalleolar fracture 09/2016, Other - History of colectomy - Immunizations Hx Diphtheria, Pertussis, Tetanus Vaccination: Yes Hx Pneumococcal Vaccination: 08/18/12 <WILBERT US - Last Filed: 03/28/17 01:59> Review of Systems - Review of Systems Constitutional: No symptoms reported EENT: No symptoms reported Cardiovascular: No symptoms reported Respiratory: No symptoms reported Gastrointestinal: No symptoms reported Genitourinary: No symptoms reported Female Genitourinary: No symptoms reported Musculoskeletal: No symptoms reported Skin: See HPI Hematologic/Lymphatic: No symptoms reported Neurological/Psychological: No symptoms reported -: Yes All other systems reviewed and negative <WILBERT US - Last Filed: 03/28/17 01:59> Physical Exam <CRUZITO ZULETA - Last Filed: 03/27/17 23:39> - Vital signs Interpretation: Normal <WILBERT US - Last Filed: 03/28/17 01:59> - Vital signs Vitals: Temp Pulse Resp BP Pulse Ox 98.9 F 61 20 135/38 H 94 03/27/17 21:11 03/27/17 21:11 03/27/17 21:11 03/27/17 21:11 03/27/17 21:11 - Notes Notes: GENERAL: Alert, interacts well. Mild distress. HEAD: Normocephalic, atraumatic. EYES: Appear normal. Pupils equal, round, and reactive to light. ENT: Moist mucus membranes, tongue midline. NECK: Full range of motion. Supple. Trachea midline. LUNGS: Clear to auscultation bilaterally, no wheezes, rales, or rhonchi. No respiratory distress. HEART: Regular rate and rhythm. No murmurs, gallops, or rubs. ABDOMEN: Morbidly obese, non-tender. Large ventral hernia which is mostly covered with silver sulfadiaz dressings. 8cm erythematous superficial lesion. There are some satellite lesions and blistering which are also superficial. 2 cm serous filled blister laterally. No active drainage or bleeding. Normal bowel sounds. EXTREMITIES: Moves all 4 extremities spontaneously. Normal strength. NEUROLOGICAL: Alert and oriented x3. Normal speech. No focal neurological deficits. GSC 15. PSYCH: Normal affect, normal mood. SKIN: Warm, dry, normal turgor. (WILBERT US) Course - Laboratory Result Diagrams: 03/27/17 21:52 03/27/17 21:52 <CRUZITO ZULETA - Last Filed: 03/27/17 23:39> - Laboratory Result Diagrams: 03/27/17 21:52 03/27/17 21:52 <WILBERT US - Last Filed: 03/28/17 01:59> - Re-evaluation Re-evalutation: 03/27/17 23:43 The patient's chart lists an allergy to penicillin, she has been given Ancef and Rocephin on multiple occasions without problems. We will stop the Septra, as the exam does not suggest this will be an MRSA type infection. We will start the doxycycline and cephalexin for the cellulitis. (CRUZITO ZULETA ) - Vital Signs Vital signs: Temp Pulse Resp BP Pulse Ox 98.7 F 66 16 127/46 H 97 03/27/17 23:00 03/27/17 23:00 03/27/17 23:00 03/27/17 23:00 03/27/17 23:00 - Laboratory Laboratory results interpreted by me: 03/27/17 03/27/17 21:52 21:52 RBC 3.69 L Hgb 10.0 L Hct 30.4 L RDW 16.5 H Plt Count 132 L Lymphocytes % 12.6 L Eosinophils % 8.8 H Chloride 96 L Carbon Dioxide 32 H BUN 47 H Creatinine 2.17 H Est GFR ( Amer) 28 L Est GFR (Non-Af Amer) 23 L Glucose 272 H Direct Bilirubin 0.5 H Albumin 3.3 L Discharge <CRUZITO ZULTEA - Last Filed: 03/27/17 23:39> <WILBERT US - Last Filed: 03/28/17 01:59> - Discharge Clinical Impression: Cellulitis Qualifiers: Site of cellulitis: trunk Site of cellulitis of trunk: abdominal wall Qualified Code(s): L03.311 - Cellulitis of abdominal wall Condition: Stable Disposition: HOME, SELF-CARE Additional Instructions: Stop taking the Septra. Continue the daily dressing changes. Start taking the doxycycline and cephalexin. Call your doctor to discuss the BUN and creatinine from today compared to February 07, 2017. Follow-up with your medical doctor if not improving. RETURN TO THE EMERGENCY ROOM IF ANY NEW OR WORSENING SYMPTOMS. Prescriptions: Cephalexin Monohydrate [Keflex 500 mg Capsule] 500 mg PO QID #28 capsule Doxycycline Hyclate 100 mg PO BID #14 tablet Scribe Attestation: 03/27/17 23:42 I personally performed the services described in the documentation, reviewed and edited the documentation which was dictated to the scribe in my presence, and it accurately records my words and actions. (CRUZITO ZULETA) Scribe Documentation - Scribe Written by Xavi:: Xavi Villareal 03/27/17 22:50 acting as scribe for :: Pat <WILBERT US - Last Filed: 03/28/17 01:59>
[2017-03-27 22:46] LABS: ALANINE AMINOTRANSFERASE 29 U/L (9-52); ALBUMIN 3.3 g/dL (3.5-5.0); ALKALINE PHOSPHATASE 105 U/L (38-126); ANION GAP 9 (5-19); ASPARTATE AMINO TRANSFERASE 22 U/L (14-36); BILIRUBIN,DIRECT 0.5 mg/dL (0.0-0.4); BILIRUBIN,TOTAL 1.3 mg/dL (0.2-1.3); BLOOD UREA NITROGEN 47 mg/dL (7-20); CALCIUM 9.8 mg/dL (8.4-10.2); CARBON DIOXIDE 32 mmol/L (22-30); CHLORIDE 96 mmol/L (98-107); CREATININE RESULT 2.17 mg/dL (0.52-1.25); GLUCOSE 272 mg/dL (75-110); POTASSIUM 4.7 mmol/L (3.6-5.0); SODIUM 137.2 mmol/L (137-145); TOTAL PROTEIN 7.1 g/dL (6.3-8.2)
[2017-03-27] MEDS ORDERED: DOXYCYCLINE HYCLATE 100 MG TABLET PO ONE (23:44)
[2017-03-27] MEDS ORDERED: CEPHALEXIN 500 MG CAPSULE PO ONE (23:45)
[2017-03-28] MEDS ORDERED: CEPHALEXIN 500 MG CAPSULE PO ONE (07:39)
[2017-03-28 08:46] VITALS: BP 132/51
== END 2017-03-28 08:45 | disposition home or self-care (01) ==
LOC: ER 21:03
DX: L03.311 Cellulitis of abdominal wall (principal); K43.9 Ventral hernia without obstruction or gangrene; I12.0 Hypertensive chronic kidney disease with stage 5 chronic kidney disease or end stage renal disease; E11.22 Type 2 diabetes mellitus with diabetic chronic kidney disease; N18.6 End stage renal disease; Z74.01 Bed confinement status; Z85.048 Personal history of other malignant neoplasm of rectum, rectosigmoid junction, and anus; Z88.8 Allergy status to other drugs, medicaments and biological substances; Z88.0 Allergy status to penicillin
CPT/HCPCS: 99284; 36415; 87070; 87205; 85025; 87077; 80053; 87186; A9270 ×3

== ENCOUNTER 2017-05-24 11:56 | Emergency (ER) | payer MEDICARE ==
[2017-05-24] MEDS ORDERED: PANTOPRAZOLE SODIUM 40 MG VIAL IV ONE (12:21)
[2017-05-24] MEDS ORDERED: NORMAL SALINE 1000 ML 1,000 ML IV ONE (12:21)
[2017-05-24 13:21] LABS: ABSOLUTE BASOPHILS # (AUTO) 0.1 10^3/uL (0.0-0.2); ABSOLUTE EOSINOPHILS # (AUTO) 0.7 10^3/uL (0.0-0.6); ABSOLUTE LYMPHOCYTES (AUTO) 1.4 10^3/uL (0.5-4.7); ABSOLUTE MONOCYTES (AUTO) 0.7 10^3/uL (0.1-1.4); BASOPHILS % (AUTO) 0.8 % (0-2); EOSINOPHILS % (AUTO) 9.6 % (0-6); HEMATOCRIT 30.8 % (36.0-47.0); HEMOGLOBIN 10.3 g/dL (12.0-15.5); HGB HCT DIFFERENCE 0.1; MEAN CORPUSCULAR HEMOGLOBIN 27.3 pg (27.0-33.4); MEAN CORPUSCULAR HGB CONC 33.3 g/dL (32.0-36.0); MEAN CORPUSCULAR VOLUME 82 fl (80-97); MONOCYTES % (AUTO) 9.7 % (3-13); RED BLOOD COUNT 3.76 10^6/uL (3.72-5.28); RED CELL DISTRIBUTION WIDTH 16.5 % (11.5-14.0); SEGMENTED NEUTROPHILS % (AUTO) 58.9 % (42-78); WHITE BLOOD COUNT 6.9 10^3/uL (4.0-10.5)
[2017-05-24 13:27] LABS: PARTIAL THROMBOPLASTIN TIME 29.3 SEC (23.5-35.8); PROTHROMBIN TIME 14.9 SEC (11.4-15.4)
[2017-05-24 13:31] LABS: ALANINE AMINOTRANSFERASE 23 U/L (9-52); ALBUMIN 3.4 g/dL (3.5-5.0); ALKALINE PHOSPHATASE 82 U/L (38-126); ANION GAP 8 (5-19); ASPARTATE AMINO TRANSFERASE 18 U/L (14-36); BILIRUBIN,DIRECT 0.4 mg/dL (0.0-0.4); BILIRUBIN,TOTAL 1.1 mg/dL (0.2-1.3); BLOOD UREA NITROGEN 85 mg/dL (7-20); CALCIUM 10.7 mg/dL (8.4-10.2); CARBON DIOXIDE 32 mmol/L (22-30); CHLORIDE 101 mmol/L (98-107); CREATININE RESULT 1.73 mg/dL (0.52-1.25); GLUCOSE 169 mg/dL (75-110); LIPASE 57.9 U/L (23-300); SODIUM 140.5 mmol/L (137-145); TOTAL PROTEIN 7.1 g/dL (6.3-8.2)
--- NOTE | 2017-05-24 16:10 | ER Document Report ---
ED General - General Chief Complaint: GI Bleeding Stated Complaint: ABDOMINAL PAIN Time Seen by Provider: 05/24/17 12:21 TRAVEL OUTSIDE OF THE [place] IN LAST 30 DAYS: No - HPI Patient complains to provider of: GI bleed Notes: Patient coming in for bright red blood per rectum for the last 2 days. Patient has a history of DVT currently is on Eliquis. Patient states no weakness no dizziness patient is morbidly obese. Patient states she has a history of colon cancer with a history of colon resection. She states this was performed in 2006 has not had a colonoscopy since that time. Denies any fever chills nausea vomiting diarrhea denies any trauma. Patient is in no obvious distress upon my evaluation per - Related Data Allergies/Adverse Reactions: heparin Allergy (Verified 12/28/16 18:15) Penicillins Allergy (Verified 12/28/16 18:15) spironolactone Adverse Reaction (Verified 12/28/16 18:15) Past Medical History - Social History Smoking Status: Never Smoker Chew tobacco use (# tins/day): No Frequency of alcohol use: None Drug Abuse: None Family History: None - Past Medical History Cardiac Medical History: Reports: Hx Congestive Heart Failure, Hx Hypercholesterolemia, Hx Hypertension Pulmonary Medical History: Reports: Hx COPD Endocrine Medical History: Reports: Hx Diabetes Mellitus Type 2, Hx Hypothyroidism Renal/ Medical History: Reports: Hx End Stage Renal Disease. Denies: Hx Peritoneal Dialysis Malignancy Medical History: Reports: Hx Colorectal Cancer Musculoskeltal Medical History: Reports Hx Arthritis - gout Psychiatric Medical History: Reports: Hx Depression Past Surgical History: Reports: Hx Orthopedic Surgery - right ankle surgery secondary to trimalleolar fracture 09/2016, Other - History of colectomy - Immunizations Hx Diphtheria, Pertussis, Tetanus Vaccination: Yes Hx Pneumococcal Vaccination: 08/18/12 Review of Systems - Review of Systems Constitutional: No symptoms reported EENT: No symptoms reported Cardiovascular: No symptoms reported Respiratory: No symptoms reported Gastrointestinal: Other - Blood in stool Genitourinary: No symptoms reported Female Genitourinary: No symptoms reported Musculoskeletal: No symptoms reported Skin: No symptoms reported Hematologic/Lymphatic: No symptoms reported Neurological/Psychological: No symptoms reported -: Yes All other systems reviewed and negative Physical Exam - Vital signs Vitals: Temp Pulse Resp BP Pulse Ox 97.5 F 56 L 16 141/70 H 99 05/24/17 12:05 05/24/17 12:05 05/24/17 12:05 05/24/17 12:05 05/24/17 12:05 Interpretation: Normal - General General appearance: Appears well, Alert - HEENT Head: Normocephalic, Atraumatic Eyes: Normal Pupils: PERRL - Respiratory Respiratory status: No respiratory distress Chest status: Nontender Breath sounds: Normal Chest palpation: Normal - Cardiovascular Rhythm: Regular Heart sounds: Normal auscultation Murmur: No - Abdominal Inspection: Normal Distension: No distension Bowel sounds: Normal Tenderness: Nontender Organomegaly: No organomegaly - Rectal Notes: Bright red blood with light brown stool on rectal examination theInternal or external hemorrhoids seen - Back Back: Normal, Nontender - Extremities General upper extremity: Normal inspection, Nontender, Normal color, Normal ROM , Normal temperature General lower extremity: Normal inspection, Nontender, Normal color, Normal ROM , Normal temperature, Normal weight bearing. No: Warner's sign - Neurological Neuro grossly intact: Yes Cognition: Normal Orientation: AAOx4 [place] Coma Scale Eye Opening: Spontaneous Marian Coma Scale Verbal: Oriented [place] Coma Scale Motor: Obeys Commands Marian Coma Scale Total: 15 Speech: Normal Motor strength normal: LUE, RUE, LLE, RLE Sensory: Normal - Psychological Associated symptoms: Normal affect, Normal mood - Skin Skin Temperature: Warm Skin Moisture: Dry Skin Color: Normal Course - Re-evaluation Re-evalutation: 05/24/17 16:10 Patient requested to be transferred to Replaced By [facility]. Discussed with Dr. Guerin who accepted the patient in transfer otherwise vital signs have been stable hemoglobin is stable from previous laboratory studies will transfer the patient. Currently stable for transfer - Vital Signs Vital signs: Temp Pulse Resp BP Pulse Ox 97.5 F 56 L 16 141/70 H 99 05/24/17 12:05 05/24/17 12:05 05/24/17 12:05 05/24/17 12:05 05/24/17 12:05 - Laboratory Result Diagrams: 05/24/17 12:50 05/24/17 12:50 Laboratory results interpreted by me: 05/24/17 05/24/17 12:50 12:50 Hgb 10.3 L Hct 30.8 L RDW 16.5 H Eosinophils % 9.6 H Absolute Eosinophils 0.7 H Carbon Dioxide 32 H BUN 85 H Creatinine 1.73 H Est GFR ( Amer) 36 L Est GFR (Non-Af Amer) 30 L Glucose 169 H Calcium 10.7 H Albumin 3.4 L Critical Care Note - Critical Care Note Total time excluding time spent on procedures (mins): 35 Comments: Multiple re-evaluations for GI bleed Discharge - Discharge Clinical Impression: Chronic renal disease, GI bleed, History of DVT (deep vein thrombosis), On Eliquis, Urinary retention with incomplete bladder emptying Condition: Good Disposition: [facility]
[2017-05-24 17:20] VITALS: BP 141/52
[2017-05-24] MEDS ORDERED: PANTOPRAZOLE SODIUM 40 MG VIAL IV SCH (18:00)
== END 2017-05-24 17:10 | disposition short-term general hospital (02) ==
LOC: ER 11:56
DX: K92.2 Gastrointestinal hemorrhage, unspecified (principal); I12.0 Hypertensive chronic kidney disease with stage 5 chronic kidney disease or end stage renal disease; E11.22 Type 2 diabetes mellitus with diabetic chronic kidney disease; N18.6 End stage renal disease; R33.9 Retention of urine, unspecified; E66.01 Morbid (severe) obesity due to excess calories; Z68.41 Body mass index [BMI] 40.0-44.9, adult; Z86.718 Personal history of other venous thrombosis and embolism; Z79.01 Long term (current) use of anticoagulants; Z90.49 Acquired absence of other specified parts of digestive tract; Z85.038 Personal history of other malignant neoplasm of large intestine; Z88.0 Allergy status to penicillin; Z88.8 Allergy status to other drugs, medicaments and biological substances
CPT/HCPCS: 99291; 96361; 96374; 86900; 86901; 36415; 86850; 83690; 85025; 85610; 85730; 80053; C9113; J7030; S0164

== ENCOUNTER 2017-08-15 17:43 | Emergency (ER) | payer MEDICARE ==
--- NOTE | 2017-08-15 18:00 | ER Document Report ---
ED General - General Stated Complaint: URINARY ISSUE Time Seen by Provider: 08/15/17 17:49 Mode of Arrival: Stretcher Information source: Patient Notes: 61 years old female morbidly obese, bed bound, has a urinary catheter, the urine was checked this morning by the visiting nurse and it was found to have the blood and possible UTI therefore she was referred to the ED. No history of dysuria frequency. Denies any fever chills or other constitutional symptoms. TRAVEL OUTSIDE OF THE [place] IN LAST 30 DAYS: No - Related Data Allergies/Adverse Reactions: heparin Allergy (Verified 12/28/16 18:15) Penicillins Allergy (Verified 12/28/16 18:15) spironolactone Adverse Reaction (Verified 12/28/16 18:15) Past Medical History - General Information source: Patient - Social History Smoking Status: Smoker,Current Status Unk Family History: None, CAD, CVA, DM, Hypertension - Past Medical History Cardiac Medical History: Reports: Hx Congestive Heart Failure, Hx Hypercholesterolemia, Hx Hypertension Pulmonary Medical History: Reports: Hx COPD Endocrine Medical History: Reports: Hx Diabetes Mellitus Type 2, Hx Hypothyroidism Renal/ Medical History: Reports: Hx End Stage Renal Disease. Denies: Hx Peritoneal Dialysis Malignancy Medical History: Reports: Hx Colorectal Cancer Musculoskeltal Medical History: Reports Hx Arthritis - gout Psychiatric Medical History: Reports: Hx Depression Past Surgical History: Reports: Hx Orthopedic Surgery - right ankle surgery secondary to trimalleolar fracture 09/2016, Other - History of colectomy - Immunizations Hx Diphtheria, Pertussis, Tetanus Vaccination: Yes Hx Pneumococcal Vaccination: 08/18/12 Review of Systems - Review of Systems Notes: REVIEW OF SYSTEMS: CONSTITUTIONAL : Denies fever, chills, or sweats. Denies recent illness. EENT: Denies eye, ear, throat, or mouth pain or symptoms. Denies nasal or sinus congestion or discharge. Denies throat, tongue, or mouth swelling or difficulty swallowing. CARDIOVASCULAR: Denies chest pain. Denies palpitations or racing or irregular heart beat. Denies ankle edema. RESPIRATORY: Denies cough, cold, or chest congestion. Denies shortness of breath, difficulty breathing, or wheezing. GASTROINTESTINAL: Denies abdominal pain or distention. Denies nausea, vomiting , or diarrhea. Denies blood in vomitus, stools, or per rectum. Denies black, tarry stools. Denies constipation. GENITOURINARY: Denies difficulty urinating, painful urination, burning, frequency,, or discharge. FEMALE GENITOURINARY: Denies vaginal bleeding, heavy or abnormal periods, irregular periods. Denies vaginal discharge or odor. MUSCULOSKELETAL: Denies back or neck pain or stiffness. Denies joint pain or swelling. SKIN: Denies rash, lesions or sores. HEMATOLOGIC : Denies easy bruising or bleeding. LYMPHATIC: Denies swollen, enlarged glands. NEUROLOGICAL: Denies confusion or altered mental status. Denies passing out or loss of consciousness. Denies dizziness or lightheadedness. Denies headache. Denies weakness or paralysis or loss of use of either side. Denies problems with gait or speech. Denies sensory loss, numbness, or tingling. Denies seizures. PSYCHIATRIC: Denies anxiety or stress. Denies depression, suicidal ideation, or homicidal ideation. ALL OTHER SYSTEMS REVIEWED AND NEGATIVE. PHYSICAL EXAMINATION: GENERAL: Well-appearing, well-nourished and in no acute distress. Morbidly obese HEAD: Atraumatic, normocephalic. EYES: Pupils equal round and reactive to light, extraocular movements intact, conjunctiva are normal. ENT: Nares patent, oropharynx clear without exudates. Moist mucous membranes. NECK: Normal range of motion, supple without lymphadenopathy LUNGS: Breath sounds clear to auscultation bilaterally and equal. No wheezes rales or rhonchi. HEART: Regular rate and rhythm without murmurs ABDOMEN: Soft, nontender, nondistended abdomen. No guarding, no rebound. No masses appreciated. Female : deferred. Urinary catheter draining dark brown urine Musculoskeletal: Cannot be performed NEUROLOGICAL: Cranial nerves grossly intact. Normal speech, normal gait. Normal sensory, motor exams PSYCH: Normal mood, normal affect. SKIN: Warm, Dry, normal turgor, no rashes or lesions noted. Dictation was performed using [employer] voice recognition software Physical Exam - Vital signs Vitals: Resp 18 08/15/17 17:43 Course - Re-evaluation Re-evalutation: 08/15/17 19:54 Urine came back positive for blood and leukocyte esterase - Vital Signs Vital signs: Temp Pulse Resp BP Pulse Ox 18 08/15/17 17:43 - Laboratory Result Diagrams: 08/15/17 18:20 Laboratory results interpreted by me: 08/15/17 08/15/17 18:13 18:20 Hgb 9.9 L Hct 30.1 L MCH 26.4 L RDW 14.8 H Plt Count 126 L Urine Protein 30 H Urine Blood LARGE H Ur Leukocyte Esterase LARGE H Discharge - Discharge Clinical Impression: Morbid obesity UTI (urinary tract infection) Qualifiers: Urinary tract infection type: acute cystitis Hematuria presence: with hematuria Qualified Code(s): N30.01 - Acute cystitis with hematuria Hypertension Qualifiers: Hypertension type: essential hypertension Qualified Code(s): I10 - Essential ( primary) hypertension Condition: Fair Disposition: HOME, SELF-CARE Instructions: Urinary Tract Infection ([facility]) Prescriptions: Ciprofloxacin HCl [Cipro 500 mg Tablet] 500 mg PO BID #20 tablet
[2017-08-15 18:33] LABS: ABSOLUTE EOSINOPHILS # (AUTO) 0.2 10^3/uL (0.0-0.6); ABSOLUTE LYMPHOCYTES (AUTO) 1.1 10^3/uL (0.5-4.7); ABSOLUTE MONOCYTES (AUTO) 0.5 10^3/uL (0.1-1.4); ABSOLUTE NEUT (AUTO) 3.8 10^3/uL (1.7-8.2); BASOPHILS % (AUTO) 0.7 % (0-2); EOSINOPHILS % (AUTO) 3.6 % (0-6); HEMATOCRIT 30.1 % (36.0-47.0); HEMOGLOBIN 9.9 g/dL (12.0-15.5); MEAN CORPUSCULAR HEMOGLOBIN 26.4 pg (27.0-33.4); MEAN CORPUSCULAR HGB CONC 32.7 g/dL (32.0-36.0); MEAN CORPUSCULAR VOLUME 81 fl (80-97); MONOCYTES % (AUTO) 8.8 % (3-13); PLATELET COUNT 126 10^3/uL (150-450); RED BLOOD COUNT 3.73 10^6/uL (3.72-5.28); RED CELL DISTRIBUTION WIDTH 14.8 % (11.5-14.0); SEGMENTED NEUTROPHILS % (AUTO) 66.9 % (42-78); TOTAL CELLS COUNTED % (AUTO) 100 %; WHITE BLOOD COUNT 5.7 10^3/uL (4.0-10.5)
[2017-08-15 18:36] LABS: APPEARANCE,URINE CLOUDY; BILIRUBIN,URINE NEGATIVE (NEGATIVE); COLOR,URINE AMBER; GLUCOSE, URINE NEGATIVE (NEGATIVE); KETONES,URINE NEGATIVE (NEGATIVE); LEUKOCYTE ESTERASE,URINE LARGE (NEGATIVE); NITRITE,URINE NEGATIVE (NEGATIVE); PROTEIN,URINE 30 mg/dL (NEGATIVE); URINE SPECIFIC GRAVITY 1.008; UROBILINOGEN,URINE NEGATIVE mg/dL (<2.0)
[2017-08-15] MEDS ORDERED: CIPROFLOXACIN HCL 500 MG TABLET PO ONE (19:53)
[2017-08-15 20:37] VITALS: BP 127/48
== END 2017-08-15 20:55 | disposition home or self-care (01) ==
LOC: ER 17:43
DX: N30.01 Acute cystitis with hematuria (principal); E66.01 Morbid (severe) obesity due to excess calories; Z68.38 Body mass index [BMI] 38.0-38.9, adult; I10 Essential (primary) hypertension; J44.9 Chronic obstructive pulmonary disease, unspecified; E11.9 Type 2 diabetes mellitus without complications; Z74.01 Bed confinement status; Z88.0 Allergy status to penicillin; Z88.8 Allergy status to other drugs, medicaments and biological substances; Z85.048 Personal history of other malignant neoplasm of rectum, rectosigmoid junction, and anus
CPT/HCPCS: 99284; 36415; 85025; 81001; A9270; 87086

== ENCOUNTER 2017-11-12 17:10 | Emergency (ER) | payer MEDICARE ==
--- NOTE | 2017-11-12 18:03 | RADIOLOGY REPORT (SQ) ---
EXAM DESCRIPTION: CHEST SINGLE VIEW COMPLETED DATE/TIME: 11/12/2017 5:48 pm REASON FOR STUDY: cough, h/o CHF. COMPARISON: 02/03/2017 EXAM PARAMETERS: NUMBER OF VIEWS: One view. TECHNIQUE: Single frontal radiographic view of the chest acquired. RADIATION DOSE: NA LIMITATIONS: None. FINDINGS: LUNGS AND PLEURA: There is subsegmental atelectasis in the left base. There is considerab le retrocardiac opacity on the left. MEDIASTINUM AND HILAR STRUCTURES: No masses. Contour normal. HEART AND VASCULAR STRUCTURES: Cardiac silhouette is enlarged. There is no cate failure. BONES: No acute findings. HARDWARE: None in the chest. OTHER: No other significant finding. IMPRESSION: Cardiomegaly with no cate CHF. Cannot exclude left lower lobe consolidation. TECHNICAL DOCUMENTATION: JOB ID: [id number] [employer]- All Rights Reserved Reading location - IP/workstation name: [email or web address]
--- NOTE | 2017-11-12 18:16 | ER Document Report ---
ED Respiratory Problem - General Chief Complaint: Cough Stated Complaint: BREATHING CONCERN Time Seen by Provider: 11/12/17 18:13 Mode of Arrival: Medic Information source: Patient, Relative TRAVEL OUTSIDE OF THE [place] IN LAST 30 DAYS: No - HPI Patient complains to provider of: Other - ABNORMAL OUTPATIENT CXR, ASYMPTOMATIC Onset: This morning Quality of pain: No pain Severity: None Context: Hx asthma Sputum amount: None At home treatment: Bronchodilators, Oxygen Associated symptoms: None Recently seen / treated by doctor: Yes - TOLD BY PCP TO COME TO E.D. FOR EVAL. & Tx. - Related Data Allergies/Adverse Reactions: heparin Allergy (Verified 11/12/17 17:34) Penicillins Allergy (Verified 11/12/17 17:34) spironolactone Adverse Reaction (Verified 11/12/17 17:34) Past Medical History - General Information source: Patient - Social History Smoking Status: Never Smoker Chew tobacco use (# tins/day): No Frequency of alcohol use: None Drug Abuse: None Lives with: Family Family History: None, CAD, CVA, DM, Hypertension Patient has suicidal ideation: No Patient has homicidal ideation: No - Past Medical History Cardiac Medical History: Reports: Hx Congestive Heart Failure, Hx Hypercholesterolemia, Hx Hypertension Pulmonary Medical History: Reports: Hx COPD Endocrine Medical History: Reports: Hx Diabetes Mellitus Type 2, Hx Hypothyroidism Renal/ Medical History: Reports: Hx End Stage Renal Disease. Denies: Hx Peritoneal Dialysis Malignancy Medical History: Reports: Hx Colorectal Cancer GI Medical History: Reports: None Musculoskeltal Medical History: Reports Hx Arthritis - gout Psychiatric Medical History: Reports: Hx Depression Past Surgical History: Reports: Hx Bowel Surgery - COLON Ca RESECTED, Hx Orthopedic Surgery - right ankle surgery secondary to trimalleolar fracture 2016, Other - History of colectomy - Immunizations Hx Diphtheria, Pertussis, Tetanus Vaccination: Yes Hx Pneumococcal Vaccination: 08/18/12 Review of Systems - Review of Systems Constitutional: No symptoms reported EENT: No symptoms reported Cardiovascular: No symptoms reported Respiratory: No symptoms reported Gastrointestinal: No symptoms reported Genitourinary: No symptoms reported Female Genitourinary: Post menopausal Musculoskeletal: No symptoms reported Skin: No symptoms reported Neurological/Psychological: No symptoms reported Physical Exam - Vital signs Vitals: Temp Pulse Resp BP Pulse Ox 98.3 F 62 20 144/44 H 96 11/12/17 17:18 11/12/17 17:18 11/12/17 17:18 11/12/17 17:18 11/12/17 17:18 Interpretation: Hypertensive. No: Tachycardic, Hypoxic, Tachypneic, Febrile - General General appearance: Appears well, Alert In distress: None - HEENT Head: Normocephalic Eyes: Normal Conjunctiva: Normal Ears: Normal Nasal: Normal Mouth/Lips: Normal Mucous membranes: Normal Pharynx: Normal - Respiratory Respiratory status: No respiratory distress Breath sounds: Normal - Cardiovascular Rhythm: Regular Heart sounds: Normal auscultation Murmur: No - Abdominal Inspection: Morbidly Obese - Genitourinary External exam: Other - INDWELLING BARROW CATH. - Extremities General upper extremity: Normal inspection General lower extremity: Normal inspection - Neurological Neuro grossly intact: Yes Cognition: Normal Orientation: AAOx4 - Psychological Associated symptoms: Normal affect, Normal mood - Skin Skin Temperature: Warm Skin Moisture: Dry Skin Color: Normal Skin Turgor: Elastic Course - Vital Signs Vital signs: Temp Pulse Resp BP Pulse Ox 98.3 F 62 15 144/44 H 100 11/12/17 17:18 11/12/17 17:18 11/12/17 19:00 11/12/17 17:18 11/12/17 19:00 - Laboratory Result Diagrams: 11/12/17 19:08 11/12/17 18:15 Laboratory results interpreted by me: 11/12/17 11/12/17 11/12/17 18:15 18:15 19:06 RBC Hgb Hct RDW Plt Count Sodium 135.0 L Carbon Dioxide 34 H Anion Gap 1 L BUN 49 H Creatinine 1.67 H Est GFR ( Amer) 38 L Est GFR (Non-Af Amer) 31 L Glucose 159 H AST 12 L Creatine Kinase 21 L NT-Pro-B Natriuret Pep 6430 H Total Protein 6.2 L Albumin 3.0 L Urine Blood SMALL H Ur Leukocyte Esterase MODERATE H 11/12/17 19:08 RBC 3.34 L Hgb 9.4 L Hct 27.8 L RDW 15.4 H Plt Count 139 L Sodium Carbon Dioxide Anion Gap BUN Creatinine Est GFR ( Amer) Est GFR (Non-Af Amer) Glucose AST Creatine Kinase NT-Pro-B Natriuret Pep Total Protein Albumin Urine Blood Ur Leukocyte Esterase - EKG Interpretation by Ia EKG shows normal: Sinus rhythm, [place], Intervals, ST-T Waves. abnormal: QRS Complexes Rate: Normal Rhythm: NSR [place]/QRS: LBBB Discharge - Discharge Clinical Impression: Atelectasis of left lung Diabetes mellitus type 2 with complications Qualifiers: Diabetes mellitus [place] sawyer insulin use: unspecified nursing home insulin use status Qualified Code(s): E11.8 - Type 2 diabetes mellitus with unspecified complications COPD (chronic obstructive pulmonary disease) Qualifiers: COPD type: unspecified COPD Qualified Code(s): J44.9 - Chronic obstructive pulmonary disease, unspecified Condition: Stable Disposition: HOME, SELF-CARE Instructions: Atelectasis ([facility]) Additional Instructions: CONTINUE YOUR USUAL MEDICATIONS BEFORE. USE YOUR INCENTIVE SPIROMETRY DEVICE SEVERAL TIMES DAILY. THIS WILL HELP TO RE- EXPAND THE COLLAPSED AREAS OF YOUR LUNG. FOLLOW UP WITH YOUR PRIMARY CARE PROVIDER NEEDED. Referrals: JOSEPH LAWRENCE PA [Primary Care Provider] - Follow up as needed
[2017-11-12 18:47] LABS: ALANINE AMINOTRANSFERASE 20 U/L (9-52); ALKALINE PHOSPHATASE 83 U/L (38-126); ASPARTATE AMINO TRANSFERASE 12 U/L (14-36); BILIRUBIN,DIRECT 0.2 mg/dL (0.0-0.4); BLOOD UREA NITROGEN 49 mg/dL (7-20); CALCIUM 9.9 mg/dL (8.4-10.2); CHLORIDE 100 mmol/L (98-107); CREATINE KINASE 21 U/L (30-135); GLUCOSE 159 mg/dL (75-110); POTASSIUM 4.8 mmol/L (3.6-5.0); TOTAL PROTEIN 6.2 g/dL (6.3-8.2)
[2017-11-12 18:52] LABS: CARBON DIOXIDE 34 mmol/L (22-30)
[2017-11-12 18:54] LABS: ANION GAP 1 (5-19)
[2017-11-12 18:59] LABS: CREATINE KINASE MB 0.38 ng/mL (<4.55); TROPONIN I 0.022 ng/mL
[2017-11-12 19:21] LABS: ABSOLUTE EOSINOPHILS # (AUTO) 0.3 10^3/uL (0.0-0.6); ABSOLUTE LYMPHOCYTES (AUTO) 1.2 10^3/uL (0.5-4.7); ABSOLUTE MONOCYTES (AUTO) 0.5 10^3/uL (0.1-1.4); ABSOLUTE NEUT (AUTO) 3.8 10^3/uL (1.7-8.2); BASOPHILS % (AUTO) 0.6 % (0-2); EOSINOPHILS % (AUTO) 4.3 % (0-6); HEMATOCRIT 27.8 % (36.0-47.0); HEMOGLOBIN 9.4 g/dL (12.0-15.5); LYMPHOCYTES % (AUTO) 20.9 % (13-45); MEAN CORPUSCULAR HGB CONC 33.7 g/dL (32.0-36.0); MEAN CORPUSCULAR VOLUME 83 fl (80-97); MONOCYTES % (AUTO) 9.2 % (3-13); PLATELET COUNT 139 10^3/uL (150-450); RED BLOOD COUNT 3.34 10^6/uL (3.72-5.28); RED CELL DISTRIBUTION WIDTH 15.4 % (11.5-14.0); TOTAL CELLS COUNTED % (AUTO) 100 %; WHITE BLOOD COUNT 5.9 10^3/uL (4.0-10.5)
[2017-11-12 19:44] LABS: APPEARANCE,URINE CLEAR; BILIRUBIN,URINE NEGATIVE (NEGATIVE); COLOR,URINE STRAW; GLUCOSE, URINE NEGATIVE (NEGATIVE); KETONES,URINE NEGATIVE (NEGATIVE); LEUKOCYTE ESTERASE,URINE MODERATE (NEGATIVE); NITRITE,URINE NEGATIVE (NEGATIVE); PROTEIN,URINE NEGATIVE (NEGATIVE); URINE SPECIFIC GRAVITY 1.008; UROBILINOGEN,URINE NEGATIVE mg/dL (<2.0)
[2017-11-12 22:08] VITALS: BP 143/58
--- NOTE | 2017-11-13 07:45 | EKG REPORT ---
SEVERITY:- ABNORMAL ECG - SINUS RHYTHM LEFT BUNDLE BRANCH BLOCK : Confirmed by: Josemanuel Peraza MD 13-Nov-2017 07:44:51
== END 2017-11-12 22:15 | disposition home or self-care (01) ==
LOC: ER 17:10
DX: J98.11 Atelectasis (principal); E11.8 Type 2 diabetes mellitus with unspecified complications; R05 Cough; R06.89 Other abnormalities of breathing; I10 Essential (primary) hypertension; J44.9 Chronic obstructive pulmonary disease, unspecified
CPT/HCPCS: 36415; 71045; 80053; 81001; 82550; 82553; 83880; 84484; 85025; 93005; 93010; 99284

== ENCOUNTER 2018-02-13 14:07 | Inpatient (IN) | payer MEDICARE ==
[2018-02-13 14:35] LABS: ABSOLUTE EOSINOPHILS # (AUTO) 0.3 10^3/uL (0.0-0.6); ABSOLUTE LYMPHOCYTES (AUTO) 1.3 10^3/uL (0.5-4.7); ABSOLUTE MONOCYTES (AUTO) 0.6 10^3/uL (0.1-1.4); ABSOLUTE NEUT (AUTO) 4.2 10^3/uL (1.7-8.2); BASOPHILS % (AUTO) 0.7 % (0-2); EOSINOPHILS % (AUTO) 4.8 % (0-6); HEMATOCRIT 29.4 % (36.0-47.0); HEMOGLOBIN 9.8 g/dL (12.0-15.5); LYMPHOCYTES % (AUTO) 19.7 % (13-45); MEAN CORPUSCULAR HEMOGLOBIN 29.3 pg (27.0-33.4); MEAN CORPUSCULAR HGB CONC 33.5 g/dL (32.0-36.0); MEAN CORPUSCULAR VOLUME 88 fl (80-97); MONOCYTES % (AUTO) 8.8 % (3-13); PLATELET COUNT 130 10^3/uL (150-450); RED BLOOD COUNT 3.35 10^6/uL (3.72-5.28); RED CELL DISTRIBUTION WIDTH 15.5 % (11.5-14.0); TOTAL CELLS COUNTED % (AUTO) 100 %; WHITE BLOOD COUNT 6.4 10^3/uL (4.0-10.5)
--- NOTE | 2018-02-13 14:47 | ER Document Report ---
ED General <CRUZITO ZULETA - Last Filed: 02/13/18 17:44> - General Mode of Arrival: Medic Information source: Patient TRAVEL OUTSIDE OF THE [place] IN LAST 30 DAYS: No <OMI JEFFERS - Last Filed: 02/14/18 09:45> - General Chief Complaint: Abnormal Lab Results Stated Complaint: ABNORMAL LABS Time Seen by Provider: 02/13/18 14:37 Notes: The patient has a tremendously large right abdominal wall hernia which contains bowel and the right hepatic lobe of the liver. The hernia is not causing any symptoms for the patient. She was recently put on Septra for UTI suppression as she has a chronic Thompson catheter. (CRUZITO ZULETA) Patient is a 62 year old bed ridden female with CHF, COPD, HTN, type 2 diabetes , hypothyroidism was sent to the emergency department from PCP for abnormal lab results. Patient states she saw her PCP yesterday where she had blood work drawn. She states she received a phone call this morning reporting she had an elevated BUN. She states she was then instructed to come to the emergency department for further evaluation. Patient also mentions her primary, MARYAM Bautista, (based out of [place] with [facility]) informed them to receive a CT scan of her ventral hernia for possible repair. Patient is on chronic pain management and takes Percocet, 10 mg, every 4 hours. (OMI JEFFERS) - Related Data Allergies/Adverse Reactions: heparin Allergy (Verified 02/13/18 19:52) RASH,ITCHING Penicillins Allergy (Verified 02/13/18 19:52) RASH spironolactone Adverse Reaction (Verified 02/13/18 19:52) Past Medical History - General Information source: Patient - Social History Smoking Status: Unknown if Ever Smoked Family History: None, CAD, CVA, DM, Hypertension - Past Medical History Cardiac Medical History: Reports: Hx Congestive Heart Failure, Hx Hypercholesterolemia, Hx Hypertension Pulmonary Medical History: Reports: Hx COPD Endocrine Medical History: Reports: Hx Diabetes Mellitus Type 2, Hx Hypothyroidism Renal/ Medical History: Reports: Hx End Stage Renal Disease Malignancy Medical History: Reports: Hx Colorectal Cancer Musculoskeltal Medical History: Reports Hx Arthritis - gout Psychiatric Medical History: Reports: Hx Depression Past Surgical History: Reports: Hx Bowel Surgery - COLON Ca RESECTED, Hx Orthopedic Surgery - right ankle surgery secondary to trimalleolar fracture 2016, Other - History of colectomy - Immunizations Hx Diphtheria, Pertussis, Tetanus Vaccination: Yes Hx Pneumococcal Vaccination: 08/18/12 <OMI JEFFERS - Last Filed: 02/14/18 09:45> Review of Systems - Review of Systems Constitutional: No symptoms reported EENT: No symptoms reported Cardiovascular: No symptoms reported Respiratory: No symptoms reported Gastrointestinal: No symptoms reported Genitourinary: No symptoms reported Female Genitourinary: No symptoms reported Musculoskeletal: No symptoms reported Skin: No symptoms reported Hematologic/Lymphatic: See HPI Neurological/Psychological: No symptoms reported -: Yes All other systems reviewed and negative <OMI JEFFERS - Last Filed: 02/14/18 09:45> Physical Exam - Abdominal Inspection: Other - Very large right sided anterior abdominal wall hernia, this hernia is soft and bowel can be pushed back into the abdomen. There is intertriginous rash on the backside of this hernia where it lays against the right lateral abdominal wall. Distension: No distension - Extremities General lower extremity: Other - Left ankle is in a walking boot type brace for her Charcot ankle. <CRUZITO ZULETA - Last Filed: 02/13/18 17:44> - General General appearance: Appears well, Alert In distress: None - HEENT Head: Normocephalic, Atraumatic Eyes: Normal Conjunctiva: Normal Extraocular movements intact: Yes Pupils: PERRL Neck: Normal - Respiratory Respiratory status: No respiratory distress Chest status: Nontender Breath sounds: Normal Chest palpation: Normal - Cardiovascular Rhythm: Regular Heart sounds: Normal auscultation Murmur: No Friction rub: No Gallop: None auscultated - Abdominal Inspection: Morbidly Obese, Other - Ventral hernia, soft. Distension: No distension Bowel sounds: Normal Organomegaly: No organomegaly - Back Back: Normal - Extremities General upper extremity: Normal ROM - Neurological Neuro grossly intact: Yes Cognition: Normal Orientation: AAOx4 [place] Coma Scale Eye Opening: Spontaneous [place] Coma Scale Verbal: Oriented [place] Coma Scale Motor: Obeys Commands [place] Coma Scale Total: 15 Speech: Normal - Psychological Associated symptoms: Normal affect, Normal mood - Skin Skin Temperature: Warm Skin Moisture: Dry Skin Color: Normal <OMI JEFFERS - Last Filed: 02/14/18 09:45> - Vital signs Vitals: Resp BP Pulse Ox 15 124/54 L 99 02/13/18 16:01 02/13/18 16:01 02/13/18 16:01 Course - Laboratory Result Diagrams: 02/13/18 13:53 02/13/18 13:53 - Consults Dr. Efren Douglas Time consulted: 17:30 Consulted provider: will come to ER <CRUZITO ZULETA - Last Filed: 02/13/18 17:44> - Laboratory Result Diagrams: 02/13/18 13:53 02/14/18 05:03 <OMI JEFFERS - Last Filed: 02/14/18 09:45> - Re-evaluation Re-evalutation: 02/13/18 17:38 The patient's BUN is 87 today, it was 49 three months ago. The creatinine is 2.21 today, it was 1.67 three months ago. (CRUZITO ZULETA) - Vital Signs Vital signs: Temp Pulse Resp BP Pulse Ox 98.6 F 55 L 16 116/43 L 98 02/14/18 09:14 02/14/18 09:14 02/14/18 07:38 02/14/18 09:14 02/14/18 09:14 - Laboratory Laboratory results interpreted by me: 02/13/18 02/13/18 02/13/18 13:53 13:53 13:53 RBC 3.35 L Hgb 9.8 L Hct 29.4 L RDW 15.5 H Plt Count 130 L Potassium 5.6 H BUN 87 H Creatinine 2.21 H Est GFR ( Amer) 27 L Est GFR (Non-Af Amer) 23 L AST 12 L Creatine Kinase 26 L NT-Pro-B Natriuret Pep Albumin 3.3 L Urine Blood Ur Leukocyte Esterase 02/13/18 02/13/18 13:53 15:00 RBC Hgb Hct RDW Plt Count Potassium BUN Creatinine Est GFR ( Amer) Est GFR (Non-Af Amer) AST Creatine Kinase NT-Pro-B Natriuret Pep 8050 H Albumin Urine Blood SMALL H Ur Leukocyte Esterase SMALL H Discharge - Discharge Admitting Provider: Hospitalist Unit Admitted: Medical Floor <CRUZITO ZULETA - Last Filed: 02/13/18 17:44> <OMI JEFFERS - Last Filed: 02/14/18 09:45> - Discharge Clinical Impression: CKD (chronic kidney disease) stage 4, GFR 15-29 ml/min, Morbid obesity, Diastolic CHF, chronic, Intertrigo Diabetes Qualifiers: Diabetes mellitus type: type 2 Diabetes mellitus superintendent terminal insulin use: unspecified superintendent terminal insulin use status Diabetes mellitus complication status: with other specified complication Qualified Code(s): E11.69 - Type 2 diabetes mellitus with other specified complication Chronic renal disease Qualifiers: Chronic kidney disease stage: stage 4 (severe) Qualified Code(s): N18.4 - Chronic kidney disease, stage 4 (severe) UTI (urinary tract infection) Qualifiers: Urinary tract infection type: catheter-associated UTI Indwelling urinary catheter type: indwelling urethral catheter Encounter type: initial encounter Qualified Code(s): T83.511A - Infection and inflammatory reaction due to indwelling urethral catheter, initial encounter Ventral hernia Qualifiers: Obstruction and gangrene presence: without obstruction or gangrene Qualified Code(s): K43.9 - Ventral hernia without obstruction or gangrene Condition: Stable Disposition: ADMITTED INPATIENT Scribe Attestation: 02/13/18 15:25 I personally performed the services described in the documentation, reviewed and edited the documentation which was dictated to the scribe in my presence, and it accurately records my words and actions. (CRUZITO ZULETA) Scribe Documentation - Scribe Written by Scribe:: Xavi Tellez, 02/13/2018 14:59 acting as scribe for :: Pat <OMI JEFFERS - Last Filed: 02/14/18 09:45>
[2018-02-13 14:52] LABS: ALANINE AMINOTRANSFERASE 20 U/L (9-52); ALBUMIN 3.3 g/dL (3.5-5.0); ALKALINE PHOSPHATASE 81 U/L (38-126); ANION GAP 11 (5-19); ASPARTATE AMINO TRANSFERASE 12 U/L (14-36); BILIRUBIN,DIRECT 0.4 mg/dL (0.0-0.4); BILIRUBIN,TOTAL 0.6 mg/dL (0.2-1.3); BLOOD UREA NITROGEN 87 mg/dL (7-20); CALCIUM 9.3 mg/dL (8.4-10.2); CARBON DIOXIDE 28 mmol/L (22-30); CHLORIDE 102 mmol/L (98-107); GLUCOSE 102 mg/dL (75-110); POTASSIUM 5.6 mmol/L (3.6-5.0); SODIUM 140.6 mmol/L (137-145); TOTAL PROTEIN 6.7 g/dL (6.3-8.2)
[2018-02-13] MEDS ORDERED: NORMAL SALINE 1000 ML 1,000 ML IV ONE (14:59)
[2018-02-13 15:25] LABS: CREATINE KINASE 26 U/L (30-135)
[2018-02-13 15:27] LABS: APPEARANCE,URINE SLIGHTLY-CLOUDY; BILIRUBIN,URINE NEGATIVE (NEGATIVE); COLOR,URINE YELLOW; GLUCOSE, URINE NEGATIVE (NEGATIVE); KETONES,URINE NEGATIVE (NEGATIVE); LEUKOCYTE ESTERASE,URINE SMALL (NEGATIVE); NITRITE,URINE NEGATIVE (NEGATIVE); PROTEIN,URINE NEGATIVE (NEGATIVE); URINE SPECIFIC GRAVITY 1.009; UROBILINOGEN,URINE NEGATIVE mg/dL (<2.0)
[2018-02-13 15:36] LABS: TROPONIN I 0.02 ng/mL
[2018-02-13] MEDS ORDERED: DOCUSATE SODIUM 100 MG CAPSULE PO PRN (18:10)
[2018-02-13] MEDS ORDERED: (PENDING PHARMACY ID) (Oxycodone Hcl/Acetaminophen [Percocet 10-325 Mg Tablet] 1 EACH) PO PRN (18:10)
[2018-02-13] MEDS ORDERED: ALBUTEROL SULFATE HFA (90 MCG/PUFF) 8 GM MDI (1 MDI/ER DISP) IH PRN (18:10)
--- NOTE | 2018-02-13 18:24 | PDOC H&P ---
History of Present Illness Admission Date/PCP: 02/13/18 18:10 MARYAM JENSEN History of Present Illness: JOJO BACK is a 62 year old female with multiple medical comorbidities and apparently is bedbound and oxygen dependent was sent here by her primary care provider because she had some abnormal blood work couple of days ago. Apparently her BUN and creatinine were elevated above their baseline. Patient herself says she feels fine. She does not drink as much water at home as she is allegedly supposed to, she says because she is just not thirsty. She also has a chronic indwelling Thompson because she is bedbound and she was put on Bactrim several days ago at a prophylactic dose. She has not noticed any real change in her urine output. Her eating habits stayed the same. She has a known large right-sided ventral hernia but she has not had any pain or discomfort from that. Past Medical History Cardiac Medical History: Reports: Congestive Heart Failure, Hyperlipidema, Hypertension Pulmonary Medical History: Reports: Chronic Obstructive Pulmonary Disease (COPD) Endocrine Medical History: Reports: Diabetes Mellitus Type 2, Hypothyroidism Renal/ Medical History: Reports: End Stage Renal Disease Malignancy Medical History: Reports: Colorectal Cancer Musculoskeltal Medical History: Reports: Arthritis - gout Psychiatric Medical History: Reports: Depression Past Surgical History Past Surgical History: Reports: Orthopedic Surgery - right ankle surgery secondary to trimalleolar fracture 09/2016, Other - History of colectomy Social History Information Source: Patient Lives with: Family Smoking Status: Never Smoker Frequency of Alcohol Use: None Hx Recreational Drug Use: No Hx Prescription Drug Abuse: No Family History Family History: None, CAD, CVA, DM, Hypertension Parental Family History Reviewed: No - Noncontributory Children Family History Reviewed: No - Noncontributory Sibling(s) Family History Reviewed.: No - Noncontributory Medication/Allergy Home Medications: Albuterol Sulfate [Proair HFA] 2 puff IH Q4HP PRN 01/31/17 Aspirin [Aspirin EC] 81 mg PO Q12 01/31/17 Budesonide/Formoterol Fumarate [Symbicort HFA 80-4.5 mcg Inhaler 6.9 gm] 2 puff IH Q12 01/31/17 Cetirizine HCl [Zyrtec 10 mg Tablet] 10 mg PO DAILYP PRN 01/31/17 Citalopram Hydrobromide [Celexa 40 mg Tablet] 1 tab PO QAM 01/31/17 Docusate Sodium [Colace 100 mg Capsule] 100 mg PO Q12HP PRN 01/31/17 Ergocalciferol (Vitamin D2) [Vitamin D2] 50,000 unit PO MARIE@1000 01/31/17 Insulin Regular, Human [Humulin R (Reg) Insulin 100 unit/mL] 5 unit SUBCUT .SLD SCALE 01/31/17 Levothyroxine Sodium [Synthroid 0.1 mg Tablet] 0.2 mg PO QAM 01/31/17 Metoprolol Succinate [Toprol Xl 25 mg Tab.sr] 25 mg PO Q12 01/31/17 Oxycodone HCl/Acetaminophen [Percocet 10-325 mg Tablet] 1 each PO Q6HP PRN 01/31 Simvastatin [Zocor 10 mg Tablet] 10 mg PO QHS 01/31/17 Vitamin B Complex [B Complex] 1 each PO QAM 01/31/17 Apixaban [Eliquis 5 mg Tablet] 5 mg PO Q12 #60 tablet 02/07/17 Bumetanide [Bumex 1 mg Tablet] 1 mg PO BID #60 tablet 02/07/17 Doxycycline Hyclate [Vibramycin 100 mg Tablet] 100 mg PO Q12 #10 tablet Ferrous Sulfate [Feosol 325 mg Tablet] 325 mg PO NOON #30 tablet 02/07/17 NPH, Human Insulin Isophane [Humulin N (NPH) Insulin 100 unit/mL] 45 unit SUBCUT QHS unit 02/07/17 Silver Sulfadiaz/Foam Bandage [Allevyn Ag Gentle Dress 8"X8"] 1 each TP DAILY # 10 bandage 03/22/17 Sulfamethoxazole/Trimethoprim [Bactrim Ds Tablet] 1 each PO BID #20 tablet 03/22 Cephalexin Monohydrate [Keflex 500 mg Capsule] 500 mg PO QID #28 capsule Doxycycline Hyclate 100 mg PO BID #14 tablet 03/27/17 Ciprofloxacin HCl [Cipro 500 mg Tablet] 500 mg PO BID #20 tablet 08/15/17 Allergies/Adverse Reactions: heparin Allergy (Verified 11/12/17 17:34) Penicillins Allergy (Verified 11/12/17 17:34) spironolactone Adverse Reaction (Verified 11/12/17 17:34) Review of Systems All systems: reviewed and no additional remarkable complaints except as stated - 10 point review of systems was conducted with the patient and was negative. Physical Exam General appearance: PRESENT: no acute distress, disheveled, morbidly obese, well -developed Head exam: PRESENT: atraumatic, normocephalic Eye exam: PRESENT: conjunctiva pink, EOMI, PERRLA. ABSENT: scleral icterus Ear exam: PRESENT: normal external ear exam Mouth exam: PRESENT: moist, neck supple Throat exam: ABSENT: post pharyngeal erythema, tonsillar erythema, tonsillar exudate, tonsillogmegaly Neck exam: ABSENT: carotid bruit, JVD, lymphadenopathy, thyromegaly Respiratory exam: PRESENT: clear to auscultation jerome, unlabored. ABSENT: accessory muscle use, rales, rhonchi, wheezes Cardiovascular exam: PRESENT: RRR. ABSENT: diastolic murmur, rubs, systolic murmur Pulses: PRESENT: normal carotid pulses, normal radial pulses Vascular exam: PRESENT: normal capillary refill GI/Abdominal exam: PRESENT: mass - She has a large right abdominal ventral hernia that is reducible and has normal bowel sounds and is nontender, normal bowel sounds, soft. ABSENT: distended, guarding, organolmegaly, rebound, tenderness Rectal exam: PRESENT: deferred Extremities exam: PRESENT: other - Charcot joint left ankle. ABSENT: clubbing, pedal edema Musculoskeletal exam: ABSENT: ambulatory Neurological exam: PRESENT: alert, awake, oriented to person, oriented to place , oriented to time, CN II-XII grossly intact Results Laboratory Results: Reviewed Assessment & Plan - Diagnosis (1) Zueuy-yp-[id number] kidney injury Qualifiers: Chronic kidney disease stage: stage 3 (moderate) Is this a current diagnosis for this admission?: Yes Plan: We will gently hydrate her in light of all of her other medical issues, monitor her urine output, and repeat her metabolic panel in the morning. If her creatinine comes close to normalizing for her, we can probably discharge her home tomorrow. (2) Chronic hypoxemic respiratory failure Is this a current diagnosis for this admission?: Yes Plan: Continue supplemental O2 at 2 L/min as she is at home. (3) Diastolic CHF, chronic Is this a current diagnosis for this admission?: Yes Plan: BNP is elevated, but she does not appear acutely exacerbated. Will keep a close eye out for development of fluid overload as we are giving her IV fluids. (4) Intertrigo Is this a current diagnosis for this admission?: Yes Plan: We will administer antifungal cream (5) Morbid obesity Is this a current diagnosis for this admission?: Yes Plan: Encourage lifestyle modification (6) Ventral hernia Qualifiers: Obstruction and gangrene presence: without obstruction or gangrene Qualified Code(s): K43.9 - Ventral hernia without obstruction or gangrene Plan: Nothing to do at this point. She will follow-up as an outpatient with her primary care provider. (7) Ambulatory dysfunction Is this a current diagnosis for this admission?: Yes Plan: Turned every 2 hours - Time Time Spent: 50 to 70 Minutes Medications reviewed and adjusted accordingly: Yes - Inpatient Certification Medical Necessity: Significant Comorbidiites Make Outpatient Treatment Too Risky , Need Close Monitoring Due to Risk of Patient Decompensation, Need For IV Fluids
[2018-02-13] MEDS ORDERED: ALBUTEROL SULFATE HFA (90 MCG/PUFF) 200 PUFF/8.5 GM MDI IH PRN (18:51)
[2018-02-13] MEDS ORDERED: CETIRIZINE 10 MG TABLET PO PRN (20:37)
[2018-02-13] MEDS: NORMAL SALINE 1000 ML 1,000 ML IV PRN (21:35)
[2018-02-13] MEDS: OXYCODONE HCL IR 5 MG TABLET PO PRN (21:35)
[2018-02-13] MEDS: OXYCODONE-ACETAMINOPHEN 5-325 MG TABLET PO PRN (21:35)
[2018-02-13] MEDS: SIMVASTATIN 10 MG TABLET PO SCH (21:35)
[2018-02-13] MEDS: INSULIN NPH (ISOPHANE), HUMAN 100 UNIT/ML 3 ML SUBCUT SCH (21:36)
[2018-02-13] MEDS ORDERED: INSULIN NPH (ISOPHANE), HUMAN 100 UNIT/ML 3 ML SUBCUT SCH (22:00)
[2018-02-13] MEDS ORDERED: APIXABAN 5 MG TABLET PO SCH (22:00)
[2018-02-13] MEDS ORDERED: BUDESONIDE/FORMOTEROL 80-4.5 MCG 60 PUFF/6.9 GM MDI IH SCH (22:00)
[2018-02-13] MEDS ORDERED: ASPIRIN 81 MG TABLET, ENT COATED PO SCH (22:00)
[2018-02-14] MEDS: NORMAL SALINE 1000 ML 1,000 ML IV PRN ×2 (06:26→21:39)
[2018-02-14] MEDS: LEVOTHYROXINE SODIUM 0.1 MG TABLET PO SCH (06:26)
[2018-02-14 06:41] LABS: ANION GAP 11 (5-19); BLOOD UREA NITROGEN 88 mg/dL (7-20); CALCIUM 8.9 mg/dL (8.4-10.2); CARBON DIOXIDE 24 mmol/L (22-30); CHLORIDE 108 mmol/L (98-107); GLUCOSE 100 mg/dL (75-110); POTASSIUM 5.3 mmol/L (3.6-5.0); SODIUM 142.6 mmol/L (137-145)
[2018-02-14] MEDS ORDERED: (PENDING PHARMACY ID) (Citalopram Hydrobromide [Celexa 40 Mg Tablet] 1 TAB) PO SCH (08:00)
[2018-02-14] MEDS: CITALOPRAM HYDROBROMIDE 20 MG TABLET PO SCH (08:22)
[2018-02-14] MEDS: OXYCODONE HCL IR 5 MG TABLET PO PRN ×2 (08:23→21:39)
[2018-02-14] MEDS: OXYCODONE-ACETAMINOPHEN 5-325 MG TABLET PO PRN (08:23)
[2018-02-14] MEDS: ASPIRIN 325 MG TABLET PO SCH (09:14)
[2018-02-14] MEDS: CHOLECALCIFEROL (D3) 1,000 UNIT TABLET PO SCH (09:14)
[2018-02-14] MEDS: METOPROLOL SUCCINATE 25 MG TAB.SR.24H PO SCH (10:09)
[2018-02-14] MEDS: BUMETANIDE 1 MG TABLET PO SCH (10:10)
[2018-02-14] MEDS ORDERED: FERROUS SULFATE 325 MG TABLET PO SCH (12:00)
--- NOTE | 2018-02-14 13:56 | PDOC PROGRESS REPORT ---
Subjective Progress Note for:: 02/14/18 Subjective:: No adverse events overnight. No new complaints. Vital signs been stable. He has had an acceptable amount of urine output but her input has been over double what her output is. She denies any chest pain or shortness of breath. No cough. She says she actually slept pretty well last night for the first time in weeks. Reason For Visit: ACUTE ON CHRONIC KIDNEY INJURY Physical Exam Vital Signs: Temp Pulse Resp BP Pulse Ox 98.6 F 53 L 20 129/49 H 98 02/14/18 11:44 02/14/18 11:44 02/14/18 11:44 02/14/18 11:44 02/14/18 11:44 Intake & Output 02/13/18 02/14/18 02/15/18 06:59 06:59 06:59 Intake Total 1416 1022 Output Total 600 400 Balance 816 622 Weight 148.5 kg General appearance: PRESENT: no acute distress, disheveled, morbidly obese Respiratory exam: PRESENT: clear to auscultation jerome. ABSENT: rales, rhonchi, wheezes Cardiovascular exam: PRESENT: RRR. ABSENT: diastolic murmur, rubs, systolic murmur GI/Abdominal exam: PRESENT: mass - She has a large ventral hernia on the right with good bowel sounds that is reducible and nontender, normal bowel sounds, soft. ABSENT: distended, guarding, organolmegaly, rebound, tenderness Extremities exam: ABSENT: clubbing, pedal edema Neurological exam: PRESENT: alert, awake, oriented to person, oriented to place , oriented to time Results Laboratory Results: 02/14/18 05:03 02/14/18 05:03 Sodium 142.6 Potassium 5.3 H Chloride 108 H Carbon Dioxide 24 Anion Gap 11 BUN 88 H Creatinine 2.19 H Est GFR ( Amer) 28 L Est GFR (Non-Af Amer) 23 L Glucose 100 Calcium 8.9 Assessment & Plan - Diagnosis (1) Puvxd-pw-brbxqkq kidney injury Qualifiers: Chronic kidney disease stage: stage 3 (moderate) Is this a current diagnosis for this admission?: Yes Plan: We will continue with gentle hydration with monitoring of her urine output. Her creatinine did not really change. I wonder if we are actually closer to baseline than was previously felt. If she is euvolemic tomorrow and her creatinine is unchanged we will probably let her go home at that time. (2) Chronic hypoxemic respiratory failure Is this a current diagnosis for this admission?: Yes Plan: Continue supplemental O2 at 2 L/min as she is at home. (3) Diastolic CHF, chronic Is this a current diagnosis for this admission?: Yes Plan: BNP is elevated, but she does not appear acutely exacerbated. Will keep a close eye out for development of fluid overload as we are giving her IV fluids. (4) Intertrigo Is this a current diagnosis for this admission?: Yes Plan: We will administer antifungal cream (5) Morbid obesity Is this a current diagnosis for this admission?: Yes Plan: Encourage lifestyle modification (6) Ventral hernia Qualifiers: Obstruction and gangrene presence: without obstruction or gangrene Qualified Code(s): K43.9 - Ventral hernia without obstruction or gangrene Is this a current diagnosis for this admission?: Yes Plan: Nothing to do at this point. She will follow-up as an outpatient with her primary care provider. (7) Ambulatory dysfunction Is this a current diagnosis for this admission?: Yes Plan: Turned every 2 hours - Time Time Spent with patient: 25-34 minutes Medications reviewed and adjusted accordingly: Yes
[2018-02-14] MEDS ORDERED: DEXTROSE 50%-WATER 25 GM/50 ML DISP.SYRIN IV PRN ×2 (16:02)
[2018-02-14] MEDS ORDERED: GLUCAGON,HUMAN RECOMB 1 MG INJ IM PRN (16:02)
[2018-02-14] MEDS ORDERED: DEXTROSE 40% GEL 15 GM TUBE PO PRN ×2 (16:02)
[2018-02-14] MEDS: INSULIN LISPRO 100 UNIT/ML 3 ML VIAL SUBCUT PRN (17:09)
[2018-02-14] MEDS: INSULIN NPH (ISOPHANE), HUMAN 100 UNIT/ML 3 ML SUBCUT SCH (21:39)
[2018-02-14] MEDS: SIMVASTATIN 10 MG TABLET PO SCH (21:39)
[2018-02-15 05:31] LABS: ANION GAP 7 (5-19); BLOOD UREA NITROGEN 83 mg/dL (7-20); CALCIUM 8.7 mg/dL (8.4-10.2); CARBON DIOXIDE 26 mmol/L (22-30); CHLORIDE 109 mmol/L (98-107); GLUCOSE 100 mg/dL (75-110); POTASSIUM 5.9 mmol/L (3.6-5.0); SODIUM 141.7 mmol/L (137-145)
[2018-02-15] MEDS: NORMAL SALINE 1000 ML 1,000 ML IV PRN ×2 (06:47→07:48)
[2018-02-15] MEDS: LEVOTHYROXINE SODIUM 0.1 MG TABLET PO SCH (06:47)
[2018-02-15] MEDS: CITALOPRAM HYDROBROMIDE 20 MG TABLET PO SCH (07:48)
[2018-02-15] MEDS: CHOLECALCIFEROL (D3) 1,000 UNIT TABLET PO SCH (09:48)
[2018-02-15] MEDS: BUMETANIDE 1 MG TABLET PO SCH (09:48)
[2018-02-15] MEDS: METOPROLOL SUCCINATE 25 MG TAB.SR.24H PO SCH (09:49)
[2018-02-15] MEDS: ASPIRIN 325 MG TABLET PO SCH (09:49)
[2018-02-15] MEDS: INSULIN LISPRO 100 UNIT/ML 3 ML VIAL SUBCUT PRN (12:01)
[2018-02-15] MEDS ORDERED: SODIUM POLYSTYRENE SULFONATE 15 GM/60 ML PO ONE (13:15)
[2018-02-15 15:36] VITALS: BP 124/38
--- NOTE | 2018-02-15 17:45 | PDOC DISCHARGE SUMMARY ---
General - Admit/Disc Date/PCP Admission Date/Primary Care Provider: 02/13/18 18:10 MARYAM JENSEN Discharge Date: 02/15/18 - Discharge Diagnosis (1) Oqvin-vs-djqysqy kidney injury Is this a current diagnosis for this admission?: Yes Summary: We hydrated her for couple of days her BUN and creatinine did not change. She is now euvolemic. I suspect that this is ATN from the Bactrim that she was on. I told her that she should not take Bactrim with her chronic kidney disease, and if her doctor wants to use something for antimicrobial prophylaxis due to her chronic indwelling Thompson, another antibiotic should be used, and that that antibiotic should not be Macrobid. (2) Chronic hypoxemic respiratory failure Is this a current diagnosis for this admission?: Yes Summary: Stable on her usual level of home oxygen. (3) Diastolic CHF, chronic Is this a current diagnosis for this admission?: Yes Summary: Not exacerbated this hospitalization. (4) Intertrigo Is this a current diagnosis for this admission?: Yes Summary: She can use an glns-ojv-nxjqeko antifungal cream. (5) Morbid obesity Is this a current diagnosis for this admission?: Yes Summary: Encourage lifestyle modification. (6) Ventral hernia Is this a current diagnosis for this admission?: Yes Summary: Nothing to do for that at this point. It is not incarcerated. It would be a very difficult operation under good circumstances. (7) Ambulatory dysfunction Is this a current diagnosis for this admission?: Yes Summary: She will continue home health physical therapy. - Additional Information Discharge Diet: Other (Comments) Discharge Activity: Activity As Tolerated Home Medications: Cetirizine HCl [Zyrtec 10 mg Tablet] 10 mg PO DAILYP PRN 01/31/17 Citalopram Hydrobromide [Celexa 40 mg Tablet] 40 mg PO QAM 01/31/17 Docusate Sodium [Colace 100 mg Capsule] 100 mg PO DAILY 01/31/17 Insulin Regular, Human [Humulin R (Reg) Insulin 100 unit/mL] 4 unit SUBCUT .SLD SCALE 01/31/17 Metoprolol Succinate [Toprol Xl 25 mg Tab.sr] 25 mg PO DAILY 01/31/17 Oxycodone HCl/Acetaminophen [Percocet 10-325 mg Tablet] 1 each PO TIDP PRN MDD 3 TABS DAILY 01/31/17 Simvastatin [Zocor 10 mg Tablet] 10 mg PO QHS 01/31/17 Vitamin B Complex [B Complex] 1 each PO MOWEFR@0800 01/31/17 Bumetanide [Bumex 1 mg Tablet] 1 mg PO BID #60 tablet 02/07/17 Aspirin [Aspirin 325 mg Tablet] 325 mg PO DAILY 02/13/18 Cholecalciferol (Vitamin D3) [Vitamin D3 5000 unit Capsule] 5,000 unit PO DAILY 02/13/18 Levothyroxine Sodium [Synthroid] 200 mcg PO Q6AM 02/13/18 Methylsulfonylmethane [MSM] 1,000 mg PO MOWEFR@1800 02/13/18 NPH, Human Insulin Isophane [Humulin N (NPH) Insulin 100 unit/mL] 36 unit SQ QHS 02/13/18 Pantoprazole Sodium [Protonix] 40 mg PO DAILYP PRN 02/13/18 History of Present Illness History of Present Illness: JOJO BACK is a 62 year old female with multiple medical comorbidities and apparently is bedbound and oxygen dependent was sent here by her primary care provider because she had some abnormal blood work couple of days ago. Apparently her BUN and creatinine were elevated above their baseline. Patient herself says she feels fine. She does not drink as much water at home as she is allegedly supposed to, she says because she is just not thirsty. She also has a chronic indwelling Thompson because she is bedbound and she was put on Bactrim several days ago at a prophylactic dose. She has not noticed any real change in her urine output. Her eating habits stayed the same. She has a known large right-sided ventral hernia but she has not had any pain or discomfort from that. Hospital Course Hospital Course: We gave her some IV fluids and monitor her fluid overload. We will correct her fluid deficit her BUN and creatinine did not change. From about a week before she came in the hospital, once a day for UTI prophylaxis due to her chronic indwelling Thompson. I suspect that the Bactrim probably caused some ATN. Recommended that she not take Bactrim anymore and that if she needed antimicrobial prophylaxis that it should not be with Macrobid either. She was discharged home on her otherwise usual list of medications. Her exam and labs were reassuring and she was discharged in good condition. Physical Exam Vital Signs: Temp Pulse Resp BP Pulse Ox 97.9 F 54 L 14 124/38 L 97 02/15/18 15:34 02/15/18 15:34 02/15/18 15:34 02/15/18 15:34 02/15/18 15:34 Intake & Output 02/14/18 02/15/18 02/16/18 06:59 06:59 06:59 Intake Total 1416 4012 902 Output Total 600 1400 500 Balance 816 2612 402 Weight 148.5 kg 148.5 kg General appearance: PRESENT: no acute distress, disheveled, morbidly obese, well -developed Respiratory exam: PRESENT: clear to auscultation jerome, unlabored. ABSENT: rales , rhonchi, wheezes Cardiovascular exam: PRESENT: RRR. ABSENT: diastolic murmur, rubs, systolic murmur GI/Abdominal exam: PRESENT: mass - Large right-sided ventral hernia with good bowel sounds it is nontender and reducible, normal bowel sounds, soft. ABSENT: distended, guarding, organolmegaly, rebound, tenderness Extremities exam: ABSENT: clubbing, pedal edema Neurological exam: PRESENT: alert, awake, oriented to person, oriented to place , oriented to time Results Laboratory Results: 02/15/18 03:57 02/15/18 03:57 Sodium 141.7 Potassium 5.9 H Chloride 109 H Carbon Dioxide 26 Anion Gap 7 BUN 83 H Creatinine 2.20 H Est GFR ( Amer) 28 L Est GFR (Non-Af Amer) 23 L Glucose 100 Calcium 8.7 Qualifiers - * PATIENT BEING DISCHARGED WITH ANY OF THE FOLLOWING DIAGNOSIS: No
[2018-02-16] MEDS ORDERED: METHYLSULFONYLMETHANE 1000 MG PO SCH (18:00)
== END 2018-02-15 17:55 | disposition home health service (06) | DRG 683 ==
LOC: ER 14:07 → EH 18:10 → 4N 19:16
PROVIDERS: ADMIT Internal Medicine; ATTEND Internal Medicine
DX: N17.0 Acute kidney failure with tubular necrosis (principal); I50.32 Chronic diastolic (congestive) heart failure; J96.11 Chronic respiratory failure with hypoxia; Z68.42 Body mass index [BMI] 45.0-49.9, adult; I13.0 Hypertensive heart and chronic kidney disease with heart failure and stage 1 through stage 4 chronic kidney disease, or unspecified chronic kidney disease; L30.4 Erythema intertrigo; E66.01 Morbid (severe) obesity due to excess calories; K43.9 Ventral hernia without obstruction or gangrene; E78.00 Pure hypercholesterolemia, unspecified; E11.22 Type 2 diabetes mellitus with diabetic chronic kidney disease; J44.9 Chronic obstructive pulmonary disease, unspecified; E03.9 Hypothyroidism, unspecified; M10.9 Gout, unspecified; F32.9 Major depressive disorder, single episode, unspecified; N18.4 Chronic kidney disease, stage 4 (severe); G89.29 Other chronic pain; Z88.8 Allergy status to other drugs, medicaments and biological substances; Z99.81 Dependence on supplemental oxygen; Z79.82 Long term (current) use of aspirin; Z79.4 Long term (current) use of insulin; Z79.899 Other long term (current) drug therapy; Z74.01 Bed confinement status; Z85.038 Personal history of other malignant neoplasm of large intestine; Z90.49 Acquired absence of other specified parts of digestive tract; Z88.0 Allergy status to penicillin; Z91.09 Other allergy status, other than to drugs and biological substances; Z82.3 Family history of stroke; Z83.3 Family history of diabetes mellitus; Z82.49 Family history of ischemic heart disease and other diseases of the circulatory system
CPT/HCPCS: 36415; 80048; 80053; 81001; 82550; 82962; 83690; 83880; 84484; 85025; 87086; 96360; 99284; J1815; J3490; J7030

== ENCOUNTER 2018-03-17 14:40 | Emergency (ER) | payer MEDICARE ==
[2018-03-17 15:07] LABS: ABSOLUTE EOSINOPHILS # (AUTO) 0.2 10^3/uL (0.0-0.6); ABSOLUTE LYMPHOCYTES (AUTO) 1.1 10^3/uL (0.5-4.7); ABSOLUTE MONOCYTES (AUTO) 0.5 10^3/uL (0.1-1.4); ABSOLUTE NEUT (AUTO) 3.5 10^3/uL (1.7-8.2); BASOPHILS % (AUTO) 0.7 % (0-2); EOSINOPHILS % (AUTO) 3.4 % (0-6); HEMATOCRIT 28.7 % (36.0-47.0); HEMOGLOBIN 9.5 g/dL (12.0-15.5); LYMPHOCYTES % (AUTO) 20.8 % (13-45); MEAN CORPUSCULAR HEMOGLOBIN 28.4 pg (27.0-33.4); MEAN CORPUSCULAR HGB CONC 33.2 g/dL (32.0-36.0); MEAN CORPUSCULAR VOLUME 85 fl (80-97); MONOCYTES % (AUTO) 9.1 % (3-13); PLATELET COUNT 146 10^3/uL (150-450); RED BLOOD COUNT 3.36 10^6/uL (3.72-5.28); RED CELL DISTRIBUTION WIDTH 14.4 % (11.5-14.0); TOTAL CELLS COUNTED % (AUTO) 100 %; WHITE BLOOD COUNT 5.4 10^3/uL (4.0-10.5)
[2018-03-17 16:27] LABS: ANION GAP 8 (5-19); BLOOD UREA NITROGEN 54 mg/dL (7-20); CALCIUM 9.8 mg/dL (8.4-10.2); CARBON DIOXIDE 33 mmol/L (22-30); CHLORIDE 100 mmol/L (98-107); GLUCOSE 153 mg/dL (75-110); POTASSIUM 4.4 mmol/L (3.6-5.0); SODIUM 141.2 mmol/L (137-145)
--- NOTE | 2018-03-17 16:53 | ER Document Report ---
ED General - General Chief Complaint: Abnormal Lab Results Stated Complaint: ABNORMAL LABS Time Seen by Provider: 03/17/18 15:18 Notes: 62-year-old female. Morbidly obese to the emergency department for evaluation of abnormal labs. Apparently patient had labs drawn by primary care doctor. BNP was elevated. Patient denies any complaints however her states that she is bedbound and has had increased work of breathing. He is concerned that she may have worsening kidney or worsening congestive heart failure. Patient is bedbound and has an indwelling Thompson catheter. Was admitted to the hospital approximately 1 month ago for acute renal insufficiency and congestive heart failure. Previous BNP was in the 8000 range and today it is in the 11, 000 range. Denies any fever, chills, sweats. Patient is nonambulatory. TRAVEL OUTSIDE OF THE [place] IN LAST 30 DAYS: No - HPI Onset: Last week Onset/Duration: Gradual - Related Data Allergies/Adverse Reactions: heparin Allergy (Verified 02/13/18 19:52) RASH,ITCHING Penicillins Allergy (Verified 02/13/18 19:52) RASH spironolactone Adverse Reaction (Verified 02/13/18 19:52) Past Medical History - General Information source: Patient, [facility] - Social History Smoking Status: Never Smoker Chew tobacco use (# tins/day): No Frequency of alcohol use: None Drug Abuse: None Lives with: Spouse/Significant other Family History: None, CAD, CVA, DM, Hypertension Patient has suicidal ideation: No Patient has homicidal ideation: No - Past Medical History Cardiac Medical History: Reports: Hx Congestive Heart Failure, Hx Hypercholesterolemia, Hx Hypertension Pulmonary Medical History: Reports: Hx COPD Endocrine Medical History: Reports: Hx Diabetes Mellitus Type 2, Hx Hypothyroidism Renal/ Medical History: Reports: Hx End Stage Renal Disease. Denies: Hx Peritoneal Dialysis Malignancy Medical History: Reports: Hx Colorectal Cancer Musculoskeletal Medical History: Reports Hx Arthritis - gout Psychiatric Medical History: Reports: Hx Depression Past Surgical History: Reports: Hx Bowel Surgery - COLON Ca RESECTED, Hx Orthopedic Surgery - right ankle surgery secondary to trimalleolar fracture 2016, Other - History of colectomy - Immunizations Hx Diphtheria, Pertussis, Tetanus Vaccination: Yes Hx Pneumococcal Vaccination: 08/18/12 Review of Systems - Review of Systems Constitutional: denies: Fever, Malaise, Weakness EENT: denies: Double vision, Difficulty swallowing, Mouth pain Cardiovascular: Dyspnea. denies: Chest pain, Palpitations, Heart racing Respiratory: Short of breath. denies: Cough, Hurts to breathe, Wheezing Gastrointestinal: denies: Abdominal pain, Diarrhea, Nausea, Vomiting Genitourinary: denies: Burning, Discharge, Flank pain Musculoskeletal: denies: Back pain, Joint pain, Muscle pain Skin: denies: Dryness, Lesions, Lumps, Rash Hematologic/Lymphatic: Blood clots. denies: Anemia, Easy bleeding, Easy bruising Neurological/Psychological: denies: Confusion, Weakness, Numbness Physical Exam - Vital signs Vitals: Resp Pulse Ox 15 97 03/17/18 15:13 03/17/18 15:13 Interpretation: Normal - Notes Notes: Approximately 400 pound morbidly obese female in no acute distress. Slightly pale. - General General appearance: Appears well, Alert - HEENT Head: Normocephalic, Atraumatic Eyes: Normal Pupils: PERRL - Respiratory Respiratory status: No respiratory distress Chest status: Nontender Breath sounds: Normal Chest palpation: Normal - Cardiovascular Rhythm: Regular Heart sounds: Normal auscultation Murmur: No - Abdominal Inspection: Normal Distension: No distension Bowel sounds: Normal Tenderness: Nontender Organomegaly: No organomegaly - Back Back: Normal, Nontender - Extremities General upper extremity: Normal inspection, Nontender, Normal color, Normal ROM , Normal temperature General lower extremity: Normal inspection, Nontender, Edema, Normal color, Normal ROM, Normal temperature. No: Warner's sign - Neurological Neuro grossly intact: Yes Cognition: Normal Orientation: AAOx4 [place] Coma Scale Eye Opening: Spontaneous [place] Coma Scale Verbal: Oriented [place] Coma Scale Motor: Obeys Commands [place] Coma Scale Total: 15 Speech: Normal Motor strength normal: LUE, RUE, LLE, RLE Sensory: Normal - Psychological Associated symptoms: Normal affect, Normal mood - Skin Skin Temperature: Warm Skin Moisture: Dry Skin Color: Normal Course - Re-evaluation Re-evalutation: 03/17/18 18:34 Patient denies any complaints however her thinks that she is altered and short of breath. Patient does not appear altered at this time. Regardless her BNP is elevated. Chest x-ray does not show significant signs of congestive heart failure. Patient has chronic lower extremity edema. Will consult with the hospitalist at this time to see if she warranted admission at this time will be comfortable with that. Patient is not comfortable with that. 03/17/18 19:23 At this time medicine is seen patient. Patient does not want to be admitted and patient does not need to be admitted at this time. Will change her medication dosing. Giving her a dose of Lasix at this time. Will DC shortly. - Vital Signs Vital signs: Temp Pulse Resp BP Pulse Ox 15 155/63 H 99 03/17/18 19:01 03/17/18 19:01 03/17/18 19:01 - Laboratory Result Diagrams: 03/17/18 14:48 03/17/18 15:56 Laboratory results interpreted by me: 03/17/18 03/17/18 03/17/18 14:48 15:56 15:56 RBC 3.36 L Hgb 9.5 L Hct 28.7 L RDW 14.4 H Plt Count 146 L Carbon Dioxide 33 H BUN 54 H Creatinine 1.36 H Est GFR ( Amer) 48 L Est GFR (Non-Af Amer) 40 L Glucose 153 H POC Glucose NT-Pro-B Natriuret Pep 06689 H Urine Protein Urine Blood Ur Leukocyte Esterase 03/17/18 03/17/18 18:12 18:45 RBC Hgb Hct RDW Plt Count Carbon Dioxide BUN Creatinine Est GFR ( Amer) Est GFR (Non-Af Amer) Glucose POC Glucose 147 H NT-Pro-B Natriuret Pep Urine Protein 100 H Urine Blood SMALL H Ur Leukocyte Esterase LARGE H - EKG Interpretation by [facility]/QRS: LBBB When compared to previous EKG there are: No significant change Discharge - Discharge Clinical Impression: Chronic congestive heart failure Qualifiers: Heart failure type: unspecified Qualified Code(s): I50.9 - Heart failure, unspecified Condition: Good Disposition: HOME, SELF-CARE Instructions: Congestive Heart Failure ([facility]) Additional Instructions: Follow the recommendations made by her medicine team. If symptoms are getting worse please return. Please follow-up with her regular doctor soon as possible. Referrals: JOSEPH LAWRENCE PA [Primary Care Provider] - Follow up as needed
--- NOTE | 2018-03-17 17:19 | RADIOLOGY REPORT (SQ) ---
EXAM DESCRIPTION: CHEST SINGLE VIEW COMPLETED DATE/TIME: 03/17/2018 5:05 pm REASON FOR STUDY: sob COMPARISON: 11/12/2017 EXAM PARAMETERS: NUMBER OF VIEWS: One view. TECHNIQUE: Single frontal radiographic view of the chest acquired. RADIATION DOSE: NA LIMITATIONS: None. FINDINGS: LUNGS AND PLEURA: There is limited opacification in the left base. No pleural effusion is present. MEDIASTINUM AND HILAR STRUCTURES: No masses. Contour normal. HEART AND VASCULAR STRUCTURES: Cardiomegaly with no cate pulmonary edema. BONES: No acute findings. HARDWARE: None in the chest. OTHER: No other significant finding. IMPRESSION: Cardiomegaly without CHF. Subsegmental atelectasis in the left base. Cannot entirely e xclude limited left lower lobe pneumonia. TECHNICAL DOCUMENTATION: JOB ID: [id number] [employer]- All Rights Reserved Reading location - IP/workstation name: [email or web address]
[2018-03-17 18:51] LABS: APPEARANCE,URINE SLIGHTLY-CLOUDY; BILIRUBIN,URINE NEGATIVE (NEGATIVE); COLOR,URINE YELLOW; GLUCOSE, URINE NEGATIVE (NEGATIVE); KETONES,URINE NEGATIVE (NEGATIVE); LEUKOCYTE ESTERASE,URINE LARGE (NEGATIVE); NITRITE,URINE NEGATIVE (NEGATIVE); PROTEIN,URINE 100 mg/dL (NEGATIVE); UROBILINOGEN,URINE NEGATIVE mg/dL (<2.0)
[2018-03-17] MEDS ORDERED: FUROSEMIDE INJ/PF 40 MG/4 ML SDV IV ONE (18:54)
[2018-03-17 22:06] VITALS: BP 154/68
--- NOTE | 2018-03-17 22:10 | EKG REPORT ---
SEVERITY:- ABNORMAL ECG - SINUS RHYTHM LEFT BUNDLE BRANCH BLOCK : Confirmed by: Jarret Bowen 17-Mar-2018 22:09:53
== END 2018-03-17 22:07 | disposition home or self-care (01) ==
LOC: ER 14:40
DX: I50.9 Heart failure, unspecified (principal); E66.01 Morbid (severe) obesity due to excess calories; E78.00 Pure hypercholesterolemia, unspecified; I13.2 Hypertensive heart and chronic kidney disease with heart failure and with stage 5 chronic kidney disease, or end stage renal disease; J44.9 Chronic obstructive pulmonary disease, unspecified; E11.22 Type 2 diabetes mellitus with diabetic chronic kidney disease; N18.6 End stage renal disease; Z88.0 Allergy status to penicillin
CPT/HCPCS: 93005; 99285; 96374; 36415; 87086; 82962; 85025; 87088; 80048; 81001; 87186; 83880; 71045; 93010; J1940

== ENCOUNTER 2018-04-29 12:44 | Emergency (ER) | payer MEDICARE ==
[2018-04-29 13:09] VITALS: BP 117/44
--- NOTE | 2018-04-29 13:46 | ER Document Report ---
ED Extremity Problem, Lower - General Chief Complaint: Leg Injury Stated Complaint: LEG INJURY Time Seen by Provider: 04/29/18 13:06 Notes: This is a 62-year-old female, morbid obesity, blindness,heart failure to the emergency department complaining of right tib-fib pain. Patient has chronic fracture of the left tib-fib. Was seen by doctors making house calls. A portable x-ray was performed. Supposedly patient has a fracture on her right tib-fib. Patient states that it has been hurting her a little more recently. Denies any other implants other than all of her chronic problems. TRAVEL OUTSIDE OF THE [place] IN LAST 30 DAYS: No - HPI Patient complains to provider of: Pain Location: Leg Where: Home Onset/Duration: Gradual, Constant Quality of pain: Throbbing Severity: Mild Pain Level: 1 - Related Data Allergies/Adverse Reactions: heparin Allergy (Verified 04/29/18 13:08) RASH,ITCHING Penicillins Allergy (Verified 04/29/18 13:08) RASH spironolactone Adverse Reaction (Verified 04/29/18 13:08) Past Medical History - General Information source: Patient, Relative - Social History Smoking Status: Never Smoker Chew tobacco use (# tins/day): No Frequency of alcohol use: None Drug Abuse: None Family History: None, CAD, CVA, DM, Hypertension Patient has suicidal ideation: No Patient has homicidal ideation: No - Past Medical History Cardiac Medical History: Reports: Hx Congestive Heart Failure, Hx Hypercholesterolemia, Hx Hypertension Pulmonary Medical History: Reports: Hx COPD Endocrine Medical History: Reports: Hx Diabetes Mellitus Type 2, Hx Hypothyroidism Renal/ Medical History: Reports: Hx End Stage Renal Disease. Denies: Hx Peritoneal Dialysis Malignancy Medical History: Reports: Hx Colorectal Cancer Musculoskeletal Medical History: Reports Hx Arthritis - gout Psychiatric Medical History: Reports: Hx Depression Past Surgical History: Reports: Hx Bowel Surgery - COLON Ca RESECTED, Hx Orthopedic Surgery - right ankle surgery secondary to trimalleolar fracture 2016, Other - History of colectomy - Immunizations Hx Diphtheria, Pertussis, Tetanus Vaccination: Yes Hx Pneumococcal Vaccination: 08/18/12 Review of Systems - Review of Systems Notes: Constitutional: denies: Chills, Diaphoresis, Fever, Malaise, Weakness EENT: denies: Eye discharge, Blurred vision, Tearing, Double vision, Nose congestion, Nose discharge, Throat swelling, Mouth pain Cardiovascular: denies: Palpitations, Heart racing, Orthopnea, Dyspnea, Chest pain Respiratory: denies: Cough, Hurts to breathe, Wheezing, Shortness of breath Gastrointestinal: denies: Abdominal pain, Diarrhea, Nausea, Vomiting, Black stools, bright red blood in stool Genitourinary: denies: Burning, Dysuria, Discharge, Frequency, Flank pain, Hematuria Musculoskeletal: Pain in the right tib-fib. Denies swelling. Hematologic/Lymphatic: denies: Anemia, Easy bleeding, Easy bruising, Blood clots Neurological/Psychological: denies: Confusion, Dementia, Depression, Loss of consciousness Skin: No lesions, no masses, no skin breakdown, no abscesses Physical Exam - Vital signs Vitals: Temp Pulse BP Pulse Ox 98.5 F 58 L 117/44 L 78 L 04/29/18 12:52 04/29/18 12:52 04/29/18 12:52 04/29/18 12:52 Interpretation: Normal - General General appearance: Appears well, Alert - HEENT Head: Normocephalic Mucous membranes: Normal Pharynx: Normal Neck: Normal - Respiratory Respiratory status: No respiratory distress Chest status: Nontender Breath sounds: Normal Chest palpation: Normal - Cardiovascular Rhythm: Regular Heart sounds: Normal auscultation Murmur: No - Extremities General upper extremity: Normal inspection, Nontender, Normal color, Normal ROM , Normal temperature General lower extremity: Normal inspection, Tender - Mild tenderness to the right distal tib-fib area but no significant deformity, swelling, bruising, redness or other pathological findings., Normal color, Normal ROM, Normal temperature. No: Normal weight bearing, Warner's sign - Neurological Neuro grossly intact: Yes Cognition: Normal Orientation: AAOx4 [place] Coma Scale Eye Opening: Spontaneous [place] Coma Scale Verbal: Oriented [place] Coma Scale Motor: Obeys Commands [place] Coma Scale Total: 15 Speech: Normal Motor strength normal: LUE, RUE, LLE, RLE Sensory: Normal - Skin Skin Temperature: Warm Skin Moisture: Dry Skin Color: Normal Course - Re-evaluation Re-evalutation: 04/29/18 14:51 Tibia/Fibula X-Ray 04/29/18 13:43 IMPRESSION: No acute fracture dislocation findings presumably related to removal of orthopedic hardware and previous trauma. Clinical correlation is recommended. Other findings as noted above 04/29/18 15:00 This time there is no acute reason for patient to be admitted. She has chronic pain from chronic fracture which does not appear to be acutely fractured. I have given the family the emergency half-way information for special needs. is okay with this plan. I offered a splinting to the right lower extremity but patient states that the splints make her pain worse. Will DC at this time. - Vital Signs Vital signs: Temp Pulse Resp BP Pulse Ox 98.5 F 58 L 117/44 L 78 L 04/29/18 12:52 04/29/18 12:52 04/29/18 12:52 04/29/18 12:52 Discharge - Discharge Clinical Impression: Pain of right tibia Condition: Good Disposition: HOME, SELF-CARE Instructions: Leg Pain Nonspecific ([facility]) Additional Instructions: These make appropriate evacuation plans at this time. Please follow-up with your regular doctor for repeat evaluation. This may need to be followed by orthopedics for more definitive testing other than x-rays. All of your regular medications as instructed. Referrals: JOSEPH LAWRENCE PA [Primary Care Provider] - Follow up as needed
--- NOTE | 2018-04-29 14:07 | RADIOLOGY REPORT (SQ) ---
EXAM DESCRIPTION: TIBIA FIBULA RIGHT COMPLETED DATE/TIME: 04/29/2018 1:53 pm REASON FOR STUDY: pain COMPARISON: None. NUMBER OF VIEWS: Two views. TECHNIQUE: Two radiographic images acquired of the right tibia and fibula to include the knee and an kle in at least one projection. LIMITATIONS: None. FINDINGS: MINERALIZATION: Bony structures are osteopenia BONES: No acute fracture or dislocation. There is some cortical thickening of the mid tibia with wel l-defined lucencies presumably related to previous trauma and removal of orthopedic hardware. There is some deformity of the distal tibia presumably related to previous trauma. SOFT TISSUES: No obvious swelling or foreign body. OTHER: Degenerative changes are identified at the level of the ankle articulation. IMPRESSION: No acute fracture dislocation findings presumably related to removal of orthopedic hardw are and previous trauma. Clinical correlation is recommended. Other findings as noted above TECHNICAL DOCUMENTATION: JOB ID: [id number] [employer]- All Rights Reserved Reading location - IP/workstation name: [email or web address]
[2018-04-29] MEDS ORDERED: OXYCODONE-ACETAMINOPHEN 5-325 MG TABLET PO ONE (14:48)
== END 2018-04-29 16:20 | disposition home or self-care (01) ==
LOC: ER 12:44
DX: M79.604 Pain in right leg (principal); Z87.828 Personal history of other (healed) physical injury and trauma
CPT/HCPCS: 99283; 73590; A9270

== ENCOUNTER 2018-09-23 16:06 | Inpatient (IN) | payer MEDICARE ==
[2018-09-23] MEDS ORDERED: MORPHINE SULFATE 10 MG/ML INJ IV ONE (16:31)
--- NOTE | 2018-09-23 16:33 | ER Document Report ---
ED General - General Chief Complaint: Shortness Of Breath Stated Complaint: SHORTNESS OF BREATH Time Seen by Provider: 09/23/18 16:15 Primary Care Provider: CAMILLE ALEXANDER MD [Primary Care Provider] - Follow up as needed TRAVEL OUTSIDE OF THE [place] IN LAST 30 DAYS: No - HPI Notes: Patient is a 63-year-old female with a history of morbid obesity, hypertension, diabetes, blindness, chronic back pain, bedbound state, oxygen dependent COPD, severe pulmonary hypertension, large right-sided abdominal wall hernia, mild left ventricular hypertrophy with ejection fraction greater than 55% in April who presents to the emergency department complaining of shortness of breath that began last evening and continued throughout the day today. Patient states that at night she does feel wheezy. Patient states that she does have an occasional dry cough, but her primary concern is shortness of breath. Patient states that she has been taking her medicines as she is supposed to be. She has not had any associated pain. She is eating and drinking without difficulty. She does have a urinary catheter in place without any obvious blood noted. Patient states that she is still having bowel movements. Denies any headache, fever, neck pain, changes in vision/speech/mentation/hearing, URI, sore throat, chest pain, palpitations, syncope, abdominal pain, nausea/vomiting/diarrhea, urinary retention, dysuria, hematuria, numbness/tingling, or rash. - Related Data Allergies/Adverse Reactions: heparin Allergy (Verified 04/29/18 13:08) RASH,ITCHING Penicillins Allergy (Verified 04/29/18 13:08) RASH spironolactone Adverse Reaction (Verified 04/29/18 13:08) Past Medical History - Social History Smoking Status: Unknown if Ever Smoked Family History: None, CAD, CVA, DM, Hypertension Patient has suicidal ideation: No Patient has homicidal ideation: No - Past Medical History Cardiac Medical History: Reports: Hx Congestive Heart Failure, Hx Hyperchol esterolemia, Hx Hypertension Pulmonary Medical History: Reports: Hx COPD Endocrine Medical History: Reports: Hx Diabetes Mellitus Type 2, Hx Hypothyro idism Renal/ Medical History: Reports: Hx End Stage Renal Disease. Denies: Hx Peritoneal Dialysis Malignancy Medical History: Reports: Hx Colorectal Cancer Musculoskeletal Medical History: Reports Hx Arthritis - gout Psychiatric Medical History: Reports: Hx Depression Past Surgical History: Reports: Hx Bowel Surgery - COLON Ca RESECTED, Hx Orthopedic Surgery - right ankle surgery secondary to trimalleolar fracture 09/2016, Other - History of colectomy - Immunizations Hx Diphtheria, Pertussis, Tetanus Vaccination: Yes Hx Pneumococcal Vaccination: 08/18/12 Review of Systems - Review of Systems -: Yes All other systems reviewed and negative Physical Exam - Vital signs Vitals: Temp Pulse Resp BP Pulse Ox 99.1 F 89 20 141/49 H 94 09/23/18 16:17 09/23/18 16:17 09/23/18 16:17 09/23/18 16:17 09/23/18 16:17 - Notes Notes: PHYSICAL EXAMINATION: GENERAL: Well-appearing, well-nourished and in no acute distress. A&Ox4. Answers questions appropriately. HEAD: Atraumatic, normocephalic. EYES: Pupils equal round and reactive to light, extraocular movements intact, sclera anicteric, conjunctiva are normal. ENT: Nares patent and without discharge. oropharynx clear without exudates. No tonsilar hypertrophy or erythema. Moist mucous membranes. NECK: Normal range of motion, supple without lymphadenopathy Chest: + reproducible tenderness to palpation of the rt pectoral area and reproducible with arm extension/abduction. LUNGS: diminished b/l with scant wheeze. No retractions HEART: Regular rate and rhythm without murmurs, rubs, gallops. ABDOMEN: Soft, obese, large rt hernia with mild erythema to the skin. No guarding, no rebound. Normal bowel sounds present. No CVA tenderness jerome aterally. Extremities: 1+ pitting edema b/l LE's. Peripheral pulses 2+. Capillary refill less than 3 seconds. NEUROLOGICAL: Normal speech and cranial nerves grossly intact. PSYCH: Normal mood, normal affect. SKIN: see above. Course - Re-evaluation Re-evalutation: 09/23/18 18:02 Patient is presenting in acute congestive heart failure with pulmonary vascular congestion on chest x-ray as well as an elevated BNP from her baseline. Patient has coinciding shortness of breath, which has since improved. Vitals are acceptable without significant tachycardia, tachypnea, hypoxia, or hypotension. PE is otherwise unremarkable. See lab results. VBG otherwise acceptable. I did speak with our hospitalist, Dr. Sanders, who accepted patient for admit. - Vital Signs Vital signs: Temp Pulse Resp BP Pulse Ox 99.1 F 89 20 141/49 H 94 09/23/18 16:17 09/23/18 16:17 09/23/18 16:17 09/23/18 16:17 09/23/18 16:17 - Laboratory Result Diagrams: 09/23/18 16:22 09/23/18 16:22 Laboratory results interpreted by me: 09/23/18 09/23/18 09/23/18 16:22 16:22 16:22 WBC 13.6 H RBC 3.18 L Hgb 9.1 L Hct 27.4 L RDW 14.7 H Seg Neutrophils % 82.4 H Lymphocytes % 11.8 L Absolute Neutrophils 11.2 H Sodium 135.9 L BUN 86 H Creatinine 1.92 H Est GFR ( Amer) 32 L Est GFR (Non-Af Amer) 27 L Glucose 289 H AST 11 L NT-Pro-B Natriuret Pep 18365 H Total Protein 6.2 L Albumin 3.0 L Discharge - Discharge Clinical Impression: CHF (congestive heart failure) Qualifiers: Heart failure type: unspecified Heart failure chronicity: acute Qualified Code(s): I50.9 - Heart failure, unspecified Condition: Stable Disposition: ADMITTED INPATIENT Admitting Provider: Hospitalist - Dr. Sanders Unit Admitted: IMCU Referrals: CAMILLE ALEXANDER MD [Primary Care Provider] - Follow up as needed
--- NOTE | 2018-09-23 16:48 | RADIOLOGY REPORT (SQ) ---
EXAM DESCRIPTION: CHEST SINGLE VIEW COMPLETED DATE/TIME: 09/23/2018 4:34 pm REASON FOR STUDY: dyspnea, cough COMPARISON: 05/02/2018 NUMBER OF VIEWS: One view. TECHNIQUE: Single frontal radiographic view of the chest acquired. LIMITATIONS: None. FINDINGS: LUNGS AND PLEURA: No opacities, masses or pneumothorax. No pleural effusion. MEDIASTINUM AND HILAR STRUCTURES: No masses or contour abnormality. HEART AND VASCULATURE: Cardiac enlargement. Vascular congestion. BONES: No acute findings. HARDWARE: None in the chest. OTHER: No other significant finding. IMPRESSION: CARDIAC ENLARGEMENT. VASCULAR CONGESTION. TECHNICAL DOCUMENTATION: JOB ID: [id number] [email or web address]- All Rights Reserved Reading location - IP/workstation name: [email or web address]
[2018-09-23 16:54] LABS: ABSOLUTE EOSINOPHILS # (AUTO) 0.3 10^3/uL (0.0-0.6); ABSOLUTE LYMPHOCYTES (AUTO) 1.6 10^3/uL (0.5-4.7); ABSOLUTE MONOCYTES (AUTO) 0.5 10^3/uL (0.1-1.4); ABSOLUTE NEUT (AUTO) 11.2 10^3/uL (1.7-8.2); BASOPHILS % (AUTO) 0.2 % (0-2); HEMATOCRIT 27.4 % (36.0-47.0); HEMOGLOBIN 9.1 g/dL (12.0-15.5); LYMPHOCYTES % (AUTO) 11.8 % (13-45); MEAN CORPUSCULAR HEMOGLOBIN 28.6 pg (27.0-33.4); MEAN CORPUSCULAR HGB CONC 33.2 g/dL (32.0-36.0); MEAN CORPUSCULAR VOLUME 86 fl (80-97); MONOCYTES % (AUTO) 3.6 % (3-13); PLATELET COUNT 151 10^3/uL (150-450); RED BLOOD COUNT 3.18 10^6/uL (3.72-5.28); RED CELL DISTRIBUTION WIDTH 14.7 % (11.5-14.0); SEGMENTED NEUTROPHILS % (AUTO) 82.4 % (42-78); TOTAL CELLS COUNTED % (AUTO) 100 %; WHITE BLOOD COUNT 13.6 10^3/uL (4.0-10.5)
[2018-09-23 16:59] LABS: VENOUS BLOOD BASE EXCESS -0.6 mmol/L; VENOUS BLOOD HCO3 24.2 mmol/L (20-32); VENOUS BLOOD PCO2 40.4 mmHg (35-63); VENOUS BLOOD PH 7.4 (7.30-7.42)
[2018-09-23 17:09] LABS: ALANINE AMINOTRANSFERASE 12 U/L (9-52); ALKALINE PHOSPHATASE 93 U/L (38-126); ANION GAP 10 (5-19); ASPARTATE AMINO TRANSFERASE 11 U/L (14-36); BILIRUBIN,DIRECT 0.4 mg/dL (0.0-0.4); BILIRUBIN,TOTAL 0.5 mg/dL (0.2-1.3); BLOOD UREA NITROGEN 86 mg/dL (7-20); CALCIUM 9.1 mg/dL (8.4-10.2); CARBON DIOXIDE 25 mmol/L (22-30); CHLORIDE 101 mmol/L (98-107); GLUCOSE 289 mg/dL (75-110); POTASSIUM 4.1 mmol/L (3.6-5.0); SODIUM 135.9 mmol/L (137-145); TOTAL PROTEIN 6.2 g/dL (6.3-8.2)
[2018-09-23 17:27] LABS: TROPONIN I 0.045 ng/mL
[2018-09-23] MEDS ORDERED: BUMETANIDE INJ/PF 1 MG/4 ML SDV IV ONE ×2 (18:01→18:45)
[2018-09-23] MEDS ORDERED: ACETAMINOPHEN 325 MG TABLET PO PRN (18:22)
[2018-09-23] MEDS ORDERED: ONDANSETRON HCL INJ/PF 4 MG/2 ML SDV IV PRN (18:22)
[2018-09-23] MEDS ORDERED: CETIRIZINE 10 MG TABLET PO PRN (18:28)
[2018-09-23] MEDS ORDERED: PIPERACILLIN/TAZOBACTAM 3.375 GM VIAL IV SCH (18:30)
[2018-09-23] MEDS ORDERED: DEXTROSE 40% GEL 15 GM TUBE PO PRN ×2 (18:32)
[2018-09-23] MEDS ORDERED: DEXTROSE 50%-WATER 25 GM/50 ML DISP.SYRIN IV PRN ×2 (18:32)
[2018-09-23] MEDS ORDERED: GLUCAGON,HUMAN RECOMB 1 MG INJ IM PRN (18:32)
--- NOTE | 2018-09-23 18:43 | PDOC H&P ---
History of Present Illness Admission Date/PCP: 09/23/18 18:14 CAMILLE ALEXANDER MD Patient complains of: Increasing shortness of breath for the last 24 hours History of Present Illness: JOJO BACK is a 63 year old female with history of morbid obesity with BMI of more than 50, hypertension, diabetes, blindness, chronic back pain, bed #8, oxygen dependent COPD, severe pulmonary hypertension, right-sided abdominal wall hernia, congestive heart failure with EF greater than 55% April last year and came to the emergency room with complaints of increasing shortness of breath for the last 24 hours. As per the shortness of breath was noticed since yesterday it is gradually progressive this morning so they decided to bring her to the hospital for further evaluation. Denies any nausea vomiting diarrhea but complaining of constipation denies any upper respiratory tract symptoms, denies any sinus problems. Denies any chest pains denies any fever. In the emergency room she was placed on BiPAP and chest x-ray shows pulmonary vascular congestion with cardiomegaly medical consult for call for admission. Went to see the patient in the emergency room patient her able to give good information. They agreed to stay in the hospital for further management. Past Medical History Cardiac Medical History: Reports: Congestive Heart Failure, Hyperlipidema, Hypertension Pulmonary Medical History: Reports: Chronic Obstructive Pulmonary Disease (COPD) Endocrine Medical History: Reports: Diabetes Mellitus Type 2, Hypothyroidism Renal/ Medical History: Reports: End Stage Renal Disease Malignancy Medical History: Reports: Colorectal Cancer Musculoskeltal Medical History: Reports: Arthritis - gout Psychiatric Medical History: Reports: Depression Past Surgical History Past Surgical History: Reports: Orthopedic Surgery - right ankle surgery secondary to trimalleolar fracture 09/2016, Other - History of colectomy Social History Smoking Status: Unknown if Ever Smoked Frequency of Alcohol Use: None Hx Recreational Drug Use: No Drugs: None Hx Prescription Drug Abuse: No - Advance Directive Resuscitation Status: Full Code Family History Family History: None, CAD, CVA, DM, Hypertension Parental Family History Reviewed: Yes Children Family History Reviewed: Yes Sibling(s) Family History Reviewed.: Yes Medication/Allergy Home Medications: Cetirizine HCl [Zyrtec 10 mg Tablet] 10 mg PO DAILYP PRN 01/31/17 Citalopram Hydrobromide [Celexa 40 mg Tablet] 40 mg PO QAM 01/31/17 Docusate Sodium [Colace 100 mg Capsule] 100 mg PO DAILY 01/31/17 Metoprolol Succinate [Toprol Xl 25 mg Tab.sr] 25 mg PO DAILY 01/31/17 Simvastatin [Zocor 10 mg Tablet] 10 mg PO QHS 01/31/17 Aspirin [Aspirin 325 mg Tablet] 325 mg PO DAILY 02/13/18 Cholecalciferol (Vitamin D3) [Vitamin D3 5000 unit Capsule] 5,000 unit PO MOWEFR@1000 02/13/18 Levothyroxine Sodium [Synthroid] 200 mcg PO Q6AM 02/13/18 Pantoprazole Sodium [Protonix] 40 mg PO DAILY 02/13/18 Bumetanide [Bumex 1 mg Tablet] 0.5 mg PO DAILY 05/03/18 Ferrous Sulfate [Feosol 325 mg Tablet] 325 mg PO BID 05/03/18 NPH, Human Insulin Isophane [Humulin N (NPH) Insulin 100 Unit/1 ml 3 ml] 15 unit SUBCUT BIDACBS #10 ml 05/06/18 Nystatin [Mycostatin Topical Powder 15 gm] 1 applic TP TID #30 bottle 05/06/18 Allergies/Adverse Reactions: heparin Allergy (Verified 04/29/18 13:08) RASH,ITCHING Penicillins Allergy (Verified 04/29/18 13:08) RASH spironolactone Adverse Reaction (Verified 04/29/18 13:08) Review of Systems Constitutional: ABSENT: fever(s), headache(s), night sweats, weakness, weight gain, weight loss Ears: ABSENT: hearing changes Nose, Mouth, and Throat: ABSENT: sore throat Cardiovascular: ABSENT: chest pain, dyspnea on exertion, palpitations Respiratory: PRESENT: dyspnea Gastrointestinal: ABSENT: abdominal pain, constipation, diarrhea, hematemesis, hematochezia, nausea, vomiting Musculoskeletal: ABSENT: joint swelling Neurological: ABSENT: abnormal gait, abnormal speech, confusion, dizziness, focal weakness, syncope Psychiatric: ABSENT: anxiety, depression, homidical ideation, suicidal ideation Physical Exam Vital Signs: Temp Pulse Resp BP Pulse Ox 99.1 F 89 17 143/48 H 94 09/23/18 16:17 09/23/18 16:17 09/23/18 18:01 09/23/18 18:01 09/23/18 18:01 Intake & Output 09/22/18 09/23/18 09/24/18 06:59 06:59 06:59 Weight 142.7 kg General appearance: PRESENT: mild distress, other - on BIPAP Head exam: PRESENT: atraumatic Eye exam: PRESENT: PERRLA Mouth exam: PRESENT: dry mucosa Teeth exam: PRESENT: poor dentation Neck exam: ABSENT: carotid bruit, JVD, lymphadenopathy, thyromegaly Respiratory exam: PRESENT: crackles, decreased breath sounds Cardiovascular exam: PRESENT: tachycardia Pulses: PRESENT: normal dorsalis pedis pul GI/Abdominal exam: PRESENT: other - Obese abdomen with redness around the left side of the abdominal wall associated with increased warmth may be she has cellulitis there. Extremities exam: PRESENT: full ROM, +1 edema. ABSENT: calf tenderness, clubbing, pedal edema Neurological exam: PRESENT: alert, awake, oriented to person, oriented to place, oriented to time, oriented to situation, CN II-XII grossly intact. ABSENT: motor sensory deficit Psychiatric exam: PRESENT: appropriate affect, normal mood. ABSENT: homicidal ideation, suicidal ideation Results Laboratory Results: 09/23/18 16:22 09/23/18 16:22 09/23/18 09/23/18 09/23/18 16:22 16:22 16:22 WBC 13.6 H RBC 3.18 L Hgb 9.1 L Hct 27.4 L MCV 86 MCH 28.6 MCHC 33.2 RDW 14.7 H Plt Count 151 Seg Neutrophils % 82.4 H Lymphocytes % 11.8 L Monocytes % 3.6 Eosinophils % 2.0 Basophils % 0.2 Absolute Neutrophils 11.2 H Absolute Lymphocytes 1.6 Absolute Monocytes 0.5 Absolute Eosinophils 0.3 Absolute Basophils 0.0 VBG pH 7.40 VBG pCO2 40.4 VBG HCO3 24.2 VBG Base Excess -0.6 Sodium 135.9 L Potassium 4.1 Chloride 101 Carbon Dioxide 25 Anion Gap 10 BUN 86 H Creatinine 1.92 H Est GFR ( Amer) 32 L Est GFR (Non-Af Amer) 27 L Glucose 289 H Lactic Acid Calcium 9.1 Total Bilirubin 0.5 AST 11 L ALT 12 Alkaline Phosphatase 93 Total Protein 6.2 L Albumin 3.0 L 09/23/18 16:22 WBC RBC Hgb Hct MCV MCH MCHC RDW Plt Count Seg Neutrophils % Lymphocytes % Monocytes % Eosinophils % Basophils % Absolute Neutrophils Absolute Lymphocytes Absolute Monocytes Absolute Eosinophils Absolute Basophils VBG pH VBG pCO2 VBG HCO3 VBG Base Excess Sodium Potassium Chloride Carbon Dioxide Anion Gap BUN Creatinine Est GFR ( Amer) Est GFR (Non-Af Amer) Glucose Lactic Acid 0.7 Calcium Total Bilirubin AST ALT Alkaline Phosphatase Total Protein Albumin 09/23/18 16:22 Troponin I 0.045 NT-Pro-B Natriuret Pep 52699 H Impressions: Chest X-Ray 09/23/18 16:19 IMPRESSION: CARDIAC ENLARGEMENT. VASCULAR CONGESTION. Assessment & Plan - Diagnosis (1) CHF (congestive heart failure) Qualifiers: Heart failure type: unspecified Heart failure chronicity: acute Qualified Code(s): I50.9 - Heart failure, unspecified Is this a current diagnosis for this admission?: Yes Plan: 09/23/2018 patient has history of chronic systolic heart failure with EF of greater than 55%. Came in with BNP of more than 20,000 and chest x-ray shows increased pulmonary vascular congestion in association with worsening shortness of breath for the last 24 hours. Patient is going to be placed in IMCU. Started on Lasix 40 mg IV every 8 hours. We are going to do the daily chest x- rays ABGs and BNP on daily basis. Thompson's catheter was requested. She was restarted on home medications except Bumex. Consultation with Dr. Aguilar was requested. (2) CKD (chronic kidney disease) stage 3, GFR 30-59 ml/min Is this a current diagnosis for this admission?: Yes Plan: 09/23/2018 patient has history of stage III kidney disease with a GFR is 27. Stable. We are going to follow the patient regular basis. (3) Morbid obesity Is this a current diagnosis for this admission?: Yes Plan: 09/23/2018-patient BMI is more than 50 diet exercise weight loss and complete the medication was advised. (4) Diabetes Qualifiers: Diabetes mellitus type: type 2 Diabetes mellitus fci insulin use: unspecified meterman insulin use status Diabetes mellitus complication status: with other specified complication Qualified Code(s): E11.69 - Type 2 diabetes mellitus with other specified complication Is this a current diagnosis for this admission?: Yes Plan: 09/23/2018-patient has history of type 2 diabetes mellitus. She is on insulin at home. We are going to put her on a insulin sliding scale restart her home insulin plan to check her hemoglobin A1c tomorrow. Dietary consult was requested. (5) Cellulitis Is this a current diagnosis for this admission?: Yes Plan: 09/23/2018-on examination of the abdomen there is increased redness and increased warmth of the right sided abdominal wall. Blood cultures urine cultures were requested. Started on IV Zosyn 3.375 g every 6 hours. (6) Hypertension Is this a current diagnosis for this admission?: Yes Plan: 09/23/2018-patient has chronic history of hypertension she takes Bumex 1 mg in the morning half a milligram in the evening. Going to hold Bumex and start on Lasix 40 mg IV every 8 hours because of the congestive heart failure. - Time Time Spent: 50 to 70 Minutes Medications reviewed and adjusted accordingly: Yes Anticipated discharge: Home
[2018-09-23] MEDS ORDERED: IPRATROPIUM/ALBUTEROL 0.5-2.5 MG/3 ML AMPUL NEB ONE (19:00)
[2018-09-23 20:03] LABS: CREATINE KINASE MB 0.32 ng/mL (<4.55); TROPONIN I 0.051 ng/mL
[2018-09-23] MEDS ORDERED: INSULIN LISPRO 100 UNIT/ML 3 ML VIAL ONE (20:34)
[2018-09-23 20:46] LABS: URINE AMPHETAMINES SCREEN NEGATIVE; URINE BARBITURATES SCREEN NEGATIVE; URINE BENZODIAZEPINES SCREEN NEGATIVE; URINE COCAINE SCREEN NEGATIVE; URINE MARIJUANA (THC) SCREEN NEGATIVE; URINE METHADONE SCREEN NEGATIVE; URINE PHENCYCLIDINE SCREEN NEGATIVE
[2018-09-23] MEDS: INSULIN LISPRO 100 UNIT/ML 3 ML VIAL SUBCUT SCH (21:02)
--- NOTE | 2018-09-23 21:12 | EKG REPORT ---
SEVERITY:- ABNORMAL ECG - SINUS RHYTHM PROBABLE LEFT ATRIAL ABNORMALITY LEFT BUNDLE BRANCH BLOCK : Confirmed by: Jarret Bowen 23-Sep-2018 21:11:46
[2018-09-23] MEDS ORDERED: MORPHINE SULFATE 10 MG/ML INJ IV PRN ×2 (22:20)
[2018-09-23] MEDS ORDERED: MEROPENEM 500 MG VIAL IV SCH (22:30)
[2018-09-23] MEDS ORDERED: VANCOMYCIN HCL INJ 1000 MG VIAL IV SCH (22:30)
[2018-09-23] MEDS ORDERED: MEROPENEM 500 MG VIAL IV PRN (22:39)
[2018-09-23] MEDS ORDERED: MEROPENEM 500 MG in NORMAL SALINE 50 ML IV ONE (22:45)
[2018-09-23] MEDS ORDERED: VANCOMYCIN HCL INJ 1000 MG VIAL IV PRN (22:47)
[2018-09-23] MEDS: ENOXAPARIN SODIUM INJ 40 MG/0.4 ML DISP.SYRIN SUBCUT SCH (22:51)
[2018-09-23] MEDS: FUROSEMIDE INJ/PF 40 MG/4 ML SDV IV SCH (22:55)
[2018-09-23] MEDS: SIMVASTATIN 10 MG TABLET PO SCH (22:55)
[2018-09-23] MEDS: FAMOTIDINE 20 MG TABLET PO SCH (22:55)
[2018-09-24] MEDS ORDERED: MEROPENEM 500 MG VIAL ONE (01:48)
[2018-09-24 02:06] LABS: CREATINE KINASE MB 0.3 ng/mL (<4.55); TROPONIN I 0.054 ng/mL
[2018-09-24] MEDS: FUROSEMIDE INJ/PF 40 MG/4 ML SDV IV SCH ×3 (05:46→21:55)
[2018-09-24] MEDS ORDERED: LEVOTHYROXINE SODIUM 0.1 MG TABLET PO SCH (06:00)
[2018-09-24] MEDS ORDERED: MEROPENEM 500 MG in NORMAL SALINE 50 ML IV SCH (06:00)
[2018-09-24 06:16] LABS: ARTERIAL BLOOD BASE EXCESS 1.7 mmol/L; ARTERIAL BLOOD H2CO3 1.34 mmol/L (1.05-1.35); ARTERIAL BLOOD HCO3 26.8 mmol/L (20-24); ARTERIAL BLOOD O2 SATURATION 96.3 % (94-98); ARTERIAL BLOOD PCO2 44.6 mmHg (35-45); ARTERIAL BLOOD PO2 84.7 mmHg (80-100); ARTERIAL BLOOD TOTAL CO2 28.2 mmol/L (21-25)
[2018-09-24 06:20] LABS: ARTERIAL BLOOD FIO2 28%
[2018-09-24] MEDS: INSULIN LISPRO 100 UNIT/ML 3 ML VIAL SUBCUT SCH ×4 (08:12→22:00)
[2018-09-24] MEDS: CITALOPRAM HYDROBROMIDE 20 MG TABLET PO SCH ×2 (08:12→12:59)
[2018-09-24] MEDS: INSULIN NPH (ISOPHANE), HUMAN 100 UNIT/ML 3 ML SUBCUT SCH ×2 (08:13→18:09)
[2018-09-24 08:21] LABS: ABSOLUTE EOSINOPHILS # (AUTO) 0.4 10^3/uL (0.0-0.6); ABSOLUTE LYMPHOCYTES (AUTO) 0.8 10^3/uL (0.5-4.7); ABSOLUTE MONOCYTES (AUTO) 0.5 10^3/uL (0.1-1.4); ABSOLUTE NEUT (AUTO) 6.5 10^3/uL (1.7-8.2); BASOPHILS % (AUTO) 0.2 % (0-2); EOSINOPHILS % (AUTO) 4.6 % (0-6); HEMATOCRIT 24.4 % (36.0-47.0); HEMOGLOBIN 8.1 g/dL (12.0-15.5); LYMPHOCYTES % (AUTO) 9.7 % (13-45); MEAN CORPUSCULAR HEMOGLOBIN 28.5 pg (27.0-33.4); MEAN CORPUSCULAR HGB CONC 33.4 g/dL (32.0-36.0); MEAN CORPUSCULAR VOLUME 85 fl (80-97); MONOCYTES % (AUTO) 5.9 % (3-13); PLATELET COUNT 151 10^3/uL (150-450); RED BLOOD COUNT 2.85 10^6/uL (3.72-5.28); RED CELL DISTRIBUTION WIDTH 14.6 % (11.5-14.0); SEGMENTED NEUTROPHILS % (AUTO) 79.6 % (42-78); TOTAL CELLS COUNTED % (AUTO) 100 %; WHITE BLOOD COUNT 8.2 10^3/uL (4.0-10.5)
[2018-09-24 08:40] LABS: ALANINE AMINOTRANSFERASE 12 U/L (9-52); ALBUMIN 2.6 g/dL (3.5-5.0); ALKALINE PHOSPHATASE 79 U/L (38-126); ANION GAP 9 (5-19); ASPARTATE AMINO TRANSFERASE 7 U/L (14-36); BILIRUBIN,DIRECT 0.3 mg/dL (0.0-0.4); BILIRUBIN,TOTAL 0.5 mg/dL (0.2-1.3); BLOOD UREA NITROGEN 75 mg/dL (7-20); CARBON DIOXIDE 27 mmol/L (22-30); CHLORIDE 103 mmol/L (98-107); GLUCOSE 231 mg/dL (75-110); POTASSIUM 3.7 mmol/L (3.6-5.0); TOTAL PROTEIN 5.4 g/dL (6.3-8.2)
[2018-09-24 08:44] LABS: CREATINE KINASE < 20 U/L (30-135)
[2018-09-24 08:53] LABS: CREATINE KINASE MB 0.37 ng/mL (<4.55); TROPONIN I 0.059 ng/mL
[2018-09-24] MEDS: METOPROLOL SUCCINATE 25 MG TAB.SR.24H PO SCH (09:54)
[2018-09-24] MEDS: ASPIRIN 325 MG TABLET PO SCH (09:55)
[2018-09-24] MEDS: DOCUSATE SODIUM 100 MG CAPSULE PO SCH ×2 (09:55→18:10)
[2018-09-24] MEDS: NYSTATIN TOPICAL POWDER 15 GM TP SCH ×3 (09:55→18:18)
[2018-09-24] MEDS: ENOXAPARIN SODIUM INJ 40 MG/0.4 ML DISP.SYRIN SUBCUT SCH (09:55)
[2018-09-24] MEDS: FAMOTIDINE 20 MG TABLET PO SCH ×2 (09:55→21:55)
[2018-09-24] MEDS: FERROUS SULFATE 325 MG TABLET PO SCH ×2 (09:55→18:11)
[2018-09-24] MEDS ORDERED: ENOXAPARIN SODIUM INJ 40 MG/0.4 ML DISP.SYRIN SUBCUT SCH (10:00)
[2018-09-24] MEDS ORDERED: VANCOMYCIN HCL 2,000 MG in DEXTROSE 5%-WATER 500 ML IV SCH ×3 (11:00)
[2018-09-24] MEDS: VANCOMYCIN HCL 2,000 MG in NORMAL SALINE 500 ML IV SCH (11:08)
--- NOTE | 2018-09-24 12:06 | PDOC PROGRESS REPORT ---
Subjective Progress Note for:: 09/24/18 Subjective:: 63 year old female with history of morbid obesity with BMI of more than 50, hypertension, diabetes, blindness, chronic back pain, bed #8, oxygen dependent COPD, severe pulmonary hypertension, right-sided abdominal wall hernia, congestive heart failure with EF greater than 55% April last year and came to the emergency room with complaints of increasing shortness of breath for the last 24 hours. As per the shortness of breath was noticed since yesterday it is gradually progressive this morning so they decided to bring her to the hospital for further evaluation. Denies any nausea vomiting diarrhea but complaining of constipation denies any upper respiratory tract symptoms, denies any sinus problems. Denies any chest pains denies any fever. In the emergency room she was placed on BiPAP and chest x-ray shows pulmonary vascular congestion with cardiomegaly medical consult for call for admission. Went to see the patient in the emergency room patient her able to give good information. They agreed to stay in the hospital for further management. 07/[id number]-rlep-old female with morbid obesity and multiple comorbidities admitted with increasing shortness of breath found to be in CHF exacerbation. BNP was more than 20,000. And she has EF of 55% the echo was done in April last year. Suggest chronic left ventricular systolic heart failure. Patient is complaining of rash on the back requesting Silvadene. On the examination in the ER yesterday the abdominal wall on the right side looks erythematous and hot to touch, there is a concern about possibility of underlying abscess requested for CT abdomen and pelvis, patient refused the procedure yesterday. This morning pt told me she does not want any CT scan to be done. She understood why a CT scan was requested but she does not want it to be done. Reason For Visit: CHF EXACERBATION Physical Exam Vital Signs: Temp Pulse Resp BP Pulse Ox 98.6 F 73 24 H 124/55 L 95 09/24/18 04:31 09/24/18 07:00 09/24/18 04:31 09/24/18 04:31 09/24/18 08:41 Intake & Output 09/23/18 09/24/18 09/25/18 06:59 06:59 06:59 Intake Total 290 Output Total 1350 Balance -1060 Weight 136.8 kg General appearance: PRESENT: no acute distress, morbidly obese, obese Head exam: PRESENT: atraumatic Eye exam: PRESENT: PERRLA Mouth exam: PRESENT: moist Neck exam: ABSENT: carotid bruit, JVD, lymphadenopathy, thyromegaly Respiratory exam: PRESENT: crackles, decreased breath sounds Cardiovascular exam: PRESENT: tachycardia GI/Abdominal exam: PRESENT: normal bowel sounds, soft, other - Morbidly obese abdomen with large abdominal hernia. Redness of the right abdominal wall still persisting.. ABSENT: distended, guarding, mass, organolmegaly, rebound, t enderness Extremities exam: PRESENT: +1 edema Neurological exam: PRESENT: alert, awake, oriented to person, oriented to place, oriented to time, oriented to situation, CN II-XII grossly intact. ABSENT: motor sensory deficit Psychiatric exam: PRESENT: appropriate affect, normal mood. ABSENT: homicidal ideation, suicidal ideation Results Laboratory Results: 09/24/18 08:03 09/24/18 08:03 09/23/18 09/23/18 09/23/18 16:22 16:22 16:22 WBC 13.6 H RBC 3.18 L Hgb 9.1 L Hct 27.4 L MCV 86 MCH 28.6 MCHC 33.2 RDW 14.7 H Plt Count 151 Seg Neutrophils % 82.4 H Lymphocytes % 11.8 L Monocytes % 3.6 Eosinophils % 2.0 Basophils % 0.2 Absolute Neutrophils 11.2 H Absolute Lymphocytes 1.6 Absolute Monocytes 0.5 Absolute Eosinophils 0.3 Absolute Basophils 0.0 Carbonic Acid HCO3/H2CO3 Ratio ABG pH ABG pCO2 ABG pO2 ABG HCO3 ABG O2 Saturation ABG Base Excess VBG pH 7.40 VBG pCO2 40.4 VBG HCO3 24.2 VBG Base Excess -0.6 FiO2 Sodium 135.9 L Potassium 4.1 Chloride 101 Carbon Dioxide 25 Anion Gap 10 BUN 86 H Creatinine 1.92 H Est GFR ( Amer) 32 L Est GFR (Non-Af Amer) 27 L Glucose 289 H Lactic Acid Calcium 9.1 Magnesium Total Bilirubin 0.5 AST 11 L ALT 12 Alkaline Phosphatase 93 Total Protein 6.2 L Albumin 3.0 L TSH 09/23/18 09/24/18 09/24/18 16:22 05:55 08:03 WBC 8.2 RBC 2.85 L Hgb 8.1 L Hct 24.4 L MCV 85 MCH 28.5 MCHC 33.4 RDW 14.6 H Plt Count 151 Seg Neutrophils % 79.6 H Lymphocytes % 9.7 L Monocytes % 5.9 Eosinophils % 4.6 Basophils % 0.2 Absolute Neutrophils 6.5 Absolute Lymphocytes 0.8 Absolute Monocytes 0.5 Absolute Eosinophils 0.4 Absolute Basophils 0.0 Carbonic Acid 1.34 HCO3/H2CO3 Ratio 20:1 ABG pH 7.40 ABG pCO2 44.6 ABG pO2 84.7 ABG HCO3 26.8 H ABG O2 Saturation 96.3 ABG Base Excess 1.7 VBG pH VBG pCO2 VBG HCO3 VBG Base Excess FiO2 28% Sodium Potassium Chloride Carbon Dioxide Anion Gap BUN Creatinine Est GFR ( Amer) Est GFR (Non-Af Amer) Glucose Lactic Acid 0.7 Calcium Magnesium Total Bilirubin AST ALT Alkaline Phosphatase Total Protein Albumin TSH 09/24/18 09/24/18 08:03 08:03 WBC RBC Hgb Hct MCV MCH MCHC RDW Plt Count Seg Neutrophils % Lymphocytes % Monocytes % Eosinophils % Basophils % Absolute Neutrophils Absolute Lymphocytes Absolute Monocytes Absolute Eosinophils Absolute Basophils Carbonic Acid HCO3/H2CO3 Ratio ABG pH ABG pCO2 ABG pO2 ABG HCO3 ABG O2 Saturation ABG Base Excess VBG pH VBG pCO2 VBG HCO3 VBG Base Excess FiO2 Sodium 139.0 Potassium 3.7 Chloride 103 Carbon Dioxide 27 Anion Gap 9 BUN 75 H Creatinine 2.03 H Est GFR ( Amer) 30 L Est GFR (Non-Af Amer) 25 L Glucose 231 H Lactic Acid Calcium 9.0 Magnesium 1.9 Total Bilirubin 0.5 AST 7 L ALT 12 Alkaline Phosphatase 79 Total Protein 5.4 L Albumin 2.6 L TSH 5.08 H 09/23/18 09/23/18 09/23/18 16:22 19:23 19:23 Creatine Kinase < 20 L CK-MB (CK-2) 0.32 Troponin I 0.045 0.051 NT-Pro-B Natriuret Pep [id number] H 09/24/18 09/24/18 09/24/18 01:25 01:25 08:03 Creatine Kinase < 20 L < 20 L CK-MB (CK-2) 0.30 Troponin I 0.054 NT-Pro-B Natriuret Pep 09/24/18 08:03 Creatine Kinase CK-MB (CK-2) 0.37 Troponin I 0.059 NT-Pro-B Natriuret Pep 65900 H Impressions: Chest X-Ray 09/23/18 16:19 IMPRESSION: CARDIAC ENLARGEMENT. VASCULAR CONGESTION. Assessment & Plan - Diagnosis (1) CHF (congestive heart failure) Qualifiers: Heart failure type: unspecified Heart failure chronicity: acute Qualified Code(s): I50.9 - Heart failure, unspecified Is this a current diagnosis for this admission?: Yes Plan: 09/23/2018 patient has history of chronic systolic heart failure with EF of greater than 55%. Came in with BNP of more than 20,000 and chest x-ray shows increased pulmonary vascular congestion in association with worsening shortness of breath for the last 24 hours. Patient is going to be placed in IMCU. Started on Lasix 40 mg IV every 8 hours. We are going to do the daily chest x- rays ABGs and BNP on daily basis. Thompson's catheter was requested. She was restarted on home medications except Bumex. Consultation with Dr. Aguilar was requested. 07/24/2019-and has history of chronic systolic heart failure with EF of 55%. Admitted for CHF exacerbation. BNP today is 19,900. She was placed on a fluid restriction 1200 mL/day. Also on Lasix 40 mg 3 times a day. Cardiology consult was requested plan is to continue the present management. (2) CKD (chronic kidney disease) stage 3, GFR 30-59 ml/min Is this a current diagnosis for this admission?: Yes Plan: 09/23/2018 patient has history of stage III kidney disease with a GFR is 27. Stable. We are going to follow the patient regular basis. 09/24/2018 patient is given the history of CKD 3. Her creatinine today is 2.03. Admission creatinine is 1.92. place a consult for nephrology. We will do daily renal panel. Order was placed for renal ultrasound. (3) Morbid obesity Is this a current diagnosis for this admission?: Yes Plan: 09/23/2018-patient BMI is more than 50 diet exercise weight loss and complete the medication was advised. 09/24/2018 patient's BMI is more than 50 she is bedbound. She is bedbound because of the previous history of right ankle fractures. Again dietary advice was given dietary consult was requested. 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 She is on insulin at home. We are going to put her on a insulin sliding scale restart her home insulin plan to check her hemoglobin A1c tomorrow. Dietary consult was requ ested. 07/24/2019 patient has history of type 2 diabetes mellitus she is on insulin at home. She is on insulin sliding scale before meals and at bedtime latest blood sugar is 261. Plan to put her on Lantus 10 units twice a day and request for hemoglobin A1c. (5) Cellulitis Is this a current diagnosis for this admission?: Yes Plan: 09/23/2018-on examination of the abdomen there is increased redness and increased warmth of the right sided abdominal wall. Blood cultures urine cultures were requested. Started on IV Zosyn 3.375 g every 6 hours. 07/24/2019-on examination of the abdominal wall there is a high suspicion for cellulitis. She is on presently on vancomycin, dose will be adjusted based on the trough levels. Cultures are pending. Urine culture came back positive for gram-negative rods. Patient was placed on Bactrim DS 1 tablet p.o. twice a day. (6) Hypertension Is this a current diagnosis for this admission?: Yes Plan: 09/23/2018-patient has chronic history of hypertension she takes Bumex 1 mg in the morning half a milligram in the evening. Going to hold Bumex and start on Lasix 40 mg IV every 8 hours because of the congestive heart failure. 09/24/2018-patient blood pressure today is 124/55 stable. Patient has Lasix 40 mg 3 times a day plan is to continue the present management. - Time Time Spent with patient: 25-34 minutes Medications reviewed and adjusted accordingly: Yes Anticipated discharge: Home
[2018-09-24] MEDS: INSULIN GLARGINE,HUM.REC.ANLOG 1,000 UNIT/10 ML UNIT SUBCUT SCH ×2 (12:58→22:00)
[2018-09-24] MEDS: OXYCODONE-ACETAMINOPHEN 5-325 MG TABLET PO PRN ×2 (12:59→15:35)
[2018-09-24] MEDS: OXYCODONE HCL IR 5 MG TABLET PO PRN (15:36)
[2018-09-24] MEDS: SULFAMETHOXAZOLE/TRIMETHOPRIM 800-160 MG TABLET PO SCH (18:10)
[2018-09-24] MEDS: SILVER SULFADIAZINE 1% CREAM 400 GM TP SCH (18:11)
[2018-09-24] MEDS: SIMVASTATIN 10 MG TABLET PO SCH (21:55)
[2018-09-24] MEDS ORDERED: SIMVASTATIN 10 MG TABLET PO SCH (22:00)
[2018-09-24] MEDS ORDERED: INSULIN NPH (ISOPHANE), HUMAN 100 UNIT/ML 3 ML SUBCUT SCH (22:00)
[2018-09-24] MEDS ORDERED: DOCUSATE SODIUM 100 MG CAPSULE PO SCH (22:00)
[2018-09-25] MEDS: MORPHINE SULFATE 10 MG/ML INJ IV PRN ×2 (00:49→10:26)
[2018-09-25] MEDS: FUROSEMIDE INJ/PF 40 MG/4 ML SDV IV SCH ×3 (06:09→21:52)
[2018-09-25] MEDS: LEVOTHYROXINE SODIUM 0.1 MG TABLET PO SCH (06:09)
[2018-09-25 06:20] LABS: ABSOLUTE EOSINOPHILS # (AUTO) 1.2 10^3/uL (0.0-0.6); ABSOLUTE LYMPHOCYTES (AUTO) 1.2 10^3/uL (0.5-4.7); ABSOLUTE MONOCYTES (AUTO) 0.6 10^3/uL (0.1-1.4); ABSOLUTE NEUT (AUTO) 5.3 10^3/uL (1.7-8.2); BASOPHILS % (AUTO) 0.3 % (0-2); EOSINOPHILS % (AUTO) 14.9 % (0-6); HEMATOCRIT 25.3 % (36.0-47.0); HEMOGLOBIN 8.5 g/dL (12.0-15.5); LYMPHOCYTES % (AUTO) 14.8 % (13-45); MEAN CORPUSCULAR HEMOGLOBIN 28.6 pg (27.0-33.4); MEAN CORPUSCULAR HGB CONC 33.6 g/dL (32.0-36.0); MEAN CORPUSCULAR VOLUME 85 fl (80-97); MONOCYTES % (AUTO) 7.2 % (3-13); PLATELET COUNT 166 10^3/uL (150-450); RED BLOOD COUNT 2.97 10^6/uL (3.72-5.28); RED CELL DISTRIBUTION WIDTH 14.5 % (11.5-14.0); SEGMENTED NEUTROPHILS % (AUTO) 62.8 % (42-78); TOTAL CELLS COUNTED % (AUTO) 100 %; WHITE BLOOD COUNT 8.4 10^3/uL (4.0-10.5)
[2018-09-25 06:36] LABS: ALANINE AMINOTRANSFERASE 14 U/L (9-52); ALBUMIN 2.7 g/dL (3.5-5.0); ALKALINE PHOSPHATASE 77 U/L (38-126); ANION GAP 8 (5-19); ASPARTATE AMINO TRANSFERASE 8 U/L (14-36); BILIRUBIN,DIRECT 0.2 mg/dL (0.0-0.4); BILIRUBIN,TOTAL 0.4 mg/dL (0.2-1.3); BLOOD UREA NITROGEN 75 mg/dL (7-20); CALCIUM 9.3 mg/dL (8.4-10.2); CARBON DIOXIDE 27 mmol/L (22-30); CHLORIDE 104 mmol/L (98-107); GLUCOSE 99 mg/dL (75-110); POTASSIUM 3.8 mmol/L (3.6-5.0); SODIUM 138.7 mmol/L (137-145); TOTAL PROTEIN 5.5 g/dL (6.3-8.2)
[2018-09-25] MEDS: INSULIN LISPRO 100 UNIT/ML 3 ML VIAL SUBCUT SCH ×4 (07:41→21:53)
[2018-09-25] MEDS: INSULIN NPH (ISOPHANE), HUMAN 100 UNIT/ML 3 ML SUBCUT SCH ×2 (07:50→17:13)
[2018-09-25] MEDS: CITALOPRAM HYDROBROMIDE 20 MG TABLET PO SCH ×2 (07:52→07:59)
[2018-09-25] MEDS ORDERED: METOPROLOL SUCCINATE 25 MG TAB.SR.24H PO SCH (09:00)
[2018-09-25] MEDS ORDERED: ASPIRIN 325 MG TABLET, ENT COATED PO SCH (10:00)
[2018-09-25] MEDS: VANCOMYCIN HCL 2,000 MG in NORMAL SALINE 500 ML IV SCH (10:18)
[2018-09-25] MEDS: ASPIRIN 325 MG TABLET PO SCH (10:19)
[2018-09-25] MEDS: METOPROLOL SUCCINATE 25 MG TAB.SR.24H PO SCH (10:20)
[2018-09-25] MEDS: FERROUS SULFATE 325 MG TABLET PO SCH ×2 (10:20→17:14)
[2018-09-25] MEDS: DOCUSATE SODIUM 100 MG CAPSULE PO SCH ×2 (10:20→17:14)
[2018-09-25] MEDS: FAMOTIDINE 20 MG TABLET PO SCH ×2 (10:20→21:52)
[2018-09-25] MEDS: ENOXAPARIN SODIUM INJ 40 MG/0.4 ML DISP.SYRIN SUBCUT SCH (10:21)
[2018-09-25] MEDS: INSULIN GLARGINE,HUM.REC.ANLOG 1,000 UNIT/10 ML UNIT SUBCUT SCH ×2 (10:21→21:53)
--- NOTE | 2018-09-25 10:27 | RADIOLOGY REPORT (SQ) ---
EXAM DESCRIPTION: U/S RETROPERITON (RENAL/AORTA) COMPLETED DATE/TIME: 09/25/2018 9:33 am REASON FOR STUDY: chronic renal failure COMPARISON: None. TECHNIQUE: Dynamic and static grayscale images acquired of the kidneys and bladder and recorded on P ACS. Additional selected color Doppler and spectral images recorded. LIMITATIONS: Body habitus. Bandaging material. FINDINGS: RIGHT KIDNEY: Not visualized. LEFT KIDNEY: 9.4 cm. Increased cortical echotexture. 2 cysts, the largest 2 cm. No hydronephrosis . BLADDER: Thompson catheter. OTHER FINDINGS: No other significant finding. IMPRESSION: Limited study. Medical renal disease. No hydronephrosis. TECHNICAL DOCUMENTATION: JOB ID: [id number]- All Rights Reserved Reading location - IP/workstation name: [email or web address]
[2018-09-25] MEDS: SILVER SULFADIAZINE 1% CREAM 400 GM TP SCH ×2 (10:28→17:15)
[2018-09-25] MEDS: NYSTATIN TOPICAL POWDER 15 GM TP SCH ×3 (10:29→17:14)
[2018-09-25] MEDS: SULFAMETHOXAZOLE/TRIMETHOPRIM 800-160 MG TABLET PO SCH (10:30)
--- NOTE | 2018-09-25 11:40 | PDOC PROGRESS REPORT ---
Subjective Progress Note for:: 09/25/18 Subjective:: 63 year old female with history of morbid obesity with BMI of more than 50, hypertension, diabetes, blindness, chronic back pain, bed #8, oxygen dependent COPD, severe pulmonary hypertension, right-sided abdominal wall hernia, congestive heart failure with EF greater than 55% April last year and came to the emergency room with complaints of increasing shortness of breath for the last 24 hours. As per the shortness of breath was noticed since yesterday it is gradually progressive this morning so they decided to bring her to the hospital for further evaluation. Denies any nausea vomiting diarrhea but complaining of constipation denies any upper respiratory tract symptoms, denies any sinus problems. Denies any chest pains denies any fever. In the emergency room she was placed on BiPAP and chest x-ray shows pulmonary vascular congestion with cardiomegaly medical consult for call for admission. Went to see the patient in the emergency room patient her able to give good information. They agreed to stay in the hospital for further management. 09/24/[id number]-iepj-old female with morbid obesity and multiple comorbidities admitted with increasing shortness of breath found to be in CHF exacerbation. BNP was more than 20,000. And she has EF of 55% the echo was done in April last year. Suggest chronic left ventricular systolic heart failure. Patient is complaining of rash on the back requesting Silvadene. On the examination in the ER yesterday the abdominal wall on the right side looks erythematous and hot to touch, there is a concern about possibility of underlying abscess requested for CT abdomen and pelvis, patient refused the procedure yesterday. This morning pt told me she does not want any CT scan to be done. She understood why a CT scan was requested but she does not want it to be done. 09/25/2018 63-year-old female admitted for CHF exacerbation. Initial BNP is more than 20,000. Presently on Lasix 40 mg 3 times daily, BNP was improved to 15,000. Elevated BNP may be also due to chronic kidney disease. She has a stage III kidney disease. Recent echocardiogram shows EF of 55% suggesting she has left ventricular systolic heart failure. Which was chronic. No acute events in the last 24 hours. Patient is afebrile. She is requesting Benadryl for itching. Reason For Visit: CHF EXACERBATION Physical Exam Vital Signs: Temp Pulse Resp BP Pulse Ox 98.5 F 64 16 148/51 H 97 09/25/18 08:05 09/25/18 08:05 09/25/18 08:05 09/25/18 08:05 09/25/18 08:05 Intake & Output 09/24/18 09/25/18 09/26/18 06:59 06:59 06:59 Intake Total 290 1969 Output Total 1350 2300 Balance -1060 -331 Weight 136.8 kg 136.8 kg General appearance: PRESENT: other - Morbidly obese female bedbound alert oriented communicating well. Head exam: PRESENT: atraumatic Eye exam: PRESENT: PERRLA Mouth exam: PRESENT: moist, tongue midline Neck exam: ABSENT: carotid bruit, JVD, lymphadenopathy, thyromegaly Respiratory exam: PRESENT: crackles, decreased breath sounds Cardiovascular exam: PRESENT: tachycardia GI/Abdominal exam: PRESENT: other - obese abdomen with erythema of the right abdominal wall. Extremities exam: PRESENT: full ROM, +1 edema. ABSENT: calf tenderness, clubbing, pedal edema Neurological exam: PRESENT: alert, awake, oriented to person, oriented to place, oriented to time, oriented to situation, CN II-XII grossly intact. ABSENT: motor sensory deficit Psychiatric exam: PRESENT: appropriate affect, normal mood. ABSENT: homicidal ideation, suicidal ideation Results Laboratory Results: 09/25/18 05:13 09/25/18 05:13 09/25/18 09/25/18 05:13 05:13 WBC 8.4 RBC 2.97 L Hgb 8.5 L Hct 25.3 L MCV 85 MCH 28.6 MCHC 33.6 RDW 14.5 H Plt Count 166 Seg Neutrophils % 62.8 Lymphocytes % 14.8 Monocytes % 7.2 Eosinophils % 14.9 H Basophils % 0.3 Absolute Neutrophils 5.3 Absolute Lymphocytes 1.2 Absolute Monocytes 0.6 Absolute Eosinophils 1.2 H Absolute Basophils 0.0 Sodium 138.7 Potassium 3.8 Chloride 104 Carbon Dioxide 27 Anion Gap 8 BUN 75 H Creatinine 2.00 H Est GFR ( Amer) 31 L Est GFR (Non-Af Amer) 25 L Glucose 99 Calcium 9.3 Magnesium 2.0 Total Bilirubin 0.4 AST 8 L ALT 14 Alkaline Phosphatase 77 Total Protein 5.5 L Albumin 2.7 L 02/06/19 20:01 Catheterized Urine Urine Culture - Final Escherichia Coli 09/23/18 09/23/18 09/23/18 16:22 19:23 19:23 Creatine Kinase < 20 L CK-MB (CK-2) 0.32 Troponin I 0.045 0.051 NT-Pro-B Natriuret Pep [id number] H 09/24/18 09/24/18 09/24/18 01:25 01:25 08:03 Creatine Kinase < 20 L < 20 L CK-MB (CK-2) 0.30 Troponin I 0.054 NT-Pro-B Natriuret Pep 09/24/18 09/25/18 08:03 05:13 Creatine Kinase CK-MB (CK-2) 0.37 Troponin I 0.059 NT-Pro-B Natriuret Pep 85960 H 32314 H Impressions: Chest X-Ray 09/23/18 16:19 IMPRESSION: CARDIAC ENLARGEMENT. VASCULAR CONGESTION. Renal Ultrasound 09/25/18 00:00 IMPRESSION: Limited study. Medical renal disease. No hydronephrosis. Assessment & Plan - Diagnosis (1) CHF (congestive heart failure) Qualifiers: Heart failure type: unspecified Heart failure chronicity: acute Qualified Code(s): I50.9 - Heart failure, unspecified Is this a current diagnosis for this admission?: Yes Plan: 09/23/2018 patient has history of chronic systolic heart failure with EF of greater than 55%. Came in with BNP of more than 20,000 and chest x-ray shows increased pulmonary vascular congestion in association with worsening shortness of breath for the last 24 hours. Patient is going to be placed in IMCU. Started on Lasix 40 mg IV every 8 hours. We are going to do the daily chest x- rays ABGs and BNP on daily basis. Thompson's catheter was requested. She was restarted on home medications except Bumex. Consultation with Dr. Jeff alex as requested. 09/24/2018-and has history of chronic systolic heart failure with EF of 55%. Admitted for CHF exacerbation. BNP today is 19,900. She was placed on a fluid restriction 1200 mL/day. Also on Lasix 40 mg 3 times a day. Cardiology consult was requested plan is to continue the present management. 09/25/2018-patient has history of chronic systolic heart failure with EF of 55%. Lasix 40 mg 3 times daily. BNP improved to 15,000. She has a chronic systolic heart failure. She is also on fluid restriction 1200 mL/day. Plan is to continue the present management. (2) CKD (chronic kidney disease) stage 3, GFR 30-59 ml/min Is this a current diagnosis for this admission?: Yes Plan: 09/23/2018 patient has history of stage III kidney disease with a GFR is 27. Stable. We are going to follow the patient regular basis. 09/24/2018 patient is given the history of CKD 3. Her creatinine today is 2.03. Admission creatinine is 1.92. place a consult for nephrology. We will do daily renal panel. Order was placed for renal ultrasound. 09/25/2018-patient's creatinine is 2.0 she has stage III kidney disease. Renal ultrasound is negative for acute pathology. Plan is to continue the present management. (3) Morbid obesity Is this a current diagnosis for this admission?: Yes Plan: 09/23/2018-patient BMI is more than 50 diet exercise weight loss and complete the medication was advised. 09/24/2018 patient's BMI is more than 50 she is bedbound. She is bedbound because of the previous history of right ankle fractures. Again dietary advice was given dietary consult was requested. 09/25/2018-patient is BMI is more than 50 she is bedbound. Diabetic weight loss lifestyle modification discussed dietary consult was done. 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 She is on insulin at home. We are going to put her on a insulin sliding scale restart her home insulin plan to check her hemoglobin A1c tomorrow. Dietary consult was requested. 09/24/2018 patient has history of type 2 diabetes mellitus she is on insulin at home. She is on insulin sliding scale before meals and at bedtime latest blood sugar is 261. Plan to put her on Lantus 10 units twice a day and request for hemoglobin A1c. 09/25/2018-patient has history of type 2 diabetes mellitus. Presently she has an insulin sliding scale before meals and at bedtime and Lantus 10 units twice a day. Hemoglobin A1c came back 6.9. Latest blood sugar is 115. And is to continue the present management. (5) Cellulitis Is this a current diagnosis for this admission?: Yes Plan: 09/23/2018-on examination of the abdomen there is increased redness and increased warmth of the right sided abdominal wall. Blood cultures urine cultures were requested. Started on IV Zosyn 3.375 g every 6 hours. 09/24/2018-on examination of the abdominal wall there is a high suspicion for ce llulitis. She is on presently on vancomycin, dose will be adjusted based on the trough levels. Cultures are pending. Urine culture came back positive for gram-negative rods. Patient was placed on Bactrim DS 1 tablet p.o. twice a day. 09/25/2018-erythema and redness of the right abdominal wall presently on vancomycin. The blood cultures are positive for gram-positive cocci urine culture is positive for E. coli. Plan is to continue the present management. (6) Hypertension Is this a current diagnosis for this admission?: Yes Plan: 09/23/2018-patient has chronic history of hypertension she takes Bumex 1 mg in the morning half a milligram in the evening. Going to hold Bumex and start on Lasix 40 mg IV every 8 hours because of the congestive heart failure. 09/24/2018-patient blood pressure today is 124/55 stable. Patient has Lasix 40 mg 3 times a day plan is to continue the present management. 09/25/2018-patient blood pressure today is 148/51 with heart rate of 64. Patient is presently on Lasix 40 mg 3 times daily plan is to continue the present management. (8) UTI (urinary tract infection) Qualifiers: Urinary tract infection type: catheter-associated UTI Indwelling urinary catheter type: indwelling urethral catheter Encounter type: initial encounter Qualified Code(s): T83.511A - Infection and inflammatory reaction due to indwelling urethral catheter, initial encounter; N39.0 - Urinary tract infection, site not specified; N39.0 - Urinary tract infection, site not specified Is this a current diagnosis for this admission?: Yes Plan: Urine culture came back positive for E. coli resistant to Bactrim Bactrim was discontinued started on nitrofurantoin 100 mg p.o. twice daily. - Time Time Spent with patient: 15-24 minutes Medications reviewed and adjusted accordingly: Yes Anticipated discharge: Home
[2018-09-25] MEDS: CHOLECALCIFEROL (D3) 1,000 UNIT TABLET PO SCH (11:59)
[2018-09-25] MEDS: DIPHENHYDRAMINE HCL 25 MG/10 ML UDC PO SCH ×2 (13:47→21:52)
--- NOTE | 2018-09-25 16:07 | PDOC CONSULTATION ---
Consultation Consult Date: 09/25/18 Consult reason:: Acute on chronic kidney disease History of Present Illness Admission Date/PCP: 09/23/18 18:14 CAMILLE ALEXANDER MD History of Present Illness: JOJO BACK is a 63 year old female with history of morbid obesity with BMI of more than 50, hypertension, diabetes, blindness, CKD stage III with a base creatinine 1.5. oxygen dependent COPD, severe pulmonary hypertension, right- sided abdominal wall hernia,Chronic pain syndrome on narcotics, congestive heart failure with EF greater than 55% April last year and came to the emergency room with complaints of increasing shortness of breath for the last 24 hours. Patient is not exactly a good historian. Therefore chart was reviewed. Apparently the patient has been progressively getting worse over the last few days-weeks to the point of getting orthopnea. No apparent history of any dysuria, abdominal pains, fever or chills. No apparent history of diarrhea. Evaluations in the ER revealed that she had Acute on chronic kidney disease with a creatinine of 2+, congestive heart failure, cellulitis of abdominal wall and E. coli UTI. She has been admitted and put on Antibiotics and IV diuretics. Currently patient states she is feeling better than when she came in. Labs and medications were reviewed. Past Medical History Cardiac Medical History: Reports: Hyperlipidemia, Hypertension-primary Pulmonary Medical History: Reports: Chronic Obstructive Pulmonary Disease (COPD) Endocrine Medical History: Reports: Diabetes Mellitus Type 2, Hypothyroidism Renal/ Medical History: Reports: Chronic Kidney Disease Stage III, Recurrent UTI Malignancy Medical History: Reports: Colorectal Cancer Musculoskeltal Medical History: Reports: Arthritis - gout Psychiatric Medical History: Reports: Depression Hematology Medical History: Reports Anemia Past Surgical History Past Surgical History: Reports: Orthopedic Surgery - right ankle surgery secondary to trimalleolar fracture 09/2016, Other - History of colectomy Social History Smoking Status: Never Smoker Frequency of Alcohol Use: None Hx Recreational Drug Use: No Drugs: None Hx Prescription Drug Abuse: No - Advance Directive Resuscitation Status: Full Code Family History Parental Family History Reviewed: No Children Family History Reviewed: No Sibling(s) Family History Reviewed.: No Medication/Allergy Home Medications: Aspirin [Ecotrin] 325 mg PO DAILY 09/23/18 Bumetanide [Bumex 1 mg Tablet] 0.5 mg PO QHS 09/23/18 Bumetanide [Bumex 1 mg Tablet] 1 mg PO DAILY 09/23/18 Citalopram Hydrobromide [Celexa 40 mg Tablet] [address] [facility] 09/[facility]/18 Docusate Sodium [Colace 100 mg Capsule] 100 mg PO QHS 09/23/18 Insulin Regular, Human [Novolin R (Reg) Insulin 100 unit/mL] 0 unit SQ .SLIDING SCALE 09/23/18 Insulin Regular, Human [Novolin R (Reg) Insulin 100 unit/mL] 5 unit SQ MEALS 09/23/18 Levothyroxine Sodium [Synthroid] 200 mcg PO Q6AM 09/23/18 Metoprolol Succinate [Toprol Xl] [address] [facility] 09/23/18 NPH, Human Insulin Isophane [Humulin N (NPH) Insulin 100 unit/mL] 36 unit SQ QHS 09/23/18 Oxycodone HCl/Acetaminophen [Percocet 10-325 mg Tablet] 1 tab PO Q6HP PRN 09/23/18 Simvastatin [Zocor 10 mg Tablet] 10 mg PO QHS 09/23/18 Allergies/Adverse Reactions: heparin Allergy (Verified 09/23/18 19:49) RASH,ITCHING Penicillins Allergy (Verified 09/23/18 19:49) RASH spironolactone Adverse Reaction (Verified 09/23/18 19:49) Review of Systems Constitutional: PRESENT: anorexia, fatigue, weakness. ABSENT: chills, fever(s), headache(s), night sweats Ears: PRESENT: hearing changes Nose, Mouth, and Throat: ABSENT: mouth pain, sore throat Cardiovascular: PRESENT: dyspnea on exertion, edema, orthropnea. ABSENT: chest pain, palpitations Gastrointestinal: ABSENT: abdominal pain, coffee ground emesis, diarrhea, dysphagia, heartburn, hematemesis, hematochezia Genitourinary: ABSENT: dysuria, hematuria Integumentary: ABSENT: erythema, lesions, pruritus, rash Neurological: ABSENT: abnormal movements, convulsions, focal weakness, frequent falls, lack of coordination Psychiatric: PRESENT: depression Hematologic/Lymphatic: ABSENT: easy bruising, lymphadenopathy Physical Exam Vital Signs: Temp Pulse Resp BP Pulse Ox 98.0 F 58 L 18 147/63 H 95 09/25/18 11:40 09/25/18 14:00 09/25/18 11:40 09/25/18 11:40 09/25/18 12:34 Intake & Output 09/24/18 09/25/18 09/26/18 06:59 06:59 06:59 Intake Total 290 1969 500 Output Total 1350 2300 Balance -1060 -331 500 Weight 136.8 kg 136.8 kg General appearance: PRESENT: no acute distress Eye exam: PRESENT: EOMI, PERRLA. ABSENT: nystagmus Ear exam: PRESENT: normal external ear exam Mouth exam: PRESENT: moist, neck supple Neck exam: ABSENT: lymphadenopathy, meningismus, tenderness, thyromegaly, tracheal deviation Respiratory exam: PRESENT: clear to auscultation jerome, crackles, decreased breath sounds Cardiovascular exam: PRESENT: +S1, +S2 GI/Abdominal exam: PRESENT: normal bowel sounds, soft. ABSENT: organomegaly, tenderness Extremities exam: PRESENT: pedal edema Neurological exam: PRESENT: awake, oriented to person Skin exam: PRESENT: erythema, rash. ABSENT: cyanosis Results Laboratory Results: 09/25/18 05:13 09/25/18 05:13 09/25/18 09/25/18 05:13 05:13 WBC 8.4 RBC 2.97 L Hgb 8.5 L Hct 25.3 L MCV 85 MCH 28.6 MCHC 33.6 RDW 14.5 H Plt Count 166 Seg Neutrophils % 62.8 Lymphocytes % 14.8 Monocytes % 7.2 Eosinophils % 14.9 H Basophils % 0.3 Absolute Neutrophils 5.3 Absolute Lymphocytes 1.2 Absolute Monocytes 0.6 Absolute Eosinophils 1.2 H Absolute Basophils 0.0 Sodium 138.7 Potassium 3.8 Chloride 104 Carbon Dioxide 27 Anion Gap 8 BUN 75 H Creatinine 2.00 H Est GFR ( Amer) 31 L Est GFR (Non-Af Amer) 25 L Glucose 99 Calcium 9.3 Magnesium 2.0 Total Bilirubin 0.4 AST 8 L ALT 14 Alkaline Phosphatase 77 Total Protein 5.5 L Albumin 2.7 L 09/23/18 20:01 Catheterized Urine Urine Culture - Final Escherichia Coli 09/23/18 09/23/18 09/23/18 16:22 19:23 19:23 Creatine Kinase < 20 L CK-MB (CK-2) 0.32 Troponin I 0.045 0.051 NT-Pro-B Natriuret Pep [id number] H 09/24/18 09/24/18 09/24/18 01:25 01:25 08:03 Creatine Kinase < 20 L < 20 L CK-MB (CK-2) 0.30 Troponin I 0.054 NT-Pro-B Natriuret Pep 09/24/18 09/25/18 08:03 05:13 Creatine Kinase CK-MB (CK-2) 0.37 Troponin I 0.059 NT-Pro-B Natriuret Pep 22446 H 12474 H Impressions: Chest X-Ray 09/23/18 16:19 IMPRESSION: CARDIAC ENLARGEMENT. VASCULAR CONGESTION. Renal Ultrasound 09/25/18 00:00 IMPRESSION: Limited study. Medical renal disease. No hydronephrosis. Assessment & Plan - Diagnosis (1) Cellulitis Is this a current diagnosis for this admission?: Yes Plan: Currently on vancomycin. Pharmacy dosing. Monitor carefully to prevent bank toxicity. (2) UTI (urinary tract infection) Plan: E. coli currently on Macrodantin which I do not think is appropriate medicine given this antibiogram. Suggest changing it to cefepime or Claforan. (4) Acute diastolic CHF (congestive heart failure) Plan: Currently on nasal cannula and stable. (5) Bqyin-kj-ntpfeby kidney injury Plan: Secondary to prerenal congestive heart failure and ATN with UTI/cellulitis. Continue on IV fluids. Will monitor. No obstructive uropathy as per review of renal ultrasound. (6) Anemia Qualifiers: Anemia type: due to chronic kidney disease Chronic kidney disease stage: stage 4 (severe) Qualified Code(s): N18.4 - Chronic kidney disease, stage 4 (severe) Plan: Will initiate workup. Later consider for erythropoietin. (8) Hypertension Is this a current diagnosis for this admission?: Yes Plan: Relatively controlled. Monitor. (9) Severe pulmonary arterial systolic hypertension Plan: Obviously the patient has got biventricular failure. Given her severe morbid obesity she is candidate for pickwickian/sleep apnea.
[2018-09-25] MEDS: NITROFURANTOIN MONOHYD/M-CRYST 100 MG CAPSULE PO SCH (17:12)
[2018-09-25] MEDS ORDERED: NITROFURANTOIN 5 MG/ML SUSP 60 ML PO SCH (18:00)
[2018-09-25] MEDS: OXYCODONE-ACETAMINOPHEN 5-325 MG TABLET PO PRN (21:52)
[2018-09-25] MEDS: SIMVASTATIN 10 MG TABLET PO SCH (21:52)
[2018-09-26] MEDS: FUROSEMIDE INJ/PF 40 MG/4 ML SDV IV SCH ×3 (05:55→21:40)
[2018-09-26] MEDS: DIPHENHYDRAMINE HCL 25 MG/10 ML UDC PO SCH ×3 (05:56→21:40)
[2018-09-26] MEDS: NITROFURANTOIN MONOHYD/M-CRYST 100 MG CAPSULE PO SCH (05:56)
[2018-09-26] MEDS: LEVOTHYROXINE SODIUM 0.1 MG TABLET PO SCH (05:56)
[2018-09-26 06:32] LABS: ABSOLUTE EOSINOPHILS # (AUTO) 1.3 10^3/uL (0.0-0.6); ABSOLUTE LYMPHOCYTES (AUTO) 1.4 10^3/uL (0.5-4.7); ABSOLUTE MONOCYTES (AUTO) 0.6 10^3/uL (0.1-1.4); ABSOLUTE NEUT (AUTO) 4.8 10^3/uL (1.7-8.2); ABSOLUTE RETICS # 0.098 10^6/uL (0.028-0.122); BASOPHILS % (AUTO) 0.6 % (0-2); EOSINOPHILS % (AUTO) 16.3 % (0-6); HEMOGLOBIN 8.9 g/dL (12.0-15.5); LYMPHOCYTES % (AUTO) 17.3 % (13-45); MEAN CORPUSCULAR HEMOGLOBIN 28.8 pg (27.0-33.4); MEAN CORPUSCULAR HGB CONC 34.1 g/dL (32.0-36.0); MEAN CORPUSCULAR VOLUME 84 fl (80-97); MONOCYTES % (AUTO) 7.1 % (3-13); PLATELET COUNT 201 10^3/uL (150-450); RED BLOOD COUNT 3.09 10^6/uL (3.72-5.28); RED CELL DISTRIBUTION WIDTH 14.8 % (11.5-14.0); RETICULOCYTE COUNT (AUTO) 3.16 % (0.66-2.85); SEGMENTED NEUTROPHILS % (AUTO) 58.7 % (42-78); TOTAL CELLS COUNTED % (AUTO) 100 %; WHITE BLOOD COUNT 8.2 10^3/uL (4.0-10.5)
[2018-09-26 06:55] LABS: ALANINE AMINOTRANSFERASE 21 U/L (9-52); ALBUMIN 2.7 g/dL (3.5-5.0); ALKALINE PHOSPHATASE 78 U/L (38-126); ANION GAP 7 (5-19); ASPARTATE AMINO TRANSFERASE 8 U/L (14-36); BILIRUBIN,DIRECT 0.2 mg/dL (0.0-0.4); BILIRUBIN,TOTAL 0.3 mg/dL (0.2-1.3); BLOOD UREA NITROGEN 70 mg/dL (7-20); CALCIUM 9.7 mg/dL (8.4-10.2); CARBON DIOXIDE 31 mmol/L (22-30); CHLORIDE 103 mmol/L (98-107); IRON(TIBC) 23.2 ug/dL (37-170); POTASSIUM 3.8 mmol/L (3.6-5.0); SODIUM 140.5 mmol/L (137-145); TOTAL PROTEIN 5.8 g/dL (6.3-8.2)
[2018-09-26] MEDS: INSULIN LISPRO 100 UNIT/ML 3 ML VIAL SUBCUT SCH ×4 (07:52→21:40)
[2018-09-26] MEDS: INSULIN NPH (ISOPHANE), HUMAN 100 UNIT/ML 3 ML SUBCUT SCH ×2 (07:56→17:43)
[2018-09-26] MEDS: CITALOPRAM HYDROBROMIDE 20 MG TABLET PO SCH ×2 (07:57→09:11)
[2018-09-26 08:04] LABS: GLUCOSE 68 mg/dL (75-110)
[2018-09-26] MEDS: ASPIRIN 325 MG TABLET PO SCH (09:25)
[2018-09-26] MEDS: ENOXAPARIN SODIUM INJ 40 MG/0.4 ML DISP.SYRIN SUBCUT SCH (09:25)
[2018-09-26] MEDS: INSULIN GLARGINE,HUM.REC.ANLOG 1,000 UNIT/10 ML UNIT SUBCUT SCH ×2 (09:25→21:41)
[2018-09-26] MEDS: METOPROLOL SUCCINATE 25 MG TAB.SR.24H PO SCH (09:26)
[2018-09-26] MEDS: NYSTATIN TOPICAL POWDER 15 GM TP SCH ×3 (09:26→17:43)
[2018-09-26] MEDS: FAMOTIDINE 20 MG TABLET PO SCH ×2 (09:26→21:40)
[2018-09-26] MEDS: VANCOMYCIN HCL 2,000 MG in NORMAL SALINE 500 ML IV SCH (09:26)
[2018-09-26] MEDS: FERROUS SULFATE 325 MG TABLET PO SCH ×3 (09:26→17:43)
[2018-09-26] MEDS: SILVER SULFADIAZINE 1% CREAM 400 GM TP SCH ×2 (09:26→17:43)
[2018-09-26] MEDS: DOCUSATE SODIUM 100 MG CAPSULE PO SCH ×2 (09:26→17:43)
--- NOTE | 2018-09-26 10:16 | PDOC PROGRESS REPORT ---
Subjective Progress Note for:: 09/26/18 Subjective:: 63 year old female with history of morbid obesity with BMI of more than 50, hypertension, diabetes, blindness, chronic back pain, bed #8, oxygen dependent COPD, severe pulmonary hypertension, right-sided abdominal wall hernia, congestive heart failure with EF greater than 55% April last year and came to the emergency room with complaints of increasing shortness of breath for the last 24 hours. As per the shortness of breath was noticed since yesterday it is gradually progressive this morning so they decided to bring her to the hospital for further evaluation. Denies any nausea vomiting diarrhea but complaining of constipation denies any upper respiratory tract symptoms, denies any sinus problems. Denies any chest pains denies any fever. In the emergency room she was placed on BiPAP and chest x-ray shows pulmonary vascular congestion with cardiomegaly medical consult for call for admission. Went to see the patient in the emergency room patient her able to give good information. They agreed to stay in the hospital for further management. 09/24/[id number]-wyqg-old female with morbid obesity and multiple comorbidities admitted with increasing shortness of breath found to be in CHF exacerbation. BNP was more than 20,000. And she has EF of 55% the echo was done in April last year. Suggest chronic left ventricular systolic heart failure. Patient is complaining of rash on the back requesting Silvadene. On the examination in the ER yesterday the abdominal wall on the right side looks erythematous and hot to touch, there is a concern about possibility of underlying abscess requested for CT abdomen and pelvis, patient refused the procedure yesterday. This morning pt told me she does not want any CT scan to be done. She understood why a CT scan was requested but she does not want it to be done. 09/25/2018 63-year-old female admitted for CHF exacerbation. Initial BNP is more than 20,000. Presently on Lasix 40 mg 3 times daily, BNP was improved to 15,000. Elevated BNP may be also due to chronic kidney disease. She has a stage III kidney disease. Recent echocardiogram shows EF of 55% suggesting she has left ventricular systolic heart failure. Which was chronic. No acute events in the last 24 hours. Patient is afebrile. She is requesting Benadryl for itching. 09/26/[id number]-aymj-old female with morbid obesity admitted with CHF exacerbation. Currently on Lasix 40 mg IV 3 times a day. BNP came down to 12,400 from 15,000. Weighted BNP may be secondary to stage III kidney disease. Dimension W recent echocardiogram shows EF of 55% suggestive of she has left ventricular systolic heart failure. chf is chronic . Patient is feeling much better denies any problems with breathing. Patient is afebrile. Reason For Visit: CHF EXACERBATION Physical Exam Vital Signs: Temp Pulse Resp BP Pulse Ox 98.4 F 56 L 16 145/53 H 100 09/26/18 08:10 09/26/18 08:10 09/26/18 08:10 09/26/18 08:10 09/26/18 08:10 Intake & Output 09/25/18 09/26/18 09/27/18 06:59 06:59 06:59 Intake Total 1969 1935 Output Total 2300 3500 Balance -331 -1565 Weight 136.8 kg 136.8 kg General appearance: PRESENT: no acute distress, other - Morbidly obese female comfortable in the bed. Denies any complaints. Head exam: PRESENT: atraumatic Eye exam: PRESENT: PERRLA Mouth exam: PRESENT: moist, tongue midline Neck exam: ABSENT: carotid bruit, JVD, lymphadenopathy, thyromegaly Respiratory exam: PRESENT: decreased breath sounds Cardiovascular exam: PRESENT: systolic murmur, tachycardia GI/Abdominal exam: PRESENT: normal bowel sounds, soft, other - Rash on the right abdominal wall is improving.. ABSENT: distended, guarding, mass, organolmegaly, rebound, tenderness Extremities exam: PRESENT: +1 edema Neurological exam: PRESENT: alert, awake, oriented to person, oriented to place, oriented to time, oriented to situation, CN II-XII grossly intact. ABSENT: motor sensory deficit Psychiatric exam: PRESENT: appropriate affect, normal mood. ABSENT: homicidal ideation, suicidal ideation Results Laboratory Results: 09/26/18 05:49 09/26/18 05:49 09/26/18 09/26/18 05:49 05:49 WBC 8.2 RBC 3.09 L Hgb 8.9 L Hct 26.0 L MCV 84 MCH 28.8 MCHC 34.1 RDW 14.8 H Plt Count 201 Seg Neutrophils % 58.7 Lymphocytes % 17.3 Monocytes % 7.1 Eosinophils % 16.3 H Basophils % 0.6 Absolute Neutrophils 4.8 Absolute Lymphocytes 1.4 Absolute Monocytes 0.6 Absolute Eosinophils 1.3 H Absolute Basophils 0.0 Retic Count (auto) 3.16 H Absolute Retic 0.098 Sodium 140.5 Potassium 3.8 Chloride 103 Carbon Dioxide 31 H Anion Gap 7 BUN 70 H Creatinine 2.08 H Est GFR ( Amer) 29 L Est GFR (Non-Af Amer) 24 L Glucose 68 L Calcium 9.7 Magnesium 1.9 Iron 23.2 L TIBC 269 % Saturation 9 Ferritin 45.50 Total Bilirubin 0.3 AST 8 L ALT 21 Alkaline Phosphatase 78 Total Protein 5.8 L Albumin 2.7 L Vitamin B12 791.0 Folate 8.50 09/23/18 16:22 Blood Blood Culture - Final Staphylococcus Epidermidis 09/23/18 20:01 Catheterized Urine Urine Culture - Final Escherichia Coli 09/23/18 09/23/18 09/23/18 16:22 19:23 19:23 Creatine Kinase < 20 L CK-MB (CK-2) 0.32 Troponin I 0.045 0.051 NT-Pro-B Natriuret Pep [id number] H 09/24/18 09/24/18 09/24/18 01:25 01:25 08:03 Creatine Kinase < 20 L < 20 L CK-MB (CK-2) 0.30 Troponin I 0.054 NT-Pro-B Natriuret Pep 09/24/18 09/25/18 09/26/18 08:03 05:13 05:49 Creatine Kinase CK-MB (CK-2) 0.37 Troponin I 0.059 NT-Pro-B Natriuret Pep 58995 H 01651 H 60651 H Impressions: Chest X-Ray 09/23/18 16:19 IMPRESSION: CARDIAC ENLARGEMENT. VASCULAR CONGESTION. Renal Ultrasound 09/25/18 00:00 IMPRESSION: Limited study. Medical renal disease. No hydronephrosis. Assessment & Plan - Diagnosis (1) CHF (congestive heart failure) Qualifiers: Heart failure type: unspecified Heart failure chronicity: acute Qualified Code(s): I50.9 - Heart failure, unspecified Is this a current diagnosis for this admission?: Yes Plan: 09/23/2018 patient has history of chronic systolic heart failure with EF of greater than 55%. Came in with BNP of more than 20,000 and chest x-ray shows increased pulmonary vascular congestion in association with worsening shortness of breath for the last 24 hours. Patient is going to be placed in IMCU. Started on Lasix 40 mg IV every 8 hours. We are going to do the daily chest x- rays ABGs and BNP on daily basis. Thompson's catheter was requested. She was restarted on home medications except Bumex. Consultation with Dr. Aguilar was requested. 09/24/2018-and has history of chronic systolic heart failure with EF of 55%. Admi tted for CHF exacerbation. BNP today is 19,900. She was placed on a fluid restriction 1200 mL/day. Also on Lasix 40 mg 3 times a day. Cardiology consult was requested plan is to continue the present management. 09/25/2018-patient has history of chronic systolic heart failure with EF of 55%. Lasix 40 mg 3 times daily. BNP improved to 15,000. She has a chronic systolic heart failure. She is also on fluid restriction 1200 mL/day. Plan is to continue the present management. 09/26/2018-patient has history of congestive heart failure came in with shortness of breath most likely secondary to CHF exacerbation. On Lasix 40 mg 3 times a day. BNP improved to 12,000. She is on fluid restriction 1200 mL/day. This systolic heart failure is chronic in nature. Plan is to continue the present m anagement. (2) CKD (chronic kidney disease) stage 3, GFR 30-59 ml/min Is this a current diagnosis for this admission?: Yes Plan: 09/23/2018 patient has history of stage III kidney disease with a GFR is 27. Stable. We are going to follow the patient regular basis. 09/24/2018 patient is given the history of CKD 3. Her creatinine today is 2.03. Admission creatinine is 1.92. place a consult for nephrology. We will do daily renal panel. Order was placed for renal ultrasound. 09/25/2018-patient's creatinine is 2.0 she has stage III kidney disease. Renal ultrasound is negative for acute pathology. Plan is to continue the present management. 09/26/2018-creatinine is 2.08 and EGFR is 24. Patient has stage III kidney disease. Ultrasound was negative for acute pathology. Nephrology consult was done. (3) Morbid obesity Is this a current diagnosis for this admission?: Yes Plan: 09/23/2018-patient BMI is more than 50 diet exercise weight loss and complete the medication was advised. 09/24/2018 patient's BMI is more than 50 she is bedbound. She is bedbound because of the previous history of right ankle fractures. Again dietary advice was given dietary consult was requested. 09/25/2018-patient is BMI is more than 50 she is bedbound. Diabetic weight loss lifestyle modification discussed dietary consult was done. 09/26/2018-patient's BMI is more than 50, she is bedbound. Dietary consult was done during this hospital stay. (4) Diabetes Qualifiers: Diabetes mellitus type: type 2 Diabetes mellitus penitentiary insulin use: unspecified penitentiary insulin use status Diabetes mellitus complication status: with other specified complication Qualified Code(s): E11.69 - Type 2 diabetes mellitus with other specified complication Is this a current diagnosis for this admission?: Yes Plan: 09/23/2018-patient has history of type 2 diabetes mellitus. She is on insulin at home. We are going to put her on a insulin sliding scale restart her home insulin plan to check her hemoglobin A1c tomorrow. Dietary consult was requested. 09/24/2018 patient has history of type 2 diabetes mellitus she is on insulin at home. She is on insulin sliding scale before meals and at bedtime latest blood sugar is 261. Plan to put her on Lantus 10 units twice a day and request for hemoglobin A1c. 09/25/2018-patient has history of type 2 diabetes mellitus. Presently she has an insulin sliding scale before meals and at bedtime and Lantus 10 units twice a day. Hemoglobin A1c came back 6.9. Latest blood sugar is 115. And is to continue the present management. 09/26/2018-patient has type 2 diabetes mellitus hemoglobin A1c is 6.9, latest blood sugar is 72. Patient is on Lantus 10 units twice a day and insulin sliding scale before meals and at bedtime. Plan is to continue the present kristykamini wagoner. (5) Cellulitis Is this a current diagnosis for this admission?: Yes Plan: 09/23/2018-on examination of the abdomen there is increased redness and increased warmth of the right sided abdominal wall. Blood cultures urine cultures were requested. Started on IV Zosyn 3.375 g every 6 hours. 09/24/2018-on examination of the abdominal wall there is a high suspicion for cellulitis. She is on presently on vancomycin, dose will be adjusted based on the trough levels. Cultures are pending. Urine culture came back positive for gram-negative rods. Patient was placed on Bactrim DS 1 tablet p.o. twice a day. 09/25/2018-erythema and redness of the right abdominal wall presently on vancomycin. The blood cultures are positive for gram-positive cocci urine culture is positive for E. coli. Plan is to continue the present management. 09/26/2018 erythema and redness of the right abdominal wall is improving presently on vancomycin. The blood cultures came back positive for staph epidermidis. Plan is to continue the present management. (6) Hypertension Is this a current diagnosis for this admission?: Yes Plan: 09/23/2018-patient has chronic history of hypertension she takes Bumex 1 mg in the morning half a milligram in the evening. Going to hold Bumex and start on Lasix 40 mg IV every 8 hours because of the congestive heart failure. 09/24/2018-patient blood pressure today is 124/55 stable. Patient has Lasix 40 mg 3 times a day plan is to continue the present management. 09/25/2018-patient blood pressure today is 148/51 with heart rate of 64. Patient is presently on Lasix 40 mg 3 times daily plan is to continue the present management. 09/26/2018-blood pressure today is 145/53. On Lasix 40 mg 3 times daily blood pressure is relatively stable plan is to continue the present management. (7) UTI (urinary tract infection) Is this a current diagnosis for this admission?: Yes (8) UTI (urinary tract infection) Qualifiers: Urinary tract infection type: catheter-associated UTI Indwelling urinary catheter type: indwelling urethral catheter Encounter type: initial encounter Qualified Code(s): T83.511A - Infection and inflammatory reaction due to indwelling urethral catheter, initial encounter; N39.0 - Urinary tract infection, site not specified; N39.0 - Urinary tract infection, site not specified Is this a current diagnosis for this admission?: Yes Plan: Urine culture came back positive for E. coli resistant to Bactrim Bactrim was discontinued started on nitrofurantoin 100 mg p.o. twice daily. 09/26/2018-urine culture came back positive for E. coli. Started on nitrofurantoin 900 mg p.o. twice a day. As per the nephrology recommendation antibiotics is switched to cefepime. I discussed the plan with Jenny in the [facility] ,we are going to watch for any adverse reactions like rash. - Time Time Spent with patient: 15-24 minutes Medications reviewed and adjusted accordingly: Yes Anticipated discharge: Home with Homehealth
[2018-09-26] MEDS: CEFEPIME 1 GM/D5W RTU 1 GM/50 ML RTUPB IV SCH ×2 (11:39→21:41)
[2018-09-26] MEDS: OXYCODONE HCL IR 5 MG TABLET PO PRN (17:51)
[2018-09-26] MEDS: SIMVASTATIN 10 MG TABLET PO SCH (21:40)
[2018-09-26] MEDS ORDERED: CEFEPIME 2 GM/D5W RTU 2 GM/50 ML RTUPB IV SCH (22:00)
[2018-09-27] MEDS: DIPHENHYDRAMINE HCL 25 MG/10 ML UDC PO SCH ×3 (05:08→21:08)
[2018-09-27] MEDS: LEVOTHYROXINE SODIUM 0.1 MG TABLET PO SCH (05:08)
[2018-09-27] MEDS: FUROSEMIDE INJ/PF 40 MG/4 ML SDV IV SCH ×3 (05:08→21:08)
[2018-09-27 05:24] LABS: ABSOLUTE EOSINOPHILS # (AUTO) 1.6 10^3/uL (0.0-0.6); ABSOLUTE LYMPHOCYTES (AUTO) 1.5 10^3/uL (0.5-4.7); ABSOLUTE MONOCYTES (AUTO) 0.7 10^3/uL (0.1-1.4); ABSOLUTE NEUT (AUTO) 5.2 10^3/uL (1.7-8.2); BASOPHILS % (AUTO) 0.4 % (0-2); EOSINOPHILS % (AUTO) 17.4 % (0-6); HEMATOCRIT 27.5 % (36.0-47.0); HEMOGLOBIN 9.3 g/dL (12.0-15.5); LYMPHOCYTES % (AUTO) 16.6 % (13-45); MEAN CORPUSCULAR HEMOGLOBIN 28.5 pg (27.0-33.4); MEAN CORPUSCULAR HGB CONC 33.8 g/dL (32.0-36.0); MEAN CORPUSCULAR VOLUME 84 fl (80-97); MONOCYTES % (AUTO) 8.1 % (3-13); PLATELET COUNT 218 10^3/uL (150-450); RED BLOOD COUNT 3.26 10^6/uL (3.72-5.28); RED CELL DISTRIBUTION WIDTH 14.6 % (11.5-14.0); SEGMENTED NEUTROPHILS % (AUTO) 57.5 % (42-78); TOTAL CELLS COUNTED % (AUTO) 100 %; WHITE BLOOD COUNT 9.1 10^3/uL (4.0-10.5)
[2018-09-27 05:52] LABS: ALANINE AMINOTRANSFERASE 23 U/L (9-52); ALBUMIN 2.8 g/dL (3.5-5.0); ALKALINE PHOSPHATASE 80 U/L (38-126); ANION GAP 7 (5-19); ASPARTATE AMINO TRANSFERASE 10 U/L (14-36); BILIRUBIN,DIRECT 0.2 mg/dL (0.0-0.4); BILIRUBIN,TOTAL 0.4 mg/dL (0.2-1.3); BLOOD UREA NITROGEN 68 mg/dL (7-20); CALCIUM 9.7 mg/dL (8.4-10.2); CARBON DIOXIDE 30 mmol/L (22-30); CHLORIDE 102 mmol/L (98-107); GLUCOSE 77 mg/dL (75-110); POTASSIUM 3.9 mmol/L (3.6-5.0); SODIUM 139.3 mmol/L (137-145); TOTAL PROTEIN 5.9 g/dL (6.3-8.2)
[2018-09-27] MEDS: INSULIN LISPRO 100 UNIT/ML 3 ML VIAL SUBCUT SCH ×4 (08:07→21:08)
[2018-09-27] MEDS: INSULIN NPH (ISOPHANE), HUMAN 100 UNIT/ML 3 ML SUBCUT SCH ×2 (08:15→17:26)
[2018-09-27] MEDS: CITALOPRAM HYDROBROMIDE 20 MG TABLET PO SCH (08:16)
[2018-09-27] MEDS: ASPIRIN 325 MG TABLET PO SCH (09:55)
[2018-09-27] MEDS: DOCUSATE SODIUM 100 MG CAPSULE PO SCH ×2 (09:55→17:25)
[2018-09-27] MEDS: METOPROLOL SUCCINATE 25 MG TAB.SR.24H PO SCH (09:55)
[2018-09-27] MEDS: FAMOTIDINE 20 MG TABLET PO SCH ×2 (09:55→21:08)
[2018-09-27] MEDS: ENOXAPARIN SODIUM INJ 40 MG/0.4 ML DISP.SYRIN SUBCUT SCH (09:55)
[2018-09-27] MEDS: INSULIN GLARGINE,HUM.REC.ANLOG 1,000 UNIT/10 ML UNIT SUBCUT SCH (09:55)
[2018-09-27] MEDS: FERROUS SULFATE 325 MG TABLET PO SCH ×2 (09:56→17:26)
[2018-09-27] MEDS: SILVER SULFADIAZINE 1% CREAM 400 GM TP SCH ×2 (09:56→17:25)
[2018-09-27] MEDS: VANCOMYCIN HCL 2,000 MG in NORMAL SALINE 500 ML IV SCH (09:56)
[2018-09-27] MEDS: CEFEPIME 1 GM/D5W RTU 1 GM/50 ML RTUPB IV SCH ×2 (09:56→21:08)
[2018-09-27] MEDS: NYSTATIN TOPICAL POWDER 15 GM TP SCH ×3 (09:57→17:25)
[2018-09-27 10:00] LABS: VANCOMYCIN,TROUGH 28.8 ug/mL (5.0-20.0)
--- NOTE | 2018-09-27 10:40 | PDOC PROGRESS REPORT ---
Subjective Progress Note for:: 09/27/18 Subjective:: 63 year old female with history of morbid obesity with BMI of more than 50, hypertension, diabetes, blindness, chronic back pain, bed #8, oxygen dependent COPD, severe pulmonary hypertension, right-sided abdominal wall hernia, congestive heart failure with EF greater than 55% April last year and came to the emergency room with complaints of increasing shortness of breath for the last 24 hours. As per the shortness of breath was noticed since yesterday it is gradually progressive this morning so they decided to bring her to the hospital for further evaluation. Denies any nausea vomiting diarrhea but complaining of constipation denies any upper respiratory tract symptoms, denies any sinus problems. Denies any chest pains denies any fever. In the emergency room she was placed on BiPAP and chest x-ray shows pulmonary vascular congestion with cardiomegaly medical consult for call for admission. Went to see the patient in the emergency room patient her able to give good information. They agreed to stay in the hospital for further management. 09/[id number]-scqi-old female with morbid obesity and multiple comorbidities admitted with increasing shortness of breath found to be in CHF exacerbation. BNP was more than 20,000. And she has EF of 55% the echo was done in April last year. Suggest chronic left ventricular systolic heart failure. Patient is complaining of rash on the back requesting Silvadene. On the examination in the ER yesterday the abdominal wall on the right side looks erythematous and hot to touch, there is a concern about possibility of underlying abscess requested for CT abdomen and pelvis, patient refused the procedure yesterday. This morning pt told me she does not want any CT scan to be done. She understood why a CT scan was requested but she does not want it to be done. 09/25/2018 63-year-old female admitted for CHF exacerbation. Initial BNP is more than 20,000. Presently on Lasix 40 mg 3 times daily, BNP was improved to 15,000. Elevated BNP may be also due to chronic kidney disease. She has a stage III kidney disease. Recent echocardiogram shows EF of 55% suggesting she has left ventricular systolic heart failure. Which was chronic. No acute events in the last 24 hours. Patient is afebrile. She is requesting Benadryl for itching. 09/26/[id number]-usyv-old female with morbid obesity admitted with CHF exacerbation. Currently on Lasix 40 mg IV 3 times a day. BNP came down to 12,400 from 15,000. Weighted BNP may be secondary to stage III kidney disease. Dimension W recent echocardiogram shows EF of 55% suggestive of she has left ventricular systolic heart failure. chf is chronic . Patient is feeling much better denies any problems with breathing. Patient is afebrile. 09/27/2018-no acute events in the last 24 hours. This morbidly obese female admitted with exacerbation of the chronic congestive heart failure. Patient Lasix 40 mg 3 times a day. She is also has chronic kidney disease creatinine 1.98 and GFR is around 25. Echocardiogram shows EF is 55% suggestive of left ventricular heart failure. Reason For Visit: CHF EXACERBATION Physical Exam Vital Signs: Temp Pulse Resp BP Pulse Ox 98.3 F 59 L 16 140/47 H 99 09/27/18 08:31 09/27/18 08:31 09/27/18 08:31 09/27/18 08:31 09/27/18 08:31 Intake & Output 09/26/18 09/27/18 09/28/18 06:59 06:59 06:59 Intake Total 1935 1072 Output Total 3500 3150 Balance -1564 -2077 Weight 136.8 kg 111.1 kg Results Laboratory Results: 09/27/18 04:50 09/27/18 04:50 09/27/18 09/27/18 04:50 04:50 WBC 9.1 RBC 3.26 L Hgb 9.3 L Hct 27.5 L MCV 84 MCH 28.5 MCHC 33.8 RDW 14.6 H Plt Count 218 Seg Neutrophils % 57.5 Lymphocytes % 16.6 Monocytes % 8.1 Eosinophils % 17.4 H Basophils % 0.4 Absolute Neutrophils 5.2 Absolute Lymphocytes 1.5 Absolute Monocytes 0.7 Absolute Eosinophils 1.6 H Absolute Basophils 0.0 Sodium 139.3 Potassium 3.9 Chloride 102 Carbon Dioxide 30 Anion Gap 7 BUN 68 H Creatinine 1.98 H Est GFR ( Amer) 31 L Est GFR (Non-Af Amer) 26 L Glucose 77 Calcium 9.7 Magnesium 2.0 Total Bilirubin 0.4 AST 10 L ALT 23 Alkaline Phosphatase 80 Total Protein 5.9 L Albumin 2.8 L 09/23/18 16:22 Blood Blood Culture - Final Staphylococcus Epidermidis 09/23/18 09/23/18 09/23/18 16:22 19:23 19:23 Creatine Kinase < 20 L CK-MB (CK-2) 0.32 Troponin I 0.045 0.051 NT-Pro-B Natriuret Pep 17246 H 09/24/18 09/24/18 09/24/18 01:25 01:25 08:03 Creatine Kinase < 20 L < 20 L CK-MB (CK-2) 0.30 Troponin I 0.054 NT-Pro-B Natriuret Pep 09/24/18 09/25/18 09/26/18 08:03 05:13 05:49 Creatine Kinase CK-MB (CK-2) 0.37 Troponin I 0.059 NT-Pro-B Natriuret Pep 11704 H 15457 H 53586 H Impressions: Chest X-Ray 09/23/18 16:19 IMPRESSION: CARDIAC ENLARGEMENT. VASCULAR CONGESTION. Renal Ultrasound 09/25/18 00:00 IMPRESSION: Limited study. Medical renal disease. No hydronephrosis. Assessment & Plan - Diagnosis (1) CHF (congestive heart failure) Qualifiers: Heart failure type: unspecified Heart failure chronicity: acute Qualified Code(s): I50.9 - Heart failure, unspecified Is this a current diagnosis for this admission?: Yes Plan: 09/23/2018 patient has history of chronic systolic heart failure with EF of greater than 55%. Came in with BNP of more than 20,000 and chest x-ray shows increased pulmonary vascular congestion in association with worsening shortness of breath for the last 24 hours. Patient is going to be placed in IMCU. Started on Lasix 40 mg IV every 8 hours. We are going to do the daily chest x- rays ABGs and BNP on daily basis. Thompson's catheter was requested. She was restarted on home medications except Bumex. Consultation with Dr. Aguilar was requested. 09/24/2018-and has history of chronic systolic heart failure with EF of 55%. Admitted for CHF exacerbation. BNP today is 19,900. She was placed on a fluid restriction 1200 mL/day. Also on Lasix 40 mg 3 times a day. Cardiology consult was requested plan is to continue the present management. 09/25/2018-patient has history of chronic systolic heart failure with EF of 55%. Lasix 40 mg 3 times daily. BNP improved to 15,000. She has a chronic systolic heart failure. She is also on fluid restriction 1200 mL/day. Plan is to continue the present management. 09/27/2018-patient has history of congestive heart failure came in with shortness of breath most likely secondary to CHF exacerbation. On Lasix 40 mg 3 times a day. BNP improved to 12,000. She is on fluid restriction 1200 mL/day. This systolic heart failure is chronic in nature. Plan is to continue the present management. Latest BNP is 12,400. Patient on fluid restriction. Patient doing much better denies any problems of shortness of breath today. (2) CKD (chronic kidney disease) stage 3, GFR 30-59 ml/min Is this a current diagnosis for this admission?: Yes Plan: 09/23/2018 patient has history of stage III kidney disease with a GFR is 27. Stable. We are going to follow the patient regular basis. 09/24/2018 patient is given the history of CKD 3. Her creatinine today is 2.03. Admission creatinine is 1.92. place a consult for nephrology. We will do daily renal panel. Order was placed for renal ultrasound. 09/25/2018-patient's creatinine is 2.0 she has stage III kidney disease. Renal ultrasound is negative for acute pathology. Plan is to continue the present management. 09/26/2018-creatinine is 2.08 and EGFR is 24. Patient has stage III kidney disease. Ultrasound was negative for acute pathology. Nephrology consult was done. 09/27/2018-creatinine was 1.98. EGFR is 25. Patient has stage III kidney disease. Renal ultrasound was negative for acute pathology. Renal consult was done. (3) Morbid obesity Is this a current diagnosis for this admission?: Yes (4) Diabetes Qualifiers: Diabetes mellitus type: type 2 Diabetes mellitus snf insulin use: unspecified snf insulin use status Diabetes mellitus complication status: with other specified complication Qualified Code(s): E11.69 - Type 2 diabetes mellitus with other specified complication Is this a current diagnosis for this admission?: Yes Plan: 09/23/2018-patient has history of type 2 diabetes mellitus. She is on insulin at home. We are going to put her on a insulin sliding scale restart her home insulin plan to check her hemoglobin A1c tomorrow. Dietary consult was requested. 09/24/2018 patient has history of type 2 diabetes mellitus she is on insulin at home. She is on insulin sliding scale before meals and at bedtime latest blood sugar is 261. Plan to put her on Lantus 10 units twice a day and request for hemoglobin A1c. 09/25/2018-patient has history of type 2 diabetes mellitus. Presently she has an insulin sliding scale before meals and at bedtime and Lantus 10 units twice a day. Hemoglobin A1c came back 6.9. Latest blood sugar is 115. And is to continue the present management. 09/26/2018-patient has type 2 diabetes mellitus hemoglobin A1c is 6.9, latest blood sugar is 72. Patient is on Lantus 10 units twice a day and insulin sliding scale before meals and at bedtime. Plan is to continue the present management. 09/27/2018-patient has type 2 diabetes mellitus hemoglobin A1c 6.9 latest blood sugar is 71 and she is on Lantus 15 units twice a day and insulin sliding scale I am decreasing the Lantus to 10 units twice a day. (5) Cellulitis Is this a current diagnosis for this admission?: Yes Plan: 09/23/2018-on examination of the abdomen there is increased redness and increased warmth of the right sided abdominal wall. Blood cultures urine cultures were requested. Started on IV Zosyn 3.375 g every 6 hours. 09/24/2018-on examination of the abdominal wall there is a high suspicion for cellulitis. She is on presently on vancomycin, dose will be adjusted based on the trough levels. Cultures are pending. Urine culture came back positive for gram-negative rods. Patient was placed on Bactrim DS 1 tablet p.o. twice a day. 09/25/2018-erythema and redness of the right abdominal wall presently on vancomycin. The blood cultures are positive for gram-positive cocci urine culture is positive for E. coli. Plan is to continue the present management. 09/26/2018 erythema and redness of the right abdominal wall is improving presently on vancomycin. The blood cultures came back positive for staph epidermidis. Plan is to continue the present management. 09/27/2018 right-sided abdominal wall erythema and redness is considerably improv ed. Patient is afebrile. Plan to discontinue IV vancomycin today. (6) Hypertension Is this a current diagnosis for this admission?: Yes Plan: 09/23/2018-patient has chronic history of hypertension she takes Bumex 1 mg in the morning half a milligram in the evening. Going to hold Bumex and start on Lasix 40 mg IV every 8 hours because of the congestive heart failure. 09/24/2018-patient blood pressure today is 124/55 stable. Patient has Lasix 40 mg 3 times a day plan is to continue the present management. 09/25/2018-patient blood pressure today is 148/51 with heart rate of 64. Patient is presently on Lasix 40 mg 3 times daily plan is to continue the present management. 09/26/2018-blood pressure today is 145/53. On Lasix 40 mg 3 times daily blood pressure is relatively stable plan is to continue the present management. 09/27/2018-blood pressure today is 140/47 59. Blood pressure is stable presently on just Lasix 40 mg 3 times a day will continue the present management. (7) UTI (urinary tract infection) Is this a current diagnosis for this admission?: Yes (8) UTI (urinary tract infection) Qualifiers: Urinary tract infection type: catheter-associated UTI Indwelling urinary catheter type: indwelling urethral catheter Encounter type: initial encounter Qualified Code(s): T83.511A - Infection and inflammatory reaction due to indwelling urethral catheter, initial encounter; N39.0 - Urinary tract infection, site not specified; N39.0 - Urinary tract infection, site not specified Is this a current diagnosis for this admission?: Yes Plan: Urine culture came back positive for E. coli resistant to Bactrim Bactrim was discontinued started on nitrofurantoin 100 mg p.o. twice daily. 09/26/2018-urine culture came back positive for E. coli. Started on nitrofurantoin 900 mg p.o. twice a day. As per the nephrology recommendation antibiotics is switched to cefepime. I discussed the plan with Jenny in the pharmacy ,we are going to watch for any adverse reactions like rash. 09/27/2018-urine culture came back positive for E. coli antibiotic was switched from nitrofurantoin to cefepime as per nephrology recommendations. Patient is resistant to Levaquin and Bactrim. Probably she may have to go back home on nitrofurantoin. - Time Time Spent with patient: 15-24 minutes Medications reviewed and adjusted accordingly: Yes Anticipated discharge: Home
[2018-09-27] MEDS: SIMVASTATIN 10 MG TABLET PO SCH (21:08)
[2018-09-28] MEDS: LEVOTHYROXINE SODIUM 0.1 MG TABLET PO SCH (05:28)
[2018-09-28] MEDS: DIPHENHYDRAMINE HCL 25 MG/10 ML UDC PO SCH ×2 (05:28→15:06)
[2018-09-28] MEDS: FUROSEMIDE INJ/PF 40 MG/4 ML SDV IV SCH ×2 (05:30→15:06)
[2018-09-28 06:12] LABS: ABSOLUTE EOSINOPHILS # (AUTO) 1.3 10^3/uL (0.0-0.6); ABSOLUTE LYMPHOCYTES (AUTO) 1.4 10^3/uL (0.5-4.7); ABSOLUTE MONOCYTES (AUTO) 0.6 10^3/uL (0.1-1.4); ABSOLUTE NEUT (AUTO) 3.5 10^3/uL (1.7-8.2); BASOPHILS % (AUTO) 0.6 % (0-2); EOSINOPHILS % (AUTO) 19.2 % (0-6); LYMPHOCYTES % (AUTO) 20.3 % (13-45); MEAN CORPUSCULAR HEMOGLOBIN 28.9 pg (27.0-33.4); MEAN CORPUSCULAR HGB CONC 34.4 g/dL (32.0-36.0); MEAN CORPUSCULAR VOLUME 84 fl (80-97); PLATELET COUNT 204 10^3/uL (150-450); RED CELL DISTRIBUTION WIDTH 14.7 % (11.5-14.0); SEGMENTED NEUTROPHILS % (AUTO) 50.9 % (42-78); TOTAL CELLS COUNTED % (AUTO) 100 %
[2018-09-28 06:36] LABS: ALANINE AMINOTRANSFERASE 23 U/L (9-52); ALBUMIN 2.7 g/dL (3.5-5.0); ALKALINE PHOSPHATASE 77 U/L (38-126); ANION GAP 5 (5-19); ASPARTATE AMINO TRANSFERASE 11 U/L (14-36); BILIRUBIN,DIRECT 0.2 mg/dL (0.0-0.4); BILIRUBIN,TOTAL 0.3 mg/dL (0.2-1.3); BLOOD UREA NITROGEN 62 mg/dL (7-20); CALCIUM 9.6 mg/dL (8.4-10.2); CARBON DIOXIDE 30 mmol/L (22-30); CHLORIDE 103 mmol/L (98-107); GLUCOSE 124 mg/dL (75-110); POTASSIUM 3.8 mmol/L (3.6-5.0); SODIUM 138.1 mmol/L (137-145); TOTAL PROTEIN 5.6 g/dL (6.3-8.2)
[2018-09-28] MEDS: CEFEPIME 1 GM/D5W RTU 1 GM/50 ML RTUPB IV SCH (09:41)
[2018-09-28] MEDS: CHOLECALCIFEROL (D3) 1,000 UNIT TABLET PO SCH (09:44)
[2018-09-28] MEDS: FERROUS SULFATE 325 MG TABLET PO SCH (09:44)
[2018-09-28] MEDS: METOPROLOL SUCCINATE 25 MG TAB.SR.24H PO SCH (09:44)
[2018-09-28] MEDS: CITALOPRAM HYDROBROMIDE 20 MG TABLET PO SCH (09:44)
[2018-09-28] MEDS: FAMOTIDINE 20 MG TABLET PO SCH (09:44)
[2018-09-28] MEDS: OXYCODONE HCL IR 5 MG TABLET PO PRN ×2 (09:45→15:08)
[2018-09-28] MEDS: INSULIN LISPRO 100 UNIT/ML 3 ML VIAL SUBCUT SCH ×2 (09:45→14:49)
[2018-09-28] MEDS: OXYCODONE-ACETAMINOPHEN 5-325 MG TABLET PO PRN ×2 (09:45→15:07)
[2018-09-28] MEDS: ENOXAPARIN SODIUM INJ 40 MG/0.4 ML DISP.SYRIN SUBCUT SCH (09:46)
[2018-09-28] MEDS: INSULIN NPH (ISOPHANE), HUMAN 100 UNIT/ML 3 ML SUBCUT SCH (09:46)
[2018-09-28] MEDS: DOCUSATE SODIUM 100 MG CAPSULE PO SCH (09:47)
[2018-09-28] MEDS: ASPIRIN 325 MG TABLET PO SCH (09:51)
--- NOTE | 2018-09-28 10:10 | PDOC DISCHARGE SUMMARY ---
General - Admit/Disc Date/PCP Admission Date/Primary Care Provider: 09/23/18 18:14 CAMILLE ALEXANDER MD Discharge Date: 09/28/18 - Discharge Diagnosis (1) CHF (congestive heart failure) Is this a current diagnosis for this admission?: Yes Summary: 09/23/2018 patient has history of chronic systolic heart failure with EF of greater than 55%. Came in with BNP of more than 20,000 and chest x-ray shows increased pulmonary vascular congestion in association with worsening shortness of breath for the last 24 hours. Patient is going to be placed in IMCU. Started on Lasix 40 mg IV every 8 hours. We are going to do the daily chest x- rays ABGs and BNP on daily basis. Thompson's catheter was requested. She was restarted on home medications except Bumex. Consultation with Dr. Aguilar was requested. 09/24/2018-and has history of chronic systolic heart failure with EF of 55%. Admitted for CHF exacerbation. BNP today is 19,900. She was placed on a fluid restriction 1200 mL/day. Also on Lasix 40 mg 3 times a day. Cardiology consult was requested plan is to continue the present management. 09/25/2018-patient has history of chronic systolic heart failure with EF of 55%. Lasix 40 mg 3 times daily. BNP improved to 15,000. She has a chronic systolic heart failure. She is also on fluid restriction 1200 mL/day. Plan is to continue the present management. 09/27/2018-patient has history of congestive heart failure came in with shortness of breath most likely secondary to CHF exacerbation. On Lasix 40 mg 3 times a day. BNP improved to 12,000. She is on fluid restriction 1200 mL/day. This systolic heart failure is chronic in nature. Plan is to continue the present m anagement. Latest BNP is 12,400. Patient on fluid restriction. Patient doing much better denies any problems of shortness of breath today. 08/2018 patient was admitted with shortness of breath most likely secondary to CHF exacerbation. She is on Lasix 40 mg p.o. 3 times a day. She was placed on fluid restriction 1200 mL/day initially her BNP is 20,000 it was improved to 7500 today. Patient denies any complaints of shortness of breath. Pulse ox is 97% on 1-1/2 L. Diet exercise lifestyle modifications along with fluid restriction to 1200 cc/day at home were discussed. Patient was advised to resume Bumex at home. She was strongly advised to follow-up with primary care physician and also with tv news director in 1 week. Patient is agreed to go home today. Echocardiogram shows chronic systolic heart failure with EF of 55%. (2) CKD (chronic kidney disease) stage 3, GFR 30-59 ml/min Is this a current diagnosis for this admission?: Yes Summary: 09/23/2018 patient has history of stage III kidney disease with a GFR is 27. Stable. We are going to follow the patient regular basis. 09/24/2018 patient is given the history of CKD 3. Her creatinine today is 2.03. Admission creatinine is 1.92. place a consult for nephrology. We will do daily renal panel. Order was placed for renal ultrasound. 09/25/2018-patient's creatinine is 2.0 she has stage III kidney disease. Renal ultrasound is negative for acute pathology. Plan is to continue the present management. 09/26/2018-creatinine is 2.08 and EGFR is 24. Patient has stage III kidney disease. Ultrasound was negative for acute pathology. Nephrology consult was done. 09/27/2018-creatinine was 1.98. EGFR is 25. Patient has stage III kidney disease. Renal ultrasound was negative for acute pathology. Renal consult was done. 09/28/2018-creatinine today is 1.86. GFR is around 27. She has stage III kidney disease. Nephrology consult was done during the hospital stay no new recommendations were made. Renal ultrasound was done no acute pathology was no ticed. She was advised to follow-up with Dr. Monson in 1 week as an outpatient. (3) Morbid obesity Is this a current diagnosis for this admission?: Yes Summary: 09/28/2018-patient has a BMI of more than 50 diet exercise weight loss and lifestyle modifications are discussed with the patient. Dietary consult was done during the hospital stay. (4) Diabetes Is this a current diagnosis for this admission?: Yes Summary: 09/23/2018-patient has history of type 2 diabetes mellitus. She is on insulin at home. We are going to put her on a insulin sliding scale restart her home insulin plan to check her hemoglobin A1c tomorrow. Dietary consult was requested. 09/24/2018 patient has history of type 2 diabetes mellitus she is on insulin at home. She is on insulin sliding scale before meals and at bedtime latest blood sugar is 261. Plan to put her on Lantus 10 units twice a day and request for hemoglobin A1c. 09/25/2018-patient has history of type 2 diabetes mellitus. Presently she has an insulin sliding scale before meals and at bedtime and Lantus 10 units twice a day. Hemoglobin A1c came back 6.9. Latest blood sugar is 115. And is to continue the present management. 09/26/2018-patient has type 2 diabetes mellitus hemoglobin A1c is 6.9, latest blood sugar is 72. Patient is on Lantus 10 units twice a day and insulin sliding scale before meals and at bedtime. Plan is to continue the present management. 09/27/2018-patient has type 2 diabetes mellitus hemoglobin A1c 6.9 latest blood sugar is 71 and she is on Lantus 15 units twice a day and insulin sliding scale I am decreasing the Lantus to 10 units twice a day. 06/2019-patient has history of type 2 diabetes mellitus, hemoglobin A1c 6.9 and blood sugar is 153 today. At home patient is on a regular insulin sliding scale and Humalog insulin advised her to resume the home medications. (5) Cellulitis Is this a current diagnosis for this admission?: Yes Summary: 09/23/2018-on examination of the abdomen there is increased redness and increased warmth of the right sided abdominal wall. Blood cultures urine cultures were re quested. Started on IV Zosyn 3.375 g every 6 hours. 09/24/2018-on examination of the abdominal wall there is a high suspicion for cellulitis. She is on presently on vancomycin, dose will be adjusted based on the trough levels. Cultures are pending. Urine culture came back positive for gram-negative rods. Patient was placed on Bactrim DS 1 tablet p.o. twice a day. 09/25/2018-erythema and redness of the right abdominal wall presently on vancomycin. The blood cultures are positive for gram-positive cocci urine culture is positive for E. coli. Plan is to continue the present management. 09/26/2018 erythema and redness of the right abdominal wall is improving presently on vancomycin. The blood cultures came back positive for staph epidermidis. Plan is to continue the present management. 09/27/2018 right-sided abdominal wall erythema and redness is considerably improved. Patient is afebrile. Plan to discontinue IV vancomycin today. 06/2019-patient came in with right abdominal wall erythema and redness. It was significantly improved. IV vancomycin was discontinued yesterday. Patient is afebrile. With a temperature of 98.1. (6) Hypertension Is this a current diagnosis for this admission?: Yes Summary: 09/23/2018-patient has chronic history of hypertension she takes Bumex 1 mg in the morning half a milligram in the evening. Going to hold Bumex and start on Lasix 40 mg IV every 8 hours because of the congestive heart failure. 09/24/2018-patient blood pressure today is 124/55 stable. Patient has Lasix 40 mg 3 times a day plan is to continue the present management. 09/25/2018-patient blood pressure today is 148/51 with heart rate of 64. Patient is presently on Lasix 40 mg 3 times daily plan is to continue the present management. 09/26/2018-blood pressure today is 145/53. On Lasix 40 mg 3 times daily blood pressure is relatively stable plan is to continue the present management. 09/27/2018-blood pressure today is 140/47 59. Blood pressure is stable presently on just Lasix 40 mg 3 times a day will continue the present management. 09/28/2018-patient blood pressure today is 121/50. Pulse rate of 55. Presently on Lasix 40 mg 3 times a day, but at home she is on Bumex 10 mg in the morning 5 mg in the evening advised to resume those medications. (7) UTI (urinary tract infection) Is this a current diagnosis for this admission?: Yes Summary: Urine culture came back positive for E. coli resistant to Bactrim Bactrim was discontinued started on nitrofurantoin 100 mg p.o. twice daily. 09/26/2018-urine culture came back positive for E. coli. Started on nitrofurantoin 900 mg p.o. twice a day. As per the nephrology recommendation antibiotics is switched to cefepime. I discussed the plan with Jenny in the pharmacy ,we are going to watch for any adverse reactions like rash. 09/27/2018-urine culture came back positive for E. coli antibiotic was switched from nitrofurantoin to cefepime as per nephrology recommendations. Patient is resistant to Levaquin and Bactrim. Probably she may have to go back home on nitrofurantoin. 06/2019-patient's urine culture came back positive for E. coli sensitivity to nitrofurantoin. She was treated with IV cefepime while she was in the hospital. She is going home on nitrofurantoin 50 mg every 12 hours for 1 week. (8) UTI (urinary tract infection) Is this a current diagnosis for this admission?: Yes - Additional Information Resuscitation Status: Full Code Discharge Diet: Cardiac, Diabetic Discharge Activity: Activity As Tolerated, Balance Activity w/Rest Prescriptions: Nitrofurantoin Macrocrystal [Macrodantin] 50 mg PO Q12H #10 capsule Home Medications: Aspirin [Ecotrin] 325 mg PO DAILY 09/23/18 Bumetanide [Bumex 1 mg Tablet] 0.5 mg PO QHS 09/23/18 Bumetanide [Bumex 1 mg Tablet] 1 mg PO DAILY 09/23/18 Citalopram Hydrobromide [Celexa 40 mg Tablet] 40 [facility] 09/23/18 Docusate Sodium [Colace 100 mg Capsule] 100 mg PO QHS 09/23/18 Insulin Regular, Human [Novolin R (Reg) Insulin 100 unit/mL] 0 unit SQ .SLIDING SCALE 09/23/18 Insulin Regular, Human [Novolin R (Reg) Insulin 100 unit/mL] 5 unit SQ MEALS 09/23/18 Levothyroxine Sodium [Synthroid] 200 mcg PO Q6AM 09/23/18 Metoprolol Succinate [Toprol Xl] [address] [facility] 09/23/18 NPH, Human Insulin Isophane [Humulin N (NPH) Insulin 100 unit/mL] 36 unit SQ QHS 09/23/18 Oxycodone HCl/Acetaminophen [Percocet 10-325 mg Tablet] 1 tab PO Q6HP PRN 09/23/18 Simvastatin [Zocor 10 mg Tablet] 10 mg PO QHS 09/23/18 Aspirin [Aspirin 325 mg Tablet] 325 mg PO DAILY tablet 09/28/18 Cetirizine HCl [Zyrtec 10 mg Tablet] 10 mg PO DAILYP PRN tablet 09/28/18 Cholecalciferol (Vitamin D3) [Vitamin D3 1000 Unit Tablet] 5,000 unit PO MoWeFr@1000 tablet 09/28/18 Citalopram Hydrobromide [Celexa 20 mg Tablet] 40 mg PO QAM tablet 09/28/18 Ferrous Sulfate [Feosol 325 mg Tablet] 325 mg PO BID tablet 09/28/18 Levothyroxine Sodium [Synthroid 0.1 mg Tablet] 0.2 mg PO Q6AM tablet 09/28/18 Metoprolol Succinate [Toprol Xl 25 mg Tab.sr] 25 mg PO DAILY tab.sr.24h 09/28/18 NPH, Human Insulin Isophane [Humulin N (NPH) Insulin 100 unit/mL] 10 unit SUBCUT BIDACBS unit 09/28/18 Nitrofurantoin Macrocrystal [Macrodantin] 50 mg PO Q12H #10 capsule 09/28/18 Nystatin [Mycostatin Topical Powder 15 gm] 1 applic TP TID bottle 09/28/18 Silver Sulfadiazine [Silvadene 1% Cream 400 gm] 1 applic TP BID jar 09/28/18 Simvastatin [Zocor 10 mg Tablet] 10 mg PO QHS tablet 09/28/18 History of Present Illness History of Present Illness: JOJO BACK is a 63 year old female with history of morbid obesity with BMI of more than 50, hypertension, diabetes, blindness, chronic back pain, bed #8, oxygen dependent COPD, severe pulmonary hypertension, right-sided abdominal wall hernia, congestive heart failure with EF greater than 55% April last year and came to the emergency room with complaints of increasing shortness of breath for the last 24 hours. As per the shortness of breath was noticed since yesterday it is gradually progressive this morning so they decided to bring her to the hospital for further evaluation. Denies any nausea vomiting diarrhea but complaining of constipation denies any upper respiratory tract symptoms, denies any sinus problems. Denies any chest pains denies any fever. In the emergency room she was placed on BiPAP and chest x-ray shows pulmonary vascular congestion with cardiomegaly medical consult for call for admission. Went to see the patient in the emergency room patient her able to give good information. They agreed to stay in the hospital for further management. Physical Exam Vital Signs: Temp Pulse Resp BP Pulse Ox 98.1 F 55 L 20 129/43 H 99 09/28/18 07:52 09/28/18 07:52 09/28/18 07:52 09/28/18 07:52 09/28/18 07:52 Intake & Output 09/27/18 09/28/18 09/29/18 06:59 06:59 06:59 Intake Total 1072 1192 Output Total 3154 0259 Balance -2077 Weight 111.1 kg 111.1 kg General appearance: PRESENT: no acute distress, other - Morbidly obese female comfortably in the bed. Head exam: PRESENT: atraumatic Eye exam: PRESENT: PERRLA Mouth exam: PRESENT: moist, tongue midline Teeth exam: PRESENT: poor dentation Neck exam: ABSENT: carotid bruit, JVD, lymphadenopathy, thyromegaly Respiratory exam: PRESENT: decreased breath sounds Cardiovascular exam: PRESENT: RRR, tachycardia. ABSENT: diastolic murmur, rubs, systolic murmur GI/Abdominal exam: PRESENT: other - Abdomen was obese soft nontender and redness of the abdominal wall swelling is resolved. Extremities exam: PRESENT: full ROM. ABSENT: calf tenderness, clubbing, pedal edema Neurological exam: PRESENT: alert, awake, oriented to person, oriented to place, oriented to time, oriented to situation, CN II-XII grossly intact. ABSENT: motor sensory deficit Psychiatric exam: PRESENT: appropriate affect, normal mood. ABSENT: homicidal ideation, suicidal ideation Results Laboratory Results: 09/28/18 05:36 09/28/18 05:36 09/28/18 09/28/18 05:36 05:36 WBC 7.0 RBC 3.10 L Hgb 9.0 L Hct 26.0 L MCV 84 MCH 28.9 MCHC 34.4 RDW 14.7 H Plt Count 204 Seg Neutrophils % 50.9 Lymphocytes % 20.3 Monocytes % 9.0 Eosinophils % 19.2 H Basophils % 0.6 Absolute Neutrophils 3.5 Absolute Lymphocytes 1.4 Absolute Monocytes 0.6 Absolute Eosinophils 1.3 H Absolute Basophils 0.0 Sodium 138.1 Potassium 3.8 Chloride 103 Carbon Dioxide 30 Anion Gap 5 BUN 62 H Creatinine 1.86 H Est GFR ( Amer) 33 L Est GFR (Non-Af Amer) 28 L Glucose 124 H Calcium 9.6 Magnesium 1.9 Total Bilirubin 0.3 AST 11 L ALT 23 Alkaline Phosphatase 77 Total Protein 5.6 L Albumin 2.7 L 09/23/18 09/23/1819 16:22 19:23 19:23 Creatine Kinase < 20 L CK-MB (CK-2) 0.32 Troponin I 0.045 0.051 NT-Pro-B Natriuret Pep 59744 H 09/24/18 09/24/18 09/24/18 01:25 01:25 08:03 Creatine Kinase < 20 L < 20 L CK-MB (CK-2) 0.30 Troponin I 0.054 NT-Pro-B Natriuret Pep 09/24/18 09/25/18 09/26/18 08:03 05:13 05:49 Creatine Kinase CK-MB (CK-2) 0.37 Troponin I 0.059 NT-Pro-B Natriuret Pep 55058 H 41477 H 81189 H 09/28/18 05:36 Creatine Kinase CK-MB (CK-2) Troponin I NT-Pro-B Natriuret Pep 7520 H Impressions: Chest X-Ray 09/23/18 16:19 IMPRESSION: CARDIAC ENLARGEMENT. VASCULAR CONGESTION. Renal Ultrasound 09/25/18 00:00 IMPRESSION: Limited study. Medical renal disease. No hydronephrosis. Qualifiers - * PATIENT BEING DISCHARGED WITH ANY OF THE FOLLOWING DIAGNOSIS: No VTE patient discharged on overlapping Therapy?: No
[2018-09-28] MEDS ORDERED: ONDANSETRON HCL INJ/PF 4 MG/2 ML SDV IV PRN (12:30)
[2018-09-28] MEDS: SILVER SULFADIAZINE 1% CREAM 400 GM TP SCH (14:47)
[2018-09-28] MEDS: NYSTATIN TOPICAL POWDER 15 GM TP SCH (14:47)
[2018-09-28 14:54] VITALS: BP 153/41
[2018-09-29 14:39] LABS: A/G RATIO 0.8 (0.7-1.7); ALBUMIN 2 2.6 g/dL (2.9-4.4); ALPHA-2-GLOBULIN 2 0.8 g/dL (0.4-1.0); BETA GLOBULINS 0.9 g/dL (0.7-1.3); GAMMA GLOBULIN 1.3 g/dL (0.4-1.8); GLOBULIN TOTAL 3.4 g/dL (2.2-3.9); MONOCLONAL SPIKE Not Observed g/dL (Not Observ)
== END 2018-09-28 15:39 | disposition home health service (06) | DRG 291 ==
LOC: ER 16:06 → EH 18:14 → 3S 21:20
PROVIDERS: ADMIT Hospitalist; ATTEND Hospitalist
DX: I13.0 Hypertensive heart and chronic kidney disease with heart failure and stage 1 through stage 4 chronic kidney disease, or unspecified chronic kidney disease (principal); I50.23 Acute on chronic systolic (congestive) heart failure; T83.511A Infection and inflammatory reaction due to indwelling urethral catheter, initial encounter; N39.0 Urinary tract infection, site not specified; L03.90 Cellulitis, unspecified; Z68.41 Body mass index [BMI] 40.0-44.9, adult; N17.9 Acute kidney failure, unspecified; J44.9 Chronic obstructive pulmonary disease, unspecified; N18.3 Chronic kidney disease, stage 3 (moderate); E03.9 Hypothyroidism, unspecified; E11.22 Type 2 diabetes mellitus with diabetic chronic kidney disease; D63.1 Anemia in chronic kidney disease; I27.20 Pulmonary hypertension, unspecified; B96.20 Unspecified Escherichia coli [E. coli] as the cause of diseases classified elsewhere; H54.7 Unspecified visual loss; M54.9 Dorsalgia, unspecified; E66.01 Morbid (severe) obesity due to excess calories; Z74.01 Bed confinement status; Z99.81 Dependence on supplemental oxygen; Z79.4 Long term (current) use of insulin; Z79.899 Other long term (current) drug therapy
CPT/HCPCS: 36415; 36600; 71045; 76770; 80053; 80202; 80307; 81001; 82550; 82553; 82607; 82728; 82746; 82803; 82962; 83036; 83540; 83550; 83605; 83735; 83880; 84165; 84443; 84484; 85025; 85045; 87040; 87077; 87086; 87088; 87186; 93005; 93010; 94660; 96374; 99285; J0692; J1650; J1815; J1940; J2185; J2270; J3370; J3490; J7040; J7620; J8499

== ENCOUNTER 2018-11-02 05:22 | Inpatient (IN) | payer MEDICARE ==
[2018-11-02] MEDS ORDERED: LORAZEPAM INJ 2 MG/1 ML VIAL IV ONE (05:35)
--- NOTE | 2018-11-02 05:37 | ER Document Report ---
Doctor's Note Notes: 11/02/18 05:36 I performed a quick triage evaluation of the patient. Patient is a pleasant 63-year-old female presents with complaint of some difficulty breathing. Patient says it started last night and continued through this morning. He got worse and therefore she came to the ER. She says she wears 2 L of oxygen at ho ne. Said it does not feel as if it was helping. She has history of CHF and COPD. She was readmitted to the hospital because of her CHF. She denies any chest pain. No fevers. No vomiting. No other complaints at this time. On exam the patient does have some basilar rales. She has mild tachypnea. Mild distress. On 4 L nasal cannula her oxygen saturation ranges from 89-93%. I informed her that BiPAP would probably be a better option. Patient initially refused. She says it makes her anxious. says that she was able to tolerate last time she was admitted. Informed her that would give her a small dose of Ativan and try it that way and patient is agreeable to this. I have also ordered a chest x-ray and blood work.
[2018-11-02 05:53] LABS: ABSOLUTE EOSINOPHILS # (AUTO) 0.3 10^3/uL (0.0-0.6); ABSOLUTE LYMPHOCYTES (AUTO) 1.1 10^3/uL (0.5-4.7); ABSOLUTE MONOCYTES (AUTO) 0.5 10^3/uL (0.1-1.4); ABSOLUTE NEUT (AUTO) 12.2 10^3/uL (1.7-8.2); BASOPHILS % (AUTO) 0.2 % (0-2); EOSINOPHILS % (AUTO) 1.8 % (0-6); HEMATOCRIT 31.3 % (36.0-47.0); HEMOGLOBIN 10.2 g/dL (12.0-15.5); LYMPHOCYTES % (AUTO) 7.5 % (13-45); MEAN CORPUSCULAR HEMOGLOBIN 26.9 pg (27.0-33.4); MEAN CORPUSCULAR HGB CONC 32.4 g/dL (32.0-36.0); MEAN CORPUSCULAR VOLUME 83 fl (80-97); MONOCYTES % (AUTO) 3.8 % (3-13); PLATELET COUNT 173 10^3/uL (150-450); RED BLOOD COUNT 3.78 10^6/uL (3.72-5.28); RED CELL DISTRIBUTION WIDTH 15.2 % (11.5-14.0); SEGMENTED NEUTROPHILS % (AUTO) 86.7 % (42-78); TOTAL CELLS COUNTED % (AUTO) 100 %; WHITE BLOOD COUNT 14.1 10^3/uL (4.0-10.5)
[2018-11-02 06:06] LABS: ALANINE AMINOTRANSFERASE 18 U/L (9-52); ALBUMIN 3.2 g/dL (3.5-5.0); ALKALINE PHOSPHATASE 90 U/L (38-126); ANION GAP 10 (5-19); ASPARTATE AMINO TRANSFERASE 13 U/L (14-36); BILIRUBIN,DIRECT 0.4 mg/dL (0.0-0.4); BILIRUBIN,TOTAL 0.6 mg/dL (0.2-1.3); BLOOD UREA NITROGEN 90 mg/dL (7-20); CARBON DIOXIDE 27 mmol/L (22-30); CHLORIDE 96 mmol/L (98-107); GLUCOSE 371 mg/dL (75-110); POTASSIUM 5.4 mmol/L (3.6-5.0); SODIUM 133.1 mmol/L (137-145); TOTAL PROTEIN 6.4 g/dL (6.3-8.2)
[2018-11-02 06:18] LABS: TROPONIN I 0.026 ng/mL
--- NOTE | 2018-11-02 06:34 | RADIOLOGY REPORT (SQ) ---
CLINICAL HISTORY: dyspnea COMPARISON: 09/23/2018. TECHNIQUE: XR CHEST 1 VIEW 11/02/2018 5:35 AM CDT FINDINGS: The heart is enlarged. There is left basilar airspace disease. There is no pleural effusion. There is no pneumothorax. There are no acute osseous findings. IMPRESSION: No significant change.
--- NOTE | 2018-11-02 07:54 | ER Document Report ---
Entered by TARI STEWARD SCRIBE 11/02/18 0719 Acting as scribe for:CRUZITO ZULETA MD ED Respiratory Problem - General Chief Complaint: Breathing Difficulty Stated Complaint: TROUBLE BREATHING Time Seen by Provider: 11/02/18 05:35 Primary Care Provider: JOSEPH LAWRENCE PA [Primary Care Provider] - Follow up as needed Mode of Arrival: Medic Information source: Patient, Emergency Med Personnel, [facility] Records Notes: 63-year-old female with pulmonary hypertension, systolic heart failure, COPD on 2L of home oxygen, hyperlipidemia, insulin-dependent diabetes, and stage III kidney disease who presents today with complaints of shortness of breath which began last night and became worse this morning prior to arrival. According to the EMS run sheet, when they arrived at the patient's residence, the patient had an oxygen saturation of 72%. Patient was placed on a nonrebreather and her oxygen saturations nichelle to 98%. Patient denies any fevers or chest pain. TRAVEL OUTSIDE OF THE [place] IN LAST 30 DAYS: No - Related Data Allergies/Adverse Reactions: heparin Allergy (Verified 11/02/18 06:55) RASH,ITCHING Penicillins Allergy (Verified 11/02/18 06:55) RASH spironolactone Adverse Reaction (Verified 11/02/18 06:55) Past Medical History - General Information source: Patient, Emergency Med Personnel, [facility] Records - Social History Smoking Status: Unknown if Ever Smoked Frequency of alcohol use: None Drug Abuse: None Family History: CAD, CVA, DM, Hypertension Patient has suicidal ideation: No Patient has homicidal ideation: No - Past Medical History Cardiac Medical History: Reports: Hx Congestive Heart Failure - systolic, Hx Hypercholesterolemia, Hx Hypertension - pulmonary Pulmonary Medical History: Reports: Hx COPD Endocrine Medical History: Reports: Hx Diabetes Mellitus Type 2 - IDDM, Hx Hypothyroidism Renal/ Medical History: Reports: Other - Stage III Renal Disease Malignancy Medical History: Reports: Hx Colorectal Cancer Musculoskeletal Medical History: Reports Hx Arthritis, Reports Hx Gout Psychiatric Medical History: Reports: Hx Depression Past Surgical History: Reports: Hx Bowel Surgery - resection secondary to colon cancer, colectomy, Hx Orthopedic Surgery - right ankle surgery secondary to trimalleolar fracture 09/2016, Other - Immunizations Hx Diphtheria, Pertussis, Tetanus Vaccination: Yes Hx Pneumococcal Vaccination: 08/18/12 Review of Systems - Review of Systems Notes: Obtained from patient, RME note, and EMS run sheet. Constitutional: denies: Fever EENT: No symptoms reported Cardiovascular: denies: Chest pain Respiratory: See HPI, Short of breath Gastrointestinal: No symptoms reported Genitourinary: No symptoms reported Female Genitourinary: No symptoms reported Musculoskeletal: No symptoms reported Skin: No symptoms reported Hematologic/Lymphatic: No symptoms reported Neurological/Psychological: No symptoms reported -: Yes All other systems reviewed and negative Physical Exam - Vital signs Vitals: Temp Resp Pulse Ox 98.4 F 15 93 11/02/18 05:40 11/02/18 05:40 11/02/18 05:40 - Notes Notes: Physical Exam: General: Alert, morbidly obese, on BiPAP. HEENT: Normocephalic. Atraumatic. PERRL. Extraocular movements intact. Oropharynx clear. Neck: Supple. Non-tender. Respiratory: No respiratory distress now after being placed on BiPAP, saturating 97-98%. Rales and crackles at the bases bilaterally. Cardiovascular: Regular rate and rhythm. Abdominal: Morbidly obese. Non-tender. No distension. Normal Bowel Sounds. Back: Non-tender. No deformity or step off. Extremities: Moves all four extremities. Upper extremities: Normal inspection. Normal ROM. Lower extremities: 1-2+ Peripheral edema bilaterally. Padded boot on the left foot/ankle. Neurological: Normal cognition. AAOx4. Normal speech. Psychological: Normal affect. Normal Mood. Skin: Feels hot to the touch. Dry. Diffuse scabs across the right arm. Course - Vital Signs Vital signs: Temp Pulse Resp BP Pulse Ox 98.3 F 13 122/56 L 97 11/02/18 07:39 11/02/18 07:31 11/02/18 07:31 11/02/18 07:16 - Laboratory Result Diagrams: 11/02/18 05:34 11/02/18 05:34 Laboratory results interpreted by me: 11/02/18 11/02/18 11/02/18 05:34 05:34 05:34 WBC 14.1 H Hgb 10.2 L Hct 31.3 L MCH 26.9 L RDW 15.2 H Seg Neutrophils % 86.7 H Lymphocytes % 7.5 L Absolute Neutrophils 12.2 H Sodium 133.1 L Potassium 5.4 H Chloride 96 L BUN 90 H Creatinine 2.28 H Est GFR ( Amer) 26 L Est GFR (Non-Af Amer) 22 L Glucose 371 H AST 13 L NT-Pro-B Natriuret Pep 7460 H Albumin 3.2 L - Diagnostic Test Radiology reviewed: Reports reviewed - CXR--Persistent airspace disease in the left base. Cardiomegaly. Probable pulmonary vascular congestion. - EKG Interpretation by Me EKG shows normal: Sinus rhythm, [place], Intervals, QRS Complexes, ST-T Waves Rate: Normal - 84 Rhythm: NSR [place]/QRS: LBBB When compared to previous EKG there are: No significant change - Consults Dr. Aden Consulted provider: will come to ER - IMCU admission, and get an ABG. Critical Care Note - Critical Care Note Total time excluding time spent on procedures (mins): 35 Discharge - Discharge Clinical Impression: CKD (chronic kidney disease) stage 3, GFR 30-59 ml/min Hypothyroid Qualifiers: Hypothyroidism type: unspecified Qualified Code(s): E03.9 - Hypothyroidism, unspecified COPD (chronic obstructive pulmonary disease) Qualifiers: COPD type: unspecified COPD Qualified Code(s): J44.9 - Chronic obstructive pulmonary disease, unspecified CHF (congestive heart failure) Qualifiers: Heart failure type: unspecified Heart failure chronicity: acute on chronic Qualified Code(s): I50.9 - Heart failure, unspecified Condition: Good Disposition: ADMITTED INPATIENT Admitting Provider: Hospitalist Unit Admitted: IMCU Referrals: JOSEPH LAWRENCE PA [Primary Care Provider] - Follow up as needed Scribe Attestation: 11/02/18 07:46 I personally performed the services described in the documentation, reviewed and edited the documentation which was dictated to the scribe in my presence, and it accurately records my words and actions. I personally performed the services described in the documentation, reviewed and edited the documentation which was dictated to the scribe in my presence, and it accurately records my words and actions.
[2018-11-02] MEDS ORDERED: ONDANSETRON HCL INJ/PF 4 MG/2 ML SDV IV PRN (07:56)
--- NOTE | 2018-11-02 08:16 | PDOC H&P ---
History of Present Illness Admission Date/PCP: MARYAM JENSEN History of Present Illness: JOJO BACK is a 63 year old female patient who with multiple comorbidities including diastolic CHF, hypertension, lipidemia, COPD O2 dependent, stage IV CKD, history of colorectal cancer, morbid obesity and depression, brought by EMS with chief complaint of shortness of breath. When patient is found by EMS her O2 saturation was 79% while she is on 2 L of oxygen via nasal cannula. Patient reports this is a she has been at her usual baseline state of health up until yesterday night when she started to have progressively worsening shortness of breath. Patient used 2 L of oxygen 10/03. Patient denies any chills, fever, chest pain, cough, palpitation or diaphoresis. Her blood work shows leukocytosis with diabetes count of 14 and BNP of 7600. Chest x-ray reported unremarkable. Past Medical History Cardiac Medical History: Reports: Congestive Heart Failure - systolic, Hyperlipidema, Hypertension - pulmonary Pulmonary Medical History: Reports: Chronic Obstructive Pulmonary Disease (COPD) Endocrine Medical History: Reports: Diabetes Mellitus Type 2 - IDDM, Hypothyroidism Renal/ Medical History: Reports: End Stage Renal Disease, Other - Stage III Renal Disease Malignancy Medical History: Reports: Colorectal Cancer Musculoskeltal Medical History: Reports: Arthritis, Gout Psychiatric Medical History: Reports: Depression Hematology: Reports: Anemia Past Surgical History Past Surgical History: Reports: Orthopedic Surgery - right ankle surgery secondary to trimalleolar fracture 09/2016, Other Social History Smoking Status: Unknown if Ever Smoked Frequency of Alcohol Use: None Hx Recreational Drug Use: No Drugs: None Hx Prescription Drug Abuse: No - Advance Directive Resuscitation Status: Full Code Family History Family History: CAD, CVA, DM, Hypertension Parental Family History Reviewed: Yes Children Family History Reviewed: Yes Sibling(s) Family History Reviewed.: Yes Medication/Allergy Home Medications: Aspirin [Ecotrin] 325 mg PO DAILY 09/23/18 Bumetanide [Bumex 1 mg Tablet] 0.5 mg PO QHS 09/23/18 Bumetanide [Bumex 1 mg Tablet] 1 mg PO DAILY 09/23/18 Citalopram Hydrobromide [Celexa 40 mg Tablet] 40 mg PO PCBRKFST 09/23/18 Docusate Sodium [Colace 100 mg Capsule] 100 mg PO QHS 09/23/18 Insulin Regular, Human [Novolin R (Reg) Insulin 100 unit/mL] 0 unit SQ .SLIDING SCALE 09/23/18 Insulin Regular, Human [Novolin R (Reg) Insulin 100 unit/mL] 5 unit SQ MEALS 09/23/18 Levothyroxine Sodium [Synthroid] 200 mcg PO Q6AM 09/23/18 Metoprolol Succinate [Toprol Xl] 25 mg PO PCBRKFST 09/23/18 NPH, Human Insulin Isophane [Humulin N (NPH) Insulin 100 unit/mL] 36 unit SQ QHS 09/23/18 Oxycodone HCl/Acetaminophen [Percocet 10-325 mg Tablet] 1 tab PO Q6HP PRN 09/23/18 Simvastatin [Zocor 10 mg Tablet] 10 mg PO QHS 09/23/18 Aspirin [Aspirin 325 mg Tablet] 325 mg PO DAILY tablet 09/28/18 Cetirizine HCl [Zyrtec 10 mg Tablet] 10 mg PO DAILYP PRN tablet 09/28/18 Cholecalciferol (Vitamin D3) [Vitamin D3 1000 Unit Tablet] 5,000 unit PO MoWeFr@1000 tablet 09/28/18 Citalopram Hydrobromide [Celexa 20 mg Tablet] 40 mg PO QAM tablet 09/28/18 Ferrous Sulfate [Feosol 325 mg Tablet] 325 mg PO BID tablet 09/28/18 Levothyroxine Sodium [Synthroid 0.1 mg Tablet] 0.2 mg PO Q6AM tablet 09/28/18 Metoprolol Succinate [Toprol Xl 25 mg Tab.sr] 25 mg PO DAILY tab.sr.24h 09/28/18 NPH, Human Insulin Isophane [Humulin N (NPH) Insulin 100 unit/mL] 10 unit SUBCUT BIDACBS unit 09/28/18 Nitrofurantoin Macrocrystal [Macrodantin] 50 mg PO Q12H #10 capsule 09/28/18 Nystatin [Mycostatin Topical Powder 15 gm] 1 applic TP TID bottle 09/28/18 Silver Sulfadiazine [Silvadene 1% Cream 400 gm] 1 applic TP BID jar 09/28/18 Simvastatin [Zocor 10 mg Tablet] 10 mg PO QHS tablet 09/28/18 Allergies/Adverse Reactions: heparin Allergy (Verified 11/02/18 06:55) RASH,ITCHING Penicillins Allergy (Verified 11/02/18 06:55) RASH spironolactone Adverse Reaction (Verified 11/02/18 06:55) Review of Systems Constitutional: PRESENT: as per HPI Eyes: PRESENT: as per HPI Nose, Mouth, and Throat: PRESENT: as per HPI Cardiovascular: PRESENT: as per HPI Musculoskeletal: PRESENT: as per HPI Neurological: PRESENT: as per HPI Psychiatric: PRESENT: as per HPI Endocrine: PRESENT: as per HPI Physical Exam Vital Signs: Temp Pulse Resp BP Pulse Ox 98.3 F 13 122/56 L 97 11/02/18 07:39 11/02/18 07:31 11/02/18 07:31 11/02/18 07:16 Intake & Output 11/01/18 11/02/18 11/03/18 06:59 06:59 06:59 Weight 136.4 kg General appearance: PRESENT: mild distress, morbidly obese Head exam: PRESENT: atraumatic, normocephalic Eye exam: PRESENT: conjunctiva pink Neck exam: ABSENT: carotid bruit, JVD, lymphadenopathy, thyromegaly Respiratory exam: PRESENT: crackles - Bilateral, decreased breath sounds Cardiovascular exam: PRESENT: RRR. ABSENT: diastolic murmur, rubs, systolic murmur GI/Abdominal exam: PRESENT: normal bowel sounds, soft. ABSENT: distended, guarding, mass, organolmegaly, rebound, tenderness Extremities exam: PRESENT: other - Multiple deformities Neurological exam: PRESENT: alert, awake, oriented to time, oriented to situation Results Laboratory Results: 11/02/18 05:34 11/02/18 05:34 11/02/18 11/02/18 05:34 05:34 WBC 14.1 H RBC 3.78 Hgb 10.2 L Hct 31.3 L MCV 83 MCH 26.9 L MCHC 32.4 RDW 15.2 H Plt Count 173 Seg Neutrophils % 86.7 H Lymphocytes % 7.5 L Monocytes % 3.8 Eosinophils % 1.8 Basophils % 0.2 Absolute Neutrophils 12.2 H Absolute Lymphocytes 1.1 Absolute Monocytes 0.5 Absolute Eosinophils 0.3 Absolute Basophils 0.0 Sodium 133.1 L Potassium 5.4 H Chloride 96 L Carbon Dioxide 27 Anion Gap 10 BUN 90 H Creatinine 2.28 H Est GFR ( Amer) 26 L Est GFR (Non-Af Amer) 22 L Glucose 371 H Calcium 10.0 Total Bilirubin 0.6 AST 13 L ALT 18 Alkaline Phosphatase 90 Total Protein 6.4 Albumin 3.2 L 11/02/18 05:34 Troponin I 0.026 NT-Pro-B Natriuret Pep 7460 H Impressions: Chest X-Ray 11/02/18 05:35 IMPRESSION: No significant change. Assessment & Plan - Diagnosis (1) Acute on chronic respiratory failure with hypoxemia Is this a current diagnosis for this admission?: Yes Plan: Patient has been started on BiPAP, supplemental oxygen, (2) COPD exacerbation Is this a current diagnosis for this admission?: Yes Plan: Patient has been on supplemental oxygen, Solu-Medrol, bronchodilators and Levaquin. (3) Hyperkalemia Is this a current diagnosis for this admission?: Yes Plan: We will give her Veltassa (5) Leukocytosis Is this a current diagnosis for this admission?: Yes Plan: Monitor serial CBC (6) Chronic kidney disease, stage IV (severe) Is this a current diagnosis for this admission?: Yes Plan: Consulted coal cutter for further evaluation and management. (7) Hypothyroidism Qualifiers: Hypothyroidism type: acquired Qualified Code(s): E03.9 - Hypothyroidism, unspecified Is this a current diagnosis for this admission?: Yes Plan: Continue Synthroid (8) Type 2 diabetes mellitus Is this a current diagnosis for this admission?: Yes Plan: We will continue her home medication and put her on sliding scale. (9) History of diastolic CHF Is this a current diagnosis for this admission?: Yes Plan: We will cautiously diurese her (10) Morbid obesity with BMI of 40.0-44.9, adult Is this a current diagnosis for this admission?: Yes Plan: Encouraged lifestyle modification. - Inpatient Certification Medical Necessity: Need Close Monitoring Due to Risk of Patient Decompensation, Need for IV Antibiotics
[2018-11-02] MEDS ORDERED: GLUCAGON,HUMAN RECOMB 1 MG INJ IM PRN (08:17)
[2018-11-02] MEDS ORDERED: DEXTROSE 40% GEL 15 GM TUBE PO PRN ×2 (08:17)
[2018-11-02] MEDS ORDERED: DEXTROSE 50%-WATER 25 GM/50 ML DISP.SYRIN IV PRN ×2 (08:17)
[2018-11-02] MEDS: IPRATROPIUM/ALBUTEROL 0.5-2.5 MG/3 ML AMPUL NEB SCH ×4 (08:25→20:17)
[2018-11-02] MEDS: METHYLPREDNISOLONE INJ 40 MG/1 ML SDV IV SCH ×3 (08:47→23:37)
--- NOTE | 2018-11-02 08:48 | EKG REPORT ---
SEVERITY:- ABNORMAL ECG - SINUS RHYTHM LEFT BUNDLE BRANCH BLOCK : Confirmed by: Jarret Bowen 02-Nov-2018 08:47:31
[2018-11-02 08:59] LABS: ARTERIAL BLOOD BASE EXCESS -1.5 mmol/L; ARTERIAL BLOOD H2CO3 1.23 mmol/L (1.05-1.35); ARTERIAL BLOOD HCO3 23.5 mmol/L (20-24); ARTERIAL BLOOD O2 SATURATION 99.4 % (94-98); ARTERIAL BLOOD PCO2 40.8 mmHg (35-45); ARTERIAL BLOOD PH 7.38 (7.35-7.45); ARTERIAL BLOOD PO2 214.2 mmHg (80-100); ARTERIAL BLOOD TOTAL CO2 24.7 mmol/L (21-25)
[2018-11-02 09:21] LABS: ARTERIAL BLOOD FIO2 40%
[2018-11-02] MEDS ORDERED: INSULIN LISPRO 100 UNIT/ML 3 ML VIAL ONE ×2 (09:53→23:36)
[2018-11-02] MEDS: FUROSEMIDE INJ/PF 20 MG/2 ML SDV IV SCH (09:55)
[2018-11-02] MEDS: FAMOTIDINE 20 MG TABLET PO SCH ×2 (09:55→23:37)
[2018-11-02] MEDS: ENOXAPARIN SODIUM INJ 40 MG/0.4 ML DISP.SYRIN SUBCUT SCH (09:58)
[2018-11-02] MEDS ORDERED: CEFTRIAXONE 1 GM/D5W RTU 1 GM/50 ML RTUPB IV SCH (10:00)
[2018-11-02] MEDS ORDERED: LEVOFLOXACIN 500 MG/D5W RTU 500 MG/100 ML RTUPB IV SCH (10:00)
[2018-11-02] MEDS: DOCUSATE SODIUM 100 MG/10 ML UDC PO SCH (12:45)
[2018-11-02] MEDS: INSULIN LISPRO 100 UNIT/ML 3 ML VIAL SUBCUT SCH ×3 (13:18→23:37)
[2018-11-02] MEDS ORDERED: HEPARIN SOD (PORCINE) 5,000 UNIT/ML 1 ML SYRINGE SUBCUT SCH (14:00)
[2018-11-02] MEDS ORDERED: PATIROMER 8.4 GM SUSP PACKET PO SCH (17:00)
[2018-11-02] MEDS: ACETAMINOPHEN 325 MG TABLET PO PRN (18:40)
[2018-11-03] MEDS: IPRATROPIUM/ALBUTEROL 0.5-2.5 MG/3 ML AMPUL NEB SCH ×6 (01:07→19:38)
[2018-11-03] MEDS: OXYCODONE-ACETAMINOPHEN 5-325 MG TABLET PO PRN ×3 (01:14→20:36)
[2018-11-03] MEDS: METHYLPREDNISOLONE INJ 40 MG/1 ML SDV IV SCH ×3 (05:27→22:17)
[2018-11-03 05:53] LABS: HEMATOCRIT 27.7 % (36.0-47.0); HEMOGLOBIN 9.3 g/dL (12.0-15.5); MEAN CORPUSCULAR HEMOGLOBIN 27.6 pg (27.0-33.4); MEAN CORPUSCULAR HGB CONC 33.7 g/dL (32.0-36.0); MEAN CORPUSCULAR VOLUME 82 fl (80-97); PLATELET COUNT 143 10^3/uL (150-450); RED BLOOD COUNT 3.38 10^6/uL (3.72-5.28)
[2018-11-03 06:27] LABS: ANION GAP 12 (5-19); BLOOD UREA NITROGEN 94 mg/dL (7-20); CALCIUM 10.5 mg/dL (8.4-10.2); CARBON DIOXIDE 24 mmol/L (22-30); CHLORIDE 95 mmol/L (98-107); POTASSIUM 4.8 mmol/L (3.6-5.0); SODIUM 130.8 mmol/L (137-145)
[2018-11-03 06:39] LABS: GLUCOSE 500 mg/dL (75-110)
[2018-11-03] MEDS ORDERED: INSULIN LISPRO 100 UNIT/ML 3 ML VIAL ONE ×2 (06:55→22:15)
[2018-11-03] MEDS ORDERED: INSULIN LISPRO 100 UNIT/ML 3 ML VIAL SUBCUT ONE ×2 (07:00→22:30)
[2018-11-03 07:06] LABS: ABSOLUTE LYMPHOCYTES# (MANUAL) 0.1 10^3/uL (0.5-4.7); ABSOLUTE MONOCYTES # (MANUAL) 0.1 10^3/uL (0.1-1.4); ABSOLUTE NEUTROPHILS# (MANUAL) 5.8 10^3/uL (1.7-8.2); BASOPHILS % (MANUAL) 0 % (0-2); EOSINOPHILS % (MANUAL) 0 % (0-6); LYMPHOCYTES % (MANUAL) 2 % (13-45); MONOCYTES % (MANUAL) 2 % (3-13); SEGMENTED NEUTROPHILS % (MAN) 96 % (42-78); TOTAL CELLS COUNTED 100
[2018-11-03 07:07] LABS: ANISOCYTOSIS SLIGHT; OVALOCYTES 1+; POIKILOCYTOSIS 1+; TEAR DROP CELLS SLIGHT; TOXIC GRANULATION SLIGHT; TOXIC VACUOLATION PRESENT
[2018-11-03 07:08] LABS: PLATELET COMMENT ADEQUATE
[2018-11-03] MEDS: INSULIN LISPRO 100 UNIT/ML 3 ML VIAL SUBCUT SCH ×4 (09:12→22:18)
[2018-11-03] MEDS: FAMOTIDINE 20 MG TABLET PO SCH ×2 (09:40→22:17)
[2018-11-03] MEDS: FUROSEMIDE INJ/PF 20 MG/2 ML SDV IV SCH (09:41)
[2018-11-03] MEDS: ENOXAPARIN SODIUM INJ 40 MG/0.4 ML DISP.SYRIN SUBCUT SCH (09:42)
[2018-11-03] MEDS: LEVOFLOXACIN 750 MG/D5W RTU 750 MG/150 ML RTUPB IV SCH (09:44)
[2018-11-03] MEDS ORDERED: INSULIN GLARGINE,HUM.REC.ANLOG 300 UNIT/3 ML INSULN.PEN SUBCUT SCH (10:00)
[2018-11-03] MEDS: DOCUSATE SODIUM 100 MG/10 ML UDC PO SCH (10:14)
[2018-11-03] MEDS: SILVER SULFADIAZINE 1% CREAM 50 GM TP SCH (10:14)
[2018-11-03] MEDS: DIPHENHYDRAMINE HCL 50 MG/ML VIAL IV PRN (12:10)
--- NOTE | 2018-11-03 13:10 | PDOC CONSULTATION ---
Consultation Consult Date: 11/03/18 Consult reason:: Acute on chronic kidney disease History of Present Illness Admission Date/PCP: 11/02/18 08:10 MARYAM JENSEN History of Present Illness: JOJO BACK is a 63 year old female patient with a long-standing complicated diabetes mellitus with history of severe neuropathy and Charcot's joints with multiple other comorbidities including diastolic CHF, hypertension, COPD O2 dependent, stage IV CKD, history of colorectal cancer, morbid obesity and depression, brought by EMS with chief complaint of shortness of breath. She states she has been having progressive shortness of breath over the last few days and got to the point of having orthopnea. She denies any history of chest pains. When patient is found by EMS her O2 saturation was 79% while she is on 2 L of oxygen via nasal cannula. No history of any coughing spells, expectoration.History of poor intake over the last few days. She denies being on any NSAIDs even though she has a history of taking 800 mg 3 times a day for approximately 2 years ago that she was taking for 2-3 years from an orthopedic surgeon. She denies any history to indicate sleep apnea. She takes Percocet 1 a day at home. Patient denies any chills, fever, chest pain, palpitation or diaphoresis. Her labs and medications and radiology were reviewed. Labs shows leukocytosis and a creatinine was around 2.4. Her baseline creatinine is around 1.7-2.0. Chest x-ray shows left basilar airspace disease. Patient has been begun on IV antibiotics. Continues to get diuretics. Past Medical History Cardiac Medical History: Reports: Hyperlipidemia, Hypertension-primary Pulmonary Medical History: Reports: Chronic Obstructive Pulmonary Disease (COPD) Endocrine Medical History: Reports: Diabetes Mellitus Type 2 - IDDM, Hypothyroidism Renal/ Medical History: Reports: Chronic Kidney Disease Stage III, Recurrent UTI, Other - Stage III Renal Disease Malignancy Medical History: Reports: Colorectal Cancer Musculoskeltal Medical History: Reports: Arthritis, Gout Psychiatric Medical History: Reports: Depression Past Surgical History Past Surgical History: Reports: Orthopedic Surgery - right ankle surgery secondary to trimalleolar fracture 09/2016, Other Social History Smoking Status: Unknown if Ever Smoked Frequency of Alcohol Use: None Hx Recreational Drug Use: No Drugs: None Hx Prescription Drug Abuse: No - Advance Directive Resuscitation Status: Full Code Family History Parental Family History Reviewed: Yes - Negative for ESRD. Children Family History Reviewed: No Sibling(s) Family History Reviewed.: No Medication/Allergy Home Medications: Aspirin [Aspirin 325 mg Tablet] 325 mg PO DAILY 11/02/18 Bumetanide [Bumex 0.5 mg Tablet] 0.5 mg PO QHS 11/02/18 Bumetanide [Bumex 1 mg Tablet] 1 mg PO DAILY 11/02/18 Cetirizine HCl [Zyrtec 10 mg Tablet] 10 mg PO DAILYP PRN 11/02/18 Cholecalciferol (Vitamin D3) [Vitamin D3] 5,000 unit PO MOWEFR@1000 11/02/18 Citalopram Hydrobromide [Celexa 40 mg Tablet] 40 mg PO DAILY 11/02/18 Docusate Sodium [Colace 100 mg Capsule] 100 mg PO QHS 11/02/18 Ferrous Sulfate [Feosol 325 mg Tablet] 325 mg PO BID 11/02/18 Insulin Regular, Human [Novolin R (Reg) Insulin 100 unit/mL] 0 unit SQ .SLIDING SCALE 11/02/18 Insulin Regular, Human [Novolin R (Reg) Insulin 100 unit/mL] 5 unit SQ MEALS 11/02/18 Levothyroxine Sodium [Synthroid] 200 mcg PO Q6AM 11/02/18 Metoprolol Succinate [Toprol Xl 25 mg Tab.sr] 25 mg PO DAILY 11/02/18 NPH, Human Insulin Isophane [Humulin N (NPH) Insulin 100 unit/mL] 10 unit SQ BIDACBS 11/02/18 NPH, Human Insulin Isophane [Humulin N (NPH) Insulin 100 unit/mL] 36 unit SQ QHS 11/02/18 Nystatin [Mycostatin Topical Powder 15 gm] 1 applic TOP TID 11/02/18 Oxycodone HCl/Acetaminophen [Percocet 10-325 mg Tablet] 1 tab PO Q6HP PRN 11/02/18 Silver Sulfadiazine [Silvadene 1% Cream 400 gm] 1 applic TOP TID 11/02/18 Simvastatin [Zocor 10 mg Tablet] 10 mg PO QHS 11/02/18 Allergies/Adverse Reactions: heparin Allergy (Verified 11/02/18 08:40) RASH,ITCHING Penicillins Allergy (Verified 11/02/18 08:39) RASH spironolactone Adverse Reaction (Verified 11/02/18 06:55) Review of Systems Constitutional: PRESENT: anorexia, fatigue. ABSENT: chills, fever(s), headache(s), night sweats Eyes: ABSENT: visual disturbances Nose, Mouth, and Throat: ABSENT: mouth pain, sore throat Cardiovascular: PRESENT: dyspnea on exertion, edema. ABSENT: chest pain, orthropnea, palpitations Respiratory: PRESENT: dyspnea. ABSENT: cough, hemoptysis Gastrointestinal: ABSENT: abdominal pain, bloating, coffee ground emesis, d iarrhea, dysphagia, heartburn, hematemesis Genitourinary: ABSENT: dysuria, hematuria Musculoskeletal: PRESENT: back pain, deformity, joint swelling Integumentary: ABSENT: diaphoresis, erythema, lesions, pruritus, rash Neurological: ABSENT: abnormal movements, abnormal speech, confusion, convulsions, focal weakness, frequent falls Psychiatric: PRESENT: depression. ABSENT: anxiety, hallucinations Endocrine: ABSENT: cold intolerance Hematologic/Lymphatic: ABSENT: easy bleeding, easy bruising Physical Exam Vital Signs: Temp Pulse Resp BP Pulse Ox 98.5 F 98 20 148/85 H 94 11/03/18 08:00 11/03/18 08:00 11/03/18 08:00 11/03/18 08:00 11/03/18 08:00 Intake & Output 11/02/18 11/03/18 11/04/18 06:59 06:59 06:59 Intake Total 642 150 Output Total 1275 Balance -633 150 Weight 136.4 kg 288.3 kg General appearance: PRESENT: no acute distress, obese Eye exam: PRESENT: conjunctiva pink, EOMI, PERRLA Ear exam: PRESENT: normal external ear exam Mouth exam: PRESENT: neck supple. ABSENT: moist Neck exam: ABSENT: lymphadenopathy, meningismus, tenderness, thyromegaly, tracheal deviation Respiratory exam: PRESENT: chest wall tenderness, crackles - Scattered.. ABSEN T: rhonchi Cardiovascular exam: PRESENT: +S1, +S2, systolic murmur GI/Abdominal exam: PRESENT: normal bowel sounds, soft. ABSENT: organomegaly, tenderness Extremities exam: ABSENT: calf tenderness, pedal edema Neurological exam: PRESENT: alert, awake, oriented to person, oriented to place Psychiatric exam: PRESENT: depressed, flat affect Skin exam: PRESENT: rash - Lower extremities suggestive of possible venous stasis.Homans sign negative. ABSENT: cyanosis, erythema Results Laboratory Results: 11/03/18 04:36 11/03/18 04:36 11/03/18 11/03/18 11/03/18 04:36 04:36 04:36 WBC 6.0 RBC 3.38 L Hgb 9.3 L Hct 27.7 L MCV 82 MCH 27.6 MCHC 33.7 RDW 15.0 H Plt Count 143 L Seg Neutrophils % Not Reportable Lymphocytes % Not Reportable Monocytes % Not Reportable Eosinophils % Not Reportable Basophils % Not Reportable Absolute Neutrophils Not Reportable Absolute Lymphocytes Not Reportable Absolute Monocytes Not Reportable Absolute Eosinophils Not Reportable Absolute Basophils Not Reportable Sodium 130.8 L Potassium 4.8 Chloride 95 L Carbon Dioxide 24 Anion Gap 12 BUN 94 H Creatinine 2.35 H Est GFR ( Amer) 25 L Est GFR (Non-Af Amer) 21 L Glucose 500 H* Calcium 10.5 H TSH 0.99 11/02/18 05:34 Troponin I 0.026 NT-Pro-B Natriuret Pep 7460 H Impressions: Chest X-Ray 11/02/18 05:35 IMPRESSION: No significant change. Assessment & Plan - Diagnosis (1) [id number]-[id number] kidney injury Plan: Patient has got some worsening of her baseline CKD stage III/IV. Patient presents with consolidation leading to respiratory failure currently on IV antibiotics. Patient seems to be making slow progress. I would be careful of using IV Lasix at the moment given the fact that she has become clinically more on the dry side possibly from over diuresis since admission. Make changes appropriately which have done. We will continue to monitor. No acute indications for renal replacements currently. (2) CKD (chronic kidney disease) stage 3, GFR 30-59 ml/min Plan: Underlying CKD from diabetic nephropathy/hypertension. Monitor.Get urine analysis. (3) COPD (chronic obstructive pulmonary disease) Qualifiers: COPD type: unspecified COPD Qualified Code(s): J44.9 - Chronic obstructive pulmonary disease, unspecified Plan: As per hospitalist. (4) Type 2 diabetes mellitus Is this a current diagnosis for this admission?: Yes Plan: Complicated. Advised tight blood sugar control. Currently her blood sugars are uncontrolled. (5) Charcot's joint arthropathy in type 2 diabetes mellitus Plan: Has got appropriate shoes for that. (6) Hypertension Plan: Uncontrolled. Will try to titrate medications. She was on metoprolol at home and will reintroduce that back on her for obvious reasons.Add low-dose amlodi pine as well. (7) Morbid obesity Plan: Advised appropriate lifestyle modifications and weight loss with respect to hypoglycemia. (8) Pneumonia Qualifiers: Pneumonia type: due to unspecified organism Laterality: unspecified laterality Lung location: unspecified part of lung Qualified Code(s): J18.9 - Pneumonia, unspecified organism Plan: Left lower lobe. On IV antibiotics. Monitor. (9) Hyponatremia Plan: Will monitor. Current sodium of 130. She is on a rather low fluid intake which can help. Monitor changes done with IV Lasix. (10) Anemia of chronic disease Plan: Initiate workup. (11) Hyperkalemia Is this a current diagnosis for this admission?: Yes Plan: Improved on Veltassa. Monitor.
[2018-11-03] MEDS: AMLODIPINE BESYLATE 2.5 MG TABLET PO SCH (13:26)
[2018-11-03] MEDS: METOPROLOL SUCCINATE 25 MG TAB.SR.24H PO SCH (13:26)
[2018-11-03 17:25] LABS: ANION GAP 10 (5-19); BLOOD UREA NITROGEN 88 mg/dL (7-20); CALCIUM 10.9 mg/dL (8.4-10.2); CARBON DIOXIDE 23 mmol/L (22-30); CHLORIDE 94 mmol/L (98-107); SODIUM 126.9 mmol/L (137-145)
[2018-11-03 17:33] LABS: GLUCOSE 602 mg/dL (75-110)
[2018-11-03] MEDS ORDERED: INSULIN GLARGINE,HUM.REC.ANLOG 300 UNIT/3 ML INSULN.PEN SUBCUT ONE (18:00)
[2018-11-03] MEDS ORDERED: INSULIN GLARGINE,HUM.REC.ANLOG 1,000 UNIT/10 ML VIAL (PYX) SUBCUT ONE (18:30)
[2018-11-03] MEDS ORDERED: CETIRIZINE 10 MG TABLET PO PRN (20:43)
--- NOTE | 2018-11-03 21:02 | PDOC PROGRESS REPORT ---
Subjective Progress Note for:: 11/03/18 Subjective:: JOJO BACK is a 63 year old female patient who with multiple comorbidities including diastolic CHF, hypertension, lipidemia, COPD O2 dependent, stage IV CKD, history of colorectal cancer, morbid obesity and depression, brought by EMS with chief complaint of shortness of breath. The patient was seen this morning on rounds. She is resting comfortably in bed. She denies any respiratory complaints but states she 'needs silvadene' for a healing wound on her pannus. Nursing staff expressed concerns about poor glucose control - patient's blood glucose has been >500. Anion Gap remains closed. Patient is currently only on sliding scale insulin, reports she normally takes 36U Lantus daily. Plan to initiate 15U lantus now. Patient will remain on diabetic diet and SSI. Continue remaining treatment plan. Once blood glucose is under control, patient can be d/c'd home. Reason For Visit: ACUTE ON CHRONIC HYPOXEMIC RESPIRATORY FAILURE Physical Exam Vital Signs: Temp Pulse Resp BP Pulse Ox 98.0 F 92 16 184/58 H 92 11/03/18 11:22 11/03/18 15:52 11/03/18 15:52 11/03/18 11:22 11/03/18 15:52 Intake & Output 11/02/18 11/03/18 11/04/18 06:59 06:59 06:59 Intake Total 642 150 Output Total 1275 625 Balance -633 -475 Weight 136.4 kg 288.3 kg General appearance: PRESENT: morbidly obese Eye exam: PRESENT: conjunctiva pink, PERRLA Mouth exam: PRESENT: moist, tongue midline Teeth exam: PRESENT: poor dentation Neck exam: PRESENT: full ROM Respiratory exam: PRESENT: clear to auscultation jerome, symmetrical, unlabored Cardiovascular exam: PRESENT: irregular rhythm Pulses: PRESENT: normal radial pulses, +1 pedal pulses bilateral Vascular exam: PRESENT: pallor GI/Abdominal exam: PRESENT: soft. ABSENT: distended, tenderness Rectal exam: PRESENT: deferred Extremities exam: PRESENT: pedal edema. ABSENT: full ROM Musculoskeletal exam: ABSENT: ambulatory - PATIENT IS NORMALLY NON-AMBULATORY, full ROM, normal inspection Neurological exam: PRESENT: alert, awake, oriented to person, oriented to place, oriented to time, oriented to situation Psychiatric exam: PRESENT: appropriate affect Skin exam: PRESENT: dry, intact, other - LARGE PANNUS, EXCORIATION AND SKIN BREAKDOWN TO PANNUS Results Laboratory Results: 11/03/18 04:36 11/03/18 04:36 11/03/18 11/03/18 11/03/18 04:36 04:36 04:36 WBC 6.0 RBC 3.38 L Hgb 9.3 L Hct 27.7 L MCV 82 MCH 27.6 MCHC 33.7 RDW 15.0 H Plt Count 143 L Seg Neutrophils % Not Reportable Lymphocytes % Not Reportable Monocytes % Not Reportable Eosinophils % Not Reportable Basophils % Not Reportable Absolute Neutrophils Not Reportable Absolute Lymphocytes Not Reportable Absolute Monocytes Not Reportable Absolute Eosinophils Not Reportable Absolute Basophils Not Reportable Sodium 130.8 L Potassium 4.8 Chloride 95 L Carbon Dioxide 24 Anion Gap 12 BUN 94 H Creatinine 2.35 H Est GFR ( Amer) 25 L Est GFR (Non-Af Amer) 21 L Glucose 500 H* Calcium 10.5 H TSH 0.99 11/02/18 11/03/18 05:34 04:36 Troponin I 0.026 NT-Pro-B Natriuret Pep 7460 H 15534 H Impressions: Chest X-Ray 11/02/18 05:35 IMPRESSION: No significant change. Status: Imported from PACS Assessment and Plan - Diagnosis (1) Acute on chronic respiratory failure with hypoxemia Is this a current diagnosis for this admission?: Yes Plan: Resolved Secondary to COPD exacerbation CXR negative for cardiopulmonary pathology Supplemental O2 via nasal cannula Nebulizer treatments, steroids, empiric antibiotic coverage (2) COPD (chronic obstructive pulmonary disease) Qualifiers: COPD type: unspecified COPD Qualified Code(s): J44.9 - Chronic obstructive pulmonary disease, unspecified Is this a current diagnosis for this admission?: Yes Plan: Currently without exacerbation, lungs clear to auscultation On home O2 dose of 2L NC Continue steroids, nebulizer treatments and empiric antibiotics (3) CHF (congestive heart failure) Qualifiers: Heart failure type: unspecified Heart failure chronicity: acute on chronic Qualified Code(s): I50.9 - Heart failure, unspecified Is this a current diagnosis for this admission?: Yes Plan: Without exacerbation BNP upon admission 7250, today 56961+ [place] [address] Continue PO lasix and metoprolol (4) Chronic kidney disease, stage IV (severe) Is this a current diagnosis for this admission?: Yes Plan: Creatinine 2.2 today. Baseline 1.8 Avoid Nephrotoxic medications Nephrology consulted, appreciate recommendations (5) History of diastolic CHF Is this a current diagnosis for this admission?: Yes Plan: CHF without exacerbation Resume home dose metoprolol Lasix PO daily in place of home dose bumex (6) Hyperkalemia Is this a current diagnosis for this admission?: Yes Plan: resolved Continue veltassa (7) Hypothyroidism Qualifiers: Hypothyroidism type: unspecified Qualified Code(s): E03.9 - Hypothyroidism, unspecified Is this a current diagnosis for this admission?: Yes Plan: TSH 0.99 within normal range resume home dose synthroid (8) Leukocytosis Is this a current diagnosis for this admission?: Yes Plan: Resolved (9) Type 2 diabetes mellitus Qualifiers: Diabetes mellitus shelter insulin use: without shelter use Diabetes mellitus complication status: with circulatory complication Is this a current diagnosis for this admission?: Yes Plan: Accucheks ACHS Humalog SSI Initiate Daily lantus 15U Diabetic diet (10) Morbid obesity Is this a current diagnosis for this admission?: Yes Plan: weight management with diet control - Time Time Spent with patient: 15-24 minutes Medications reviewed and adjusted accordingly: Yes Anticipated discharge: Home Within: within 48 hours - Inpatient Certification Based on my medical assessment, after consideration of the patient's comorbidities, presenting symptoms, or acuity I expect that the services needed warrant INPATIENT care.: Yes I certify that my determination is in accordance with my understanding of Medicare's requirements for reasonable and necessary INPATIENT services [42 CFR 412.3e].: Yes Medical Necessity: Risk of Complication if Not Cared For in Hospital
[2018-11-03] MEDS ORDERED: DOCUSATE SODIUM 100 MG CAPSULE PO SCH (22:00)
[2018-11-03] MEDS: SIMVASTATIN 10 MG TABLET PO SCH (22:17)
[2018-11-04] MEDS: IPRATROPIUM/ALBUTEROL 0.5-2.5 MG/3 ML AMPUL NEB SCH ×7 (00:09→23:39)
[2018-11-04] MEDS: DIPHENHYDRAMINE HCL 50 MG/ML VIAL IV PRN ×2 (00:37→16:05)
[2018-11-04] MEDS ORDERED: PATIROMER 8.4 GM SUSP PACKET ONE (02:12)
[2018-11-04] MEDS: PATIROMER 8.4 GM SUSP PACKET PO SCH ×2 (02:16→16:56)
[2018-11-04 05:16] LABS: ABSOLUTE RETICS # 0.061 10^6/uL (0.028-0.122); HEMATOCRIT 27.2 % (36.0-47.0); HEMOGLOBIN 9.1 g/dL (12.0-15.5); MEAN CORPUSCULAR HEMOGLOBIN 27.3 pg (27.0-33.4); MEAN CORPUSCULAR HGB CONC 33.4 g/dL (32.0-36.0); MEAN CORPUSCULAR VOLUME 82 fl (80-97); PLATELET COUNT 140 10^3/uL (150-450); RED BLOOD COUNT 3.33 10^6/uL (3.72-5.28); RED CELL DISTRIBUTION WIDTH 15.5 % (11.5-14.0); RETICULOCYTE COUNT (AUTO) 1.83 % (0.66-2.85); WHITE BLOOD COUNT 6.1 10^3/uL (4.0-10.5)
[2018-11-04] MEDS: LEVOTHYROXINE SODIUM 0.1 MG TABLET PO SCH (05:17)
[2018-11-04 05:35] LABS: ALANINE AMINOTRANSFERASE 21 U/L (9-52); ALBUMIN 2.9 g/dL (3.5-5.0); ALKALINE PHOSPHATASE 75 U/L (38-126); ANION GAP 8 (5-19); ASPARTATE AMINO TRANSFERASE 11 U/L (14-36); BILIRUBIN,DIRECT 0.2 mg/dL (0.0-0.4); BILIRUBIN,TOTAL 0.3 mg/dL (0.2-1.3); BLOOD UREA NITROGEN 82 mg/dL (7-20); CARBON DIOXIDE 28 mmol/L (22-30); CHLORIDE 95 mmol/L (98-107); IRON(TIBC) 31.4 ug/dL (37-170); POTASSIUM 4.8 mmol/L (3.6-5.0); TOTAL PROTEIN 6.2 g/dL (6.3-8.2)
[2018-11-04 05:52] LABS: APPEARANCE,URINE TURBID; BILIRUBIN,URINE NEGATIVE (NEGATIVE); COLOR,URINE YELLOW; GLUCOSE, URINE >=500 mg/dL (NEGATIVE); KETONES,URINE NEGATIVE (NEGATIVE); LEUKOCYTE ESTERASE,URINE LARGE (NEGATIVE); NITRITE,URINE NEGATIVE (NEGATIVE); PROTEIN,URINE 30 mg/dL (NEGATIVE); URINE SPECIFIC GRAVITY 1.011; UROBILINOGEN,URINE NEGATIVE mg/dL (<2.0)
[2018-11-04 06:41] LABS: FOLATE 8.69 ng/mL (>2.76)
[2018-11-04 06:47] LABS: GLUCOSE 442 mg/dL (75-110)
[2018-11-04] MEDS: INSULIN LISPRO 100 UNIT/ML 3 ML VIAL SUBCUT SCH ×4 (08:00→22:09)
[2018-11-04] MEDS: FUROSEMIDE 20 MG TABLET PO SCH (09:27)
[2018-11-04] MEDS: FAMOTIDINE 20 MG TABLET PO SCH ×2 (09:27→22:10)
[2018-11-04] MEDS: CHOLECALCIFEROL (D3) 1,000 UNIT TABLET PO SCH (09:28)
[2018-11-04] MEDS: METOPROLOL SUCCINATE 25 MG TAB.SR.24H PO SCH (09:29)
[2018-11-04] MEDS: ASPIRIN 325 MG TABLET PO SCH (09:29)
[2018-11-04] MEDS: CITALOPRAM HYDROBROMIDE 20 MG TABLET PO SCH (09:30)
[2018-11-04] MEDS: FERROUS SULFATE 325 MG TABLET PO SCH ×2 (09:31→16:59)
[2018-11-04] MEDS: METHYLPREDNISOLONE INJ 40 MG/1 ML SDV IV SCH ×2 (09:32→22:11)
[2018-11-04] MEDS: ENOXAPARIN SODIUM INJ 40 MG/0.4 ML DISP.SYRIN SUBCUT SCH (09:32)
[2018-11-04] MEDS: DOCUSATE SODIUM 100 MG/10 ML UDC PO SCH (09:33)
[2018-11-04] MEDS: NYSTATIN TOPICAL POWDER 15 GM TOP SCH ×3 (09:33→17:00)
[2018-11-04] MEDS: LEVOFLOXACIN 750 MG/D5W RTU 750 MG/150 ML RTUPB IV SCH (09:33)
[2018-11-04] MEDS: AMLODIPINE BESYLATE 2.5 MG TABLET PO SCH (09:33)
[2018-11-04] MEDS ORDERED: (PENDING PHARMACY ID) (Cholecalciferol (Vitamin D3) [Vitamin D3] 5,000 UNIT) PO SCH (10:00)
[2018-11-04] MEDS ORDERED: INSULIN GLARGINE,HUM.REC.ANLOG 300 UNIT/3 ML INSULN.PEN SUBCUT SCH ×2 (10:00)
[2018-11-04] MEDS ORDERED: (PENDING PHARMACY ID) (Citalopram Hydrobromide [Celexa 40 Mg Tablet] 40 MG) PO SCH (10:00)
[2018-11-04] MEDS ORDERED: METOPROLOL SUCCINATE 25 MG TAB.SR.24H PO SCH (10:00)
--- NOTE | 2018-11-04 11:38 | PDOC PROGRESS REPORT ---
Subjective Progress Note for:: 11/04/18 Reason For Visit: Patient seen today in the hospital. She generally feels better. She denies any chest pains, fever or chills. Shortness of breath is stable. Labs and medications reviewed with her show stable renal functions. Physical Exam Vital Signs: Temp Pulse Resp BP Pulse Ox 97.8 F 90 12 176/81 H 99 11/04/18 07:36 11/04/18 07:44 11/04/18 07:44 11/04/18 07:36 11/04/18 07:44 Intake & Output 11/03/18 11/04/18 11/05/18 06:59 06:59 06:59 Intake Total 642 390 Output Total 1275 2700 Balance -633 -2310 Weight 288.3 kg 288.3 kg General appearance: PRESENT: no acute distress Respiratory exam: PRESENT: clear to auscultation jerome, decreased breath sounds. ABSENT: crackles Cardiovascular exam: PRESENT: +S1, +S2, systolic murmur GI/Abdominal exam: PRESENT: normal bowel sounds, soft. ABSENT: organomegaly, tenderness Extremities exam: PRESENT: pedal edema Neurological exam: PRESENT: alert, awake, oriented to person, oriented to place Psychiatric exam: PRESENT: appropriate affect. ABSENT: anxious, depressed Results Laboratory Results: 11/04/18 04:11 11/04/18 04:11 11/03/18 11/04/18 11/04/18 17:00 04:11 04:11 WBC 6.1 RBC 3.33 L Hgb 9.1 L Hct 27.2 L MCV 82 MCH 27.3 MCHC 33.4 RDW 15.5 H Plt Count 140 L Retic Count (auto) 1.83 Absolute Retic 0.061 Sodium 126.9 L 131.0 L Potassium 5.0 4.8 Chloride 94 L 95 L Carbon Dioxide 23 28 Anion Gap 10 8 BUN 88 H 82 H Creatinine 2.25 H 2.16 H Est GFR ( Amer) 27 L 28 L Est GFR (Non-Af Amer) 22 L 23 L Glucose 602 H* 442 H* Calcium 10.9 H 11.0 H Magnesium 2.2 Iron 31.4 L TIBC 279 % Saturation 11 Ferritin 73.50 Total Bilirubin 0.3 AST 11 L ALT 21 Alkaline Phosphatase 75 Total Protein 6.2 L Albumin 2.9 L Vitamin B12 847.0 Folate 8.69 Urine Color Urine Appearance Urine pH Ur Specific [place] Urine Protein Urine Glucose (UA) Urine Ketones Urine Blood Urine Nitrite Ur Leukocyte Esterase Urine WBC (Auto) Urine RBC (Auto) 11/04/18 05:15 WBC RBC Hgb Hct MCV MCH MCHC RDW Plt Count Retic Count (auto) Absolute Retic Sodium Potassium Chloride Carbon Dioxide Anion Gap BUN Creatinine Est GFR ( Amer) Est GFR (Non-Af Amer) Glucose Calcium Magnesium Iron TIBC % Saturation Ferritin Total Bilirubin AST ALT Alkaline Phosphatase Total Protein Albumin Vitamin B12 Folate Urine Color YELLOW Urine Appearance TURBID Urine pH 6.0 Ur Specific [place] 1.011 Urine Protein 30 H Urine Glucose (UA) >=500 H Urine Ketones NEGATIVE Urine Blood MODERATE H Urine Nitrite NEGATIVE Ur Leukocyte Esterase LARGE H Urine WBC (Auto) 76 Urine RBC (Auto) 144 11/02/18 11/03/18 05:34 04:36 Troponin I 0.026 NT-Pro-B Natriuret Pep 7460 H 62546 H Impressions: Chest X-Ray 11/02/18 05:35 IMPRESSION: No significant change. Assessment & Plan - Diagnosis (1) [id number] kidney injury Plan: Stable. Nonoliguric. Continue present treatments. (2) CKD (chronic kidney disease) stage 3, GFR 30-59 ml/min Plan: Stable. No further recommendations at the moment. (3) COPD (chronic obstructive pulmonary disease) Qualifiers: COPD type: unspecified COPD Qualified Code(s): J44.9 - Chronic obstructive pulmonary disease, unspecified Is this a current diagnosis for this admission?: Yes Plan: Looks like she has stabilized from a decompensation from earlier. (4) Type 2 diabetes mellitus Qualifiers: Diabetes mellitus ad terminal makeup operator insulin use: without ad terminal makeup operator use Diabetes mellitus complication status: with circulatory complication Is this a current diagnosis for this admission?: Yes Plan: Still not controlled. Advised tight blood sugar control for obvious reasons. (5) Charcot's joint arthropathy in type 2 diabetes mellitus Plan: Status quo. (6) Hypertension Plan: Uncontrolled. Will titrate upwards on amlodipine. (7) Morbid obesity Is this a current diagnosis for this admission?: Yes Plan: Advised on lifestyle modifications with respect to hypoglycemia. (8) Pneumonia Qualifiers: Pneumonia type: due to unspecified organism Laterality: unspecified laterality Lung location: unspecified part of lung Qualified Code(s): J18.9 - Pneumonia, unspecified organism Plan: On antibiotics. Clinically improving. (9) Hyponatremia Plan: Current sodium is 131. Monitor. Advised on fluid restrictions. Advised need to get blood sugar under better control. (10) Anemia of chronic disease Plan: Iron indicis adequate. Monitor. (11) Hyperkalemia Is this a current diagnosis for this admission?: Yes Plan: Stable on Veltassa. We will continue to monitor.
[2018-11-04] MEDS: SILVER SULFADIAZINE 1% CREAM 50 GM TP SCH (12:25)
[2018-11-04] MEDS ORDERED: INSULIN LISPRO 100 UNIT/ML 3 ML VIAL SUBCUT ONE (12:30)
[2018-11-04] MEDS: ACETAMINOPHEN 325 MG TABLET PO PRN (16:04)
[2018-11-04] MEDS ORDERED: INSULIN GLARGINE,HUM.REC.ANLOG 1,000 UNIT/10 ML VIAL (PYX) SUBCUT ONE (22:08)
[2018-11-04] MEDS: SIMVASTATIN 10 MG TABLET PO SCH (22:10)
[2018-11-04] MEDS: OXYCODONE-ACETAMINOPHEN 5-325 MG TABLET PO PRN (22:10)
[2018-11-04] MEDS: INSULIN GLARGINE,HUM.REC.ANLOG 300 UNIT/3 ML INSULN.PEN SUBCUT SCH (22:11)
[2018-11-05] MEDS: IPRATROPIUM/ALBUTEROL 0.5-2.5 MG/3 ML AMPUL NEB SCH ×5 (05:14→20:40)
[2018-11-05] MEDS: OXYCODONE-ACETAMINOPHEN 5-325 MG TABLET PO PRN ×3 (05:53→23:25)
[2018-11-05] MEDS: LEVOTHYROXINE SODIUM 0.1 MG TABLET PO SCH (05:54)
--- NOTE | 2018-11-05 08:26 | PDOC PROGRESS REPORT ---
Subjective Progress Note for:: 11/05/18 Subjective:: JOJO BACK is a 63 year old female patient who with multiple comorbidities including diastolic CHF, hypertension, lipidemia, COPD O2 dependent, stage IV CKD, history of colorectal cancer, morbid obesity and depression, brought by EMS with chief complaint of shortness of breath. The patient was seen this morning on rounds. She is resting comfortably in bed. She denies any respiratory complaints. Blood glucose remains significantly elevated > 400 today. Plan to initiate increase lantus to 38UBID. Patient will remain on diabetic diet. Increased SSI dosages. Anion Gap remains closed, no need for insulin gtt. Continue remaining treatment plan. Once blood glucose is under control, patient can be d/c'd home. Reason For Visit: ACUTE ON CHRONIC HYPOXEMIC RESPIRATORY FAILURE Physical Exam Vital Signs: Temp Pulse Resp BP Pulse Ox 97.6 F 79 18 168/79 H 97 11/05/18 00:06 11/05/18 05:19 11/05/18 05:19 11/05/18 00:06 11/05/18 05:19 Intake & Output 11/04/18 11/05/18 11/06/18 06:59 06:59 06:59 Intake Total 390 552 Output Total 2700 8980 Balance -2309 -8 Weight 288.3 kg 288.3 kg General appearance: PRESENT: morbidly obese Eye exam: PRESENT: conjunctiva pink Mouth exam: PRESENT: moist, tongue midline Teeth exam: PRESENT: poor dentation Neck exam: PRESENT: full ROM Respiratory exam: PRESENT: clear to auscultation jerome, symmetrical, unlabored Cardiovascular exam: PRESENT: +S1, +S2 Pulses: PRESENT: normal radial pulses, +1 pedal pulses bilateral Vascular exam: PRESENT: pallor GI/Abdominal exam: PRESENT: soft. ABSENT: tenderness Rectal exam: PRESENT: deferred Extremities exam: PRESENT: full ROM, pedal edema Musculoskeletal exam: PRESENT: full ROM. ABSENT: ambulatory Neurological exam: PRESENT: alert, awake, oriented to person, oriented to place, oriented to time, oriented to situation Psychiatric exam: PRESENT: appropriate affect Skin exam: PRESENT: other - CHRONIC WOUND TO PANNUS. FOLLOWED UP WITH WOUND CARE Results Laboratory Results: 11/04/18 04:11 11/04/18 04:11 11/02/18 11/03/18 05:34 04:36 Troponin I 0.026 NT-Pro-B Natriuret Pep 7460 H 04610 H Impressions: Chest X-Ray 11/02/18 05:35 IMPRESSION: No significant change. Status: Imported from PACS Assessment and Plan - Diagnosis (1) Type 2 diabetes mellitus Qualifiers: Diabetes mellitus marine oil terminal superintendent insulin use: without marine oil terminal superintendent use Diabetes mellitus complication status: with circulatory complication Is this a current diagnosis for this admission?: Yes Plan: Poor blood glucose control HgbA1C 7.2% Accucheks ACHS Humalog SSI - increased dosing for better glucose control Increase lantus to 38U BID Diabetic diet Once blood glucose is under control patient can by d/c'd home (2) Acute on chronic respiratory failure with hypoxemia Is this a current diagnosis for this admission?: Yes Plan: Resolved Secondary to COPD exacerbation CXR negative for cardiopulmonary pathology Supplemental O2 via nasal cannula Nebulizer treatments, steroids, empiric antibiotic coverage (3) COPD (chronic obstructive pulmonary disease) Qualifiers: COPD type: unspecified COPD Qualified Code(s): J44.9 - Chronic obstructive pulmonary disease, unspecified Is this a current diagnosis for this admission?: Yes Plan: Currently without exacerbation, lungs clear to auscultation On home O2 dose of 2L NC Continue steroids, nebulizer treatments and empiric antibiotics (4) CHF (congestive heart failure) Qualifiers: Heart failure type: unspecified Heart failure chronicity: acute on chronic Qualified Code(s): I50.9 - Heart failure, unspecified Is this a current diagnosis for this admission?: Yes Plan: Without exacerbation BNP upon admission 7250, today 74196+ [place] [address] Continue PO lasix and metoprolol (5) Chronic kidney disease, stage IV (severe) Is this a current diagnosis for this admission?: Yes Plan: Creatinine 2.2 today. Baseline 1.8 Avoid Nephrotoxic medications Nephrology consulted, appreciate recommendations (6) History of diastolic CHF Is this a current diagnosis for this admission?: Yes Plan: CHF without exacerbation Resume home dose metoprolol Lasix PO daily in place of home dose bumex (7) Hyperkalemia Is this a current diagnosis for this admission?: Yes Plan: resolved Continue veltassa (8) Hypothyroidism Qualifiers: Hypothyroidism type: unspecified Qualified Code(s): E03.9 - Hypothyroidism, unspecified Is this a current diagnosis for this admission?: Yes Plan: TSH 0.99 within normal range resume home dose synthroid (9) Leukocytosis Is this a current diagnosis for this admission?: Yes Plan: Resolved (10) Morbid obesity Is this a current diagnosis for this admission?: Yes Plan: weight management with diet control - Time Time Spent with patient: 15-24 minutes Medications reviewed and adjusted accordingly: Yes Anticipated discharge: Home, Home with Homehealth - Inpatient Certification Based on my medical assessment, after consideration of the patient's comorbidities, presenting symptoms, or acuity I expect that the services needed warrant INPATIENT care.: Yes I certify that my determination is in accordance with my understanding of Medic are's requirements for reasonable and necessary INPATIENT services [42 CFR 412.3e].: Yes Medical Necessity: Risk of Complication if Not Cared For in Hospital, Other - poor blood glucose control
[2018-11-05] MEDS ORDERED: AMLODIPINE BESYLATE 2.5 MG TABLET PO SCH (10:00)
[2018-11-05] MEDS: FERROUS SULFATE 325 MG TABLET PO SCH ×2 (10:07→17:31)
[2018-11-05] MEDS: ASPIRIN 325 MG TABLET PO SCH (10:07)
[2018-11-05] MEDS: FAMOTIDINE 20 MG TABLET PO SCH ×2 (10:07→23:25)
[2018-11-05] MEDS: INSULIN LISPRO 100 UNIT/ML 3 ML VIAL SUBCUT SCH ×4 (10:07→23:23)
[2018-11-05] MEDS: AMLODIPINE BESYLATE 5 MG TABLET PO SCH (10:07)
[2018-11-05] MEDS: ENOXAPARIN SODIUM INJ 40 MG/0.4 ML DISP.SYRIN SUBCUT SCH (10:08)
[2018-11-05] MEDS: CITALOPRAM HYDROBROMIDE 20 MG TABLET PO SCH (10:08)
[2018-11-05] MEDS: LEVOFLOXACIN 750 MG TABLET PO SCH (10:08)
[2018-11-05] MEDS: FUROSEMIDE 20 MG TABLET PO SCH (10:08)
[2018-11-05] MEDS: METOPROLOL SUCCINATE 25 MG TAB.SR.24H PO SCH (10:08)
[2018-11-05] MEDS: NYSTATIN TOPICAL POWDER 15 GM TOP SCH ×3 (10:09→17:30)
[2018-11-05] MEDS: DOCUSATE SODIUM 100 MG/10 ML UDC PO SCH (10:09)
[2018-11-05] MEDS: INSULIN GLARGINE,HUM.REC.ANLOG 300 UNIT/3 ML INSULN.PEN SUBCUT SCH (10:09)
[2018-11-05] MEDS: SILVER SULFADIAZINE 1% CREAM 50 GM TP SCH (12:39)
[2018-11-05 15:38] LABS: A/G RATIO 0.8 (0.7-1.7); ALBUMIN 2 2.8 g/dL (2.9-4.4); ALPHA-2-GLOBULIN 2 0.8 g/dL (0.4-1.0); BETA GLOBULINS 0.9 g/dL (0.7-1.3); GAMMA GLOBULIN 1.3 g/dL (0.4-1.8); GLOBULIN TOTAL 3.3 g/dL (2.2-3.9); MONOCLONAL SPIKE Not Observed g/dL (Not Observ); PROTEIN TOTAL SERUM 6.1 g/dL (6.0-8.5)
[2018-11-05] MEDS: PATIROMER 8.4 GM SUSP PACKET PO SCH (17:27)
--- NOTE | 2018-11-05 17:36 | PDOC PROGRESS REPORT ---
Subjective Progress Note for:: 11/05/18 Subjective:: No adverse events overnight. No new complaints. Vital signs been stable. She says her breathing feels like is back to normal now. No cough or shortness of breath. No fevers. Reason For Visit: ACUTE ON CHRONIC HYPOXEMIC RESPIRATORY FAILURE Physical Exam Vital Signs: Temp Pulse Resp BP Pulse Ox 97.6 F 80 14 168/79 H 98 11/05/18 00:06 11/05/18 14:00 11/05/18 13:21 11/05/18 00:06 11/05/18 13:21 Intake & Output 11/04/18 11/05/18 11/06/18 06:59 06:59 06:59 Intake Total 390 552 636 Output Total 2700 2650 500 Balance -2310 -2098 136 Weight 288.3 kg 288.3 kg General appearance: PRESENT: morbidly obese Respiratory exam: PRESENT: clear to auscultation jerome, symmetrical, unlabored Cardiovascular exam: PRESENT: +S1, +S2 Pulses: PRESENT: normal radial pulses, +1 pedal pulses bilateral Vascular exam: PRESENT: pallor GI/Abdominal exam: PRESENT: soft. ABSENT: tenderness Extremities exam: PRESENT: full ROM, pedal edema Musculoskeletal exam: PRESENT: full ROM. ABSENT: ambulatory Neurological exam: PRESENT: alert, awake, oriented to person, oriented to place, oriented to time, oriented to situation Results Laboratory Results: 11/04/18 04:11 11/04/18 04:11 11/02/18 11/03/18 05:34 04:36 Troponin I 0.026 NT-Pro-B Natriuret Pep 7460 H 82997 H Impressions: Chest X-Ray 11/02/18 05:35 IMPRESSION: No significant change. Assessment and Plan - Diagnosis (1) Acute on chronic respiratory failure with hypoxemia Is this a current diagnosis for this admission?: Yes Plan: Resolved. Breathing is back to baseline. (2) Morbid obesity with BMI of 40.0-44.9, adult Is this a current diagnosis for this admission?: Yes Plan: Encouraged lifestyle modification (3) Type 2 diabetes mellitus Qualifiers: Diabetes mellitus superintendent container terminal insulin use: without superintendent container terminal use Diabetes mellitus complication status: with circulatory complication Is this a current diagnosis for this admission?: Yes Plan: Her blood sugars have been really high, primarily because she is been on steroids. I did not think she needed the steroids anymore so I have stopped them and her blood sugars did better this afternoon. (4) Acute diastolic CHF (congestive heart failure) Is this a current diagnosis for this admission?: Yes Plan: She responded well to diuresis. Apparently she has had a lot of trouble recently with being consistent with her fluid intake. She says that she she has a home health care provider that will tell her to increase her fluid intake will cut back on her diuretic, and sometimes she will be told to take in less fluid and more diuretic, and she admits that because she is not always compliant with her treatment recommendations. Recommended that when she goes home that she should stay at around 1500 mL's per day and that when something needs to be ad justed she should probably adjust either her fluid intake for her diuretic, but possibly not both unless absolutely necessary. If her blood sugars are better controlled tomorrow we can probably send her home because her heart failure exacerbation has resolved. - Time Time Spent with patient: 25-34 minutes
[2018-11-05] MEDS: INSULIN GLARGINE,HUM.REC.ANLOG 1,000 UNIT/10 ML VIAL SUBCUT SCH (23:24)
[2018-11-05] MEDS: SIMVASTATIN 10 MG TABLET PO SCH (23:25)
[2018-11-06] MEDS: IPRATROPIUM/ALBUTEROL 0.5-2.5 MG/3 ML AMPUL NEB SCH ×6 (00:22→20:22)
[2018-11-06] MEDS: OXYCODONE-ACETAMINOPHEN 5-325 MG TABLET PO PRN (06:12)
[2018-11-06] MEDS: LEVOTHYROXINE SODIUM 0.1 MG TABLET PO SCH (06:13)
[2018-11-06] MEDS: INSULIN LISPRO 100 UNIT/ML 3 ML VIAL SUBCUT SCH ×3 (08:00→16:52)
[2018-11-06] MEDS: AMLODIPINE BESYLATE 5 MG TABLET PO SCH (09:58)
[2018-11-06] MEDS: CHOLECALCIFEROL (D3) 1,000 UNIT TABLET PO SCH (09:58)
[2018-11-06] MEDS: FUROSEMIDE 20 MG TABLET PO SCH (09:58)
[2018-11-06] MEDS: FAMOTIDINE 20 MG TABLET PO SCH (09:59)
[2018-11-06] MEDS: DOCUSATE SODIUM 100 MG/10 ML UDC PO SCH (09:59)
[2018-11-06] MEDS: METOPROLOL SUCCINATE 25 MG TAB.SR.24H PO SCH (09:59)
[2018-11-06] MEDS: ASPIRIN 325 MG TABLET PO SCH (09:59)
[2018-11-06] MEDS: LEVOFLOXACIN 750 MG TABLET PO SCH (09:59)
[2018-11-06] MEDS: CITALOPRAM HYDROBROMIDE 20 MG TABLET PO SCH (09:59)
[2018-11-06] MEDS: FERROUS SULFATE 325 MG TABLET PO SCH ×2 (10:00→17:01)
[2018-11-06] MEDS: NYSTATIN TOPICAL POWDER 15 GM TOP SCH ×3 (10:00→17:04)
[2018-11-06] MEDS: ENOXAPARIN SODIUM INJ 40 MG/0.4 ML DISP.SYRIN SUBCUT SCH (10:06)
[2018-11-06] MEDS: INSULIN GLARGINE,HUM.REC.ANLOG 1,000 UNIT/10 ML VIAL SUBCUT SCH ×2 (10:06→10:09)
[2018-11-06] MEDS: SILVER SULFADIAZINE 1% CREAM 50 GM TP SCH (10:21)
[2018-11-06 16:20] VITALS: BP 131/52
[2018-11-06] MEDS: PATIROMER 8.4 GM SUSP PACKET PO SCH (17:01)
--- NOTE | 2018-11-06 17:41 | PDOC DISCHARGE SUMMARY ---
General - Admit/Disc Date/PCP Admission Date/Primary Care Provider: 11/02/18 08:10 MARYAM JENSEN Discharge Date: 11/06/18 - Discharge Diagnosis (1) Acute on chronic respiratory failure with hypoxemia Is this a current diagnosis for this admission?: Yes Summary: Due to COPD exacerbation, now resolved (2) Morbid obesity with BMI of 40.0-44.9, adult Is this a current diagnosis for this admission?: Yes Summary: She is mostly bedbound, but we encouraged dietary modifications (3) Type 2 diabetes mellitus Is this a current diagnosis for this admission?: Yes Summary: We had to increase her insulin while she was on steroids, but when we took her off steroids her blood sugars corrected rather quickly so she will continue on her home diabetes regimen (4) COPD exacerbation Is this a current diagnosis for this admission?: Yes Summary: Resolved with steroids and antibiotics. She is going to finish 1 more day of Levaquin at home (5) History of diastolic CHF Is this a current diagnosis for this admission?: Yes Summary: This was not exacerbated during his hospitalization - Additional Information Resuscitation Status: Full Code Discharge Diet: Cardiac, Diabetic Discharge Activity: Supervised Activity Prescriptions: Amlodipine Besylate [Norvasc 5 mg Tablet] 5 mg PO DAILY #30 tablet Furosemide [Lasix 20 mg Tablet] 20 mg PO DAILY #30 tablet Levofloxacin [Levaquin 750 mg Tablet] 750 mg PO DAILY #1 tablet Home Medications: Aspirin [Aspirin 325 mg Tablet] 325 mg PO DAILY 11/02/18 Cetirizine HCl [Zyrtec 10 mg Tablet] 10 mg PO DAILYP PRN 11/02/18 Cholecalciferol (Vitamin D3) [Vitamin D3] 5,000 unit PO MOWEFR@1000 11/02/18 Citalopram Hydrobromide [Celexa 40 mg Tablet] 40 mg PO DAILY 11/02/18 Docusate Sodium [Colace 100 mg Capsule] 100 mg PO QHS 11/02/18 Ferrous Sulfate [Feosol 325 mg Tablet] 325 mg PO BID 11/02/18 Insulin Regular, Human [Novolin R (Reg) Insulin 100 unit/mL] 0 unit SQ .SLIDING SCALE 11/02/18 Insulin Regular, Human [Novolin R (Reg) Insulin 100 unit/mL] 5 unit SQ MEALS 11/02/18 Levothyroxine Sodium [Synthroid] 200 mcg PO Q6AM 11/02/18 Metoprolol Succinate [Toprol Xl 25 mg Tab.sr] 25 mg PO DAILY 11/02/18 NPH, Human Insulin Isophane [Humulin N (NPH) Insulin 100 unit/mL] 10 unit SQ BIDACBS 11/02/18 NPH, Human Insulin Isophane [Humulin N (NPH) Insulin 100 unit/mL] 36 unit SQ QHS 11/02/18 Nystatin [Mycostatin Topical Powder 15 gm] 1 applic TOP TID 11/02/18 Oxycodone HCl/Acetaminophen [Percocet 10-325 mg Tablet] 1 tab PO Q6HP PRN 11/02/18 Silver Sulfadiazine [Silvadene 1% Cream 400 gm] 1 applic TOP TID 11/02/18 Simvastatin [Zocor 10 mg Tablet] 10 mg PO QHS 11/02/18 Amlodipine Besylate [Norvasc 5 mg Tablet] 5 mg PO DAILY #30 tablet 11/06/18 Furosemide [Lasix 20 mg Tablet] 20 mg PO DAILY #30 tablet 11/06/18 Levofloxacin [Levaquin 750 mg Tablet] 750 mg PO DAILY #1 tablet 11/06/18 History of Present Illness History of Present Illness: JOJO BACK is a 63 year old female with multiple comorbidities including diastolic CHF, hypertension, lipidemia, COPD O2 dependent, stage IV CKD, history of colorectal cancer, morbid obesity and depression, brought by EMS with chief complaint of shortness of breath. When patient is found by EMS her O2 saturation was 79% while she is on 2 L of oxygen via nasal cannula. Patient reports this is a she has been at her usual baseline state of health up until yesterday night when she started to have progressively worsening shortness of breath. Patient used 2 L of oxygen 10/03. Patient denies any chills, fever, chest pain, cough, palpitation or diaphoresis. Her blood work shows leukocytosis with diabetes count of 14 and BNP of 7600. Chest x-ray reported unremarkable. Hospital Course Hospital Course: She was treated with steroids and antibiotics and bronchodilators. She responded fairly quickly to the steroids and because of the effect it was having on her blood sugars they were able to be stopped and she did not experience any rebound shortness of breath. We were able to return her back to her usual insulin regimen at discharge. She has a history of CHF and chronic kidney disease but these were not exacerbated during this hospitalization. It was recommended that she switch her Bumex to once a day Lasix at discharge. Her labs and examination were reassuring she was discharged in good condition. Physical Exam Vital Signs: Temp Pulse Resp BP Pulse Ox 97.5 F 68 18 139/50 H 99 11/06/18 11:08 11/06/18 15:46 11/06/18 15:46 11/06/18 11:08 11/06/18 15:46 Intake & Output 11/05/18 11/06/18 11/07/18 06:59 06:59 06:59 Intake Total 552 1276 Output Total 2650 1900 Balance -2097 Weight 288.3 kg 289.1 kg General appearance: PRESENT: morbidly obese Respiratory exam: PRESENT: clear to auscultation jerome, symmetrical, unlabored Cardiovascular exam: PRESENT: +S1, +S2 Pulses: PRESENT: normal radial pulses, +1 pedal pulses bilateral Vascular exam: PRESENT: pallor GI/Abdominal exam: PRESENT: soft. ABSENT: tenderness Extremities exam: PRESENT: full ROM, pedal edema Musculoskeletal exam: PRESENT: full ROM. ABSENT: ambulatory Neurological exam: PRESENT: alert, awake, oriented to person, oriented to place, oriented to time, oriented to situation Results Laboratory Results: 11/04/18 04:11 11/04/18 04:11 11/04/18 04:11 Total Protein 6.1 Albumin 2.8 L 11/02/18 11/03/18 05:34 04:36 Troponin I 0.026 NT-Pro-B Natriuret Pep 7460 H 54414 H Impressions: Chest X-Ray 11/02/18 05:35 IMPRESSION: No significant change. Qualifiers - * PATIENT BEING DISCHARGED WITH ANY OF THE FOLLOWING DIAGNOSIS: No
[2018-11-06] MEDS ORDERED: INSULIN GLARGINE,HUM.REC.ANLOG 1,000 UNIT/10 ML VIAL SUBCUT SCH (22:00)
== END 2018-11-06 20:50 | disposition home health service (06) | DRG 190 ==
LOC: ER 05:22 → EH 08:10 → 3N 15:58 → 4W 11-05 03:55
PROVIDERS: ADMIT Internal Medicine; ATTEND Internal Medicine
PROC: 5A09357 Assistance with Respiratory Ventilation, Less than 24 Consecutive Hours, Continuous Positive Airway Pressure (ICD-10-PCS; principal; 2018-11-02)
PROC: 3E0F73Z Introduction of Anti-inflammatory into Respiratory Tract, Via Natural or Artificial Opening (ICD-10-PCS; 2018-11-02)
DX: J44.1 Chronic obstructive pulmonary disease with (acute) exacerbation (principal); J96.21 Acute and chronic respiratory failure with hypoxia; Z68.41 Body mass index [BMI] 40.0-44.9, adult; I13.0 Hypertensive heart and chronic kidney disease with heart failure and stage 1 through stage 4 chronic kidney disease, or unspecified chronic kidney disease; N18.4 Chronic kidney disease, stage 4 (severe); E87.1 Hypo-osmolality and hyponatremia; I50.32 Chronic diastolic (congestive) heart failure; N18.3 Chronic kidney disease, stage 3 (moderate); E03.9 Hypothyroidism, unspecified; E11.22 Type 2 diabetes mellitus with diabetic chronic kidney disease; E66.01 Morbid (severe) obesity due to excess calories; F32.9 Major depressive disorder, single episode, unspecified; Z99.81 Dependence on supplemental oxygen; E11.40 Type 2 diabetes mellitus with diabetic neuropathy, unspecified; E78.5 Hyperlipidemia, unspecified; M10.9 Gout, unspecified; E11.610 Type 2 diabetes mellitus with diabetic neuropathic arthropathy; D63.1 Anemia in chronic kidney disease; E87.5 Hyperkalemia; I27.20 Pulmonary hypertension, unspecified; Z79.899 Other long term (current) drug therapy; Z79.4 Long term (current) use of insulin; Z79.890 Hormone replacement therapy; Z85.038 Personal history of other malignant neoplasm of large intestine; Z88.0 Allergy status to penicillin; Z88.8 Allergy status to other drugs, medicaments and biological substances; Z91.19 Patient's noncompliance with other medical treatment and regimen; Z79.82 Long term (current) use of aspirin; Z82.49 Family history of ischemic heart disease and other diseases of the circulatory system; Z82.3 Family history of stroke; Z83.3 Family history of diabetes mellitus
CPT/HCPCS: 36415; 71045; 80048; 80053; 81001; 82010; 82607; 82728; 82746; 82803; 82962; 83036; 83540; 83550; 83735; 83880; 84165; 84443; 84484; 85025; 85027; 85045; 87040; 93005; 93010; 94660; 96374; 99291; J0696; J1200; J1650; J1815; J1940; J1956; J2060; J2920; J3490; J7620

== ENCOUNTER 2018-11-30 14:31 | Emergency (ER) | payer MEDICARE ==
[2018-11-30] MEDS ORDERED: ONDANSETRON HCL INJ/PF 4 MG/2 ML SDV IV ONE (16:07)
[2018-11-30] MEDS ORDERED: MORPHINE SULFATE 10 MG/ML INJ IV ONE (16:07)
--- NOTE | 2018-11-30 16:54 | RADIOLOGY REPORT (SQ) ---
EXAM DESCRIPTION: CHEST SINGLE VIEW COMPLETED DATE/TIME: 11/30/2018 4:25 pm REASON FOR STUDY: shortness of breath COMPARISON: 11/02/2018 EXAM PARAMETERS: NUMBER OF VIEWS: One view. TECHNIQUE: Single frontal radiographic view of the chest acquired. RADIATION DOSE: NA LIMITATIONS: None. FINDINGS: LUNGS AND PLEURA: Persistent left retrocardiac opacity with obscuration of the left hemidi aphragm. Likely mild left pleural effusion. No pneumothorax. MEDIASTINUM AND HILAR STRUCTURES: No discrete mass. Central vascular congestion. HEART AND VASCULAR STRUCTURES: Enlarged heart with central vascular congestion. BONES: No acute findings. HARDWARE: None in the chest. OTHER: No other significant finding. IMPRESSION: Persistent left basilar airspace disease suspicious for pneumonia. Stable large cardiac silhouette and central vascular congestion. Small left effusion. TECHNICAL DOCUMENTATION: JOB ID: [id number] [employer]- All Rights Reserved Reading location - IP/workstation name: [email or web address]
[2018-11-30 18:00] LABS: ABSOLUTE EOSINOPHILS # (AUTO) 0.7 10^3/uL (0.0-0.6); ABSOLUTE LYMPHOCYTES (AUTO) 0.8 10^3/uL (0.5-4.7); ABSOLUTE MONOCYTES (AUTO) 0.8 10^3/uL (0.1-1.4); ABSOLUTE NEUT (AUTO) 5.4 10^3/uL (1.7-8.2); BASOPHILS % (AUTO) 0.4 % (0-2); EOSINOPHILS % (AUTO) 9.1 % (0-6); HEMATOCRIT 26.9 % (36.0-47.0); HEMOGLOBIN 8.9 g/dL (12.0-15.5); LYMPHOCYTES % (AUTO) 10.4 % (13-45); MEAN CORPUSCULAR HEMOGLOBIN 26.8 pg (27.0-33.4); MEAN CORPUSCULAR VOLUME 81 fl (80-97); MONOCYTES % (AUTO) 9.8 % (3-13); PLATELET COUNT 260 10^3/uL (150-450); RED CELL DISTRIBUTION WIDTH 16.3 % (11.5-14.0); SEGMENTED NEUTROPHILS % (AUTO) 70.3 % (42-78); TOTAL CELLS COUNTED % (AUTO) 100 %; WHITE BLOOD COUNT 7.7 10^3/uL (4.0-10.5)
[2018-11-30 18:37] LABS: ALANINE AMINOTRANSFERASE 12 U/L (9-52); ALBUMIN 2.8 g/dL (3.5-5.0); ALKALINE PHOSPHATASE 103 U/L (38-126); ASPARTATE AMINO TRANSFERASE 9 U/L (14-36); BILIRUBIN,DIRECT 0.3 mg/dL (0.0-0.4); BILIRUBIN,TOTAL 0.7 mg/dL (0.2-1.3); BLOOD UREA NITROGEN 74 mg/dL (7-20); CARBON DIOXIDE 26 mmol/L (22-30); CHLORIDE 106 mmol/L (98-107); GLUCOSE 182 mg/dL (75-110)
[2018-11-30 18:48] LABS: TROPONIN I 0.014 ng/mL
[2018-11-30 18:58] LABS: SODIUM 135.9 mmol/L (137-145)
[2018-11-30 18:59] LABS: ANION GAP 4 (5-19)
[2018-11-30] MEDS ORDERED: FUROSEMIDE INJ/PF 40 MG/4 ML SDV IV ONE (19:14)
[2018-11-30] MEDS ORDERED: LIDOCAINE 5% (700 MG) TRANSDERMAL ADH..PATCH TP ONE (19:23)
--- NOTE | 2018-11-30 19:32 | ER Document Report ---
ED General - General Chief Complaint: Anxiety Stated Complaint: RIB PAIN Time Seen by Provider: 11/30/18 15:54 Primary Care Provider: RADHA AGUIRRE MD [ACTIVE STAFF] - Follow up in 3-5 days (or your primary care. ) Notes: Patient is a 63-year-old female with multiple chronic medical conditions that presents to the emergency department for chief complaint of right upper back pain, and low oxygen reading at home. Patient states that she was recently in the hospital for pneumonia, and after leaving the hospital she is been having some upper back pain, and that hurts to roll on that side, she does have a chronic wound around this area, but it is not related to the wound she says. She also noticed that her oxygen level is reading low at home today and that triggered her to come to the emergency department. She states that she was treated for COPD exacerbation in addition to her pneumonia, and states that overall her breathing is at baseline, does not feel any more short of breath than usual. She denies having any anterior chest pain, nausea, vomiting, diarrhea or abdominal pain. Past Medical History: CHF, COPD, hypertension Past Surgical History: Denies recent surgeries Social History: Denies tobacco, alcohol or drug use. Family History: Reviewed and noncontributory for presenting illness Allergies: Reviewed, see documented allergy list. REVIEW OF SYSTEMS: Other than noted above, the 12 point review of systems was reviewed with the patient and were negative, all pertinent findings are included in the HPI. PHYSICAL EXAMINATION: Vital signs reviewed, nursing noted reviewed. GENERAL: Chronically ill-appearing female, but in no acute distress HEAD: Atraumatic, normocephalic. EYES: Eyes appear normal, extraocular movements intact, sclera anicteric, conjunctiva are normal. ENT: nares patent, oropharynx clear without exudates. Moist mucous membranes. NECK: Normal range of motion, supple without lymphadenopathy LUNGS: Lung sounds somewhat diminished at the bases, but no respiratory distress. HEART: Regular rate and rhythm without murmurs ABDOMEN: Soft, nontender, normoactive bowel sounds. No rebound, guarding, or rigidity. No masses appreciated. EXTREMITIES: 1+ pitting edema to the mid tibias bilaterally, chronic limb deformities, from prior injury. Back: Tenderness to palpation to the upper thoracic back, reproducible pain. No midline tenderness. NEUROLOGICAL: No focal neurological deficits. Moves all extremities spontaneously Motor and sensory grossly intact on exam. PSYCH: Normal mood, normal affect. SKIN: Warm, Dry, normal turgor, right posterior lateral chest chronic wound, does not appear to be acutely infected. TRAVEL OUTSIDE OF THE [place] IN LAST 30 DAYS: No - Related Data Allergies/Adverse Reactions: heparin Allergy (Verified 11/02/18 08:40) RASH,ITCHING Penicillins Allergy (Verified 11/02/18 08:39) RASH spironolactone Adverse Reaction (Verified 11/02/18 06:55) Past Medical History - Social History Smoking Status: Never Smoker Family History: CAD, CVA, DM, Hypertension - Past Medical History Cardiac Medical History: Reports: Hx Congestive Heart Failure - systolic, Hx Hypercholesterolemia, Hx Hypertension - pulmonary Pulmonary Medical History: Reports: Hx COPD Endocrine Medical History: Reports: Hx Diabetes Mellitus Type 2 - IDDM, Hx Hypothyroidism Renal/ Medical History: Reports: Hx End Stage Renal Disease. Denies: Hx Peritoneal Dialysis Malignancy Medical History: Reports: Hx Colorectal Cancer Musculoskeletal Medical History: Reports Hx Arthritis, Reports Hx Gout Psychiatric Medical History: Reports: Hx Depression Past Surgical History: Reports: Hx Bowel Surgery - resection secondary to colon cancer, colectomy, Hx Orthopedic Surgery - right ankle surgery secondary to trimalleolar fracture 09/2016, Other - Immunizations Hx Diphtheria, Pertussis, Tetanus Vaccination: Yes Hx Pneumococcal Vaccination: 08/18/12 Course - Re-evaluation Re-evalutation: Patient seen and examined vital signs reviewed. Laboratory data and/or imaging were ordered as appropriate for the patient's presenting symptoms and complaint, with consideration of any critical or life threatening conditions that may be associated with their obtained history and exam as noted above. Patient was treated with IV Lasix, Lidoderm patch. Results were reviewed when available and demonstrated chronic anemia and chronic kidney disease at baseline, chest x-ray seems stable from prior, CT of the chest without contrast was obtained as well, demonstrate bilateral small pleural effusions, without evidence of acute process. Low suspicion for pneumonia in this patient, as she is afebrile, not tachycardic, her pulse ox has been 91-92% on her usual home 2 L of nasal cannula oxygen. The patient was re-evaluated and was stable Evaluation was most consistent with mild CHF exacerbation, patient was given IV Lasix, recommended resuming her home regimen, and muscular skeletal back pain, patient was given a Lidoderm patch to help with this. Results were discussed with the patient at this point, after careful consideration I feel that that patient can be discharged from the emergency department, the patient was educated treatments and reasons to return to the emergency department based on their presumed diagnosis as noted above, they were advised to followup with a primary care physician in 2-3 days. Patient was agreeable to plan of care. *Note is created using voice recognition software and may contain spelling, syntax or grammatical errors. Laboratory 11/30/18 11/30/18 11/30/18 17:20 17:20 17:20 WBC 7.7 RBC 3.30 L Hgb 8.9 L Hct 26.9 L MCV 81 MCH 26.8 L MCHC 33.0 RDW 16.3 H Plt Count 260 Seg Neutrophils % 70.3 Lymphocytes % 10.4 L Monocytes % 9.8 Eosinophils % 9.1 H Basophils % 0.4 Absolute Neutrophils 5.4 Absolute Lymphocytes 0.8 Absolute Monocytes 0.8 Absolute Eosinophils 0.7 H Absolute Basophils 0.0 Sodium 135.9 L Potassium 5.0 Chloride 106 Carbon Dioxide 26 Anion Gap 4 L BUN 74 H Creatinine 1.97 H Est GFR ( Amer) 31 L Est GFR (Non-Af Amer) 26 L Glucose 182 H Lactic Acid 0.7 Calcium 10.0 Total Bilirubin 0.7 Direct Bilirubin 0.3 Neonat Total Bilirubin Not Reportable Neonat Direct Bilirubin Not Reportable Neonat Indirect Bili Not Reportable AST 9 L ALT 12 Alkaline Phosphatase 103 Troponin I NT-Pro-B Natriuret Pep Total Protein 6.0 L Albumin 2.8 L 11/30/18 17:20 WBC RBC Hgb Hct MCV MCH MCHC RDW Plt Count Seg Neutrophils % Lymphocytes % Monocytes % Eosinophils % Basophils % Absolute Neutrophils Absolute Lymphocytes Absolute Monocytes Absolute Eosinophils Absolute Basophils Sodium Potassium Chloride Carbon Dioxide Anion Gap BUN Creatinine Est GFR ( Amer) Est GFR (Non-Af Amer) Glucose Lactic Acid Calcium Total Bilirubin Direct Bilirubin Neonat Total Bilirubin Neonat Direct Bilirubin Neonat Indirect Bili AST ALT Alkaline Phosphatase Troponin I 0.014 NT-Pro-B Natriuret Pep 56676 H Total Protein Albumin Chest X-Ray 11/30/18 16:00 IMPRESSION: Persistent left basilar airspace disease suspicious for pneumonia. Stable large cardiac silhouette and central vascular congestion. Small left effusion. - Laboratory Result Diagrams: 11/30/18 17:20 11/30/18 17:20 Laboratory results interpreted by me: 11/30/18 11/30/18 11/30/18 17:20 17:20 17:20 RBC 3.30 L Hgb 8.9 L Hct 26.9 L MCH 26.8 L RDW 16.3 H Lymphocytes % 10.4 L Eosinophils % 9.1 H Absolute Eosinophils 0.7 H Sodium 135.9 L Anion Gap 4 L BUN 74 H Creatinine 1.97 H Est GFR ( Amer) 31 L Est GFR (Non-Af Amer) 26 L Glucose 182 H AST 9 L NT-Pro-B Natriuret Pep 50783 H Total Protein 6.0 L Albumin 2.8 L - EKG Interpretation by Me Additional EKG results interpreted by me: EKG demonstrates sinus rhythm with left bundle branch block, with a ventricular rate of 64 bpm, QTC slightly prolonged at 508 ms, left axis deviation, no ST elevation. This is compared to prior EKG from 11/02/2018, her left bundle branch block was present at that time. Discharge - Discharge Clinical Impression: Acute exacerbation of CHF (congestive heart failure) Qualifiers: Heart failure type: unspecified Qualified Code(s): I50.9 - Heart failure, unspecified Back pain Qualifiers: Back pain location: thoracic back pain Chronicity: chronic Back pain laterality: right Qualified Code(s): M54.6 - Pain in thoracic spine Chronic renal disease Qualifiers: Chronic kidney disease stage: unspecified stage Qualified Code(s): N18.9 - Chronic kidney disease, unspecified Condition: Stable Disposition: HOME, SELF-CARE Instructions: Congestive Heart Failure ([facility]) Additional Instructions: Please continue taking the medications previously prescribed, and follow-up with your primary care physician. Prescriptions: Lidocaine [Lidoderm 5% (700 mg) Transdermal Patch] 1 patch TP DAILY #10 adh..patch Referrals: RADHA AGUIRRE MD [ACTIVE STAFF] - Follow up in 3-5 days (or your primary care. )
--- NOTE | 2018-11-30 20:01 | EKG REPORT ---
SEVERITY:- ABNORMAL ECG - SINUS RHYTHM LEFT BUNDLE BRANCH BLOCK : Confirmed by: Veronica Aguilar MD 30-Nov-2018 20:00:59
--- NOTE | 2018-12-01 08:06 | RADIOLOGY REPORT (SQ) ---
EXAM DESCRIPTION: CT CHEST WITHOUT COMPLETED DATE/TIME: 11/30/2018 7:47 pm REASON FOR STUDY: COUGH, SOB COMPARISON: Chest radiograph, 11/30/2018 TECHNIQUE: CT scan performed of the chest without intravenous contrast. Images reviewed with lung, soft tissue and bone windows. Reconstructed coronal and sagittal MPR images reviewed. All images st ored on PACS. All CT scanners at this facility use dose modulation, iterative reconstruction, and/or weight based d osing when appropriate to reduce radiation dose to as low as reasonably achievable (ALARA). [facility]: Dose Right [facility]: CareDose [facility]: Dose Right [facility]: Teradose 4D [facility]: Smart [employer] RADIATION DOSE: 817 mGy cm LIMITATIONS: No technical limitations. FINDINGS: LUNGS AND PLEURA: There are small, right greater than left pleural effusions and associate d atelectasis or consolidation. HILAR AND MEDIASTINAL STRUCTURES: Prominent mediastinal lymph nodes. No mass. HEART AND VASCULAR STRUCTURES: Cardiomegaly and coronary artery calcifications. UPPER ABDOMEN: No significant findings. Limited exam. THYROID AND OTHER SOFT TISSUES: No masses. No adenopathy. BONES: No significant finding. HARDWARE: None in the chest. OTHER: No other significant findings. IMPRESSION: 1. Small, right greater than left pleural effusions and associated atelectasis or conso lidation. No other significant airspace disease. 2. Cardiomegaly and coronary artery disease. TECHNICAL DOCUMENTATION: JOB ID: [id number] Quality ID # [id number]: Final reports with documentation of one or more dose reduction techniques (e.g., Au tomated exposure control, adjustment of the mA and/or kV according to patient size, use of iterative reconstruction technique) 2010 [employer]- All Rights Reserved Reading location - IP/workstation name: [email or web address]
== END 2018-11-30 22:46 | disposition home or self-care (01) ==
LOC: ER 14:31
DX: M54.6 Pain in thoracic spine (principal); I13.2 Hypertensive heart and chronic kidney disease with heart failure and with stage 5 chronic kidney disease, or end stage renal disease; I50.9 Heart failure, unspecified; E11.22 Type 2 diabetes mellitus with diabetic chronic kidney disease; N18.6 End stage renal disease; R07.81 Pleurodynia; F41.9 Anxiety disorder, unspecified; J44.9 Chronic obstructive pulmonary disease, unspecified; Z79.4 Long term (current) use of insulin
CPT/HCPCS: 93005; 99285; 96374; 96375; 36415; 87040; 85025; 80053; 84484; 83605; 83880; 71045; 71250; 93010; J1940; J2270; J2405